=== PATIENT | female | born 1970 | race Two or more races ===

== ENCOUNTER 2020-07-02 11:02 | Emergency (ER) | payer OTHER, SELFPAY ==
[2020-07-02] VITALS (10 sets, daily range): BP systolic 122–160; BP diastolic 65–100; PULSE 67–88; RESP 15–20; TEMP 36.6–36.9; O2SAT 96–98; BMI 36.3
--- NOTE | 2020-07-02 11:35 | ED.EXTPRO ---
HPI - Extremity Problem General Chief complaint: Extremity Problem Stated complaint: UNABLE TO AMBULATE,NO INJURIES Time Seen by Provider: 07/02/20 11:30 Source: patient, EMS and tree feller Mode of arrival: EMS Limitations: no limitations History of Present Illness HPI Narrative: This is a 50-year-old female with history of bilateral femoral/tibial osteotomies, due to congental deformity of lower extermities the orthopedic surgical repair was done at [facility], reportedly by the patient will require another surgery for hip and knee replacement, patient was discharged postoperatively went to a rehab place where reportedly she did well I was able to walk patient was discharged home yesterday today as bur [facility] patient having difficulty to ambulate. Related Data Previous Rx's Medication Instructions Recorded nabumetone 750 mg tablet 750 mg PO BID PRN 90 Days #180 tab 02/06/20 Allergies Allergy/AdvReac Type Severity Reaction Status Date / Time No Known Allergies Allergy Verified 03/11/20 10:09 Review of Systems Review of Systems: All other systems are reviewed and are negative Constitutional: Reports as per HPI and Reports no additional constitutional complaints Eyes: Reports as per HPI and Reports no additional eye complaints Reports system reviewed and no additional complaints, except as documented Cardiovascular: Reports as per HPI and Reports no additional cardiovascular complaints Respiratory: Reports as per HPI and Reports no additional respiratory complaints Gastrointestinal: Reports as per HPI and Reports no additional gastrointestinal complaints Genitourinary: Reports no additional female genitourinary complaints Musculoskeletal: Reports no additional musculoskeletal complaints Skin/Breast: Reports system reviewed and no additional complaints, except as docu Psychiatric: Reports no additional psychiatric complaints Endocrine: Reports no additional endocrine complaints Hematologic/Lymphatic: Reports no additional hematologic/lymphatic complaints Allergic/Immunologic: Reports no additional allergic/immunologic complaints Reports system reviewed and no additional complaints, except as documented and Reports Abnormal speech present [facility] Past Medical History Surgical History History of orthopedic surgery History of tubal ligation Family History Family History Father Medical history unknown Mother CVD (cardiovascular disease) Maternal Aunt CVD (cardiovascular disease) Family/Other FH: mental illness Social History Social History Alcohol intake: never Smoking Status: Never smoker Use of substances other than those prescribed or required for medical reasons: No Advance Directives: No Advance Directives Information Provided: No Physical Exam Vital Signs: Vital Signs: Last Vital Signs Temp 98.5 F 07/02/20 14:08 Pulse 80 07/02/20 14:08 Resp 16 07/02/20 14:08 BP 140/83 H 07/02/20 14:08 Pulse Ox 97 07/02/20 14:08 Body Mass Index 36.3 Vital signs have been reviewed as appeared to be correct. Blood pressure in the high range. Heart rate normal. Respiration rate normal. Temperature normal. Oxygen saturation normal. Appearance: Alert. Oriented X3. No acute distress. Head: Normal external exam. Normocephalic. Atraumatic. No Buitrago signs noted. No raccoon eyes noted Eyes: PERRLA. EOMI. Conjunctiva and sclera normal. Eyelids normal. ENT: TM's Normal. Pharynx normal. Uvula midline. Moist mucous membranes. No trismus noted. No drooling noted. No muffled voice noted. Neck: Normal inspection. Neck supple. FROM. No adenopathy. Thyroid Normal. No meningeal signs. No neck mass noted. CVS: Normal heart rate and rhythm. Heart sound normal. No murmurs noted. Pulses normal throughout. Respiratory: No respiratory distress. Painless inspiration. Breath sounds normal. No wheezes/rales/rhonchi noted. Chest nontender. No accessory muscle usage noted or decreased air movement noted. Abdomen: Soft and nontender. Bowel sounds normal in all 4 quadrants. No distention noted. No organomegaly noted. No visible injury noted. Back: No CVA tenderness. Full range of motion noted. Skin: Skin warm and dry. Normal skin color. Normal skin turgor. No rashes/lesions/lacerations noted. Extremities: No lower extremity edema. Extremities exhibit normal range of motion. Extremities nontender. Surgical incision appear dry and clean and intact. Neuro: Oriented X 3. No motor deficit. No sensory deficit. Reflexes normal. Course Course Course Narrative: Physician observation started at 11 30 . Patient placed in physician observation because the patient needed more time to see PT/case management for evaluation and the need for placement patient's vital sign were stable, patient is alert and oriented , neuro exam unchanged, unremarkable rest of physical exam. MDM - Extremity (Nontraumatic) Lab Data Labs: Lab Results 07/02/20 Range/Units 11:45 COVID-19 (AMINTA) Negative (Negative) COVID-19 Clin Com See Note Discharge Plan Discharge Clinical Impression: Unable to ambulate, Status post osteotomy Prescriptions: No Action nabumetone 750 mg tablet 750 mg PO BID PRN (Reason: pain) 90 Days Qty: 180 RF: 3
[2020-07-02 12:08] LABS: COVID-19 Test Negative (Negative)
--- NOTE | 2020-07-02 14:15 | PC.NURSE ---
pt alert and oriented x3. lung sounds clear bilaterally, respiratory rate is even and effort is unlabored. heart sounds and rate normal. pt eye contact and verbal response appropriate for setting. pt speaks Occitan, able to speak in full sentences. PT at bedside to eval patient mobility. pt recently had corrective operation on both legs to fix deformities. pedal pulses present in feet bilaterally. no edema noted in legs or feet bilaterally. no skin breakdown, no discoloration, no deformities noted on legs or feet bilaterally. pt states she has 8/10 pain starting in both hips that radiates down to her feet. pt aware of plan of care for transfer to acute rehab facility. call garduno in reach
--- NOTE | 2020-07-02 14:17 | MHC.CM.ED ---
Received telephone call from Han[facility] of [facility] prior to patient arriving. Patient was discharged from [facility] on Monday. When [facility] arrived today, she was unable to get out of bed. She is not safe at home at this time. She was sent to the ER. Patient does not want to return to [facility]. Met with patient and principal solutions architect. Patient is requesting referral to [facility]. Referral made via allscripts. They are requesting an occupational therapy eval. OT eval ordered by Dr Jones. List of nursing home facilities contracted patient's insurance provided from [facility] in case [facility] is not able to offer a bed. Continue to monitor for d/c needs.
[2020-07-02] MEDS: oxyCODONE HCl Immed Release 5 MG TABLET PO (14:41)
--- NOTE | 2020-07-02 17:13 | PC.NURSE ---
xlg amount of absolutely liquid diarrhea noted, mlp frantz aware now new orders at this time. pt cleansed hob up.
[2020-07-03] MEDS: oxyCODONE HCl Immed Release 5 MG TABLET PO ×3 (00:10→13:30)
--- NOTE | 2020-07-03 00:36 | PC.NURSE ---
PT MEDICATED W/PRN FOR BILATERAL LEG PAIN. WAS TRANSFERRED TO A HOSPITAL BED FOR COMFORT D/T LACK OF MOBILITY. PLAN OF CARE FOR CM PLACEMENT IN THE MORNING. PT ARRIVED HERE FROM [facility], AND DOES NOT WANT TO R/T TO THAT FACILITY.
[2020-07-03 02:00] VITALS: BP 110/70; PULSE 81; RESP 20; TEMP 37.2; O2SAT 96
--- NOTE | 2020-07-03 07:09 | PC.NURSE ---
report taken from beka rn. pt resting in bed at this time. resp even and unlabored. pt repositioned to back. denied having any pain at this time. aware of plan of care.
--- NOTE | 2020-07-03 08:32 | PC.NURSE ---
doubled sheet removed from bed, pt repositioned. pt eating breakfast at this time.
[2020-07-03 13:33] VITALS: BP 133/78; PULSE 85; RESP 16; TEMP 36.4; O2SAT 95
[2020-07-03 14:32] VITALS: RESP 18
[2020-07-03 16:10] VITALS: BP 134/89; PULSE 90
[2020-07-03] MEDS: Metoprolol Succinate ER 50 MG TAB.ER.24H PO (16:10)
[2020-07-03] MEDS: Cholecalciferol (Vitamin D3) 25 MCG TABLET PO (16:10)
[2020-07-03] MEDS: Gabapentin 300 MG CAPSULE PO ×2 (16:11→21:04)
[2020-07-03] MEDS: Omeprazole 20 MG CAPSULE.DR PO (16:11)
[2020-07-03] MEDS: Rivaroxaban 10 MG TABLET PO (16:38)
--- NOTE | 2020-07-03 18:54 | MHC.CM.ED ---
CM received a call from [facility] at 1710 stating that they have not received authorization yet and were going home for the day. Will reassess in am for auth, Hopeful that pt. will be able go to [facility] tomorrow 07/04. CM to monitor for d/c needs.
--- NOTE | 2020-07-03 18:56 | MHC.CM.ED ---
CM received a call from Cindy at [facility] ([phone]) who tells CM that they have approved pt to go to [facility]. Cindy states she left a message with [employer]. CM reached out to [facility] via [employer] with no reponse at this time ([phone]). Expect pt will remain in the ED tonight and will go to [facility] via BLS tomorrow 07/04. CM to follow for d/c needs.
[2020-07-03] MEDS: Calcium + Vitamin D 250 MG TABLET PO (21:04)
[2020-07-03] MEDS: Sennosides 8.6 MG TABLET 17.2 MG PO (21:04)
[2020-07-03] MEDS: Docusate Sodium 100 MG CAPSULE PO (21:04)
[2020-07-03 22:00] VITALS: RESP 18
[2020-07-04] MEDS: oxyCODONE HCl Immed Release 5 MG TABLET PO (03:38)
[2020-07-04 06:00] VITALS: PULSE 70; RESP 18
[2020-07-04] MEDS: Omeprazole 20 MG CAPSULE.DR PO (06:37)
--- NOTE | 2020-07-04 06:55 | PC.NURSE ---
RECEIVED REPORT FROM ROSAMARIA HARTLEY PT IS CURRENTLY ASLEEP RESPIRATIONS EVEN AND UNLABORED. BREAKFAST JOSE CARLOS AT BEDSIDE
[2020-07-04] MEDS: Calcium + Vitamin D 250 MG TABLET PO (08:21)
[2020-07-04 08:22] VITALS: BP 106/61; PULSE 84
[2020-07-04] MEDS: Escitalopram Oxalate 10 MG TABLET PO (08:22)
[2020-07-04] MEDS: Docusate Sodium 100 MG CAPSULE PO (08:22)
[2020-07-04] MEDS: Cholecalciferol (Vitamin D3) 25 MCG TABLET PO (08:22)
[2020-07-04] MEDS: Sennosides 8.6 MG TABLET 17.2 MG PO (08:22)
[2020-07-04] MEDS: Rivaroxaban 10 MG TABLET PO (08:22)
[2020-07-04] MEDS: Gabapentin 300 MG CAPSULE PO (08:22)
[2020-07-04] MEDS: Metoprolol Succinate ER 50 MG TAB.ER.24H PO (08:22)
[2020-07-04] MEDS: polyethylene glycoL 3350 17 GM POWD.PACK PO (08:23)
[2020-07-04 08:26] VITALS: BP 106/61; PULSE 84; RESP 18; O2SAT 98
--- NOTE | 2020-07-04 08:58 | MHC.CM.ED ---
pt has been accepted at [facility]. she will [facility] at 11 am. . and rn are aware of dc plan. pt was told she would have to bring two of her home meds c her to [facility]: methocarbamol and sumatriptane, an cement side laster was used. cm to cont. to follow.
--- NOTE | 2020-07-04 10:13 | PC.NURSE ---
report given to bernarda silverman at [facility]
== END 2020-07-04 11:40 | disposition skilled nursing facility (03) ==
PROVIDERS: Emergency Provider Emergency Medicine; PCP Internal Medicine
DX: R26.2 Difficulty in walking, not elsewhere classified (principal); Q68.2 Congenital deformity of knee; Z98.890 Other specified postprocedural states; Z20.822 Contact with and (suspected) exposure to COVID-19
CPT/HCPCS: 36415; 87635; 97162; 97166; 99284; 99285

== ENCOUNTER 2022-01-18 12:05 | Outpatient (REF) | payer OTHER, SELFPAY ==
[2022-01-18 12:34] LABS: MANUAL DIFF FLAG NO
[2022-01-18 13:15] LABS: Basophils Percent Auto 0.4 % (0-2); Eosinophils Absolute Auto 0.1 X10*3/uL (0.0-0.4); Eosinophils Percent Auto 2.1 % (0-4); Hematocrit 45.2 % (37.0-47.0); Hemoglobin 14.2 g/dl (12.0-16.0); Imm Gran Abs Auto 0.01 X10*3/uL (0.00-0.03); Imm Gran Pct Auto 0.2 % (0.0-0.4); Lymphocytes Absolute Auto 2.1 X10*3/uL (1.2-4.9); Lymphocytes Percent Auto 44.4 % (20-40); Mean Corpuscular HGB Conc 31.4 g/dl (31.0-35.0); Mean Corpuscular Hemoglobin 26.1 pg (27.0-33.0); Mean Corpuscular Volume 82.9 fL (80.0-98.0); Mean Platelet Volume 11.8 fL (9.4-12.3); Monocytes Absolute Auto 0.3 X10*3/uL (0.1-1.2); Monocytes Percent Auto 6.1 % (2-11); Neutrophils Absolute Auto 2.2 x10*3/uL (2.0-8.3); Neutrophils Percent Auto 46.8 % (45-73); Platelet Count 268 X10*3/uL (160-400); Red Blood Count 5.45 X10*6/uL (4.20-5.50); Red Cell Distribution Width 15.9 % (11.0-16.0); White Blood Count 4.8 X10*3/uL (4.8-10.8)
[2022-01-18 13:53] LABS: Alanine Aminotransferase 21 U/L (0-31); Albumin Level 4.6 g/dL (3.5-5.0); Alkaline Phosphatase 179 U/L (39-117); Anion Gap 20 (12-20); Aspartate Amino Transferase 23 U/L (5-31); Bilirubin Total 0.2 mg/dL (0.0-1.0); Blood Urea Nitrogen 14 mg/dL (9-16); Calcium 9.7 mg/dL (8.4-10.2); Carbon Dioxide 19 mmol/L (22-29); Chloride 103 mmol/L (96-108); Cholesterol 236 mg/dL; Estimated Glomerular Filt Rate > 60; Glucose Fasting 80 mg/dL (60-99); HDL Cholesterol 37 mg/dL; LDL Cholesterol Calculated 154 mg/dl; Potassium 4.9 mmol/L (3.3-5.1); Sodium 137 mmol/L (135-145); Total Protein 8.2 g/dL (6.5-8.0); Triglycerides 225 mg/dL
[2022-01-18 14:09] LABS: Thyroid Stimulating Hormone 0.89 uIU/mL (0.32-4.0); Vitamin D 25-OH Total 39.8 ng/mL (>30)
[2022-01-24 09:34] LABS: Codeine, Ur NEGATIVE; Hydrocodone, Ur NEGATIVE; Hydromorphone, Ur NEGATIVE; Morphine, Ur NEGATIVE; Norhydrocodone, Ur NEGATIVE; Noroxycodone, Ur NEGATIVE; Oxycodone, Ur NEGATIVE; Oxymorphone, Ur NEGATIVE
== END 2022-01-18 12:06 | disposition home or self-care (01) ==
LOC: HO.LAB 12:05
PROVIDERS: PCP Internal Medicine; Visit Provider Internal Medicine
DX: E55.9 Vitamin D deficiency, unspecified (principal); K59.01 Slow transit constipation; M48.061 Spinal stenosis, lumbar region without neurogenic claudication; I10 Essential (primary) hypertension; Z51.81 Encounter for therapeutic drug level monitoring
CPT/HCPCS: 80053; 80061; 80364; 80365; 82306; 84443; 85025

== ENCOUNTER 2022-07-18 14:44 | Outpatient (REF) | payer OTHER, SELFPAY ==
--- NOTE | ~2022-07-18 | MM_ITS ---
EXAMINATION: MM SCREENING DIGITAL BREAST TOMOSYNTHESIS, BILATERAL CLINICAL INFORMATION: Screening. Asymptomatic. The lifetime risk of breast cancer based on the Tyrer-Cuzick Model is 6%. COMPARISON: Mammography: 12/21/2018 (2D), 12/19/2017, 12/02/2016 TECHNIQUE: Digital breast tomosynthesis is performed in both the craniocaudal and mediolateral oblique views along with computer-aided detection (CAD). Synthesized 2D images are generated from the tomosynthesis. The additional bilateral exaggerated CC views are provided. FINDINGS: The breasts are heterogeneously dense, which may obscure small masses (ACR BI-RADS breast composition Category c). Breast tissue composition borders on average fibroglandular. There are scattered punctate round calcifications in both breasts, more numerous on the right, similar to prior exams. No interval abnormal calcifications. The bilateral axilla and skin contours are unremarkable. Right breast has small stable nodule posterior upper breast likely intramammary node. There is no developing density or architectural abnormality. Left breast has bilobed versus 2 adjacent oval nodules central 6:00 position overall size 1 cm in greatest dimension not seen with certainty on prior tomography 2018. There is also an asymmetric density mid medial left breast on CC view 7.5 cm from nipple with incompletely defined margins measuring under 1 cm. No MLO correlate. Patient will be recalled for additional imaging. MM/MM tomosynthesis screening BI IMPRESSION: Left: -Bilobed nodule central 6:00, possibly cyst. -Asymmetric density mid medial breast on CC view with incompletely defined margins. Right: -No significant changes from prior exams. ASSESSMENT: BI-RADS 0: Incomplete - Need Additional Imaging Evaluation RECOMMENDATION: 1. Additional views left breast (spot CC - both areas; LM). 2. Targeted ultrasound left breast. 3. Radiology department staff will contact the patient for additional imaging. This patient's information was entered into a reminder system with a target due date for their next mammogram.
== END 2022-07-18 14:45 | disposition home or self-care (01) ==
LOC: HO.MAMMO 14:44
PROVIDERS: PCP Internal Medicine; Visit Provider Internal Medicine
DX: Z12.31 Encounter for screening mammogram for malignant neoplasm of breast (principal)
CPT/HCPCS: 77063; 77067

== ENCOUNTER 2022-08-10 12:56 | Outpatient (REF) | payer OTHER, SELFPAY ==
--- NOTE | ~2022-08-10 | MM_ITS ---
EXAMINATION: MM DIAGNOSTIC DIGITAL BREAST TOMOSYNTHESIS, LEFT CLINICAL INFORMATION: Recall from screening for question of nodularity central left breast and medial left breast. COMPARISON: Mammography: 07/18/2022, 12/21/2018, 12/19/2017 TECHNIQUE: Digital breast tomosynthesis is performed. 2D images are generated from the tomosynthesis. The following views are obtained: Spot left CC x2, standard left ML FINDINGS: The breasts are heterogeneously dense, which may obscure small masses (ACR BI-RADS breast composition Category c). The additional views show no persistent nodularity in the areas for recall. There is no significant change in the mammographic pattern from prior studies dating back to 2018. Results are discussed with the patient at time of visit, using an vice president of procurement. MM/MM tomosynthesis added views L IMPRESSION: -Additional views show no persistent nodular asymmetry. No significant changes from prior exams. ASSESSMENT: BI-RADS 2: Benign RECOMMENDATION: Routine annual mammography screening. This patient's information was entered into a reminder system with a target due date for their next mammogram.
== END 2022-08-10 12:57 | disposition home or self-care (01) ==
LOC: HO.MAMMO 12:56
PROVIDERS: PCP Internal Medicine; Visit Provider Internal Medicine
DX: N64.89 Other specified disorders of breast (principal)
CPT/HCPCS: 77061; 77065

== ENCOUNTER 2022-09-14 13:25 | Outpatient (REF) | payer OTHER, SELFPAY ==
[2022-09-15 03:30] LABS: CT PCR NOT DETECTED (Not Detect.); NG PCR NOT DETECTED (Not Detect.)
[2022-09-15 13:40] LABS: BV Int Neg Control Negative (Negative); BV Int Pos Control Positive (Positive)
[2022-09-20 09:44] LABS: HPV mRNA E6/E7 rflx Not Detected (Not Detected)
== END 2022-09-14 13:26 | disposition home or self-care (01) ==
LOC: HO.LNP 13:25
PROVIDERS: PCP Internal Medicine; Visit Provider Advanced Practice Midwife
DX: Z01.419 Encounter for gynecological examination (general) (routine) without abnormal findings (principal); Z11.51 Encounter for screening for human papillomavirus (HPV)
CPT/HCPCS: 0353U; 87480; 87510; 87624; 87660; 88142

== ENCOUNTER 2022-10-10 15:01 | Outpatient (REF) | payer OTHER, SELFPAY | END 2022-10-10 15:02 | disposition home or self-care (01) | LOC: HO.US 15:01 | PROVIDERS: PCP Internal Medicine; Visit Provider Advanced Practice Midwife | DX: N85.2 Hypertrophy of uterus (principal); N31.9 Neuromuscular dysfunction of bladder, unspecified; K59.01 Slow transit constipation; Z74.09 Other reduced mobility; Z99.3 Dependence on wheelchair; Z12.4 Encounter for screening for malignant neoplasm of cervix | CPT/HCPCS: 76856 ==

== ENCOUNTER 2022-10-31 10:34 | Outpatient (AMB) | payer OTHER, SELFPAY ==
--- NOTE | 2022-10-31 10:35 | A.OFFVIS_ITS ---
Intake Intake Visit Reasons: TV US follow up/30 min ok per [place] Dough Sheeter Required: Yes Dough Sheeter Language: Citizen [place] Allergies No Known Allergies Allergy (Verified 10/31/22 10:35) Medication List - Last Reconciled 10/31/22 by Zena Rose CNM acetaminophen 1,000 mg (2 x 500 mg) PO Q6H PRN 30 days [adult diapers brief As directed] amlodipine 2.5 mg PO DAILY 90 days bisacodyl (Dulcolax (bisacodyl)) 10 mg (2 x 5 mg) PO ONCE 1 day blood pressure monitor As directed calcium carbonate-vitamin D3 600 mg-5 mcg (200 unit) 1 tab PO BID cholecalciferol (vitamin D3) 25 mcg PO DAILY 90 days citalopram 20 mg PO DAILY 90 days [DME mattress As directed] docusate calcium (Stool Softener (docusate calcium)) 240 mg PO BEDTIME PRN 90 days gabapentin 300 mg PO TID 30 days lisinopril 40 mg PO DAILY 90 days metoprolol succinate ER 50 mg PO DAILY peg 3350-electrolytes [id number] -5.86 gram 240 mL PO Q10M psyllium husk (with sugar) 3.4 gram/12 gram (Metamucil (with sugar)) 1 tbsp PO DAILY tizanidine 4 mg PO Q8H PRN 30 days trazodone 100 mg PO BEDTIME PRN 90 days [wipes As directed] Is last menstrual period known: No Post menopausal: Yes HPI TV US follow up/30 min ok per [place] HPI Details Please see HPI comments for background on this visit and compilation of previous issues. Patient says she is doing a little bit better today she is still struggling with the constipation sometimes not going for 3 or 4 days and it is very difficult the medication I gave her the Metamucil even if she takes it once or twice a day is not helping her very much and also her primary doctor prescribed Dulcolax suppositories which can be helpful but she is hoping for some more relief so she it is not so difficult she says she is voiding more regularly. 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 She also feels like she would benefit from having an electric wheelchair but she has not been able to maneuver the healthcare system to acquire 1 yet. She does have a visiting nurse that come see her and helps with medications. She also has a colonoscopy scheduled for November 17 to see if there is any pathology. Note visit was conducted in [place] via video call. Patient was being visited by her daughter and grandchild of 18 months. Note she appeared much more alert today and we did discuss that she does note the difference of the effects of the medications that she takes sometimes for pain on her alertness. HPI Comments History of Present Illness Details This is a tele visit to follow-up on patient's ultrasound that was done because of the inability to palpate organs well and because her firm abdomen during the exam lead to some questions it was too whether not there was any pathology. Patient had extreme immobility secondary to multiple surgeries and scarring in atrophy and debilitation. In addition she had fairly severe constipation, as well as inability to void on a regular basis. See previous notes. Metamucil or MiraLax was offered at the last visit with me and her primary care provider has also prescribed Dulcolax for her much more recently.. [facility] Medical History Back pain Chronic GERD Constipation by delayed colonic transit Depression with anxiety Essential hypertension Hypovitaminosis D Insomnia Lumbar degenerative disc disease Mild recurrent major depression Surgical History History of back surgery History of orthopedic surgery History of surgery on lower extremity History of tubal ligation Family History Father Medical history unknown Mother CVD (cardiovascular disease) Maternal Aunt CVD (cardiovascular disease) Family/Other FH: mental illness Social History Housing: Apartment Alcohol intake: never Patient Tobacco Use Status: Never used Tobacco e-Cigarette/Vaping Use: Never Used Second Hand Smoke Exposure: No Advance Directives Date on File: 07/02/20 service: No Current occupational status: unemployed Cognitive needs: Yes Hearing needs: No Vision needs: No Results Reviewed Results Reviewed: [address] [address] Ultrasound Report Signed Patient: Jannet [place] MR#: [id number] : 1970 Acct:[id number] Age/Sex: 52 / F ADM Date: 10/10/22 Loc: HO.US Attending Dr: Zena Rose CNM Ordering Physician: Zena Rose CNM Date of Service: 10/10/22 Procedure(s): US pelvic complete Accession Number(s): [id number] cc: Zena Rose CNM~ EXAMINATION:? US PELVIS CLINICAL INFORMATION:? Hypertrophy of the uterus Postmenopausal COMPARISON: CT scan 12/21/2016 TECHNIQUE: Ultrasound of the pelvis is performed using transabdominal imaging. Transvaginal scanning was not performed, the patient was in a wheelchair. FINDINGS: Uterus: The uterus is anteverted and measures 7.4 x 3.2 x 3.9 cm.? The double wall endometrial thickness is 9 mm.? The uterus is smooth in contour and has normal myometrial echogenicity. ? No visible fibroid. Adnexa: Both ovaries are visualized. There is normal color flow to the adnexa. There is no ovarian torsion.? There is no pelvic ascites or fluid collection. Right ovary measures 1.9 x 1.5 x 1.9 cm. 2.9 Left ovary measures 2.4 x 1.4 x 1.6 cm. 2.8 US/US pelvic complete IMPRESSION: Normal pelvic ultrasound. Dictated By: Anne Marie Velez MD Signed By: <Electronically signed by Anne Marie Velez MD in OV> 10/17/22 1355 DD/ 1532 TD/TT:? Open Source Developer: ------ -- ___------- Name:?Jannet [place] Age/Sex: 52/F Attending: Zena Rose CNM : 1970 Submitted by: Zena Rose CNM Copies to: Bambi Langley MD MR #: [id number] ? Status: DEP REF Collected: 09/14/22 Location: [facility] Received: 09/15/22 Interpretation Satisfactory for evaluation. No endocervical cells seen. Negative for intraepithelial lesion or malignancy. HPV mRNA E6/E7:? NOT DETECTED This assay detects E6/E7 viral messenger RNA (mRNA) from 14 high-risk HPV types (16, 18, 31, 33, 35, 39, 45, 51, 52, 56, 58, 59, 66, 68) HPV testing performed by [employer] [facility], [place], [place].? See reference laboratory portion of the EMR for entire report. Clinical Information LMP: Postmenopausal Previous PAP test: 2014, Unknown findings Material Received ThinPrep-Cervical Copies To ?? [facility] ?? [address] ?? [place] [address] ?? [phone] ?? Bambi Langley MD ?? [address] ?? [place] ?? [phone] Electronically Signed By: Ondina Levi ? 09/30/22 1546 The Pap Test is a screening procedure with the inherent possibility of both false negative and false positive results.? Results should be interpreted in the context of historic and current clinical findings.? Reliability of the Pap Test is enhanced by performing the test on a regular repetitive basis. Assessment & Plan Assessment & Plan (1) Neurogenic bladder: Comment: Diagnosis was noted in the [facility] note of August 2022 Code(s): N31.9 - Neuromuscular dysfunction of bladder, unspecified (2) Limited mobility: Code(s): Z74.09 - Other reduced mobility (3) Wheelchair dependent: Code(s): Z99.3 - Dependence on wheelchair (4) Screening for cervical cancer: Comment: 09/14/2022 Pap is negative with negative HPV\. Code(s): Z12.4 - Encounter for screening for malignant neoplasm of cervix Plan I reviewed her very normal ultrasound and her very normal Pap. If it is possible to do a Pap she would be due for the next 1 in 5 years. Given that she has never had an abnormal 1 and if it is extremely challenging and she is completely immobile it may not be possible to repeat but at least she is very happy that this 1 was normal. I wished her well with and I supported her efforts to try and advocate for herself for what ever she may need to help her with her health needs and that if there is a better solution that can be found via the discussion and investigation of gastrointestinal function that would help her not suffer so much that would be beneficial she did assure me that she feels she is voiding regularly at this point she says she manages transferring herself from the chair to the toilet but it is very difficult. I was very glad to hear that she is going to physical therapy and encouraged her to advocate for herself but what she needs and what she thinks would be helpful for her with e very healthcare provider she encounters and hopefully that she will be getting what she needs to meet her healthcare needs. She was very happy to hear that she has a very normal ultrasound and there was absolutely no pathology found whatsoever. We spent a total of 15 minutes on the video visit, with additional time reviewing the chart and previous visits and previous healthcare encounters. Telehealth Telehealth Location of provider rendering services: practice address Location of patient: address on file Patient Identification confirmed using: Name, : Yes Telehealth method: voice only Patient verbally consented to treatment: Yes Patient verbally consented to billing insurance company: Yes Patient informed of any privacy concerns related to visit: Yes Coding Level of Care Code Tele Est Pt Level 3 (10586) Diagnoses Neurogenic bladder N31.9 Limited mobility Z74.09 Wheelchair dependent Z99.3 Screening for cervical cancer Z12.4 Time Spent (min) 30 Comment 6cr/15video visit/9 charting
== END 2022-10-31 12:52 | disposition home or self-care (01) ==
LOC: HO.HWS 10:34
PROVIDERS: PCP Internal Medicine; Visit Provider Advanced Practice Midwife
DX: N31.9 Neuromuscular dysfunction of bladder, unspecified (principal); Z74.09 Other reduced mobility; Z99.3 Dependence on wheelchair
CPT/HCPCS: 99213

== ENCOUNTER → 2022-10-31 10:34 | Outpatient (BNVA) | payer OTHER, SELFPAY | PROVIDERS: PCP Internal Medicine; Visit Provider Advanced Practice Midwife ==

== ENCOUNTER 2022-11-01 15:00 | Outpatient (RCR) | payer OTHER, SELFPAY ==
--- NOTE | 2022-10-12 13:57 | MHC.PT.EP ---
[facility] [place] Office [place] Office [place] Office [address] [phone] F: [phone] F: [phone] F: [phone] F: [phone] Physical Therapy Plan of Care Date of Evaluation: Date of Surgery: 1-3 years Diagnosis: Pain in right leg Pain in left leg Pain in right foot Bilateral leg and foot pain Assessment: Pt is a very pleasant 52yo F who presents to PT with B LE pain. Per chart, pt has history of bilateral femoral/tibial osteotomies ~3 years ago. Pt presents to PT with current impairments in pain, decreased LE ROM, generalized weakness of B LE's, decreased balance, and impaired transfers and gait. She is limited functionally by LE movement, transfers, gait, and mobility. She is a good candidate for skilled PT in order to address current impairments to maximize function and management of symptoms. She is recommended to be seen 2x/week for 4 weeks and will be reassessed at that time. Frequency and Duration: The patient will be seen 2x/week for 4 weeks Short Term Goals: Pt will be I with HEP to promote self management of symptoms Pt will improve B quad strength by 1/2 grade Detention Goals: Pt will demonstrate ability to perform stand pivot transfer with RW with S without knee buckling Pt will improve B quad strength to at least 4-/5 to assist with transfers Pt will ambulate 1x~20' with RW with cl S/S on multidirectional path to assist with household ambulation Treatment Plan: Modalities to reduce pain, spasms and effusion. Manual therapy to restore motion and function. Therapeutic exercise to improve strength and flexibility. Neuromuscular re-education for posture and balance. Therapeutic activities to return to functional activities of daily living. Electronically signed by: Fany Mrieles PT, DPT Please sign and return to therapist. Thank you for your referral.
--- NOTE | 2022-11-25 10:57 | MHC.PT.DC ---
[facility] [place] [facility] [place] [facility] [place] [facility] [address] Gurpreet Govea 140 [facility] [phone] F: [phone] F: [phone] F: [phone] F: [phone] Physical Therapy Discharge Report Diagnosis: Pain in right leg Pain in left leg Pain in right foot Bilateral leg and foot pain Date of Surgery: 1-3 years Date of Evaluation: 10/10/22 Date of Discharge: 11/25/22 Treatments to Date: 4 Cancellations to Date: 1 No Shows to Date: Discharge Status: Patient Elected to Stop Discharge Summary: Pt was seen for PT from 10/10/22-11/01/22. Her last attended appointment was 11/01/22. She called on 11/03/22 requesting to self D/C from skilled PT reporting she feels the same. Pt is being D/C from skilled PT per her request. Pt current level of function unknown at this time. Electronically signed by: Fany Mireles, PT, DPT Please sign and return to therapist. Thank you for your referral.
== END 2022-11-25 10:56 | disposition home or self-care (01) ==
LOC: HO.PT 15:00
PROVIDERS: PCP Internal Medicine; Visit Provider Internal Medicine
DX: M79.604 Pain in right leg (principal); M79.605 Pain in left leg; M79.671 Pain in right foot; M79.672 Pain in left foot
CPT/HCPCS: 97110; 97116; 97163; 97530

== ENCOUNTER 2022-12-07 12:50 | Day surgery (SDC) | payer OTHER, SELFPAY ==
--- NOTE | 2022-12-05 12:36 | P.CONAN_ITS ---
Documented by User: Marcia Faulkner NP 12/05/22 12:36 HPI - Anesthesia Eval Consult details Narrative: 52yo F for Colonoscopy PMFSH Active Problems Active Problems: All Active Problems (Updated 10/31/22 @ 10:52 by Zena Rose CNM) Hypertrophy of uterus (Acute) Neurogenic bladder (Acute) Limited mobility (Acute) Wheelchair dependent (Acute) Bilateral leg and foot pain (Acute) Cyst of left breast (Acute) Mild major depression (Acute) Screening for cervical cancer (Acute) Physical exam (Acute) Lumbar spinal stenosis (Acute) Skeletal dysplasia (Acute) Decrease in appetite (Acute) Dependent on walker for ambulation (Acute) Fixation hardware in leg (Acute) Urge urinary incontinence (Acute) Lumbar degenerative disc disease (Acute) Chronic GERD (Acute) Mild recurrent major depression (Acute) Back pain (Acute) Essential hypertension (Acute) Depression with anxiety (Acute) Constipation by delayed colonic transit (Acute) Hypovitaminosis D (Acute) Insomnia (Acute) Past Medical History Medical History Back pain Chronic GERD Constipation by delayed colonic transit Depression with anxiety Essential hypertension Hypovitaminosis D Insomnia Lumbar degenerative disc disease Mild recurrent major depression Family History Family History Father Medical history unknown Mother CVD (cardiovascular disease) Maternal Aunt CVD (cardiovascular disease) Family/Other FH: mental illness Surgical History Surgical History History of back surgery History of orthopedic surgery History of surgery on lower extremity History of tubal ligation Social History Social History Housing: Apartment Alcohol intake: never Patient Tobacco Use Status: Never used Tobacco e-Cigarette/Vaping Use: Never Used Second Hand Smoke Exposure: No Advance Directives: No Advance Directives Information Provided: Yes Advance Directives Date on File: 07/02/20 service: No Current occupational status: unemployed Cognitive needs: Yes Hearing needs: No Vision needs: No Meds Allergies Allergy/AdvReac Type Severity Reaction Status Date / Time No Known Allergies Allergy Verified 10/31/22 10:35 Exam Exam Date and Time: December 05, 2022 1236 Assessment and Plan Assessment Anesthesia Assessment: Chart Reviewed Documented by User: Cassia Lindsey MD 12/07/22 13:36 [facility] Past Medical History Medical History Back pain Chronic GERD Constipation by delayed colonic transit Depression with anxiety Essential hypertension Hypovitaminosis D Insomnia Lumbar degenerative disc disease Mild recurrent major depression Family History Family History Father Medical history unknown Mother CVD (cardiovascular disease) Maternal Aunt CVD (cardiovascular disease) Family/Other FH: mental illness Family history of problems with anesthesia: No Surgical History Surgical History History of back surgery History of orthopedic surgery History of surgery on lower extremity History of tubal ligation History of Problems with Anesthesia: No Social History Social History Housing: Apartment Alcohol intake: never Patient Tobacco Use Status: Never used Tobacco e-Cigarette/Vaping Use: Never Used Second Hand Smoke Exposure: No Advance Directives: No Advance Directives Information Provided: Yes Advance Directives Date on File: 07/02/20 service: No Current occupational status: unemployed Cognitive needs: Yes Hearing needs: No Vision needs: No Meds Allergies Allergy/AdvReac Type Severity Reaction Status Date / Time No Known Allergies Allergy Verified 10/31/22 10:35 Exam Airway Mallampati Class: II TM Dist: >3cm Neck ROM: Full Partial: Upper Heart: rrr Lungs: cta Assessment and Plan Final Anesthetic Review Family History of Problems with Anesthesia: No History of Problems with Anesthesia: No NPO: Yes ASA Class: III Final Preanesthetic Review: No Changes in Pt Med Stat, Meds/Allgs Chart Reviewed and Consent Obtained/Reviewed Patient Risk: Intermediate Procedure Risk: Intermediate Anesthetic Plan Anesthetic Plan: MAC: Disposition: Standard PACU
[2022-12-07] MEDS: Lactated Ringers 1,000 ML 100 ML IVCONT (13:24)
--- NOTE | 2022-12-07 13:32 | MHC.SHP ---
Pre-Procedural Eval Section A Date of Service: 12/07/22 Section B Chief Complaint: Screening Relevant Family History (Specify if Yes): No Relevant Social History: None Present Medications: see Short Stay Collaborative assessment Medical History: Significant History (Back pain Chronic GERD Constipation by delayed colonic transit Depression with anxiety Essential hypertension Hypovitaminosis D Insomnia Lumbar degenerative disc disease Mild recurrent major depression) History of Previous Operations: Relevant previous surgery/procedure and date(s) (History of back surgery History of orthopedic surgery History of surgery on lower extremity History of tubal ligation) Allergies: Allergies Allergy/AdvReac Type Severity Reaction Status Date / Time No Known Allergies Allergy Verified 10/31/22 10:35 Review of Systems Sugical H&P ROS: Negative: Constitution, Cardiovascular, Respiratory, Neurological, Psychiatric, Hem-Onc, Allergic/Immunologic, Gastrointestinal, Genitourinary, Musculoskeletal, Integumentary, Endocrine and Eyes/Ears/Nose/Throat Exam Surgical H&P Exam: Normal: HEENT, Normal: Heart, Normal: Lungs, Normal: Extremities, Normal: Abdomen and Normal: Skin and Significant Findings: Neurological Plan Diagnosis/Plan: Unchanged I have reviewed the history and physical and performed a pertinent physical examination on my patient. No changes have occurred unless specified. Time Spent With Patient Time: Total time managing care of this patient today ____ minutes.
[2022-12-07 13:49] VITALS: BMI 37.0
[2022-12-07 13:54] VITALS: BP 174/91; PULSE 76; RESP 20; TEMP 37.1; O2SAT 96
[2022-12-07 14:00] VITALS: BMI 37.0
--- NOTE | 2022-12-07 14:31 | P.OP_ITS ---
Operative Note Operative Note Date of Service: 12/07/22 Narrative: Operative Information Procedure Description: Colonoscopy Indication: screening Anesthesia: MAC COLONOSCOPY Instrument: Olympus variable stiffness pediatric scope 190L Colonoscopy Monitoring: Vital signs and clinical assessment, continuous EKG monitoring, Pulse oximetry, Carbon Dioxide monitoring and blood pressure monitoring were done throughout the procedure. Colon withdrawal time was 13 minutes. Procedure: The patient was placed in the left lateral decubitis position and pre-procedure medications were administered. After a digital rectal examination of the ano-rectum, the video colonoscope was inserted into the rectum and advanced through the colon to the cecum/TI. The colonoscope was slowly withdrawn in a retrograde panoramic fashion and the colon mucosa was carefully examined including a retroflexed view of the rectum. Findings and interventions are described below. Procedure Difficulty: moderate, pressure applied Findings: Terminal Ileum-normal Cecum:normal Ascending Colon: normal Transverse Colon -normal Descending Colon:normal Sigmoid Colon: normal Rectum: Retroflexion with medium sized internal hemorrhoids, grade I Anorectum - normal Colon preparation: [place] Bowel Preparation Scale Right colon; 1-2 Transverse colon: 2 Left colon; 1-2 (0 = Unprepared colon segment with mucosa not seen due to solid stool that cannot be cleared. 1 = Portion of mucosa of the colon segment seen, but other areas of the colon segment not well seen due to staining, residual stool and/or opaque liquid. 2 = Minor amount of residual staining, small fragments of stool and/or opaque liquid, but mucosa of colon segment seen well. 3 = Entire mucosa of colon segment seen well with no residual staining, small fragments of stool or opaque liquid) Impression and Post Procedure Diagnosis: fair prep internal hemorrhoids Plan: High fiber diet leaflet Avoid straining at stool, epsom salts and sitz bath, anusol supps or cream Repeat Colonoscopy in 3-4 years due to fair prep or earlier if clinically indicated Above findings were reviewed with the patient and relevant handouts were provided if indicated.
[2022-12-07 14:34] VITALS: BP 134/69; PULSE 89; RESP 18; TEMP 36.4; O2SAT 96
[2022-12-07 14:49] VITALS: BP 139/94; PULSE 82; RESP 18; TEMP 36.6; O2SAT 97
== END 2022-12-07 15:40 | disposition home or self-care (01) ==
PROVIDERS: PCP Internal Medicine; Visit Provider Internal Medicine Gastroenterology
PROC: 0DJD8ZZ Inspection of Lower Intestinal Tract, Via Natural or Artificial Opening Endoscopic (ICD-10-PCS; CPT 45378; principal; 2022-12-07 13:40)
DX: Z12.11 Encounter for screening for malignant neoplasm of colon (principal); K64.0 First degree hemorrhoids; K59.01 Slow transit constipation; K21.9 Gastro-esophageal reflux disease without esophagitis; I10 Essential (primary) hypertension; E55.9 Vitamin D deficiency, unspecified; G47.00 Insomnia, unspecified; M51.36 Other intervertebral disc degeneration, lumbar region; F33.0 Major depressive disorder, recurrent, mild; F41.8 Other specified anxiety disorders; Z98.890 Other specified postprocedural states
CPT/HCPCS: 45378

== ENCOUNTER → 2022-12-07 12:50 | Outpatient (BNV) | payer OTHER, SELFPAY | PROVIDERS: PCP Internal Medicine; Visit Provider Internal Medicine Gastroenterology | DX: Z12.11 Encounter for screening for malignant neoplasm of colon (principal); K64.8 Other hemorrhoids | CPT/HCPCS: 45378 ==

== ENCOUNTER 2022-12-30 09:22 | Outpatient (AMB) | payer OTHER, SELFPAY ==
--- NOTE | 2022-12-30 09:38 | MHC.PC.OV ---
Vital Signs 12/30/22 09:39 Height 4 ft 8 in Weight 167 lb BMI 37.4 BP 124/72 Blood Pressure Location Rt brachial Position Sitting Pulse 85 Pulse Source Pulse Oximeter Pulse Oximetry (%) 98 Oxygen Delivery Method Room Air Intake Visit Reasons: 12/20/22, Fall , [facility] Intake Note: Patient is here for hospital discharge follow up. Patient was discharged from [facility] on 12/20/22. Ticket Chopper Assembler Required: Yes Ticket Chopper Assembler Language: Cable Testers Helper Name: Rimma Suresh Information Interpreted: non-clinical & clinical Environmental Services Manager: Present Accompanied by: pan devulcanizer helper Allergies No Known Allergies Allergy (Verified 12/30/22 10:10) Medication List - Last Reconciled 12/30/22 by THERON Jaramillo acetaminophen 1,000 mg (2 x 500 mg) PO Q6H PRN 30 days [adult diapers brief As directed] amlodipine 2.5 mg PO DAILY 90 days bisacodyl (Dulcolax (bisacodyl)) 10 mg (2 x 5 mg) PO ONCE 1 day blood pressure monitor As directed calcium carbonate-vitamin D3 600 mg-5 mcg (200 unit) 1 tab PO BID cholecalciferol (vitamin D3) 25 mcg PO DAILY 90 days citalopram 20 mg PO DAILY 90 days [DME mattress As directed] docusate calcium (Stool Softener (docusate calcium)) 240 mg PO BEDTIME PRN 90 days gabapentin 300 mg PO TID 30 days lisinopril 40 mg PO DAILY 90 days metoprolol succinate ER 50 mg PO DAILY oxycodone 5 mg PO BID PRN 30 days peg 3350-electrolytes [id number] -5.86 gram 240 mL PO Q10M tizanidine 4 mg PO Q8H PRN 30 days trazodone 100 mg PO BEDTIME PRN 90 days [wipes As directed] Tobacco use date assessed: 12/30/22 Dental Screening Dental Screen Date: 12/30/22 Did you have a dental visit in the last 12 months?: Yes Did you have a dental problem in the last 6 months where you did not have access to dental care?: No Was dental information given to patient?: Patient has dentist HPI HPI Comments History of Present Illness Details This is a 52-year-old female with hypertension, insomnia, skeletal dysplasia, lumbar spine stenosis and cord compression status post T8-T11 decompressive laminectomy and constipation. Patient of Dr. Willis presents today for hospital discharge follow up. Patient was seen at [facility] for [facility], CT negative for acute fracture or subluxation. Patient was treated IV morphine and discharged to [facility] for therapy, Patient states D/c on 12/20/22. Patient presents today with [employer]. Patient states she has [employer] 4 hours daily. Patient requesting to increase her [employer] services she only has them for 4 hours daily thus leaving her alone a lot of the times all her daughter is at work. 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 Patient requesting increase in [employer] services for 8 hours daily to assist her and bathing, dressing, cooking and cleaning. Patient utilizes Rayo lift to get up into her wheelchair, patient requesting a new pad for her machine to get her out of bed, will send prescription for the. Patient reports that she did lose her balance in the shower over the weekend however she did not seek emergency medical attention patient denies any loss of consciousness or head strike states she did have pain in the right leg and in her back but she did take her oxycodone some relief. [facility] Medical History Back pain Chronic GERD Constipation by delayed colonic transit Depression with anxiety Essential hypertension Hypovitaminosis D Insomnia Lumbar degenerative disc disease Mild recurrent major depression Surgical History History of surgery on lower extremity History of back surgery History of orthopedic surgery History of tubal ligation Family History Father Medical history unknown Mother CVD (cardiovascular disease) Maternal Aunt CVD (cardiovascular disease) Family/Other FH: mental illness Social History Housing: Apartment Alcohol intake: never Patient Tobacco Use Status: Never used Tobacco e-Cigarette/Vaping Use: Never Used Second Hand Smoke Exposure: No Advance Directives Date on File: 07/02/20 service: No Current occupational status: unemployed Cognitive needs: Yes (wheelchair) Hearing needs: No Vision needs: No Questionnaire Thrive Questionnaire Date Thrive assessed: 06/01/22 BRIAN-7 AMB Questionnaire BRIAN-7 Date BRIAN - 7 assessed: 06/01/22 Source: Developed by Drs. Pedro Kincaid, Jannie Sterling, Dieudonne Higginbotham and colleagues, with an educational melody from [employer]. Review of Systems Const Denies chills, Denies fatigue, Denies fever(s) and Denies poor appetite Eyes Denies no additional complaints ENT Reports Normal hearing present Card Denies chest pain, Denies syncope, Denies rapid heart rate and Denies dyspnea Resp Denies cough and Denies dyspnea GI Denies change in stool character, Denies constipation, Denies diarrhea, Denies nausea and Denies vomiting Denies urinary frequency, Denies dysuria and Denies urinary urgency Neuro Reports Normal hearing present, Denies confusion and Denies syncope Psych Denies confusion Endo Denies fatigue Physical exam (Primary Care) Vital Signs: Last Vital Signs Pulse 85 12/30/22 09:39 BP 124/72 12/30/22 09:39 Pulse Ox 98 12/30/22 09:39 Oxygen Delivery Method Room Air 12/30/22 09:39 BMI result Body Mass Index 37.4 Tobacco/Smoking Status: Tobacco use Status Tobacco use date assessed 12/30/22 12/30/22 09:53 Patient Tobacco Use Status Never used Tobacco 12/30/22 09:53 Tobacco use type 06/06/22 09:37 e-Cigarette/Vaping Use Never Used 12/30/22 09:53 Thrive Assessment: Date of Thrive Assessment Date Thrive assessed 06/01/22 12/30/22 09:53 Const General: No confusion Orientation/consciousness: No confusion HENMT Head: Yes normocephalic and Yes atraumatic Eyes Conjunctivae: conjunctivae normal Chest Chest palpation & inspection: normal inspection of the chest Resp Effort & Inspection: normal respiratory effort Auscultation: clear to auscultation bilaterally, no crackles, no rhonchi and no wheezes Cardio Rate: regular rate Rhythm: regular rhythm Heart sounds: S1 normal heart sound present and S2 normal heart sound present GI Inspection: Yes normal to inspection Neuro General: No confusion Cranial nerves: Yes Normal hearing present Extrem General: No edema Assessment and Plan Assessment & Plan (1) Constipation: Code(s): K59.00 - Constipation, unspecified Plan: Patient also reports difficulty having regular bowel movements will send MiraLax daily for this. (2) Lumbar degenerative disc disease: Code(s): M51.36 - Other intervertebral disc degeneration, lumbar region Plan: Continue on current pain regimen. (3) Essential hypertension: Code(s): I10 - Essential (primary) hypertension Plan: Continue on amlodipine 2.5 mg daily (4) Hospital discharge follow-up: Code(s): Z09 - Encounter for follow-up examination after completed treatment for conditions other than malignant neoplasm Medications: New miscellaneous medical supply 1 ea miscellaneous ONCE 1 ea 0RF M48.061 - Spinal stenosis, lumbar region without neurogenic claudication, Q78.9 - Osteochondrodysplasia, unspecified polyethylene glycol 3350 (Miralax) 17 grams PO DAILY 119 grams 0RF K59.00 - Constipation, unspecified Refilled [wipes] As directed 200 ea 6RF N39.41 - Urge incontinence [adult diapers brief] As directed 240 ea 6RF N39.41 - Urge incontinence Coding Level of Care Code Est Pt Level 4 (24509) Diagnoses Constipation K59.00 Lumbar degenerative disc disease M51.36 Essential hypertension I10 Hospital discharge follow-up Z09
[2022-12-30 09:39] VITALS: BP 124/72; PULSE 85; O2SAT 98; BMI 37.4
== END 2022-12-30 10:36 | disposition home or self-care (01) ==
PROVIDERS: PCP Internal Medicine; Visit Provider Nurse Practitioner Family
DX: K59.00 Constipation, unspecified (principal); M51.36 Other intervertebral disc degeneration, lumbar region; I10 Essential (primary) hypertension; Z09 Encounter for follow-up examination after completed treatment for conditions other than malignant neoplasm
CPT/HCPCS: 99214

== ENCOUNTER 2023-02-13 13:09 | Outpatient (AMB) | payer OTHER, SELFPAY ==
--- NOTE | 2023-02-13 13:11 | MHC.PC.OV ---
Vital Signs 02/13/23 13:12 Height 4 ft 8 in BMI Reason not done Patient refused/unable BP 132/88 Blood Pressure Location Lt brachial Position Sitting Pulse 80 Pulse Source Pulse Oximeter Pulse Oximetry (%) 99 Oxygen Delivery Method Room Air Intake Visit Reasons: Medication Follow Up Copper Flotation Operator Required: No Accompanied by: SECONDARY SPANISH TEACHER-Jatin Stevens Allergies No Known Allergies Allergy (Verified 02/13/23 13:25) Medication List - Last Reconciled 02/13/23 by Bambi Vizcaino MD acetaminophen 1,000 mg (2 x 500 mg) PO Q6H PRN 30 days [adult diapers brief As directed] amlodipine 2.5 mg PO DAILY 90 days bisacodyl (Dulcolax (bisacodyl)) 10 mg (2 x 5 mg) PO ONCE 1 day blood pressure monitor As directed calcium carbonate-vitamin D3 600 mg-5 mcg (200 unit) 1 tab PO BID cholecalciferol (vitamin D3) 25 mcg PO DAILY 90 days citalopram 20 mg PO DAILY 90 days [DME mattress As directed] docusate calcium (Stool Softener (docusate calcium)) 240 mg PO BEDTIME PRN 90 days [electric rayo lift As directed] gabapentin 300 mg PO TID 30 days [rayo lift As directed] lactulose 10 grams (15 mL) PO DAILY PRN 30 days lisinopril 40 mg PO DAILY 90 days metoprolol succinate ER 50 mg PO DAILY miscellaneous medical supply 1 ea miscellaneous ONCE oxycodone 5 mg PO BID PRN 30 days peg 3350-electrolytes [id number] -5.86 gram 240 mL PO Q10M polyethylene glycol 3350 (Miralax) 17 grams PO DAILY [sliding board As directed] tizanidine 4 mg PO Q8H PRN 30 days trazodone 100 mg PO BEDTIME PRN 90 days [wipes As directed] Tobacco use date assessed: 12/30/22 Dental Screening Dental Screen Date: 02/13/23 Did you have a dental visit in the last 12 months?: No Did you have a dental problem in the last 6 months where you did not have access to dental care?: No Was dental information given to patient?: Yes HPI HPI Comments History of Present Illness Details This is a 52-year-old female with mild major depression, constipation, skeletal dysplasia and hypertension that comes today accompanied by SECONDARY SPANISH TEACHER still complaining of back pain due to lumbar stenosis and lumbar degenerative disease present even with oxycodone. I do not want to increase the oxycodone due to her constipation. Depression has been stable with citalopram. Blood pressure stable with lisinopril and amlodipine. She is wheelchair dependent with limited mobility in her lower limbs after having orthopedic surgery few years ago. Patient has not been able to fully extend or flex her knees. Currently in physical therapy. Has some weakness and numbness. Will benefit from having a scooter as mobility methods. Will also benefit from having an electric Rayo lift. She currently has 29 SECONDARY SPANISH TEACHER hours during the day and 2 SECONDARY SPANISH TEACHER hours during the night. She has neurogenic bladder and requires diapers. Needs multiple change of diapers during the day and 29 SECONDARY SPANISH TEACHER hours is not enough. [facility] Medical History (Updated 02/13/23 @ 13:43 by Bambi Vizcaino MD) Lumbar degenerative disc disease Chronic GERD Mild recurrent major depression Back pain Essential hypertension Depression with anxiety Constipation by delayed colonic transit Hypovitaminosis D Insomnia Surgical History History of surgery on lower extremity History of back surgery History of orthopedic surgery History of tubal ligation Family History Father Medical history unknown Mother CVD (cardiovascular disease) Maternal Aunt CVD (cardiovascular disease) Family/Other FH: mental illness Social History Housing: Apartment Alcohol intake: never Patient Tobacco Use Status: Never used Tobacco e-Cigarette/Vaping Use: Never Used Second Hand Smoke Exposure: No Advance Directives Date on File: 07/02/20 service: No Current occupational status: unemployed Cognitive needs: Yes (wheelchair) Hearing needs: No Vision needs: No Questionnaire Thrive Questionnaire Date Thrive assessed: 06/01/22 BIRAN-7 AMB Questionnaire BRIAN-7 Date BRIAN - 7 assessed: 06/01/22 Source: Developed by Drs. Pedro Kincaid, Jannie Sterling, Dieudonne Higginbotham and colleagues, with an educational melody from [employer]. Review of Systems Const All systems reviewed & are unremarkable except as noted in HPI and below Eyes Reports no additional complaints, Denies change in vision and Denies other visual disturbances Card Denies chest pain at rest, Denies chest pain with activity, Denies edema, Denies irregular heart rhythm, Denies claudication, Denies dyspnea, Denies dyspnea on exertion, Denies orthopnea, Denies paroxysmal nocturnal dyspnea and Denies slow heart rate Resp Denies cough, Denies dyspnea and Denies dyspnea on exertion GI Denies abdominal pain, Denies change in bowel habits, Denies excessive flatus, Denies nausea and Denies vomiting Denies urinary incontinence, Denies urinary hesitancy and Denies urinary urgency Musc Denies abnormal gait, Reports back pain, Denies atrophy, Denies deformity, Reports arthralgias, Denies limited range of motion, Reports numbness and Reports stiffness Skin/Breast Denies bleeding lesions, Denies changing lesions and Denies rash Neuro Denies abnormal gait, Denies lack of coordination and Reports numbness Physical exam (Primary Care) Vital Signs: Last Vital Signs Pulse 80 02/13/23 13:12 BP 132/88 02/13/23 13:12 Pulse Ox 99 02/13/23 13:12 Oxygen Delivery Method Room Air 02/13/23 13:12 Tobacco/Smoking Status: Tobacco use Status Tobacco use date assessed 12/30/22 02/13/23 13:11 Patient Tobacco Use Status Never used Tobacco 02/13/23 13:11 Tobacco use type 06/06/22 09:37 e-Cigarette/Vaping Use Never Used 02/13/23 13:11 Thrive Assessment: Date of Thrive Assessment Date Thrive assessed 06/01/22 02/13/23 13:11 Const Limitations: wheelchair Eyes General: appearance normal, both eyes and all related structures Eyelids: Yes eyelids normal Conjunctivae: conjunctivae normal Neck Neck: Yes normal visual inspection and Yes supple Resp Effort & Inspection: normal respiratory effort Auscultation: clear to auscultation bilaterally Cardio Jugular venous distension: no JVD Rate: regular rate Rhythm: regular rhythm Heart sounds: S1 normal heart sound present and S2 normal heart sound present Extrem Other: not able to fully flex or extend lower limbs Assessment and Plan Assessment & Plan (1) Mild major depression: Code(s): F32.0 - Major depressive disorder, single episode, mild Plan: Continue citalopram. (2) Skeletal dysplasia: Code(s): Q78.9 - Osteochondrodysplasia, unspecified Plan: Continue physical therapy. Referred to pain management. (3) Essential hypertension: Code(s): I10 - Essential (primary) hypertension Plan: Continue lisinopril and amlodipine. Blood pressure goal is equal or less than 130/80. (4) Constipation by delayed colonic transit: Code(s): K59.01 - Slow transit constipation Plan: Continue lactulose as needed. Orders: Referrals Pain Management Referral M48.061 - Spinal stenosis, lumbar region without neurogenic claudication, M79.604 - Pain in right leg, M79.605 - Pain in left leg, M79.671 - Pain in right foot, M79.672 - Pain in left foot, Q78.9 - Osteochondrodysplasia, unspecified Neurology Referral G62.9 - Polyneuropathy, unspecified Medications: New underpads (Bed Underpads) Use 3 to 4 bed underpads daily 100 ea 6RF N39.41 - Urge incontinence latex gloves (Latex Gloves, Large) As directed 48 ea 6RF N31.9 - Neuromuscular dysfunction of bladder, unspecified [scooter] As directed 1 ea 0RF M48.061 - Spinal stenosis, lumbar region without neurogenic claudication, M51.36 - Other intervertebral disc degeneration, lumbar region, Q78.9 - Osteochondrodysplasia, unspecified Refilled oxycodone Partial Fill upon patient request. 5 mg PO BID 30 days PRN 45 tabs 0RF pain metoprolol succinate ER 50 mg PO DAILY 90 tabs 3RF Coding Level of Care Code Est Pt Level 4 (43150) Diagnoses Mild major depression F32.0 Skeletal dysplasia Q78.9 Essential hypertension I10 Constipation by delayed colonic transit K59.01 Time Spent (min) 25
[2023-02-13 13:12] VITALS: BP 132/88; PULSE 80; O2SAT 99
== END 2023-02-13 13:40 | disposition home or self-care (01) ==
PROVIDERS: PCP Internal Medicine; Visit Provider Internal Medicine
DX: F32.0 Major depressive disorder, single episode, mild (principal); Q78.9 Osteochondrodysplasia, unspecified; I10 Essential (primary) hypertension; K59.01 Slow transit constipation
CPT/HCPCS: 99214

== ENCOUNTER 2023-03-06 11:21 | Outpatient (AMB) | payer OTHER, SELFPAY ==
--- NOTE | 2023-03-06 11:22 | MHC.OFFVIS ---
Intake Vital Signs 03/06/23 11:35 Height 4 ft 8 in Weight 167 lb BMI 37.4 BP 187/89 H Blood Pressure Location Lt brachial Position Sitting Pulse 107 H Pulse Source Pulse Oximeter Intake Visit Reasons: Pain in B/L Legs & Feet / M48.061 / Q78.9/lvm Intake Note: Pain today 11/17 Insurance Service Representative Required: Yes Insurance Service Representative Language: Glass Vial Filler Name: Samreen #[id number] Accompanied by: Unknown Allergies No Known Allergies Allergy (Verified 02/13/23 13:25) HPI Pain in B/L Legs & Feet / M48.061 / Q78.9/lvm HPI Details Patient is a pleasant 52 year old Slovenian speaking female with history of lumbar spinal stenosis, skeletal dysplasia, neurogenic bladder, thoracic surgery, lumbar degenerative disc disease, bilateral femoral/tibial osteotomies, due to congental deformity of lower extermities with orthopedic surgical repair was done at [facility], presents today for initial evaluation of low back pain that radiates down to her lateral legs and feet bilaterally. Patient reports she will require another surgery for hip and knee replacement but this has not been scheduled yet. Patient is wheelchair bound with limited mobility in her lower limbs after having orthopedic surgery few years ago. She is not able to fully extend or flex her knees or feet. Reports significant stiffness and spasticity in her lower extremities. Patient is managing her pain with oxycodone and Tylenol prn prescribed by her PCP with continued symptoms. Patient reports she completed course of home PT without no improvement in her functioning or pain reduction. She has good upper body strength and able to adjust her position in wheelchair. Patient reports she spends most of her day sitting in chair, recliner or bed. Pain negatively affects her daily activities, functioning, mood and quality of life. She receives VNA and CONTRACT GRAPHIC DESIGNER services and is requiring increased CONTRACT GRAPHIC DESIGNER hours as she is not able to care for herself or function normally. Location Mid-low back pain, bilateral legs and feet Duration Chronic pain >3 years Characteristics of symptom or complaint Aching, pressure, burning Aggravating or associated factors Prolonged sitting, movements Relieving factors Tylenol, oxycodone, gabapentin Treatment Home PT- no improvement PFSH Medical History Back pain Chronic GERD Constipation by delayed colonic transit Depression with anxiety Essential hypertension Hypovitaminosis D Insomnia Lumbar degenerative disc disease Mild recurrent major depression Surgical History History of surgery on lower extremity History of back surgery History of orthopedic surgery History of tubal ligation Family History Father Medical history unknown Mother CVD (cardiovascular disease) Maternal Aunt CVD (cardiovascular disease) Family/Other FH: mental illness Housing: Apartment Alcohol intake: never Patient Tobacco Use Status: Never used Tobacco e-Cigarette/Vaping Use: Never Used Second Hand Smoke Exposure: No Advance Directives Date on File: 07/02/20 service: No Current occupational status: unemployed Cognitive needs: Yes (wheelchair) Hearing needs: No Vision needs: No Review of Systems Const All systems reviewed & are unremarkable except as noted in HPI and below Physical Exam Vital Signs: Last Vital Signs Pulse 107 H 03/06/23 11:35 BP 187/89 H 03/06/23 11:35 BMI result Body Mass Index 37.4 General: Appears afebrile. Alert and oriented. Mood and affect appropriate. Follows and participates in conversation appropriately. Respiratory effort is unlabored. No cough. Wheelchair bound, able to move upper body and side to sides without assistance. Back/Spine/Pelvis Other: Limited back exam due to pain. Wheelchair bound. Significant spasticity and stiffness in both legs. Localized mild TTP to bilateral GTB, reports groin pain with passive leg movements, right>left. Bilateral lateral hip and thoracic incisions well healed with keloid formation. Bilateral knee incisions well healed, normal scarring. No midline tenderness to palpation in the thoracic or lumbar spine. Mild paraspinal tenderness to palpation in the lumbar spine, worse on the right. Lumbar extension and flexion reproduces moderate pain. Cervical Spine: cervical ROM normal, cervical muscular tenderness and No Cervical spine tenderness Thoracic/Lumbar Spine: thoracic and lumbar spine normal to inspection, Thoracic/lumbar spine scar(s), pain with thoraco-lumbar ROM, paraspinal muscle tenderness, thoraco-lumbar ROM limited, No thoracic spinal tenderness and lumbar spinal tenderness at L4 and at L5 Pelvis: buttock tenderness bilaterally and no sciatic notch tenderness Sacroiliac joints: bilaterally tender to palpation Assessment & Plan Assessment & Plan (1) Muscle spasticity: Code(s): M62.838 - Other muscle spasm (2) Skeletal dysplasia: Code(s): Q78.9 - Osteochondrodysplasia, unspecified (3) Back pain: Code(s): M54.9 - Dorsalgia, unspecified (4) Lumbar spinal stenosis: Code(s): M48.061 - Spinal stenosis, lumbar region without neurogenic claudication (5) Lumbar degenerative disc disease: Code(s): M51.36 - Other intervertebral disc degeneration, lumbar region (6) Chronic pain syndrome: Code(s): G89.4 - Chronic pain syndrome Plan Lumbar with thoracic spine and bilateral hip imaging to assess degree of degenerative changes, any subluxation, listhesis, compression fractures or pars defects. Discussed ITDD vs SCS trial for chronic pain syndrome management. Informational pamphlets were provided in Slovenian to patient. Will obtain thoracic and lumbar spine MRI to assess for neural integrity and compression. May also need to follow up with spine CT scan for spinal canal patency. Start baclofen BID prn. Side effects, administration and precautions were discussed with patient and her CONTRACT GRAPHIC DESIGNER staff. All questions and concerns have been answered and patient agreed with the plan. Follow up for imaging review and sooner if needed. Orders: Orders MR lumbar spine wo con 03/06/23 M48.061 - Spinal stenosis, lumbar region without neurogenic claudication, M51.36 - Other intervertebral disc degeneration, lumbar region, M54.9 - Dorsalgia, unspecified, M62.838 - Other muscle spasm, Q78.9 - Osteochondrodysplasia, unspecified, Z99.3 - Dependence on wheelchair XR hip BI w PEL1V 03/06/23 M16.0 - Bilateral primary osteoarthritis of hip, M25.551 - Pain in right hip, M25.552 - Pain in left hip XR lumbar spine 2-3V 03/06/23 M54.9 - Dorsalgia, unspecified XR thoracic spine 3V 03/06/23 M62.838 - Other muscle spasm, Q78.9 - Osteochondrodysplasia, unspecified MR thoracic spine wo con 03/06/23 M48.061 - Spinal stenosis, lumbar region without neurogenic claudication, M51.36 - Other intervertebral disc degeneration, lumbar region, M54.9 - Dorsalgia, unspecified, M62.838 - Other muscle spasm, Q78.9 - Osteochondrodysplasia, unspecified Medications: New baclofen 10 mg PO BID 30 days 60 tabs 3RF M62.838 - Other muscle spasm, Q78.9 - Osteochondrodysplasia, unspecified Coding Level of Care Code New Pt Level 4 (70489) Diagnoses Muscle spasticity M62.838 Skeletal dysplasia Q78.9 Back pain M54.9 Lumbar spinal stenosis M48.061 Lumbar degenerative disc disease M51.36 Chronic pain syndrome G89.4
[2023-03-06 11:35] VITALS: BP 187/89; PULSE 107; BMI 37.4
== END 2023-03-06 12:01 | disposition home or self-care (01) ==
PROVIDERS: PCP Internal Medicine; Visit Provider Nurse Practitioner Family
DX: G89.4 Chronic pain syndrome (principal); M62.838 Other muscle spasm; Q78.9 Osteochondrodysplasia, unspecified; M48.061 Spinal stenosis, lumbar region without neurogenic claudication; M54.9 Dorsalgia, unspecified; M51.36 Other intervertebral disc degeneration, lumbar region
CPT/HCPCS: 99204

== ENCOUNTER 2023-03-06 11:21 | Outpatient (REF) | payer OTHER, SELFPAY ==
--- NOTE | ~2023-03-06 | XR_ITS ---
EXAMINATION: XR BILATERAL HIPS WITH AP PELVIS CLINICAL INFORMATION: Pain COMPARISON: Right hip from 12/27/2018 and femur from 06/13/2019 TECHNIQUE: AP view of the pelvis and single views of each hip were obtained. FINDINGS: Patient is status post mid femoral osteotomy with placement of hardware in the intramedullary space of right femur. The osteotomy line is still visualized with callus formation. Hardware well positioned in the right femur in partially visualized proximal tibia. There are changes of osteoarthritis in the right knee and mild changes of osteoarthritis in right hip joint. There are findings of a narrowing of the left hip joint also. XR/XR hip BI w PEL1V IMPRESSION: Postsurgical changes with hardware in place and bilateral hips osteoarthritis, right knee osteoarthritis.
--- NOTE | ~2023-03-06 | XR_ITS ---
EXAMINATION: XR LUMBOSACRAL SPINE CLINICAL INFORMATION: Dorsalgia. COMPARISON: 12/31/2013 TECHNIQUE: 2 views of lumbar spine FINDINGS: There are 5 not ribs bearing vertebral bodies and lumbar spine. The changes of degenerative spondylosis with marginal spurring at the level of L2-L3 and L3-L4. Pedicles are preserved. There is no spondylolysis or listhesis. XR/XR lumbar spine 2-3V IMPRESSION: Mild degenerative spondylosis.
--- NOTE | ~2023-03-06 | XR_ITS ---
EXAMINATION: XR THORACIC SPINE CLINICAL INFORMATION: Muscle spasm COMPARISON: None available. TECHNIQUE: 3 views of the thoracic spine were obtained. FINDINGS: There is no evidence of acute fracture or osseous destruction. There are mild changes of degenerative spondylosis and mild wedge-shaped deformity of multiple thoracic spine vertebral bodies as well as osteophytes formation at the level of T8-T9. XR/XR thoracic spine 3V IMPRESSION: Mild degenerative changes in the thoracic spine.
== END 2023-03-06 11:22 | disposition home or self-care (01) ==
LOC: HO.XRAY 11:21
PROVIDERS: PCP Internal Medicine; Visit Provider Nurse Practitioner Family
DX: M16.0 Bilateral primary osteoarthritis of hip (principal); M54.9 Dorsalgia, unspecified; M62.838 Other muscle spasm; Q78.9 Osteochondrodysplasia, unspecified
CPT/HCPCS: 72072; 72100; 73521; 99202

== ENCOUNTER 2023-06-07 13:02 | Outpatient (AMB) | payer OTHER, SELFPAY ==
[2023-06-07 13:05] VITALS: BP 150/110
--- NOTE | 2023-06-07 13:05 | A.OFFPC_ITS ---
Vital Signs 06/07/23 13:05 Height 4 ft 8 in BMI Reason not done Patient refused/unable BP 150/110 H Blood Pressure Location Lt brachial Position Sitting Intake Visit Reasons: PE Intake Note: Patient here for a physical exam Fruit Raiser Required: No Accompanied by: Self / Same As Patient Allergies No Known Allergies Allergy (Verified 06/07/23 13:19) Medication List - Last Reconciled 06/07/23 by Bambi Vizcaino MD acetaminophen 1,000 mg (2 x 500 mg) PO Q6H PRN 30 days [adult diapers brief As directed] amlodipine 2.5 mg PO DAILY 90 days baclofen 10 mg PO BID 30 days bisacodyl (Dulcolax (bisacodyl)) 10 mg (2 x 5 mg) PO ONCE 1 day blood pressure monitor As directed calcium carbonate-vitamin D3 600 mg-5 mcg (200 unit) 1 tab PO BID cholecalciferol (vitamin D3) 25 mcg PO DAILY 90 days citalopram 20 mg PO DAILY 90 days [DME mattress As directed] docusate calcium (Stool Softener (docusate calcium)) 240 mg PO BEDTIME PRN 90 days [electric edelmira lift As directed] gabapentin 300 mg PO TID 30 days hospital bed As directed [edelmira lift As directed] lactulose 10 grams (15 mL) PO DAILY PRN 30 days latex gloves (Latex Gloves, Large) As directed lisinopril 40 mg PO DAILY 90 days metoprolol succinate ER 50 mg PO DAILY miscellaneous medical supply 1 ea miscellaneous ONCE oxycodone 5 mg PO BID PRN 30 days peg 3350-electrolytes [id number] -5.86 gram 240 mL PO Q10M polyethylene glycol 3350 (Miralax) 17 grams PO DAILY [scooter As directed] [sliding board As directed] trazodone 100 mg PO BEDTIME PRN 90 days underpads (Bed Underpads) Use 3 to 4 bed underpads daily [wipes As directed] Tobacco use date assessed: 06/07/23 Dental Screening Dental Screen Date: 06/07/23 Did you have a dental visit in the last 12 months?: No Did you have a dental problem in the last 6 months where you did not have access to dental care?: No Was dental information given to patient?: Patient has dentist HPI HPI Comments History of Present Illness Details This is a 52-year-old female comes for physical exam. 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 Mammogram done August 2022. Pap smear done 2022. Colonoscopy done 2022 and needs to be repeated in 3-4 years. Still has GERD with omeprazole and I changed to pantoprazole. Also has constipation most likely due to opiates. She also has mild major depression on citalopram. 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 Moving with her wheelchair is very difficult and she will benefit from a scooter. Blood pre ssure elevated and will be recheck in 3 weeks by nurse navigator. FORMERLY [facility], [facility]1983 Medical History Back pain Chronic GERD Constipation by delayed colonic transit Depression with anxiety Essential hypertension Hypovitaminosis D Insomnia Lumbar degenerative disc disease Mild recurrent major depression Surgical History History of surgery on lower extremity History of back surgery History of orthopedic surgery History of tubal ligation Family History Father Medical history unknown Mother CVD (cardiovascular disease) Maternal Aunt CVD (cardiovascular disease) Family/Other FH: mental illness Social History Housing: Apartment Alcohol intake: never Comment: sleeping Patient Tobacco Use Status: Never used Tobacco e-Cigarette/Vaping Use: Never Used Second Hand Smoke Exposure: No Advance Directives Date on File: 07/02/20 service: No Current occupational status: unemployed Cognitive needs: Yes (wheelchair) Hearing needs: No Vision needs: No Questionnaire PHQ-9 Over the last 2 weeks, how often have you been bothered by any of the following problems? 1. Little interest or pleasure in doing things: not at all 2. Feeling down, depressed, or hopeless: more than half the days 3. Trouble falling or staying asleep, or sleeping too much: not at all 4. Feeling tired or having little energy: more than half the days 5. Poor appetite or overeating: more than half the days 6. Feeling bad about yourself - or that you are a failure or have let yourself or your family down: several days 7. Trouble concentrating on things, such as reading the newspaper or watching television: not at all 8. Moving or speaking so slowly that other people could have noticed. Or the opposite - being so fidgety or restless that you have been moving around a lot more than usual: not at all 9. Thoughts that you would be better off or of hurting yourself in some way: not at all Total score: 7 Source: Developed by Drs. Pedro Kincaid, Jannie Sterling, Dieudonne Higginbotham and colleagues, with an educational melody from [employer]. Thrive Questionnaire Date Thrive assessed: 06/07/23 I am a: Patient What is your living situation today?: I have a steady place to live Within the past 12 months, did the food you bought not last and you didn't have the money to get more?: Never true Within the past 12 months, did you worry whether your food would run out before you got money to buy more?: Never true Do you have trouble paying for medicines?: No Do you have trouble getting transportation to medical appointments?: No Do you have trouble paying your heating and electricity bill?: No Do you have trouble taking care of your child, family member or friend?: No Do you have trouble with day-to-day activities such as bathing, preparing meals, shopping, managing finances, etc.?: Yes Are you currently unemployed and looking for a job?: No Are you interested in more education?: No Please select the resources that you would like help with: None Currently or been in a relationship where the following occur: no concerns reported THRIVE Score: 0 AUDIT C Alcohol Use Questionnaire (AUDIT-C) 1. How often do you have a drink containing alcohol?: Never Total Score: 0 BRIAN-7 AMB Questionnaire BRIAN-7 Date BRIAN - 7 assessed: 06/07/23 Feeling nervous, anxious, or on edge: 1 = Several days Not being able to stop or control worryin = Not at all Worrying too much about different things: 1 = Several days Trouble relaxin = Not at all Being so restless that it is hard to sit still: 0 = Not at all Becoming easily annoyed or irritable: 1 = Several days Feeling afraid as if something awful might happen: 0 = Not at all Total BRIAN-7 score (0-4 normal; 5-9 mild; 10-14 moderate; 15-21 severe): 3 Source: Developed by Drs. Pedro Kincaid, Jannie Sterling, Dieudonne Higginbotham and colleagues, with an educational melody from [employer]. BRIAN-7 Assessment Billing BRIAN-7 Assessment Tool: BRIAN-7 Assessment 54463 Review of Systems Const All systems reviewed & are unremarkable except as noted in HPI and below Eyes Reports no additional complaints, Denies change in vision and Denies other visual disturbances Card Denies chest pain at rest, Denies chest pain with activity, Denies edema, Denies irregular heart rhythm, Denies claudication, Denies dyspnea, Denies dyspnea on exertion, Denies orthopnea, Denies paroxysmal nocturnal dyspnea and Denies slow heart rate Resp Denies cough, Denies dyspnea and Denies dyspnea on exertion GI Denies abdominal pain, Denies change in bowel habits, Denies excessive flatus, Denies nausea and Denies vomiting Denies urinary incontinence, Denies urinary hesitancy and Denies urinary urgency Musc Reports abnormal gait, Denies atrophy, Denies deformity and Denies limited range of motion Skin/Breast Denies bleeding lesions, Denies changing lesions and Denies rash Neuro Reports abnormal gait and Denies lack of coordination Physical exam (Primary Care) Vital Signs: Last Vital Signs BP 150/110 H 06/07/23 13:05 Tobacco/Smoking Status: Tobacco use Status Tobacco use date assessed 06/07/23 06/07/23 13:12 Patient Tobacco Use Status Never used Tobacco 06/07/23 13:12 Tobacco use type 06/06/22 09:37 e-Cigarette/Vaping Use Never Used 06/07/23 13:12 PHQ-9: PHQ-9 Score PHQ-9: Total score 7 06/07/23 13:12 Thrive Assessment: Date of Thrive Assessment Date Thrive assessed 06/07/23 06/07/23 13:12 Currently or been in a relationship where the following occur: no concerns reported Const Orientation/consciousness: patient oriented x3 Limitations: wheelchair HENMT Head: Yes normal to inspection, Yes normocephalic and Yes atraumatic Ears: external ears normal Eyes General: appearance normal, both eyes and all related structures Eyelids: Yes eyelids normal Conjunctivae: conjunctivae normal Neck Neck: Yes normal visual inspection and Yes supple Resp Effort & Inspection: normal respiratory effort Auscultation: clear to auscultation bilaterally Cardio Jugular venous distension: no JVD Rate: regular rate Rhythm: regular rhythm Heart sounds: S1 normal heart sound present and S2 normal heart sound present Neuro General: patient oriented x3 and no focal motor deficits Extrem Other: Not able to flex knees Assessment and Plan Assessment & Plan (1) Physical exam: Code(s): Z00.00 - Encounter for general adult medical examination without abnormal findings Plan: Repeat in a year. (2) Mild major depression: Code(s): F32.0 - Major depressive disorder, single episode, mild Plan: Continue citalopram. Orders: Orders Vitamin D 25-OH Total Today E55.9 - Vitamin D deficiency, unspecified IRON PROFILE Today D64.9 - Anemia, unspecified Vitamin B12 and Folate Today E53.8 - Deficiency of other specified B group vitamins Lipid Panel Today E78.5 - Hyperlipidemia, unspecified Complete Blood Count Auto Diff Today D64.9 - Anemia, unspecified Comprehensive Sharon. Panel Fast Today K21.9 - Gastro-esophageal reflux disease without esophagitis Referrals Gastroenterology Referral K21.9 - Gastro-esophageal reflux disease without esophagitis Pain Management Referral M16.0 - Bilateral primary osteoarthritis of hip, M62.838 - Other muscle spasm, Q78.9 - Osteochondrodysplasia, unspecified Medications: New pantoprazole 40 mg PO DAILY 90 days 90 tabs 1RF Refilled amlodipine 2.5 mg PO DAILY 90 days 90 tabs 1RF I10 - Essential (primary) hypertension cholecalciferol (vitamin D3) 25 mcg PO DAILY 90 days 90 tabs 1RF lisinopril 40 mg PO DAILY 90 days 90 tabs 1RF I10 - Essential (primary) hypertension [wipes] As directed 200 ea 6RF N39.41 - Urge incontinence lactulose 10 grams (15 mL) PO DAILY 30 days PRN 237 mL 3RF constipation calcium carbonate-vitamin D3 600 mg-5 mcg (200 unit) 1 tab PO BID 90 tabs 0RF citalopram 20 mg PO DAILY 90 days 90 tabs 1RF [adult diapers brief] As directed 240 ea 6RF N39.41 - Urge incontinence underpads (Bed Underpads) Use 3 to 4 bed underpads daily 100 ea 6RF N39.41 - Urge incontinence [scooter] As directed 1 ea 0RF M48.061 - Spinal stenosis, lumbar region without neurogenic claudication, M51.36 - Other intervertebral disc degeneration, lumbar region, Q78.9 - Osteochondrodysplasia, unspecified Discontinued polyethylene glycol 3350 (Miralax) Discontinued Reason: Patient Refused 17 grams PO DAILY 119 grams 0RF K59.00 - Constipation, unspecified Coding Level of Care Code Est Pt Prev Care 40-64y(45778) Diagnoses Physical exam Z00.00 Mild major depression F32.0 Additional Codes BRIAN-7 Assessment Billing - BRIAN-7 Assessment Tool: BRIAN-7 Assessment 64102 ([id number]) Time Spent (min) 35
== END 2023-06-07 13:38 | disposition home or self-care (01) ==
PROVIDERS: Visit Provider Internal Medicine
DX: Z00.00 Encounter for general adult medical examination without abnormal findings (principal); F32.0 Major depressive disorder, single episode, mild; K21.9 Gastro-esophageal reflux disease without esophagitis; I10 Essential (primary) hypertension
CPT/HCPCS: 99396

== ENCOUNTER 2023-06-20 10:04 | Outpatient (AMB) | payer OTHER, SELFPAY ==
--- NOTE | 2023-06-20 10:07 | MHC.OFFVIS ---
Intake Vital Signs 06/20/23 10:16 Height 4 ft 8 in Weight 165 lb BMI 37.0 BP 164/104 H Blood Pressure Location Lt brachial Position Sitting Pulse 83 Pulse Source Pulse Oximeter Pulse Oximetry (%) 99 Oxygen Delivery Method Room Air Intake Visit Reasons: OA Bilateral of Hip/confirmed Intake Note: Pain today 01/17 Metropolitan Editor Required: Yes Metropolitan Editor Language: Mauritanian Accompanied by: Family/Other Allergies No Known Allergies Allergy (Verified 06/07/23 13:19) HPI HPI Comments History of Present Illness Details Patient presents today for follow-up to discuss x-ray results and injection discussion for right hip pain. She was initially seen in our office in February 2023. Patient is wheelchair-bound due to skeletal dysplasia and unable to flex her knees. She is accompanied by her CUSTOMER SUCCESS ASSOCIATE. Patient reports she was seen at [facility] provider who offer her spine surgery. Her most concerning pain is localized to lower back and right hip. She has been taking Tylenol, gabapentin, baclofen and oxycodone with continued symptoms. Denies any recent cough, cold, infection, fever, any significant changes in her medical history, medications or recent hospitalizations. PRIOR: Patient is a pleasant 52 year old Mauritanian speaking female with history of lumbar spinal stenosis, skeletal dysplasia, neurogenic bladder, thoracic surgery, lumbar degenerative disc disease, bilateral femoral/tibial osteotomies, due to congenital deformity of lower extremities with orthopedic surgical repair was done at [facility], presents today for initial evaluation of low back pain that radiates down to her lateral legs and feet bilaterally. Patient reports she will require another surgery for hip and knee replacement but this has not been scheduled yet. Patient is wheelchair bound with limited mobility in her lower limbs after having orthopedic surgery few years ago. She is not able to fully extend or flex her knees or feet. Reports significant stiffness and spasticity in her lower extremities. Patient is managing her pain with oxycodone and Tylenol prn prescribed by her PCP with continued symptoms. Patient reports she completed course of home PT without no improvement in her functioning or pain reduction. She has good upper body strength and able to adjust her position in wheelchair. Patient reports she spends most of her day sitting in chair, recliner or bed. Pain negatively affects her daily activities, functioning, mood and quality of life. She receives VNA and CUSTOMER SUCCESS ASSOCIATE services and is requiring increased CUSTOMER SUCCESS ASSOCIATE hours as she is not able to care for herself or function normally. Location Mid-low back pain, bilateral legs and feet Duration Chronic pain >3 years Characteristics of symptom or complaint Aching, pressure, burning Aggravating or associated factors Prolonged sitting, movements Relieving factors Tylenol, oxycodone, gabapentin Treatment Home PT- no improvement [facility] Medical History (Updated 06/21/23 @ 13:58 by THERON Hensley) Chronic hip pain, bilateral Lumbar degenerative disc disease Chronic GERD Mild recurrent major depression Back pain Essential hypertension Depression with anxiety Constipation by delayed colonic transit Hypovitaminosis D Insomnia Surgical History History of surgery on lower extremity History of back surgery History of orthopedic surgery History of tubal ligation Family History Father Medical history unknown Mother CVD (cardiovascular disease) Maternal Aunt CVD (cardiovascular disease) Family/Other FH: mental illness Social History Housing: Apartment Alcohol intake: never Comment: sleeping Patient Tobacco Use Status: Never used Tobacco e-Cigarette/Vaping Use: Never Used Second Hand Smoke Exposure: No Advance Directives Date on File: 07/02/20 service: No Current occupational status: unemployed Cognitive needs: Yes (wheelchair) Hearing needs: No Vision needs: No Review of Systems Const All systems reviewed & are unremarkable except as noted in HPI and below Physical Exam Vital Signs: Last Vital Signs Pulse 83 06/20/23 10:16 BP 164/104 H 06/20/23 10:16 Pulse Ox 99 06/20/23 10:16 Oxygen Delivery Method Room Air 06/20/23 10:16 BMI result Body Mass Index 37.0 General: Appears afebrile. Alert and oriented. Mood and affect appropriate. Follows and participates in conversation appropriately. Respiratory effort is unlabored. No cough. Wheelchair bound, able to move upper body and side to sides without assistance. Back/Spine/Pelvis Other: Limited back exam due to pain. Wheelchair bound. Significant spasticity and stiffness in both legs, unable to flex knees. Reports moderate groin pain with passive leg movements, right>left. Bilateral lateral hip and thoracic incisions well healed with keloid formation. Bilateral knee incisions well healed, normal scarring. No midline tenderness to palpation in the thoracic or lumbar spine. Mild to moderate paraspinal tenderness to palpation in the lumbar spine, worse on the right. Lumbar extension and flexion reproduces moderate pain. Cervical Spine: cervical muscular tenderness, pain with cervical ROM and No Cervical spine tenderness Thoracic/Lumbar Spine: thoracic and lumbar spine normal to inspection, Thoracic/lumbar spine scar(s), Lasegue's sign negative, pain with thoraco-lumbar ROM, paraspinal muscle tenderness, thoraco-lumbar ROM limited, No thoracic spinal tenderness and lumbar spinal tenderness at L3, at L4 and at L5 Pelvis: buttock tenderness bilaterally and no sciatic notch tenderness Sacroiliac joints: bilaterally tender to palpation Results Reviewed Results Reviewed: XR/XR thoracic spine 3V 03/06/24 IMPRESSION: Mild degenerative changes in the thoracic spine. XR/XR lumbar spine 2-3V 03/06/24 IMPRESSION: Mild degenerative spondylosis. XR BILATERAL HIPS WITH AP PELVIS 03/06/23 CLINICAL INFORMATION: Pain COMPARISON: Right hip from 12/27/2018 and femur from 06/13/2019 FINDINGS: Patient is status post mid femoral osteotomy with placement of hardware in the intramedullary space of right femur. The osteotomy line is still visualized with callus formation. Hardware well positioned in the right femur in partially visualized proximal tibia. There are changes of osteoarthritis in the right knee and mild changes of osteoarthritis in right hip joint. There are findings of a narrowing of the left hip joint also. IMPRESSION: Postsurgical changes with hardware in place and bilateral hips osteoarthritis, right knee osteoarthritis. Assessment & Plan Assessment & Plan (1) Skeletal dysplasia: Code(s): Q78.9 - Osteochondrodysplasia, unspecified (2) Lumbar spinal stenosis: Code(s): M48.061 - Spinal stenosis, lumbar region without neurogenic claudication (3) Lumbar degenerative disc disease: Code(s): M51.36 - Other intervertebral disc degeneration, lumbar region (4) Chronic pain syndrome: Code(s): G89.4 - Chronic pain syndrome (5) Wheelchair dependent: Code(s): Z99.3 - Dependence on wheelchair (6) Chronic hip pain, bilateral: Code(s): M25.551 - Pain in right hip; M25.552 - Pain in left hip; G89.29 - Other chronic pain Plan Lumbar with thoracic spine and bilateral hip imaging results reviewed with patient and her CUSTOMER SUCCESS ASSOCIATE today. Schedule right intra-articular hip steroid injection with light sedation and fluoroscopy. Expectations, risks and benefits were reviewed. Patient is aware she will be contacted to schedule this procedure. Previously discussed ITDD vs SCS trial for chronic pain syndrome management. [place] [facility] [place] and spine surgery consideration report. Patient is currently taking gabapentin and oxycodone prescribed by her PCP. Patient reports inadequate analgesia on her current opioid region. She is interested to discuss opioid titration to [place] film twice daily with her PCP. Her pain is moderate-severe and requires daily, [id number], long-term treatment with an opioid and non-opiod medication regime. I have informed patient that at this time our office does not offer opioid prescribing. All questions and concerns have been answered and patient agreed with the plan. Follow up after injections and sooner if needed. Coding Level of Care Code Est Pt Level 4 (54650) Diagnoses Skeletal dysplasia Q78.9 Lumbar spinal stenosis M48.061 Lumbar degenerative disc disease M51.36 Chronic pain syndrome G89.4 Wheelchair dependent Z99.3 Chronic hip pain, bilateral M25.551; M25.552; G89.29
[2023-06-20 10:16] VITALS: BP 164/104; PULSE 83; O2SAT 99; BMI 37.0
== END 2023-06-20 10:54 | disposition home or self-care (01) ==
PROVIDERS: PCP Internal Medicine; Referring Provider Internal Medicine; Visit Provider Nurse Practitioner Family
DX: Q78.9 Osteochondrodysplasia, unspecified (principal); M48.061 Spinal stenosis, lumbar region without neurogenic claudication; M51.36 Other intervertebral disc degeneration, lumbar region; G89.4 Chronic pain syndrome; Z99.3 Dependence on wheelchair; M25.551 Pain in right hip; M25.552 Pain in left hip; G89.29 Other chronic pain
CPT/HCPCS: 99214

== ENCOUNTER → 2023-06-20 10:04 | Outpatient (BNVA) | payer OTHER, SELFPAY | PROVIDERS: PCP Internal Medicine; Referring Provider Internal Medicine; Visit Provider Nurse Practitioner Family | DX: M16.0 Bilateral primary osteoarthritis of hip (principal); M48.061 Spinal stenosis, lumbar region without neurogenic claudication; Z99.3 Dependence on wheelchair | CPT/HCPCS: 99212 ==

== ENCOUNTER 2023-07-12 10:35 | Outpatient (REF) | payer OTHER, SELFPAY ==
--- NOTE | ~2023-07-12 | MR_ITS ---
MRI OF THE THORACIC SPINE WITHOUT CONTRAST MRI OF THE LUMBAR SPINE WITHOUT CONTRAST CLINICAL INFORMATION: Spinal stenosis, lumbar region without neurogenic claudication. COMPARISON: Thoracic and lumbar spine radiographs 03/06/2023. Lumbar spine MRI 02/10/2015. TECHNIQUE: Multiplanar multisequence MR imaging of the thoracic and lumbar spine obtained without contrast. FINDINGS: THORACIC SPINE MRI: There are 12 rib-bearing thoracic type vertebral bodies. A combination of advanced facet arthropathy, ossification of the ligamentum flavum, and epidural lipomatosis result in severe central canal stenosis and significant compression of the thoracic spinal cord at T2-T3, T3-T4, T5-T6, T6-T7, T7-T8, T9-T10, T10-T11, T11-T12, and on the left side at T12-L1. Intramedullary T2 signal changes at nearly all of these levels compatible the sequela of compressive myelopathy. There are laminectomy changes at the T8-T11 levels however posterior fusion mass and ossification of the ligamentum flavum result in persistent cord compression and severe central canal stenosis at T9-T10, T10-T11, and T11-T12. There is no bone marrow edema. There are no acute fractures. Multilevel endplate osteophytes. Midthoracic kyphosis. No significant extraspinal soft tissue findings. LUMBAR SPINE MRI: There are 5 nonrib-bearing lumbar-type vertebral bodies. Vertebral body heights are maintained. The disc volumes are preserved and the disc remain well-hydrated. There is no bone marrow edema. There are no acute fractures. Conus terminates at the L1 level. No significant extraspinal soft tissue findings. L1-L2: Diffuse annular disc bulge and moderate bilateral facet arthropathy and ligamentum flavum thickening. Mild central canal stenosis and mild bilateral foraminal encroachment. L2-L3: Left lateral disc osteophyte and advanced facet arthropathy result in mild to moderate left foraminal encroachment. Mild central canal stenosis and mild right-sided foraminal encroachment. L3-L4: Diffuse annular disc bulge and severe bilateral facet arthropathy and ligamentum flavum thickening. Mild to moderate bilateral foraminal encroachment. No central canal stenosis. L4-L5: Diffuse annular disc bulge and severe bilateral facet arthropathy and ligamentum flavum thickening. On is in concert result in bilateral subarticular zone stenosis with mass effect on the traversing L5 nerve roots bilaterally as well as mild to moderate left foraminal encroachment. L5-S1: Diffuse disc osteophyte complex and severe bilateral facet arthropathy. Epidural lipomatosis moderately effaces the thecal sac. Disc osteophyte and facet arthropathy result in severe bilateral foraminal stenosis with compression of the exiting L5 nerve roots bilaterally. MR/MR thoracic spine wo con IMPRESSION: - A combination of advanced facet arthropathy, ossification of the ligamentum flavum, and epidural lipomatosis result in severe central canal stenosis and significant compression of the thoracic spinal cord at T2-T3, T3-T4, T5-T6, T6-T7, T7-T8, T9-T10, T10-T11, T11-T12, and on the left side at T12-L1. Intramedullary T2 signal changes at nearly all of these levels compatible the sequela of compressive myelopathy. There are laminectomy changes at the T8-T11 levels however posterior fusion mass and ossification of the ligamentum flavum result in persistent cord compression and severe central canal stenosis at T9-T10, T10-T11, and T11-T12. A thoracic spine CT could be obtained to assess the degree of ligamentum flavum ossification if surgery is being considered. Neurosurgical consultation advised. - At L4-L5, multifactorial degenerative changes result in bilateral subarticular zone stenosis with mass effect on the traversing L5 nerve roots bilaterally as well as mild to moderate left foraminal encroachment. - At L5-S1, epidural lipomatosis moderately effaces the thecal sac and advanced multifactorial degenerative changes result in severe bilateral foraminal stenosis with compression of the exiting L5 nerve roots bilaterally. Findings discussed with at 2:23 PM on 07/12/2023.
== END 2023-07-12 10:36 | disposition home or self-care (01) ==
LOC: HO.MRI 10:35
PROVIDERS: PCP Internal Medicine; Visit Provider Nurse Practitioner Family
DX: M48.061 Spinal stenosis, lumbar region without neurogenic claudication (principal); Q78.9 Osteochondrodysplasia, unspecified; M51.36 Other intervertebral disc degeneration, lumbar region
CPT/HCPCS: 72146; 72148

== ENCOUNTER 2023-07-31 10:58 | Outpatient (REF) | payer OTHER, SELFPAY | END 2023-07-31 10:59 | disposition home or self-care (01) | LOC: HO.MAMMO 10:58 | PROVIDERS: PCP Internal Medicine; Visit Provider Internal Medicine | DX: Z12.31 Encounter for screening mammogram for malignant neoplasm of breast (principal) | CPT/HCPCS: 77063; 77067 ==

== ENCOUNTER → 2023-07-31 11:00 | Outpatient (BNV) | payer OTHER, SELFPAY | PROVIDERS: PCP Internal Medicine; Visit Provider Radiology Diagnostic Radiology | DX: Z12.31 Encounter for screening mammogram for malignant neoplasm of breast (principal) | CPT/HCPCS: 77063; 77067 ==

== ENCOUNTER 2023-09-11 10:15 | Outpatient (AMB) | payer OTHER, SELFPAY ==
--- NOTE | 2023-09-11 10:20 | A.OFFVIS_ITS ---
Vital Signs 09/11/23 10:22 Height 4 ft 8 in BP 154/69 H Blood Pressure Location Lt brachial Position Sitting Pulse 75 Intake Visit Reasons: gerd Intake Note: Patient new consult for GERD. Patient cc: GERD with a lot of flame, abdominal pain/bloating, nauseas, some swallowing problems with acid reflex at night time. 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 [employer] -A 53 y/o W/C- dependent-female referred with gerd- for awhile worse at night- was taking omeprazole- switched to pantoprazole- No vomiting- she gets nausea-phlem She as not made any dietary modifications-she is unaware of anything specific that makes symptoms better or worse--however she does drink a lot of orange juice She is sedentary- admits to weight gain- Chronic constipation- docusate and magnesium-is still constipated at times Denies any respiratory or cardiac issues she sees pcp- regular basis-has appt in November- No vomiting, abdominal pain, h, hematochezia fever or chills PFSH Medical History Chronic hip pain, bilateral Lumbar degenerative disc disease Chronic GERD Mild recurrent major depression Back pain Essential hypertension Depression with anxiety Constipation by delayed colonic transit Hypovitaminosis D Insomnia Surgical History History of surgery on lower extremity History of back surgery History of orthopedic surgery History of tubal ligation Family History Father Medical history unknown Mother CVD (cardiovascular disease) Maternal Aunt CVD (cardiovascular disease) Family/Other FH: mental illness Social History Housing: Apartment Alcohol intake: never Comment: sleeping Patient Tobacco Use Status: Never used Tobacco e-Cigarette/Vaping Use: Never Used Second Hand Smoke Exposure: No Advance Directives Date on File: 07/02/20 service: No Current occupational status: unemployed Cognitive needs: Yes (wheelchair) Hearing needs: No Vision needs: No Review of Systems Const All systems reviewed & are unremarkable except as noted in HPI and below Card Denies chest pain, Denies dyspnea and Denies dyspnea on exertion Resp Denies dyspnea and Denies dyspnea on exertion GI Denies abdominal pain, Reports bloating, Denies hematochezia, Reports constipation, Denies early satiety, Reports heartburn, Denies nausea and Denies vomiting Psych Reports depression, Denies homicidal ideation and Denies suicidal ideation Physical Exam Vital Signs: Last Vital Signs Pulse 75 09/11/23 10:22 BP 154/69 H 09/11/23 10:22 Const General: cooperative and comfortable Orientation/consciousness: patient oriented x3 Limitations: language barrier and wheelchair Eyes Sclerae: sclerae normal Resp Effort & Inspection: normal respiratory effort and able to speak in complete sentences Auscultation: clear to auscultation bilaterally Neuro General: patient oriented x3 Psych Affect: Labile affect present Attitude: cooperative Results Reviewed Results Reviewed: 11/2022- Dr. Fonseca Impression and Post Procedure Diagnosis: fair prep internal hemorrhoids Plan: High fiber diet leaflet Avoid straining at stool, epsom salts and sitz bath, anusol supps or cream Repeat Colonoscopy in 3-4 years due to fair prep or earlier if clinically indicated Assessment & Plan Assessment & Plan (1) GERD (gastroesophageal reflux disease): Comment: many questions--diet/ modifications- reviewed in detail with president [employer] Code(s): K21.9 - Gastro-esophageal reflux disease without esophagitis Category: Medical Plan: food diary UGI avoid culprits (2) Chronic constipation: Comment: Reviewed in detail-consistent bowel, maintaining high-fiber Code(s): K59.09 - Other constipation Category: Medical Plan: consistent bowel regimen HFD Plan Cont ppi reflux precautions avoid culprits hydrate well consistent bowel regimen HFD UGI series pt to call for results- W/C depend- Orders: Orders FL upper GI series Today K21.9 - Gastro-esophageal reflux disease without esophagitis Medications: New simethicone (Gas Relief (simethicone)) 125 mg PO TID-QID PRN 90 tabs 2RF abdominal distention psyllium husk (Metamucil) mix into at least 8 oz of water or juice before administering 1 tbsp PO DAILY 30 days PRN 660 grams 5RF constipation Patient Instructions: Cont ppi reflux precautions avoid culprits hydrate well consistent bowel regimen HFD UGI series pt to call for results- W/C depend- Coding Level of Care Code New Pt Level 3 (14789) Diagnoses GERD (gastroesophageal reflux disease) K21.9 Chronic constipation K59.09 Time Spent (min) 30 Comment aayush Gorman
[2023-09-11 10:22] VITALS: BP 154/69; PULSE 75
== END 2023-09-11 12:36 | disposition home or self-care (01) ==
PROVIDERS: PCP Internal Medicine; Visit Provider Physician Assistant
DX: K21.9 Gastro-esophageal reflux disease without esophagitis (principal); K59.09 Other constipation
CPT/HCPCS: 99203

== ENCOUNTER → 2023-09-11 10:15 | Outpatient (BNVA) | payer OTHER, SELFPAY | PROVIDERS: PCP Internal Medicine; Visit Provider Physician Assistant | DX: K21.9 Gastro-esophageal reflux disease without esophagitis (principal); K59.09 Other constipation | CPT/HCPCS: 99202 ==

== ENCOUNTER 2023-11-09 08:16 | Outpatient (REF) | payer OTHER, SELFPAY ==
--- NOTE | ~2023-11-09 | FL_ITS ---
EXAMINATION: XR FLUOROSCOPY UPPER GI WITH AIR CLINICAL INFORMATION: Reflux COMPARISON: None TECHNIQUE: Fluoroscopic air contrast upper GI examination was performed utilizing standard techniques with thin and thick barium and effervescent granules. Numerous spot images were obtained. FINDINGS: Dual and single contrast images of the esophagus demonstrate normal caliber, contour, and mucosal pattern. There is a possible cervical web present in the upper esophagus above the thoracic. No evidence of stricture, mass, or ulcerations identified. Esophageal peristalsis was normal. A small type 1 hiatal hernia is present. Significant gastroesophageal reflux was observed that results in the patient vomiting. Evaluation of the gastric mucosa is limited due to patient's inability to be adequately positioned as well as the patient vomiting the barium. FLUOROSCOPY TIME: 2 minutes 6 seconds Number of Spot Images: 4 Number of Cine: 6 DOSE AREA PRODUCT: 1389 uGy-m2 (microgray-meter squared) FL/FL upper GI w air IMPRESSION: 1. 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 2. Small type I hiatal hernia 3. Severe gastroesophageal reflux 4. Very limited examination due to patient's immobility a as well as poor tolerance of the barium due to vomiting. This procedure was performed by David Juarez PA-C, and supervised by Dr. Lees
== END 2023-11-09 08:17 | disposition home or self-care (01) ==
LOC: HO.XRAY 08:16
PROVIDERS: Visit Provider Physician Assistant
DX: K21.9 Gastro-esophageal reflux disease without esophagitis (principal)
CPT/HCPCS: 74246

== ENCOUNTER → 2023-11-09 08:17 | Outpatient (BNV) | payer OTHER, SELFPAY | PROVIDERS: Visit Provider Physician Assistant Surgical | DX: K21.9 Gastro-esophageal reflux disease without esophagitis (principal) | CPT/HCPCS: 74246 ==

== ENCOUNTER 2023-12-06 10:30 | Outpatient (AMB) | payer OTHER, SELFPAY ==
--- NOTE | 2023-12-06 10:32 | A.OFFPC_ITS ---
Vital Signs 12/06/23 10:33 12/06/23 15:09 Height 4 ft 8 in BMI Reason not done Patient refused/unable BP 140/92 H 140/90 H Blood Pressure Location Rt brachial Lt brachial Position Sitting Sitting Comment patient on wheelchair Intake Visit Reasons: bp Intake Note: Patient here for a follow up BP Svp Operations Required: No Accompanied by: RN CARDIAC REHAB Allergies No Known Allergies Allergy (Verified 12/06/23 10:57) Medication List - Last Reconciled 12/06/23 by Bambi Vizcaino MD acetaminophen 1,000 mg (2 x 500 mg) PO Q6H PRN 30 days [adult diapers brief As directed] amlodipine 2.5 mg PO DAILY 90 days baclofen 10 mg PO BID 30 days blood pressure monitor As directed calcium carbonate-vitamin D3 600 mg-5 mcg (200 unit) 1 tab PO BID cholecalciferol (vitamin D3) 25 mcg PO DAILY 90 days citalopram 20 mg PO DAILY 90 days [DME mattress As directed] docusate calcium (Stool Softener (docusate calcium)) 240 mg PO BEDTIME PRN 90 days [electric edelmira lift As directed] gabapentin 300 mg PO TID 30 days hospital bed As directed [edelmira lift As directed] lactulose 10 grams (15 mL) PO DAILY PRN 30 days latex gloves (Latex Gloves, Large) As directed latex gloves (Latex Gloves, Large) As directed lisinopril 40 mg PO DAILY 90 days metoprolol succinate ER 50 mg PO DAILY miscellaneous medical supply 1 ea miscellaneous ONCE oxycodone 5 mg PO BID PRN 30 days pantoprazole 40 mg PO DAILY 90 days peg 3350-electrolytes 236-22.74-6.74 -5.86 gram 240 mL PO Q10M psyllium husk (Metamucil) 1 tbsp PO DAILY PRN 30 days [scooter As directed] simethicone (Gas Relief (simethicone)) 125 mg PO TID-QID PRN [sliding board As directed] trazodone 100 mg PO BEDTIME PRN 90 days underpads (Bed Underpads) Use 3 to 4 bed underpads daily [wipes As directed] Tobacco use date assessed: 06/07/23 Dental Screening Dental Screen Date: 06/07/23 HPI HPI Comments History of Present Illness Details This is a 53-year-old female with essential hypertension, GERD, chronic constipation, mild recurrent major depression and lumbar stenosis that comes today accompanied by RN CARDIAC REHAB. She is in a wheelchair for few years after having skeletal dysplasia repair by ortho at [facility] and since then she has not been able to extend or flex her knees bilateral. She had an MRI of lumbar spine recently showing severe lumbar stenosis and had lumbar surgery in the past as per patient at [facility] but the surgeon that was evaluating her has not had a follow-up and she would like a 2nd opinion. I will refer her to neuro spine surgery at [facility]. Blood pressure is elevated today but she has not take her medications yet. Blood pressure will be recheck in 3 weeks by nurse navigator. GERD stable with PPIs. Constipation well controlled with docusate as needed. Depression somewhat still present with citalopram. [facility] Medical History (Updated 12/06/23 @ 11:12 by Bambi Vizcaino MD) Chronic hip pain, bilateral Lumbar degenerative disc disease Chronic GERD Mild recurrent major depression Back pain Essential hypertension Depression with anxiety Constipation by delayed colonic transit Hypovitaminosis D Insomnia Surgical History History of surgery on lower extremity History of back surgery History of orthopedic surgery History of tubal ligation Family History Father Medical history unknown Mother CVD (cardiovascular disease) Maternal Aunt CVD (cardiovascular disease) Family/Other FH: mental illness Social History Housing: Apartment Alcohol intake: never Comment: sleeping Patient Tobacco Use Status: Never used Tobacco e-Cigarette/Vaping Use: Never Used Second Hand Smoke Exposure: No Advance Directives Date on File: 07/02/20 service: No Current occupational status: unemployed Cognitive needs: Yes (wheelchair) Hearing needs: No Vision needs: No Questionnaire Thrive Questionnaire Date Thrive assessed: 06/07/23 BRIAN-7 AMB Questionnaire BRIAN-7 Date BRIAN - 7 assessed: 06/07/23 Source: Developed by Drs. Pedro Kincaid, Jannie Sterling, Dieudonne Higginbotham and colleagues, with an educational melody from [employer]. Review of Systems Const All systems reviewed & are unremarkable except as noted in HPI and below Card Denies chest pain at rest, Denies chest pain with activity, Denies edema, Denies irregular heart rhythm, Denies claudication, Denies dyspnea, Denies dyspnea on exertion, Denies orthopnea, Denies paroxysmal nocturnal dyspnea and Denies slow heart rate Resp Denies cough, Denies dyspnea and Denies dyspnea on exertion GI Denies abdominal pain, Denies change in bowel habits, Denies excessive flatus, Denies nausea and Denies vomiting Denies urinary incontinence, Denies urinary hesitancy and Denies urinary urgency Musc Reports back pain, Denies atrophy, Denies deformity, Reports arthralgias, Reports limited range of motion and Reports stiffness Physical exam (Primary Care) Vital Signs: Last Vital Signs BP 140/92 H 12/06/23 10:33 Tobacco/Smoking Status: Tobacco use Status Tobacco use date assessed 06/07/23 12/06/23 10:39 Patient Tobacco Use Status Never used Tobacco 12/06/23 10:39 Tobacco use type 06/08/23 13:32 e-Cigarette/Vaping Use Never Used 12/06/23 10:39 Thrive Assessment: Date of Thrive Assessment Date Thrive assessed 06/07/23 12/06/23 10:39 Const Limitations: wheelchair Resp Effort & Inspection: normal respiratory effort Auscultation: clear to auscultation bilaterally Cardio Jugular venous distension: no JVD Rate: regular rate Rhythm: regular rhythm Heart sounds: S1 normal heart sound present and S2 normal heart sound present Extrem Other: Not able to flex or extend bilateral knees Right lower extremity: knee Details: abnormal ROM Details: pain with passive ROM during Details: in extension and in flexion and unable to extend lower leg actively Left lower extremity: knee Details: abnormal ROM Details: pain with passive ROM Details: with extension and with flexion and unable to extend lower leg actively Assessment and Plan Assessment & Plan (1) Lumbar stenosis: Code(s): M48.061 - Spinal stenosis, lumbar region without neurogenic claudication Plan: Referred to [facility] neuro spine. (2) Chronic constipation: Comment: Reviewed in detail-consistent bowel, maintaining high-fiber Code(s): K59.09 - Other constipation Plan: Continue docusate as needed. (3) Mild recurrent major depression: Code(s): F33.0 - Major depressive disorder, recurrent, mild Plan: Continue citalopram. (4) Essential hypertension: Code(s): I10 - Essential (primary) hypertension Plan: Continue amlodipine and lisinopril. Take blood pressure pills in the morning. Recheck blood pressure with nurse navigator in 3 weeks. Blood pressure goal is equal or less than 130/80. (5) GERD (gastroesophageal reflux disease): Comment: many questions--diet/ modifications- reviewed in detail with seismic interpreter Code(s): K21.9 - Gastro-esophageal reflux disease without esophagitis Plan: Continue PPIs. Orders: Referrals Neuro Spine Referral M48.061 - Spinal stenosis, lumbar region without neurogenic claudication Medications: New gabapentin 400 mg PO TID 90 caps 1RF 30 days Discontinued trazodone Discontinued Reason: Patient Completed Course 100 mg PO BEDTIME 90 days PRN 90 tabs 0RF sleep gabapentin Discontinued Reason: Patient Completed Course 300 mg PO TID 30 days 90 caps 2RF lactulose Discontinued Reason: Patient Completed Course 10 grams (15 mL) PO DAILY 30 days PRN 237 mL 3RF constipation Coding Level of Care Code Est Pt Level 4 (09134) Complex EM visit Add On G2211 Diagnoses Lumbar stenosis M48.061 Chronic constipation K59.09 Mild recurrent major depression F33.0 Essential hypertension I10 GERD (gastroesophageal reflux disease) K21.9 Time Spent (min) 25
[2023-12-06 10:33] VITALS: BP 140/92
[2023-12-06 15:09] VITALS: BP 140/90
== END 2023-12-06 11:15 | disposition home or self-care (01) ==
PROVIDERS: PCP Internal Medicine; Visit Provider Internal Medicine
DX: M48.061 Spinal stenosis, lumbar region without neurogenic claudication (principal); K59.09 Other constipation; F33.0 Major depressive disorder, recurrent, mild; I10 Essential (primary) hypertension; K21.9 Gastro-esophageal reflux disease without esophagitis
CPT/HCPCS: 99214; G2211

== ENCOUNTER 2024-02-02 08:17 | Day surgery (SDC) | payer OTHER, SELFPAY ==
[2024-01-31 13:39] VITALS: BMI 37.0
--- NOTE | 2024-02-01 09:52 | HO.ANESPROP2 ---
HPI - Anesthesia Eval Consult details Narrative: 53yo F for Right Intra-articular Hip Steroid Injection Wheelchair dependant d/t skeletal dysplasia PMFSH Active Problems Active Problems: All Active Problems Mixed stress and urge urinary incontinence (Acute) Lumbar stenosis (Acute) Chronic constipation (Acute) GERD (gastroesophageal reflux disease) (Acute) Chronic pain syndrome (Acute) Osteoarthritis, hip, bilateral (Acute) Bilateral hip pain (Acute) Muscle spasticity (Acute) Requires scooter for mobility (Acute) Neuropathy (Acute) Constipation (Acute) Hypertrophy of uterus (Acute) Neurogenic bladder (Acute) Limited mobility (Acute) Wheelchair dependent (Acute) Bilateral leg and foot pain (Acute) Cyst of left breast (Acute) Mild major depression (Acute) Screening for cervical cancer (Acute) Physical exam (Acute) Lumbar spinal stenosis (Acute) Skeletal dysplasia (Acute) Decrease in appetite (Acute) Dependent on walker for ambulation (Acute) Fixation hardware in leg (Acute) Urge urinary incontinence (Acute) Chronic hip pain, bilateral (Acute) Lumbar degenerative disc disease (Acute) Chronic GERD (Acute) Mild recurrent major depression (Acute) Back pain (Acute) Essential hypertension (Acute) Depression with anxiety (Acute) Constipation by delayed colonic transit (Acute) Hypovitaminosis D (Acute) Insomnia (Acute) Past Medical History Medical History Skeletal dysplasia Neuropathy Osteoarthritis Wheelchair dependent Neurogenic bladder Chronic hip pain, bilateral Lumbar degenerative disc disease Chronic GERD Mild recurrent major depression Back pain Essential hypertension Depression with anxiety Constipation by delayed colonic transit Hypovitaminosis D Insomnia Family History Family History Father Medical history unknown Mother CVD (cardiovascular disease) Maternal Aunt CVD (cardiovascular disease) Family/Other FH: mental illness Family history of problems with anesthesia: No Surgical History Surgical History H/O colonoscopy History of surgery on lower extremity History of back surgery History of orthopedic surgery History of tubal ligation History of Problems with Anesthesia: No Social History Social History Housing: Apartment Alcohol intake: never Comment: sleeping Patient Tobacco Use Status: Never used Tobacco e-Cigarette/Vaping Use: Never Used Second Hand Smoke Exposure: No Advance Directives Date on File: 07/02/20 service: No Current occupational status: unemployed Cognitive needs: Yes (wheelchair) Hearing needs: No Vision needs: No Meds Allergies Allergy/AdvReac Type Severity Reaction Status Date / Time No Known Allergies Allergy Verified 12/06/23 10:57 Home Medications ?Medication ?Instructions ?Recorded ?Confirmed ?Last Taken ?Type trazodone 100 mg tablet 100 mg PO BEDTIME PRN insomnia 01/31/24 02/02/24 Unknown History Exam Height,Weight and Vital Signs: Height 4 ft 8 in Weight 74.843 kg Assessment and Plan Assessment Anesthesia Assessment: Chart Reviewed Final Anesthetic Review Family History of Problems with Anesthesia: No History of Problems with Anesthesia: No
--- NOTE | 2024-02-02 08:18 | P.CONAN_ITS ---
[facility] Active Problems Active Problems: All Active Problems Mixed stress and urge urinary incontinence (Acute) Lumbar stenosis (Acute) Chronic constipation (Acute) GERD (gastroesophageal reflux disease) (Acute) Chronic pain syndrome (Acute) Osteoarthritis, hip, bilateral (Acute) Bilateral hip pain (Acute) Muscle spasticity (Acute) Requires scooter for mobility (Acute) Neuropathy (Acute) Constipation (Acute) Hypertrophy of uterus (Acute) Neurogenic bladder (Acute) Limited mobility (Acute) Wheelchair dependent (Acute) Bilateral leg and foot pain (Acute) Cyst of left breast (Acute) Mild major depression (Acute) Screening for cervical cancer (Acute) Physical exam (Acute) Lumbar spinal stenosis (Acute) Skeletal dysplasia (Acute) Decrease in appetite (Acute) Dependent on walker for ambulation (Acute) Fixation hardware in leg (Acute) Urge urinary incontinence (Acute) Chronic hip pain, bilateral (Acute) Lumbar degenerative disc disease (Acute) Chronic GERD (Acute) Mild recurrent major depression (Acute) Back pain (Acute) Essential hypertension (Acute) Depression with anxiety (Acute) Constipation by delayed colonic transit (Acute) Hypovitaminosis D (Acute) Insomnia (Acute) Past Medical History Medical History Skeletal dysplasia Neuropathy Osteoarthritis Wheelchair dependent Neurogenic bladder Chronic hip pain, bilateral Lumbar degenerative disc disease Chronic GERD Mild recurrent major depression Back pain Essential hypertension Depression with anxiety Constipation by delayed colonic transit Hypovitaminosis D Insomnia Functional capacity: uses cane/walker Patient : No Family History Family History Father Medical history unknown Mother CVD (cardiovascular disease) Maternal Aunt CVD (cardiovascular disease) Family/Other FH: mental illness Family history of problems with anesthesia: No Surgical History Surgical History H/O colonoscopy History of surgery on lower extremity History of back surgery History of orthopedic surgery History of tubal ligation History of Problems with Anesthesia: No Social History Social History Housing: Apartment Alcohol intake: never Comment: sleeping Patient Tobacco Use Status: Never used Tobacco e-Cigarette/Vaping Use: Never Used Second Hand Smoke Exposure: No Advance Directives: No Advance Directives Information Provided: Yes Advance Directives Date on File: 07/02/20 service: No Current occupational status: unemployed Cognitive needs: Yes (wheelchair) Hearing needs: No Vision needs: No Meds Allergies Allergy/AdvReac Type Severity Reaction Status Date / Time No Known Allergies Allergy Verified 12/06/23 10:57 Home Medications ?Medication ?Instructions ?Recorded ?Confirmed ?Last Taken ?Type trazodone 100 mg tablet 100 mg PO BEDTIME PRN insomnia 01/31/24 01/31/24 Unknown History Exam Height,Weight and Vital Signs: Height 4 ft 8 in Weight 74.843 kg Assessment and Plan Final Anesthetic Review Family History of Problems with Anesthesia: No History of Problems with Anesthesia: No
--- NOTE | 2024-02-02 08:53 | MHC.SHP ---
Pre-Procedural Eval Section A - 24 Hr Update-Section A only Date of Service: 02/02/24 The patient is an INPATIENT: No Changes since office visit: Yes Patient answered all questions The patient has been examined within 24 hours of the surgical procedure. The History & Physical has been completed within 30 days and I have reviewed it.: No Section B - Complete if H&P > 30 days Chief Complaint: right and left hip pain,chronic pain Details of Present Illness: as above Relevant Family History (Specify if Yes): No Relevant Social History: None Present Medications: see Short Stay Collaborative assessment Medical History: Significant History History of Previous Operations: No relevant previous surgery Allergies: Allergies Allergy/AdvReac Type Severity Reaction Status Date / Time No Known Allergies Allergy Verified 12/06/23 10:57 Review of Systems Sugical H&P ROS: Negative: Cardiovascular, Respiratory, Neurological, Psychiatric, Hem-Onc, Allergic/Immunologic, Gastrointestinal, Genitourinary, Integumentary, Endocrine and Eyes/Ears/Nose/Throat and Yes, Specify: Constitution (morbid obesity) and Musculoskeletal (skeletal dysplasia, spinal stenosis, osteoarthritis) Exam Surgical H&P Exam: Normal: HEENT, Normal: Heart, Normal: Lungs, Normal: Extremities, Normal: Abdomen, Normal: Skin and Normal: Neurological Plan Diagnosis/Plan: Unchanged I have reviewed the history and physical and performed a pertinent physical examination on my patient. No changes have occurred unless specified. Time Spent With Patient Time: Total time managing care of this patient today __10__ minutes.
[2024-02-02 09:01] VITALS: BP 170/93; PULSE 73; RESP 18; TEMP 36.8; O2SAT 98
--- NOTE | 2024-02-02 09:10 | HO.ANESPROP2 ---
[facility] Active Problems Active Problems: All Active Problems Mixed stress and urge urinary incontinence (Acute) Lumbar stenosis (Acute) Chronic constipation (Acute) GERD (gastroesophageal reflux disease) (Acute) Chronic pain syndrome (Acute) Osteoarthritis, hip, bilateral (Acute) Bilateral hip pain (Acute) Muscle spasticity (Acute) Requires scooter for mobility (Acute) Neuropathy (Acute) Constipation (Acute) Hypertrophy of uterus (Acute) Neurogenic bladder (Acute) Limited mobility (Acute) Wheelchair dependent (Acute) Bilateral leg and foot pain (Acute) Cyst of left breast (Acute) Mild major depression (Acute) Screening for cervical cancer (Acute) Physical exam (Acute) Lumbar spinal stenosis (Acute) Skeletal dysplasia (Acute) Decrease in appetite (Acute) Dependent on walker for ambulation (Acute) Fixation hardware in leg (Acute) Urge urinary incontinence (Acute) Chronic hip pain, bilateral (Acute) Lumbar degenerative disc disease (Acute) Chronic GERD (Acute) Mild recurrent major depression (Acute) Back pain (Acute) Essential hypertension (Acute) Depression with anxiety (Acute) Constipation by delayed colonic transit (Acute) Hypovitaminosis D (Acute) Insomnia (Acute) Past Medical History Medical History Skeletal dysplasia Neuropathy Osteoarthritis Wheelchair dependent Neurogenic bladder Chronic hip pain, bilateral Lumbar degenerative disc disease Chronic GERD Mild recurrent major depression Back pain Essential hypertension Depression with anxiety Constipation by delayed colonic transit Hypovitaminosis D Insomnia Functional capacity: wheelchair bound Patient : No Family History Family History Father Medical history unknown Mother CVD (cardiovascular disease) Maternal Aunt CVD (cardiovascular disease) Family/Other FH: mental illness Family history of problems with anesthesia: No Surgical History Surgical History H/O colonoscopy History of surgery on lower extremity History of back surgery History of orthopedic surgery History of tubal ligation History of Problems with Anesthesia: No Social History Social History Housing: Apartment Alcohol intake: never Comment: sleeping Patient Tobacco Use Status: Never used Tobacco e-Cigarette/Vaping Use: Never Used Second Hand Smoke Exposure: No Use of substances other than those prescribed or required for medical reasons: No Are you DNR?: No Advance Directives: No Advance Directives Information Provided: Yes Advance Directives Date on File: 07/02/20 Patient : No service: No Current occupational status: unemployed Cognitive needs: Yes (wheelchair) Hearing needs: No Vision needs: No Meds Allergies Allergy/AdvReac Type Severity Reaction Status Date / Time No Known Allergies Allergy Verified 12/06/23 10:57 Active Medications: Current Medications Lactated Ringer's (Lr) 1,000 mls @ 100 mls/hr IVCONT .Q10H KRISTA Home Medications ?Medication ?Instructions ?Recorded ?Confirmed ?Last Taken ?Type trazodone 100 mg tablet 100 mg PO BEDTIME PRN insomnia 01/31/24 01/31/24 Unknown History Exam Height,Weight and Vital Signs: Height 4 ft 8 in Weight 74.843 kg Last Vital Signs Temp 98.3 F 02/02/24 09:01 Pulse 73 02/02/24 09:01 Resp 18 02/02/24 09:01 BP 170/93 H 02/02/24 09:01 Pulse Ox 98 02/02/24 09:01 O2 Del Method Room Air 02/02/24 09:01 Airway Mallampati Class: IV TM Dist: >3cm Neck ROM: Full Heart: RRR Lungs: CTA Assessment and Plan Assessment Anesthesia Assessment: Anesthesia Plan Discussed and Chart Reviewed Final Anesthetic Review Family History of Problems with Anesthesia: No History of Problems with Anesthesia: No NPO: Yes ASA Class: III Final Preanesthetic Review: Meds/Allgs Chart Reviewed, Consent Obtained/Reviewed and Anes Risks/Benef Reviewed Patient Risk: Intermediate Procedure Risk: Low Anesthetic Plan Anesthetic Plan: MAC: Disposition: Standard PACU
[2024-02-02] MEDS: Lactated Ringers 1,000 ML 100 ML IVCONT (09:14)
--- NOTE | 2024-02-02 09:16 | PM.OP ---
Brief Operative Note Date of Service: 02/02/24 Pre-op diagnosis: right hip osteoarthritis Post-op diagnosis: same Procedure: right hip joint steroid injection Surgeon: Porfirio Abbasi MD Anesthesia: MAC Was an Fiberglass Bonding Machine Tender used for this Procedure?: No Estimated blood loss (mL): 0 Condition: stable Disposition: PACU
--- NOTE | 2024-02-02 09:16 | W.PM.OPN ---
Operative Note Operative Note Date of Service: 02/02/24 Narrative: Rig hip steroid injection. Informed consent was explained to the patient. All questions were explained and answered. The patient was taken inside of the operating room where she was positioned left lateral decubitus on operating table. ASA monitors were applied and patient was minimally sedated.. Time-out was performed delineating patient's name and date of , correct site, side, the nature of the procedure, patient's allergy, preoperative antibiotic if needed, need for VT prophylaxis.. All operating room staff was participating in OR time-out procedure. Right hip area of the patient was prepped with ChloraPrep and draped with sterile towels. C-arm was brought over the operating field and picture of left and right lateral views of the bilateral hip joints were delineated on the screen. Intramedullary jada in the right femur was located on the screen. However the right joint appeared to be nikolai intact and not bearing any hardware. Projection of the right trochanter to the skin was chosen as the initial needle insertion point. After that the skin and subcutaneous tissues was anesthetized with 2% lidocaine 2.5 mL. 22 gauge 5 in long needle was inserted through the skin and started to advance to the joint space under intermittent lateral and anterior posterior views. When needle entered the capsule of the joint small amount of the contrast was injected delineating intra-articular space. After that treatment solution containing 5 mlx of ropivacaine 0.5% and 40 mg of Kenalog was injected into the joint. After that the needle was withdrawn sterile dressing was applied.The patient tolerated procedure well. She was awakened transferred to the bed and delivered to PACU for recovery.
[2024-02-02 09:51] VITALS: BP 147/90; PULSE 79; RESP 16; TEMP 36.1; O2SAT 99
--- NOTE | 2024-02-02 10:02 | HO.POSTANES ---
Post Anesthesia Evaluation Post Anesthesia Evaluation Date of Service: 02/02/24 Vital Signs: Vital Signs Temp Pulse Resp BP Pulse Ox O2 Del Method 02/02/24 09:51 97 F 79 16 147/90 H 99 Room Air 02/02/24 09:01 98.3 F 73 18 170/93 H 98 Room Air Anesthesia: Monitored Mental Status: Awake Pain Control: Satisfactory Nausea/Vomiting: None Hydration: Adequate Anesthesia-Related Issues: No Anes. Related Issues
[2024-02-02 10:05] VITALS: BP 178/65; PULSE 72; RESP 16; TEMP 36.7; O2SAT 98
--- NOTE | 2024-02-02 14:21 | HO.POSTANES ---
Post Anesthesia Evaluation Post Anesthesia Evaluation Date of Service: 02/02/24 Vital Signs: Vital Signs Temp Pulse Resp BP Pulse Ox O2 Del Method 02/02/24 10:05 98.1 F 72 16 178/65 H 98 Room Air 02/02/24 09:51 97 F 79 16 147/90 H 99 Room Air 02/02/24 09:01 98.3 F 73 18 170/93 H 98 Room Air Anesthesia: Monitored Mental Status: Awake Pain Control: Satisfactory Nausea/Vomiting: None Hydration: Adequate Anesthesia-Related Issues: No Anes. Related Issues
== END 2024-02-02 10:36 | disposition home or self-care (01) ==
PROVIDERS: PCP Internal Medicine; Visit Provider Anesthesiology
PROC: (CPT 20610; principal; 2024-02-02 09:50)
DX: M25.551 Pain in right hip (principal); M16.11 Unilateral primary osteoarthritis, right hip; G89.4 Chronic pain syndrome; Q78.9 Osteochondrodysplasia, unspecified; Z99.3 Dependence on wheelchair; M51.369 Other intervertebral disc degeneration, lumbar region without mention of lumbar back pain or lower extremity pain; I10 Essential (primary) hypertension; F41.9 Anxiety disorder, unspecified; E55.9 Vitamin D deficiency, unspecified; G47.00 Insomnia, unspecified; Z79.899 Other long term (current) drug therapy; Z98.890 Other specified postprocedural states; Z56.0 Unemployment, unspecified
CPT/HCPCS: 20610; J2003; J2250; J2704; J2795; J3301; Q9967

== ENCOUNTER → 2024-02-02 08:17 | Outpatient (BNV) | payer OTHER, SELFPAY | PROVIDERS: PCP Internal Medicine; Visit Provider Anesthesiology | DX: M25.551 Pain in right hip (principal) | CPT/HCPCS: 20610; 77002 ==

== ENCOUNTER 2024-02-27 09:39 | Outpatient (AMB) | payer OTHER, SELFPAY ==
[2024-02-27 09:41] VITALS: BP 160/102; PULSE 82; O2SAT 97
--- NOTE | 2024-02-27 09:41 | A.OFFPC_ITS ---
Vital Signs 02/27/24 09:41 Height 4 ft 8 in BP 160/102 H Blood Pressure Location Lt brachial Position Sitting Pulse 82 Pulse Source Pulse Oximeter Pulse Oximetry (%) 97 Oxygen Delivery Method Room Air Intake Visit Reasons: [facility] 02/14 Belly Inflamation Fisher Troll Line Required: No Accompanied by: Friend Allergies No Known Allergies Allergy (Verified 02/27/24 09:53) Tobacco use date assessed: 06/07/23 Dental Screening Dental Screen Date: 06/07/23 HPI HPI Comments History of Present Illness Details 53 y/o female patient who presents to e clinic today for HDF. She was admitted at [facility] on 02/14/24 - 02/15/24 due to Cystitis. She was treated with IV Abx. Today Pt reports abdominal pain associated with constipation. She usually takes medications for this but ran out of refills. Pt also c/o Uterine bleeding. She has gone 12 months without getting periods and now started bleeding. Pt has not seen a Director Of Corporate Sales for years. [facility] Medical History Skeletal dysplasia Neuropathy Osteoarthritis Wheelchair dependent Neurogenic bladder Chronic hip pain, bilateral Lumbar degenerative disc disease Chronic GERD Mild recurrent major depression Back pain Essential hypertension Depression with anxiety Constipation by delayed colonic transit Hypovitaminosis D Insomnia Surgical History H/O colonoscopy History of surgery on lower extremity History of back surgery History of orthopedic surgery History of tubal ligation Family History Father Medical history unknown Mother CVD (cardiovascular disease) Maternal Aunt CVD (cardiovascular disease) Family/Other FH: mental illness Social History Housing: Apartment Alcohol intake: never Comment: sleeping Patient Tobacco Use Status: Never used Tobacco Tobacco use type: Cigarette e-Cigarette/Vaping Use: Never Used Second Hand Smoke Exposure: No Advance Directives Date on File: 07/02/20 service: No Current occupational status: unemployed Cognitive needs: Yes (wheelchair) Hearing needs: No Vision needs: No Questionnaire PHQ-9 Over the last 2 weeks, how often have you been bothered by any of the following problems? 1. Little interest or pleasure in doing things: not at all 2. Feeling down, depressed, or hopeless: more than half the days 3. Trouble falling or staying asleep, or sleeping too much: not at all 4. Feeling tired or having little energy: more than half the days 5. Poor appetite or overeating: more than half the days 6. Feeling bad about yourself - or that you are a failure or have let yourself or your family down: several days 7. Trouble concentrating on things, such as reading the newspaper or watching television: not at all 8. Moving or speaking so slowly that other people could have noticed. Or the opposite - being so fidgety or restless that you have been moving around a lot more than usual: not at all 9. Thoughts that you would be better off or of hurting yourself in some way: not at all Total score: 7 Depression Screening Interpretation: Positive Depression Screening Done: Yes 40366 - PHQ-9 Billing: Yes Source: Developed by Drs. Pedro Kincaid, Jannie Sterling, Dieudonne Higginbotham and colleagues, with an educational melody from [employer]. Thrive Questionnaire Date Thrive assessed: 06/07/23 AUDIT C Alcohol Use Questionnaire (AUDIT-C) 1. How often do you have a drink containing alcohol?: Never Total Score: 0 BRIAN-7 AMB Questionnaire BRIAN-7 Date BRIAN - 7 assessed: 06/07/23 Source: Developed by Drs. Pedro Kincaid, Dieudonne Concepcion and colleagues, with an educational melody from [employer]. Review of Systems Const All systems reviewed & are unremarkable except as noted in HPI and below Physical exam (Primary Care) Vital Signs: Last Vital Signs Pulse 82 02/27/24 09:41 BP 160/102 H 02/27/24 09:41 Pulse Ox 97 02/27/24 09:41 Oxygen Delivery Method Room Air 02/27/24 09:41 Tobacco/Smoking Status: Tobacco use Status Tobacco use date assessed 06/07/23 02/27/24 09:46 Patient Tobacco Use Status Never used Tobacco 02/27/24 09:46 Tobacco use type Cigarette 02/27/24 09:46 e-Cigarette/Vaping Use Never Used 02/27/24 09:46 PHQ-9: PHQ-9 Score PHQ-9: Total score 7 02/27/24 10:18 Depression Screening Interpretation: Positive Thrive Assessment: Date of Thrive Assessment Date Thrive assessed 06/07/23 02/27/24 09:46 Const General: no acute distress Nutritional Appearance: obese Orientation/consciousness: patient oriented x3 Limitations: wheelchair Resp Effort & Inspection: normal respiratory effort Auscultation: clear to auscultation bilaterally Cardio Heart sounds: S1 normal heart sound present and S2 normal heart sound present GI Inspection: Yes Abdominal panniculus present and Yes obesity Palpation (GI): Soft to palpation, not firm, Tenderness to palpation present (GI), no guarding and not rigid Auscultation: normal bowel sounds Neuro General: patient oriented x3 Psych Speech and movement: Normal speech and movement present Coding Level of Care Code Est Pt Level 4 (87969) Diagnoses Hospital discharge follow-up Z09 Cystitis N30.90 Chronic constipation K59.09 Uterine bleeding N93.9 Additional Codes PHQ-9 - 07649 - PHQ-9 Billing: Yes ([id number]) Time Spent (min) 20 Assessment & Plan Assessment & Plan (1) Hospital discharge follow-up: Code(s): Z09 - Encounter for follow-up examination after completed treatment for conditions other than malignant neoplasm Plan: Stable. (2) Cystitis: Code(s): N30.90 - Cystitis, unspecified without hematuria Plan: Completed Abx (3) Chronic constipation: Comment: Reviewed in detail-consistent bowel, maintaining high-fiber Code(s): K59.09 - Other constipation Category: Medical Plan: Refilled Metamucil and Colace. (4) Uterine bleeding: Code(s): N93.9 - Abnormal uterine and vaginal bleeding, unspecified Plan: Advised to f/u with Director Of Corporate Sales. Medications: Refilled psyllium husk (Metamucil) mix into at least 8 oz of water or juice before administering 1 tbsp PO DAILY PRN 660 grams 0RF constipation 30 days K59.09 - Other constipation docusate calcium (Stool Softener (docusate calcium)) 240 mg PO BEDTIME PRN 90 caps 0RF constipation 90 days K59.09 - Other constipation
== END 2024-02-27 10:12 | disposition home or self-care (01) ==
PROVIDERS: PCP Internal Medicine; Visit Provider Nurse Practitioner Family
DX: Z09 Encounter for follow-up examination after completed treatment for conditions other than malignant neoplasm (principal); N30.90 Cystitis, unspecified without hematuria; K59.09 Other constipation; N93.9 Abnormal uterine and vaginal bleeding, unspecified

== ENCOUNTER → 2024-02-27 09:39 | Outpatient (BNVA) | payer OTHER, SELFPAY | PROVIDERS: PCP Internal Medicine; Visit Provider Nurse Practitioner Family | DX: Z09 Encounter for follow-up examination after completed treatment for conditions other than malignant neoplasm (principal); N30.90 Cystitis, unspecified without hematuria; N93.9 Abnormal uterine and vaginal bleeding, unspecified; K59.09 Other constipation | CPT/HCPCS: 96127; 99212 ==

== ENCOUNTER 2024-03-15 09:49 | Outpatient (AMB) | payer OTHER, SELFPAY ==
--- NOTE | 2024-03-15 09:51 | MHC.OFFVIS ---
Vital Signs 03/15/24 09:56 Height 4 ft 8 in BMI Reason not done Patient refused/unable BP 184/96 H Blood Pressure Location Lt brachial Position Sitting Pulse 94 Pulse Source Pulse Oximeter Pulse Oximetry (%) 97 Oxygen Delivery Method Room Air Intake Visit Reasons: S/p (R) Intraarticular Hip Injection 02/02/24 Intake Note: Pain today 10/17 Chlorine Operator Required: Yes Chlorine Operator Language: Telugu Accompanied by: Self / Same As Patient Allergies No Known Allergies Allergy (Verified 03/15/24 09:57) HPI Comments Details: Patient presents today to assess response to Right hip intra-articular steroid injection on 02/02/[address] Abbasi. Patient reports ongoing 80% pain relief since procedure with partial improvement in her daily activities, functioning and sleep. She continues to report bilateral extremity pain due to restless leg syndrome symptoms and neuropathy. Patient has been referred to Neurology year ago but reports no one has contacted we will yet. She also reports significant axial low back pain and is interested in lumbar RFA. We will proceed with diagnostic lumbar medial branch blocks as next steps. Patient continues to follow at [facility] for potential spine surgery. She is wheelchair-bound due to skeletal dysplasia and unable to flex her knees. She receives NUCLEAR WASTE MANAGEMENT ENGINEER and VNA services. She continues to take Tylenol, gabapentin, baclofen and oxycodone with partial benefit Denies any recent cough, cold, infection, fever, any significant changes in her medical history, medications or recent hospitalizations. Past Procedures: 02/02/24: Right hip intra-articular steroid injection-80% ongoing pain relief PRIOR: Patient is a pleasant 52 year old Telugu speaking female with history of lumbar spinal stenosis, skeletal dysplasia, neurogenic bladder, thoracic surgery, lumbar degenerative disc disease, bilateral femoral/tibial osteotomies, due to congenital deformity of lower extremities with orthopedic surgical repair was done at [facility], presents today for initial evaluation of low back pain that radiates down to her lateral legs and feet bilaterally. Patient reports she will require another surgery for hip and knee replacement but this has not been scheduled yet. Patient is wheelchair bound with limited mobility in her lower limbs after having orthopedic surgery few years ago. She is not able to fully extend or flex her knees or feet. Reports significant stiffness and spasticity in her lower extremities. Patient is managing her pain with oxycodone and Tylenol prn prescribed by her PCP with continued symptoms. Patient reports she completed course of home PT without no improvement in her functioning or pain reduction. She has good upper body strength and able to adjust her position in wheelchair. Patient reports she spends most of her day sitting in chair, recliner or bed. Pain negatively affects her daily activities, functioning, mood and quality of life. She receives VNA and NUCLEAR WASTE MANAGEMENT ENGINEER services and is requiring increased NUCLEAR WASTE MANAGEMENT ENGINEER hours as she is not able to care for herself or function normally. Location Mid-low back pain, bilateral legs and feet Duration Chronic pain >3 years Characteristics of symptom or complaint Aching, pressure, burning Aggravating or associated factors Prolonged sitting, movements Relieving factors Tylenol, oxycodone, gabapentin Treatment Home PT- no improvement PFSH Medical History Skeletal dysplasia Neuropathy Osteoarthritis Wheelchair dependent Neurogenic bladder Chronic hip pain, bilateral Lumbar degenerative disc disease Chronic GERD Mild recurrent major depression Back pain Essential hypertension Depression with anxiety Constipation by delayed colonic transit Hypovitaminosis D Insomnia Surgical History H/O colonoscopy History of surgery on lower extremity History of back surgery History of orthopedic surgery History of tubal ligation Family History Father Medical history unknown Mother CVD (cardiovascular disease) Maternal Aunt CVD (cardiovascular disease) Family/Other FH: mental illness Social History Housing: Apartment Alcohol intake: never Comment: sleeping Patient Tobacco Use Status: Never used Tobacco Tobacco use type: Cigarette e-Cigarette/Vaping Use: Never Used Second Hand Smoke Exposure: No Advance Directives Date on File: 07/02/20 service: No Current occupational status: unemployed Cognitive needs: Yes (wheelchair) Hearing needs: No Vision needs: No Review of Systems Const All systems reviewed & are unremarkable except as noted in HPI and below Physical Exam Vital Signs: Last Vital Signs Pulse 94 03/15/24 09:56 BP 184/96 H 03/15/24 09:56 Pulse Ox 97 03/15/24 09:56 Oxygen Delivery Method Room Air 03/15/24 09:56 General: Appears afebrile. No acute distress. Alert and oriented. Mood and affect appropriate. Pleasant. Follows and participates in conversation appropriately. Respiratory effort is unlabored. No cough. Wheelchair bound, able to move upper body and side to sides without assistance. General: Yes no CVA tenderness Back/Spine/Pelvis Other: Limited back exam due to pain. Wheelchair bound. Significant spasticity and stiffness in both legs, unable to flex knees. Reports mild groin pain with passive leg movements, right>left. Bilateral lateral hip and thoracic incisions well healed with keloid formation. Bilateral knee incisions well healed, normal scarring. No midline tenderness to palpation in the thoracic or lumbar spine. Mild to moderate paraspinal tenderness to palpation in the lumbar spine, worse on the right. Lumbar extension and flexion reproduces moderate pain. Back: no CVA tenderness Cervical Spine: cervical muscular tenderness, pain with cervical ROM and No Cervical spine tenderness Thoracic/Lumbar Spine: thoracic and lumbar spine normal to inspection, Thoracic/lumbar spine scar(s), Lasegue's sign negative, pain with thoraco-lumbar ROM, paraspinal muscle tenderness, thoraco-lumbar ROM limited, No thoracic spinal tenderness and lumbar spinal tenderness at L3, at L4 and at L5 Pelvis: buttock tenderness bilaterally Sacroiliac joints: bilaterally tender to palpation Extrem General: Yes capillary refill normal, Yes no clubbing, cyanosis or edema and Yes no calf tenderness Results Reviewed Results Reviewed: XR/XR thoracic spine 3V 03/06/24 IMPRESSION: Mild degenerative changes in the thoracic spine. XR/XR lumbar spine 2-3V 03/06/24 IMPRESSION: Mild degenerative spondylosis. XR BILATERAL HIPS WITH AP PELVIS 03/06/23 CLINICAL INFORMATION: Pain COMPARISON: Right hip from 12/27/2018 and femur from 06/13/2019 FINDINGS: Patient is status post mid femoral osteotomy with placement of hardware in the intramedullary space of right femur. The osteotomy line is still visualized with callus formation. Hardware well positioned in the right femur in partially visualized proximal tibia. There are changes of osteoarthritis in the right knee and mild changes of osteoarthritis in right hip joint. There are findings of a narrowing of the left hip joint also. IMPRESSION: Postsurgical changes with hardware in place and bilateral hips osteoarthritis, right knee osteoarthritis. Assessment & Plan Assessment & Plan (1) Skeletal dysplasia: Code(s): Q78.9 - Osteochondrodysplasia, unspecified Category: Medical (2) Neuropathy: Code(s): G62.9 - Polyneuropathy, unspecified Category: Medical (3) Muscle spasticity: Code(s): M62.838 - Other muscle spasm Category: Medical (4) Restless leg syndrome: Code(s): G25.81 - Restless legs syndrome Category: Medical (5) Lumbar spinal stenosis: Code(s): M48.061 - Spinal stenosis, lumbar region without neurogenic claudication Category: Medical (6) Lumbar degenerative disc disease: Code(s): M51.36 - Other intervertebral disc degeneration, lumbar region Category: Medical (7) Chronic pain syndrome: Code(s): G89.4 - Chronic pain syndrome Category: Medical (8) Chronic hip pain, bilateral: Code(s): M25.551 - Pain in right hip; M25.552 - Pain in left hip; G89.29 - Other chronic pain Category: Medical (9) Lumbosacral spondylosis: Code(s): M47.817 - Spondylosis without myelopathy or radiculopathy, lumbosacral region Category: Medical Plan Patient is one month status post right hip steroid injection, fluoroscopy guided with good results and partial improvement in her ADLs, functioning and sleep. Patient will continue to monitor her pain symptoms and notify our office when her right hip pain returns to baseline. Patient is aware that she can not receive another injection in this area for another two months. Patient is aware to monitor for side effects. Schedule Bilateral Diagnostic L3-L4-DR L5 MBB with local and fluoroscopy. Expectations, risks and benefits were reviewed. Patient is aware she will be contacted to schedule this procedure. Previously discussed ITDD vs SCS trial for chronic pain syndrome management. Patient reports [facility] is considering spine surgery for skeletal dysplasia. She is currently taking gabapentin and oxycodone prescribed by her PCP with partial pain relief. All questions and concerns have been answered and patient agreed with the plan. Follow up after injections and sooner if needed. Orders: Referrals Neurology Referral G25.81 - Restless legs syndrome, G62.9 - Polyneuropathy, unspecified, M62.838 - Other muscle spasm, Q78.9 - Osteochondrodysplasia, unspecified Coding Level of Care Code Est Pt Level 4 (92948) Complex EM visit Add On G2211 Diagnoses Skeletal dysplasia Q78.9 Neuropathy G62.9 Muscle spasticity M62.838 Restless leg syndrome G25.81 Lumbar spinal stenosis M48.061 Lumbar degenerative disc disease M51.36 Chronic pain syndrome G89.4 Chronic hip pain, bilateral M25.551; M25.552; G89.29 Lumbosacral spondylosis M47.817
[2024-03-15 09:56] VITALS: BP 184/96; PULSE 94; O2SAT 97
== END 2024-03-15 10:09 | disposition home or self-care (01) ==
PROVIDERS: PCP Internal Medicine; Visit Provider Nurse Practitioner Family
DX: Q78.9 Osteochondrodysplasia, unspecified (principal); G62.9 Polyneuropathy, unspecified; M62.838 Other muscle spasm; G25.81 Restless legs syndrome; M48.061 Spinal stenosis, lumbar region without neurogenic claudication; M51.369 Other intervertebral disc degeneration, lumbar region without mention of lumbar back pain or lower extremity pain; G89.4 Chronic pain syndrome; M25.551 Pain in right hip; M25.552 Pain in left hip; G89.29 Other chronic pain; M47.817 Spondylosis without myelopathy or radiculopathy, lumbosacral region
CPT/HCPCS: 99214; G2211

== ENCOUNTER → 2024-03-15 09:49 | Outpatient (BNVA) | payer OTHER, SELFPAY | PROVIDERS: PCP Internal Medicine; Visit Provider Nurse Practitioner Family | DX: Q78.9 Osteochondrodysplasia, unspecified (principal); G62.9 Polyneuropathy, unspecified; M62.838 Other muscle spasm; M48.061 Spinal stenosis, lumbar region without neurogenic claudication; M51.360 Other intervertebral disc degeneration, lumbar region with discogenic back pain only; M25.551 Pain in right hip; M25.552 Pain in left hip; M47.817 Spondylosis without myelopathy or radiculopathy, lumbosacral region; G25.81 Restless legs syndrome; G89.29 Other chronic pain | CPT/HCPCS: 99212 ==

== ENCOUNTER 2024-06-04 06:28 | Outpatient (REF) | payer OTHER, SELFPAY ==
--- NOTE | ~2024-06-04 | FL_ITS ---
EXAMINATION: FL GUIDANCE ONLY HISTORY: M47.817 - Spondylosis without myelopathy or radiculopathy, lumbosacral r... COMPARISON: None available. TECHNIQUE: Fluoroscopy time: 0.6 minutes. Cumulative Dose: 9.92 mGy. DAP: 0.172 mGym2 Images: 12. FINDINGS: Images demonstrate needles and contrast material in the regions of the bilateral L3-4, L4-5, and L5-S1 facet joints. FL/FL guidance in treatment room IMPRESSION: Fluoroscopy during procedure. Please see procedure report for additional information. Electronically signed by: Pedro Rutledge MD 06/04/2024 02:42 PM [facility] [place]
--- OUTSIDE RECORDS SUMMARY | 2024-06-04 06:30 | XMS_ITS | Clinical Summary ---
Author Organization [facility] Address [address] [place] [address] Care Team Providers Care Tableman Name Role Phone Bambi Langley Primary Care Provider [phone] Allergies No known active allergies Medications metoprolol succinate XL (TOPROL XL) 50 mg tablet Take 50 mg by mouth once a day. Active omeprazole (PriLOSEC) 20 mg capsule Take 20 mg by mouth daily. Active SUMAtriptan (IMITREX) 50 mg tablet Take 50 mg by mouth once as needed for migraine. May repeat dose once in 2 hours if no relief. Do not exceed 2 doses in 24 hours. Active vitamin D3 25 mcg (1,000 unit) capsule Take 1,000 Units by mouth daily. Active methocarbamol (ROBAXIN) 750 mg tablet Take 750 mg by mouth every 8 hours. Active nabumetone (RELAFEN) 750 mg tablet Take 750 mg by mouth 2 times a day. Active traZODone (DESYREL) 50 mg tablet Take 50 mg by mouth nightly as needed for sleep. Active senna (SENOKOT) 8.6 mg tablet Take 2 tablets (17.2 mg total) by mouth nightly. 9 Active Additional Information Patient not taking.Reported on 03/17/2022 melatonin 3 mg tablet Take 3 mg by mouth nightly as needed for sleep. Active acetaminophen (TYLENOL) 325 mg tablet Take 650 mg by mouth every 6 hours as needed for pain. Active calcium carbonate-vitami n D3 500 mg-200 units tablet Take 1 tablet by mouth 2 times a day. 1 Active docusate sodium (COLACE) 100 mg capsule Take 1 capsule (100 mg total) by mouth 2 times a day. 1 Active Additional Information Patient not taking.Reported on 01/28/2022 enoxaparin (LOVENOX) 40 mg/0.4 mL subcutaneous injection Inject 0.4 mL (40 mg total) under the skin daily. 1 Active Additional Information Patient not taking.Reported on 03/17/2022 oxyCODONE IR (ROXICODONE) 5 mg tablet 5-10mg PO every 4-6 hours as needed for moderate to severe pain 30 tablet 1 Active polyethylene glycol 3350 (MIRALAX) 17 gram packet Take 1 packet (17 g total) by mouth daily as needed (constipation). Mix powder in 4 to 8 oz of water, juice, coffee, or tea. 1 Active Additional Information Patient not taking.Reported on 03/17/2022 lisinopriL (PRINIVIL,ZESTRI L) 30 mg tablet Take 1 tablet (30 mg total) by mouth daily. HOLD FOR NOW. Resume once SBP>150 consistently. Can start with lower dose and titrate up as necessary. 1 Active citalopram (CeleXA) 20 mg tablet Take 1 tablet (20 mg total) by mouth daily. 1 Active Additional Information Patient taking differently:20 mg oral Daily,Takes 30 mg daily, Reported on 07/23/2021 gabapentin (NEURONTIN) 300 mg capsule Take 1 capsule (300 mg total) by mouth every 8 hours. 1 Active amLODIPine (NORVASC) 2.5 mg tablet Take 2.5 mg by mouth once a day. 2 Active docusate calcium (SURFAK) 240 mg capsule Take 240 mg by mouth nightly as needed. 2 Active tiZANidine (ZANAFLEX) 4 mg tablet Take 4 mg by mouth every 8 hours as needed. 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 05/19/2020 Fracture of right femur with nonunion 09/10/2019 Bowing, femur, congenital 02/21/2019 HTN (hypertension) 02/21/2019 Migraine 02/21/2019 Depression 02/21/2019 Abnormality of gait 11/27/2017 Bowing tibia 11/23/2017 Requires assistance with activities of daily hyun ing (ADL) Mobility impaired Resolved Problems Problem Noted Date Diagnosed Date Resolved Date Retained orthopedic hardware 06/24/2019 06/26/2019 Immunizations Immunization Administration Dates Next Due Influenza, Injectable, Quadr ivalent, Preservative Free 02/21/2019(Deferred: Patient Refused - pt refused using brand recorder) Family History Medical History Relation Name Comments Arthritis Father Diabetes Mother Hypertension Mother Stroke Mother Thrombosis Mother Relation Name Status Comments Daughter bow legged Father Mother (Age 82) Social History Tobacco Use Types Packs/Day Years Used Date Smoking Tobacco: Never Smokeless Tobacco: Never Alcohol Use Standard Drinks/Week Comments Never 0 (1 standard drink = 0.6 oz pur e alcohol) Comments No Sex and Gender Information Value Date Recorded Sex Assigned at Not on file Legal Sex Female 3:33 PM EDT Gender Identity Not on file Sexual Orientation Not on file Last Filed Vital Signs Vital Sign Reading Time Taken Comments Blood Pressure 161/104 12/16/2020 10:40 AM EDT Pulse 93 12/16/2020 10:40 AM EDT Temperature 36.7 ??C (98.1 ??F) 05/27/2020 9:30 AM ES T Respiratory Rate 18 05/27/2020 9:30 AM EST Oxygen Saturation 99% 05/27/2020 9:30 AM EST Inhaled Oxygen Concentration - - Weight 79.3 kg (174 lb 13.2 oz) 05/26/2020 4:02 AM EST Height 142.2 cm (4' 7.98 ) 09/10/2019 1 0:06 AM EDT Body Mass Index 39.22 09/10/2019 10:06 AM EDT Plan of Treatment Health Maintenance Due Date Last Done Comments Cervical Cancer Screening 1971 Cologuard 1971 Colon Cancer Screening 1971 Colonoscopy 1971 FOBT / Fit Test 1971 HIV Screening 1971 HPV and Pap Smear 1971 Hepatitis C Screening 1971 Pap Smear 1971 Sigmoidoscopy 1971 Hepatitis B Vaccines (1 of 3 - 19+ 3-dose series) 07/02/1990 Mammogram 2011 Basic Metabolic Panel 05/20/2021 05/20/2020 , 05/20/2020, 05/19/2020, Additional history exists Pneumococcal Vaccine: 50+ Ye ars (1 of 1 - PCV) 07/02/2021 Zoster Vaccines (1 of 2) 07/02/2021 DTaP,Tdap,and Td Vaccines (2 - Td or Tdap) 02/19/2022 02/20/2012 COVID-19 Vaccine (2 - 2023-2 5 season) 2023 10/07/2021 Influenza Vaccine (#1) 2023 , 01/04/2018, 01/14/2015, Additional history exists Alcohol/Substance Use Screening 04/10/2024 Depression Evaluation 04/10/2024 Social Drivers of Health Angelita ual Screening 04/10/2024 RSV Vaccine (60+ years old a nd patients) (1 - 1-dose 75+ series) 07/02/2046 Medical Devices Implanted Type Area Gold Nib Grinder Device Identifier Shelf Expiration Date Model / Serial / Lot Rail Deformity Fixator Titanium Adult 350mm - [id number] Implanted:Qty: 2 on 02/19/2019 by Kemal Quiroga MD at [facility] Implant Femur Roxanne [id number] / / Post Outrigger 30 Degree 11mm - [id number] Implanted:Qty: 2 on 06/29/2019 by Kemal Quiroga MD at [facility] Implant Right: Femur M-Factor 390.013 / / Bone Cement R 1x40 Refobacin - [id number] Implanted:Qty: 1 on 09/10/2019 by Kemal Quiroga MD at [facility] Implant Right: Femur Roxanne 10/08/2019 [id number] / / [id number] Description:Mixed with tobra mycin 2.4 grams,2 grams vancomycin,240 mg gentamycin Nail Tibial T2 Standard 8mm X 270mm - [id number] Implanted:Qty: 1 on 09/10/2019 by Kemal Quiroga MD at [facility] Nail Right: Femur APARNA 11/08/2019 1822-0827S / / [id number] Screw Cortical Tapered Hydroxyapatite 6mm Shank 40mm Thread 6mm/6vep612ty - [id number] Implanted:Qty: 1 on 02/19/2019 by Kemal Quiroga MD at [facility] Screw Right: Femur Roxanne 05/26/2028 [id number] / / [id number] Screw Cortical Tapered Hydroxyapatite 6mm Shank 40mm Thread 6mm/1wgc238hl - [id number] Implanted:Qty: 1 on 02/19/2019 by Kemal Quiroga MD at [facility] Screw Femur Roxanne 04/25/2028 [id number] / / [id number] Screw Cortical Tapered Hydroxyapatite 6mm Shank 60mm Thread 6mm/9enu455dn - [id number] Implanted:Qty: 1 on 02/19/2019 by Kemal Quiroga MD at [facility] Screw Right: Femur Roxanne 06/04/2028 [id number] / / [id number] Screw Cortical Tapered Hydroxyapatite 6mm Shank 40mm Thread 6mm/3cko126it - [id number] Implanted:Qty: 1 on 02/19/2019 by Kemal Quiroga MD at [facility] Screw Right: Femur Roxanne 04/25/2028 [id number] / / [id number] Screw Cortical Tapered Hydroxyapatite 6mm Shank 40mm Thread 6mm/4pdx026rj - [id number] Implanted:Qty: 1 on 02/19/2019 by Kemal Quiroga MD at [facility] Screw Right: Femur Roxanne 07/16/2028 [id number] / / [id number] Screw Cortical Tapered Hydroxyapatite 6mm Shank 40mm Thread 6mm/0tms877ts - [id number] Implanted:Qty: 1 on 02/19/2019 by Kemal Quiroga MD at [facility] Screw Right: Femur Roxanne 05/03/2028 [id number] / / [id number] Screw Cortical Tapered Hydroxyapatite 6mm Shank 40mm Thread 6mm/3xpd304fi - [id number] Implanted:Qty: 1 on 02/19/2019 by Kemal Quiroga MD at [facility] Screw Left: Femur Roxanne 07/16/2028 [id number] / / [id number] Screw Cortical Tapered Hydroxyapatite 6mm Shank 50mm Thread 6mm/5pol516qc - [id number] Implanted:Qty: 1 on 02/19/2019 by Kemal Quiroga MD at [facility] Screw Left: Femur Roxanne 06/29/2028 [id number] / / [id number] Screw Cortical Tapered Hydroxyapatite 6mm Shank 40mm Thread 6mm/5mfe255ad - [id number] Implanted:Qty: 1 on 02/19/2019 by Kemal Quiroga MD at [facility] Screw Left: Femur Roxanne 05/26/2028 [id number] / / [id number] Screw Cortical Tapered Hydroxyapatite 6mm Shank 40mm Thread 6mm/6qyb964ut - [id number] Implanted:Qty: 1 on 02/19/2019 by Kemal Quiroga MD at [facility] Screw Left: Femur Roxanne 05/03/2028 [id number] / / [id number] Screw Schanz Self-Drilling 60mm Thread Stainless Steel 5.1yod071mf - [id number] Implanted:Qty: 4 on 06/29/2019 by Kemal Quiroga MD at [facility] Screw Right: Femur [employer] 294.785 / / Screw Humeral Locking Fully Threaded Sterile 0iwf39na T2 - [id number] Implanted:Qty: 1 on 09/10/2019 by Kemal Quiroga MD at [facility] Screw Right: Femur APARNA 1896-4060S / / Screw Humeral Locking Fully Threaded Sterile 1psc34sr T2 - [id number] Implanted:Qty: 1 on 05/19/2020 by Kemal Quiroga MD at [facility] Screw Left: Tibia APARNA 1896-4035S / / Screw Humeral Locking Fully Threaded Sterile 4rlj54fp T2 - [id number] Implanted:Qty: 1 on 05/19/2020 by Kemal Quiroga MD at [facility] Screw Left: Tibia APARNA 1896-4034S / / Screw Humeral Locking Fully Threaded Sterile 0kay42bv T2 - [id number] Implanted:Qty: 1 on 05/19/2020 by Kemal Quiroga MD at [facility] Screw Left: Tibia APARNA 1896-4050S / / Screw Humeral Locking Fully Threaded Sterile 2mbc46vu T2 - [id number] Implanted:Qty: 1 on 05/19/2020 by Kemal Quiroga MD at [facility] Screw Left: Tibia APARNA 1896-4040S / / Screw Humeral Locking Fully Threaded Sterile 6sjn52ge T2 - [id number] Implanted:Qty: 1 on 05/19/2020 by Kemal Quiroga MD at [facility] Screw Right: Tibia APARNA 1896-4050S / / Screw Humeral Locking Fully Threaded Sterile 8lxp13wy T2 - [id number] Implanted:Qty: 1 on 05/19/2020 by Kemal Quiroga MD at [facility] Screw Right: Tibia APARNA 1896-4034S / / Screw Humeral Locking Fully Threaded Sterile 7yjq46nz T2 - [id number] Implanted:Qty: 1 on 05/19/2020 by Kemal Quiroga MD at [facility] Screw Right: Tibia APARNA 1896-4032S / / Screw Humeral Locking Fully Threaded Sterile 4rqt90mh T2 - [id number] Implanted:Qty: 1 on 05/19/2020 by Kemal Quiroga MD at [facility] Screw Right: Tibia APARNA 1896-4055S / / Chip Crushed Bone Cancellous 15cc Freezed Dried 1mm To 8mm - [id number] Implanted:Qty: 1 on 06/29/2019 by Kemal Quiroga MD at [facility] Tissue Right: Femur LIFENET 01/09/2024 [id number] / / [id number] Putty Demineralized Bone Matrix 5cc Dbx - [id number] Implanted:Qty: 1 on 06/29/2019 by Kemal Quiroga MD at [facility] Tissue Right: Femur MUSCULOSKELETAL TRANSPLANT FND 03/27/2021 [id number] / / [id number] Description:DBX PUTTY, 5 CC PRODUCT CODE [id number] T2 Humeral Nail 7 X 250mm Implanted:Qty: 1 on 05/19/2020 by Kemal Quiroga MD at [facility] Left: Tibia APARNA 01/08/2024 1830-0725S / / [id number] T2 Humeral Nail 7 X 250mm Implanted:Qty: 1 on 05/19/2020 by Kemal Quiroga MD at [facility] Right: Tibia APARNA 12/08/2022 1830-0725S / / [id number] Procedures * Due to [place] [employer] law, this organization might not be sharing negative HIV tests. Procedure Name Priority Date/Time Associated Diagnosis Comments BASIC METABOLIC PANEL STAT 05/20/2020 9:37 PM EST from Last 3 Months or Most Recently Relevant to Health Maintenance Results * Due to [place] [employer] law, this organization might not be sharing negative HIV tests. * (ABNORMAL) Basic Metabolic Panel (05/20/2020 9:37 PM EST) NA 138 135 - 145 mmol/L 05/20/2020 10:09 PM EST [facility] K 4.2 3.5 - 5.3 mmol/L 05/20/2020 10:09 PM EST [facility] Cl 106 97 - 110 mmol/L 05/20/2020 10:09 PM EST [facility] CO2 25 24 - 32 mmol/L 05/20/2020 10:09 PM EST [facility] BUN 11 7 - 23 mg/dL 05/20/2020 10:09 PM EST [facility] Creatinine 0.72 0.50 - 1.20 mg/dL 05/20/2020 10:09 PM EST [facility] Glucose 94 70 - 99 mg/dL 05/20/2020 10:09 PM EST [facility] Calcium 8.4(L) 8.7 - 10.7 mg/dL 05/20/2020 10:09 PM EST [facility] Anion Gap 7 5 - 15 05/20/2020 10:09 PM EST [facility] eGFR Non- >90 >=90 mL/min/BS A 05/20/2020 10:09 PM EST [facility] eGFR >90 >=90 mL/min/BS A 05/20/2020 10:09 PM EST [facility] Comment: Units = mL/min/1.73 m2 Glomerular Filtration Rate (GFR) is estimated based on the CKD-EPI Creatinine Equation (2009). Stage ?Description ? GFR 1 ? Normal ? >=90 mL/min/BSA 2 ? Mildly decreased GFR ? 60-89 mL/min/BSA 3 ? Moderately decreased GFR ? 30-59 mL/min/BSA 4 ? Severely decreased GFR ? 15-29 mL/min/BSA 5 ? Kidney Failure ? <15 mL/min/BSA Blood Structure of peripheral vein / Unknown Venipuncture / Unknown 05/20/2020 9:37 PM EST 05/20/2020 9:43 PM EST us Kemal Elvin Quiroga MD LAB BLOOD ORDERABLES Fi nal Result Performing Organization Address [facility]/State/[facility] Co de Phone Number 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 Expl anation Health Care Proxy 02/20/2019 3:46 PM Sonia Kim 1 04/22/2018 * Full Code (Latest Code Status on File) Date Activated Date Inactivated Comments 05/19/2020 6:44 PM 05/27/2020 2:56 PM * Full Code Date Activated Date Inactivated Comments 05/19/2020 11:33 AM 05/19/2020 6:43 PM * Full Code Date Activated Date Inactivated Comments 09/10/2019 2:15 PM 09/11/2019 4:36 PM * Full Code Date Activated Date Inactivated Comments 06/29/2019 11:54 AM 07/02/2019 8:25 PM * Full Code Date Activated Date Inactivated Comments 06/24/2019 6:53 PM 06/29/2019 11:54 AM Healthcare Agents on File Name Relationship Healthcare Agent Relationshi p Communication Rory Harrison Daughter Health Care Agent Care Teams Tableman Relationship Specialty Start Date End Date Bambi Langley [address] [place] [address] PCP - General Internal Medicine 10/31/17
== END 2024-06-04 06:29 | disposition home or self-care (01) ==
LOC: CF 06:28
PROVIDERS: Visit Provider Anesthesiology
DX: M47.817 Spondylosis without myelopathy or radiculopathy, lumbosacral region (principal); M25.551 Pain in right hip; M25.552 Pain in left hip; G89.29 Other chronic pain
CPT/HCPCS: 64493; 64494; J2003; J2795; Q9967

== ENCOUNTER 2024-06-04 09:33 | Outpatient (AMB) | payer OTHER, SELFPAY ==
[2024-06-04 09:48] VITALS: BP 152/80; PULSE 79; O2SAT 97
--- NOTE | 2024-06-04 09:48 | A.OFFVIS_ITS ---
Vital Signs 06/04/24 09:48 06/04/24 11:40 BP 152/80 H 197/86 H Blood Pressure Location Lt brachial Rt brachial Position Sitting Sitting Pulse 79 79 Pulse Source Pulse Oximeter Pulse Oximeter Pulse Oximetry (%) 97 97 Oxygen Delivery Method Room Air Room Air Comment Pre-Op Post-Op Intake Visit Reasons: BILATERAL DIAGNOSTIC L3, L4, DRL5 MBB Allergies No Known Allergies Allergy (Verified 03/15/24 09:57) PFSH Medical History Skeletal dysplasia Neuropathy Osteoarthritis Wheelchair dependent Neurogenic bladder Chronic hip pain, bilateral Lumbar degenerative disc disease Chronic GERD Mild recurrent major depression Back pain Essential hypertension Depression with anxiety Constipation by delayed colonic transit Hypovitaminosis D Insomnia Surgical History H/O colonoscopy History of surgery on lower extremity History of back surgery History of orthopedic surgery History of tubal ligation Family History Father Medical history unknown Mother CVD (cardiovascular disease) Maternal Aunt CVD (cardiovascular disease) Family/Other FH: mental illness Social History Housing: Apartment Alcohol intake: never Comment: sleeping Patient Tobacco Use Status: Never used Tobacco Tobacco use type: Cigarette e-Cigarette/Vaping Use: Never Used Second Hand Smoke Exposure: No Advance Directives Date on File: 07/02/20 service: No Current occupational status: unemployed Cognitive needs: Yes (wheelchair) Hearing needs: No Vision needs: No Physical Exam Vital Signs: Last Vital Signs Pulse 79 06/04/24 11:40 BP 197/86 H 06/04/24 11:40 Pulse Ox 97 06/04/24 11:40 Oxygen Delivery Method Room Air 06/04/24 11:40 Assessment & Plan Assessment & Plan (1) Skeletal dysplasia: Code(s): Q78.9 - Osteochondrodysplasia, unspecified Category: Medical (2) Neuropathy: Code(s): G62.9 - Polyneuropathy, unspecified Category: Medical (3) Muscle spasticity: Code(s): M62.838 - Other muscle spasm Category: Medical (4) Restless leg syndrome: Code(s): G25.81 - Restless legs syndrome Category: Medical (5) Lumbar spinal stenosis: Code(s): M48.061 - Spinal stenosis, lumbar region without neurogenic claudication Category: Medical (6) Lumbar degenerative disc disease: Code(s): M51.36 - Other intervertebral disc degeneration, lumbar region Category: Medical (7) Chronic pain syndrome: Code(s): G89.4 - Chronic pain syndrome Category: Medical (8) Chronic hip pain, bilateral: Code(s): M25.551 - Pain in right hip; M25.552 - Pain in left hip; G89.29 - Other chronic pain Category: Medical (9) Lumbosacral spondylosis: Code(s): M47.817 - Spondylosis without myelopathy or radiculopathy, lumbosacral region Category: Medical Plan Diagnostic bilateral medial branch block L3, L4, dorsal ramus L5. Informed consent was thoroughly explained to the patient before the procedure.? The patient came to the operating room.? He was positioned prone on operating table with a pillow under her abdomen.? Time-out was performed delineating correct site and side of the procedure, nature of the injection, name and date of of the patient. The lower back and upper buttocks of the patient was prepped with ChloraPrep and draped with sterile utility towels.? C-arm was brought over the operating field and the point of interest were delineated as confluence of the superior articular process of L3, L4 vertebra and L5 vertebra bilaterally with correspo nding transverse process bilateral, as well as confluence of the superior articular process of S1 on the bilaterally with sacral ala on the bilateral. The point of interest projection to the skin was injected with small amount of mixture of lidocaine 2% and ropivacaine 0.5%. After that 22 gauge 3-1/2 inch needle was driven to point of interest in tunnel vision fashion. When needle gently contacted the bone injection of the contrast was performed delineating no intravascular and no intrathecal spread of the contrast. After that injection of the small amount of ropivacaine 0.5% less than 1 cc into each target site was performed. Upon completion of the injections the needle was removed sterile Band-Aids were applied. The patient tolerated procedure well. He was given a pain diary to complete after the procedure. Orders: Orders FL guidance in treatment room Today M47.817 - Spondylosis without myelopathy or radiculopathy, lumbosacral region Coding Level of Care Code Procedure Only Diagnoses Skeletal dysplasia Q78.9 Neuropathy G62.9 Muscle spasticity M62.838 Restless leg syndrome G25.81 Lumbar spinal stenosis M48.061 Lumbar degenerative disc disease M51.36 Chronic pain syndrome G89.4 Chronic hip pain, bilateral M25.551; M25.552; G89.29 Lumbosacral spondylosis M47.817
--- OUTSIDE RECORDS SUMMARY | 2024-06-04 10:40 | XMS_ITS | Referral Summary ---
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) Social History Tobacco Use Types Packs/Day Years [...] 09/10/2019 10:06 AM EDT Plan of Treatment Not on file Medical Devices Implanted Type Area Vehicle Mechanic Device Identifier Shelf Expiration Date Model / Serial / Lot Rail Deformity Fixator Titanium Adult 350mm - [id number] Implanted:Qty: 2 on 02/19/2019 by Kemal Quiroga MD at [facility] Implant Femur Roxanne [id number] / / Post Outrigger 30 Degree 11mm - [id number] Implanted:Qty: 2 on 06/29/2019 by Kemal Quiroga MD at [facility] Implant Right: Femur Tribogenics 390.013 / / Bone Cement R 1x40 Refobacin - [id number] Implanted:Qty: 1 on 09/10/2019 by Kemal Quiroga MD at [facility] Implant Right: Femur Roxanne 10/08/2019 [id number] / / [id number] Description:Mixed with tobra mycin 2.4 grams,2 grams vancomycin,240 mg gentamycin Nail Tibial T2 Standard 8mm X 270mm - [id number] Implanted:Qty: 1 on 09/10/2019 by Kemal Quiroga MD at [facility] Nail Right: Femur APARNA 11/08/2019 1822-0827S / / [id number] Screw Cortical Tapered Hydroxyapatite 6mm Shank 40mm Thread 6mm/8wai284pp - [id number] Implanted:Qty: 1 on 02/19/2019 by Kemal Quiroga MD at [facility] Screw Right: Femur Roxanne 05/26/2028 [id number] / / [id number] Screw Cortical Tapered Hydroxyapatite 6mm Shank 40mm Thread 6mm/8vkg110pu - [id number] Implanted:Qty: 1 on 02/19/2019 by Kemal Quiroga MD at [facility] Screw Femur Roxanne 04/25/2028 HAA60-1 8040 / / [id number] Screw Cortical Tapered Hydroxyapatite 6mm Shank 60mm Thread 6mm/5ehz448zc - [id number] Implanted:Qty: 1 on 02/19/2019 by Kemal Quiroga MD at [facility] Screw Right: Femur Roxanne 06/04/2028 [id number] / / [id number] Screw Cortical Tapered Hydroxyapatite 6mm Shank 40mm Thread 6mm/0aqb626mq - [id number] Implanted:Qty: 1 on 02/19/2019 by Kemal Quiroga MD at [facility] Screw Right: Femur Roxanne 04/25/2028 [id number] / / [id number] Screw Cortical Tapered Hydroxyapatite 6mm Shank 40mm Thread 6mm/3cck273nh - [id number] Implanted:Qty: 1 on 02/19/2019 by Kemal Quiroga MD at [facility] Screw Right: Femur Roxanne 07/16/2028 [id number] / / [id number] Screw Cortical Tapered Hydroxyapatite 6mm Shank 40mm Thread 6mm/4oas674yn - [id number] Implanted:Qty: 1 on 02/19/2019 by Kemal Quiroga MD at [facility] Screw Right: Femur Roxanne 05/03/2028 [id number] / / [id number] Screw Cortical Tapered Hydroxyapatite 6mm Shank 40mm Thread 6mm/4pql550bh - [id number] Implanted:Qty: 1 on 02/19/2019 by Kemal Quiroga MD at [facility] Screw Left: Femur Roxanne 07/16/2028 [id number] / / [id number] Screw Cortical Tapered Hydroxyapatite 6mm Shank 50mm Thread 6mm/7etx090zq - [id number] Implanted:Qty: 1 on 02/19/2019 by Kemal Quiroga MD at [facility] Screw Left: Femur Roxanne 06/29/2028 [id number] / / [id number] Screw Cortical Tapered Hydroxyapatite 6mm Shank 40mm Thread 6mm/2ase940ef - [id number] Implanted:Qty: 1 on 02/19/2019 by Kemal Quiroga MD at [facility] Screw Left: Femur Roxanne 05/26/2028 [id number] / / [id number] Screw Cortical Tapered Hydroxyapatite 6mm Shank 40mm Thread 6mm/8dov038bd - [id number] Implanted:Qty: 1 on 02/19/2019 by Kemal Quiroga MD at [facility] Screw Left: Femur Roxanne 05/03/2028 [id number] / / [id number] Screw Schanz Self-Drilling 60mm Thread Stainless Steel 5.5mgg004qe - [id number] Implanted:Qty: 4 on 06/29/2019 by Kemal Quiroga MD at [facility] Screw Right: Femur DEPUY [employer] 294.785 / / Screw Humeral Locking Fully Threaded Sterile 8rss36xe T2 - [id number] Implanted:Qty: 1 on 09/10/2019 by Kemal Quiroga MD at [facility] Screw Right: Femur APARNA 1896-4060S / / Screw Humeral Locking Fully Threaded Sterile 1vhf27jy T2 - [id number] Implanted:Qty: 1 on 05/19/2020 by Kemal Quiroga MD at [facility] Screw Left: Tibia APARNA 1896-4035S / / Screw Humeral Locking Fully Threaded Sterile 2gat70ur T2 - [id number] Implanted:Qty: 1 on 05/19/2020 by Kemal Quiroga MD at [facility] Screw Left: Tibia APARNA 1896-4034S / / Screw Humeral Locking Fully Threaded Sterile 1sgy90sq T2 - [id number] Implanted:Qty: 1 on 05/19/2020 by Kemal Quiroga MD at [facility] Screw Left: Tibia APARNA 1896-4050S / / Screw Humeral Locking Fully Threaded Sterile 0lnd22zd T2 - [id number] Implanted:Qty: 1 on 05/19/2020 by Kemal Quiroga MD at [facility] Screw Left: Tibia APARNA 1896-4040S / / Screw Humeral Locking Fully Threaded Sterile 4faa52nc T2 - [id number] Implanted:Qty: 1 on 05/19/2020 by Kemal Quiroga MD at [facility] Screw Right: Tibia APARNA 1896-4050S / / Screw Humeral Locking Fully Threaded Sterile 7mut82uu T2 - [id number] Implanted:Qty: 1 on 05/19/2020 by Kemal Quiroga MD at [facility] Screw Right: Tibia APARNA 1896-4034S / / Screw Humeral Locking Fully Threaded Sterile 3urd31me T2 - [id number] Implanted:Qty: 1 on 05/19/2020 by Kemal Quiroga MD at [facility] Screw Right: Tibia APARNA 1896-4032S / / Screw Humeral Locking Fully Threaded Sterile 7yty98qm T2 - [id number] Implanted:Qty: 1 on 05/19/2020 by Kemal Quiroga MD at [facility] Screw Right: Tibia APARNA 1896-4055S / / Chip Crushed Bone Cancellous 15cc Freezed Dried 1mm To 8mm - [id number] Implanted:Qty: 1 on 06/29/2019 by Kemal Quiroga MD at [facility] Tissue Right: Femur LIFENET 01/09/2024 CAN15 / / [id number] Putty Demineralized Bone Matrix 5cc Dbx - [id number] Implanted:Qty: 1 on 06/29/2019 by Kemal Quiroga MD at [facility] Tissue Right: Femur MUSCULOSKELETAL TRANSPLANT FND 03/27/2021 [id number] / / [id number] Description:ZEE PRICE, [employer] PRODUCT CODE [id number] T2 Humeral Nail 7 X 250mm Implanted:Qty: 1 on 05/19/2020 by Kemal Quiroga MD at [facility] Left: Tibia APARNA 01/08/2024 1830-0725S / / [id number] Humeral Nail 7 X 250mm Implanted:Qty: 1 on 05/19/2020 by Kemal Quiroga MD at [facility] Right: Tibia APARNA 12/08/2022 1830-0725S / / [id number] Procedures * Due to [place] [employer] law, this organization might not be sharing negative HIV tests. Procedure Name Priority Date/Time Associated Diagnosis Comments BASIC METABOLIC PANEL STAT 05/20/2020 9:37 PM EST from Last 3 Months or Most Recently Relevant to Health Maintenance Results * Due to [place] [employer] law, this organization might not be sharing [...] - 10.7 mg/dL 05/20/2020 10:09 PM EST [facility] Anion Gap 7 5 - 15 05/20/2020 10:09 PM EST [facility] eGFR Non- >90 >=90 mL/min/BS A 05/20/2020 10:09 PM EST [facility] eGFR >90 >=90 mL/min/BS A 05/20/2020 10:09 PM EST [facility] Comment: Units = mL/min/1.73 [...] MD LAB BLOOD ORDERABLES Fi nal Result [facility] [address] [place] [address], from Last 3 Months or Most Recently Relevant to Health Maintenance Additional Health Concerns Infection Onset Date Last Indicated Multidrug resistant organisms MRSA 06/24/2019 06/24/2019 Insurance [facility] MEDICAID Advance Directives Documents on File Type Date Recorded Patient Consumer Loan Manager Expl anation Health Care Proxy 02/20/2019 3:46 [...] Harrison Daughter Health Care Agent Care Teams Senior Operations Manager Relationship Specialty Start Date End Date Bambi Langley [address] [place] [address] dr Aislinn Tao, [place] [address] PCP - General Internal Medicine 10/31/17
--- OUTSIDE RECORDS SUMMARY | 2024-06-04 10:40 | XMS_ITS | Clinical Summary ---
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) Family History Medical History Relation Name Comments [...] series) 07/02/2046 Medical Devices Implanted Type Area Iron Launder Operator Device Identifier Shelf Expiration Date Model / Serial / Lot Rail Deformity Fixator Titanium Adult 350mm - [id number] Implanted:Qty: 2 on 02/19/2019 by Kemal Quiroga MD at [facility] Implant Femur Roxanne [id number] / / Post Outrigger 30 Degree 11mm - [id number] Implanted:Qty: 2 on 06/29/2019 by Kemal Quiroga MD at [facility] Implant Right: Femur Mayomi 390.013 / / Bone Cement R 1x40 Refobacin - [id number] Implanted:Qty: 1 on 09/10/2019 by Kemal Quiroga MD at [facility] Implant Right: Femur Roxanne 10/08/2019 [id number] / / [id number] Description:Mixed with tobra mycin 2.4 grams,2 grams vancomycin,240 mg gentamycin Nail Tibial T2 Standard 8mm X 270mm - [id number] Implanted:Qty: 1 on 09/10/2019 by Kemal Quiroga MD at [facility] Nail Right: Femur APARNA 11/08/2019 1822-0827S / / [id number] Screw Cortical Tapered Hydroxyapatite 6mm Shank 40mm Thread 6mm/3kds978vl - [id number] Implanted:Qty: 1 on 02/19/2019 by Kemal Quiroga MD at [facility] Screw Right: Femur Roxanne 05/26/2028 [id number] / / [id number] Screw Cortical Tapered Hydroxyapatite 6mm Shank 40mm Thread 6mm/4ojl240tr - [id number] Implanted:Qty: 1 on 02/19/2019 by Kemal Quiroga MD at [facility] Screw Femur Roxanne 04/25/2028 HAA60-1 8040 / / [id number] Screw Cortical Tapered Hydroxyapatite 6mm Shank 60mm Thread 6mm/5bjk153fr - [id number] Implanted:Qty: 1 on 02/19/2019 by Kemal Quiroga MD at [facility] Screw Right: Femur Roxanne 06/04/2028 JSU30-89603 / / [id number] Screw Cortical Tapered Hydroxyapatite 6mm Shank 40mm Thread 6mm/0ktm880zb - [id number] Implanted:Qty: 1 on 02/19/2019 by Kemal Quiroga MD at [facility] Screw Right: Femur Roxanne 04/25/2028 [id number] / / [id number] Screw Cortical Tapered Hydroxyapatite 6mm Shank 40mm Thread 6mm/8fws365gj - [id number] Implanted:Qty: 1 on 02/19/2019 by Kemal Quiroga MD at [facility] Screw Right: Femur Roxanne 07/16/2028 [id number] / / [id number] Screw Cortical Tapered Hydroxyapatite 6mm Shank 40mm Thread 6mm/2ony255yy - [id number] Implanted:Qty: 1 on 02/19/2019 by Kemal Quiroga MD at [facility] Screw Right: Femur Roxanne 05/03/2028 CES52-21661 / / [id number] Screw Cortical Tapered Hydroxyapatite 6mm Shank 40mm Thread 6mm/5hot171sp - [id number] Implanted:Qty: 1 on 02/19/2019 by Kemal Quiroga MD at [facility] Screw Left: Femur Roxanne 07/16/2028 [id number] / / [id number] Screw Cortical Tapered Hydroxyapatite 6mm Shank 50mm Thread 6mm/1jgx183ps - [id number] Implanted:Qty: 1 on 02/19/2019 by Kemal Quiroga MD at [facility] Screw Left: Femur Roxanne 06/29/2028 [id number] / / [id number] Screw Cortical Tapered Hydroxyapatite 6mm Shank 40mm Thread 6mm/5bso173dp - [id number] Implanted:Qty: 1 on 02/19/2019 by Kemal Quiroga MD at [facility] Screw Left: Femur Roxanne 05/26/2028 UWF91-23230 / / [id number] Screw Cortical Tapered Hydroxyapatite 6mm Shank 40mm Thread 6mm/6mpq275bj - [id number] Implanted:Qty: 1 on 02/19/2019 by Kemal Quiroga MD at [facility] Screw Left: Femur Roxanne 05/03/2028 [id number] / / [id number] Screw Schanz Self-Drilling 60mm Thread Stainless Steel 5.1vup389ub - [id number] Implanted:Qty: 4 on 06/29/2019 by Kemal Quiroga MD at [facility] Screw Right: Femur [employer] 294.785 / / Screw Humeral Locking Fully Threaded Sterile 1uem40hu T2 - [id number] Implanted:Qty: 1 on 09/10/2019 by Kemal Quiroga MD at [facility] Screw Right: Femur APRANA 1896-4060S / / Screw Humeral Locking Fully Threaded Sterile 6sbq29tz T2 - [id number] Implanted:Qty: 1 on 05/19/2020 by Kemal Quiroga MD at [facility] Screw Left: Tibia APARNA 1896-4035S / / Screw Humeral Locking Fully Threaded Sterile 6ydc52ff T2 - [id number] Implanted:Qty: 1 on 05/19/2020 by Kemal Quiroga MD at [facility] Screw Left: Tibia APARNA 1896-4034S / / Screw Humeral Locking Fully Threaded Sterile 1lcc05tx T2 - [id number] Implanted:Qty: 1 on 05/19/2020 by Kemal Quiroga MD at [facility] Screw Left: Tibia APARNA 1896-4050S / / Screw Humeral Locking Fully Threaded Sterile 1rii62df T2 - [id number] Implanted:Qty: 1 on 05/19/2020 by Kemal Quiroga MD at [facility] Screw Left: Tibia APARNA 1896-4040S / / Screw Humeral Locking Fully Threaded Sterile 4qok18fz T2 - [id number] Implanted:Qty: 1 on 05/19/2020 by Kemal Quiroga MD at [facility] Screw Right: Tibia PAARNA 1896-4050S / / Screw Humeral Locking Fully Threaded Sterile 4kak12bk T2 - [id number] Implanted:Qty: 1 on 05/19/2020 by Kemal Quiroga MD at [facility] Screw Right: Tibia APARNA 1896-4034S / / Screw Humeral Locking Fully Threaded Sterile 3dqf53zp T2 - [id number] Implanted:Qty: 1 on 05/19/2020 by Kemal Quiroga MD at [facility] Screw Right: Tibia APARNA 1896-4032S / / Screw Humeral Locking Fully Threaded Sterile 1enm23ht T2 - [id number] Implanted:Qty: 1 on 05/19/2020 by Kemal Quiroga MD at [facility] Screw Right: Tibia APARNA 1896-4055S / / Chip Crushed Bone Cancellous 15cc Freezed Dried 1mm To 8mm - [id number] Implanted:Qty: 1 on 06/29/2019 by Kemal Quiroga MD at [facility] Tissue Right: Femur LIFENET 01/09/2024 CAN15 / / [id number] Putty Demineralized Bone Matrix 5cc Dbx - [id number] Implanted:Qty: 1 on 06/29/2019 by Kemal Quiroga MD at [facility] Tissue Right: Femur MUSCULOSKELETAL TRANSPLANT FND 03/27/2021 [id number] / / [id number] Description:DBX PUTTY, 5 CC PRODUCT CODE [id number] T2 Humeral Nail 7 X 250mm Implanted:Qty: 1 on 05/19/2020 by Kemal Quiroga MD at [facility] Left: Tibia APARNA 01/08/2024 1830-0725S / / [id number] T2 Humeral Nail 7 X 250mm Implanted:Qty: 1 on 05/19/2020 by Kemal Quiroga MD at [facility] Right: Tibia APARNA 12/08/2022 1830-0725S / / [id number] Procedures * Due to [place] [employer] law, this organization might not be sharing negative HIV tests. Procedure Name Priority Date/Time Associated Diagnosis Comments BASIC METABOLIC PANEL STAT 05/20/2020 9:37 PM EST from Last 3 Months or Most Recently Relevant to Health Maintenance Results * Due to [place] [employer] law, this organization might not be sharing [...] ORDERABLES Fi nal Result Performing Organization Address [facility]/State/[facility] Co de Phone Number [facility] [address] [place] [address], from Last 3 Months or Most Recently Relevant to Health Maintenance Additional Health Concerns Infection Onset Date Last Indicated Multidrug resistant organisms MRSA 06/24/2019 06/24/2019 Insurance [facility] [address] MEDICAID Advance Directives Documents on File Type Date Recorded Patient Train Controller Expl anation Health Care Proxy 02/20/2019 3:46 [...] Harrison Daughter Health Care Agent Care Teams Management Technician Relationship Specialty Start Date End Date Bambi Langley [address] [facility] [place] [address] PCP - General Internal Medicine 10/31/17
[2024-06-04 11:40] VITALS: BP 197/86; PULSE 79; O2SAT 97
== END 2024-06-04 11:44 | disposition home or self-care (01) ==
LOC: HO.PMCPRC 09:33
PROVIDERS: PCP Internal Medicine; Visit Provider Anesthesiology
DX: M47.817 Spondylosis without myelopathy or radiculopathy, lumbosacral region (principal)
CPT/HCPCS: 64493; 64494

== ENCOUNTER 2024-06-13 09:19 | Outpatient (AMB) | payer OTHER, SELFPAY ==
--- NOTE | 2024-06-13 09:20 | A.OFFVIS_ITS ---
Vital Signs 06/13/24 09:25 Height 4 ft 8 in BMI Reason not done Patient refused/unable BP 172/99 H Blood Pressure Location Rt brachial Position Sitting Pulse 83 Pulse Source Pulse Oximeter Pulse Oximetry (%) 98 Oxygen Delivery Method Room Air Intake Visit Reasons: BILATERAL DIAGNOSTIC L3, L4, DRL5 MBB Intake Note: Pain today 10/17 Roller Coaster Engineer Required: Yes Roller Coaster Engineer Language: Pipeline Construction Inspector Services: Roller Coaster Engineer Present Roller Coaster Engineer Name: Sandra Accompanied by: Self / Same As Patient Allergies No Known Allergies Allergy (Verified 06/13/24 09:26) HPI Comments Details: Patient presents today to assess response to Bilateral Diagnostic L3-L4 DR L5 MBB on 06/04/[address] Abbasi. Patient reports 75% pain relief for 16 hours with partial improvement in her daily activities, functioning and sleep. Patient reports she slept very good on the day of injections. She continues to report bilateral extremity pain due to restless leg syndrome symptoms, neuropathy and spinal stenosis. Patient is interested in lumbar RFA for a longer term pain relief for axial low back pain. Patient continues to follow at [facility] for potential spine surgery and is awaiting for appointment. Patient is wheelchair-bound due to skeletal dysplasia and unable to flex her knees. She receives INJURY PREVENTION COORDINATOR services [phone] and [phone] per patient which she reports are not enough. She is often is incontinent between INJURY PREVENTION COORDINATOR visits and has to hold BMs until INJURY PREVENTION COORDINATOR arrives which causes her significant abdominal discomfort and increased low back pain. Patient reports she has reached out to PCP and is awaiting to hear back on INJURY PREVENTION COORDINATOR hour increase status. She continues to take Tylenol, gabapentin, baclofen and oxycodone with partial benefit. Denies any recent cough, cold, infection, fever, or any other significant changes in her medical history, medications or recent hospitalizations. Past Procedures: 06/04/24: Bilateral Diagnostic L3-L4 DR L5 MBB-75% pain relief for 16 hours 02/02/24: Right hip intra-articular steroid injection-80% ongoing pain relief PRIOR: Patient is a pleasant 52 year old Emirati speaking female with history of lumbar spinal stenosis, skeletal dysplasia, neurogenic bladder, thoracic surgery, lumbar degenerative disc disease, bilateral femoral/tibial osteotomies, due to congenital deformity of lower extremities with orthopedic surgical repair was done at [facility], presents today for initial evaluation of low back pain that radiates down to her lateral legs and feet bilaterally. Patient reports she will require another surgery for hip and knee replacement but this has not been scheduled yet. Patient is wheelchair bound with limited mobility in her lower limbs after having orthopedic surgery few years ago. She is not able to fully extend or flex her knees or feet. Reports significant stiffness and spasticity in her lower extremities. Patient is managing her pain with oxycodone and Tylenol prn prescribed by her PCP with continued symptoms. Patient reports she completed course of home PT without no improvement in her functioning or pain reduction. She has good upper body strength and able to adjust her position in wheelchair. Patient reports she spends most of her day sitting in chair, recliner or bed. Pain negatively affects her daily activities, functioning, mood and quality of life. She receives VNA and INJURY PREVENTION COORDINATOR services and is requiring inc reased INJURY PREVENTION COORDINATOR hours as she is not able to care for herself or function normally. Location Mid-low back pain, bilateral legs and feet Duration Chronic pain >3 years Characteristics of symptom or complaint Aching, pressure, burning Aggravating or associated factors Prolonged sitting, movements Relieving factors Tylenol, oxycodone, gabapentin Treatment Home PT- no improvement PFSH Medical History Skeletal dysplasia Neuropathy Osteoarthritis Wheelchair dependent Neurogenic bladder Chronic hip pain, bilateral Lumbar degenerative disc disease Chronic GERD Mild recurrent major depression Back pain Essential hypertension Depression with anxiety Constipation by delayed colonic transit Hypovitaminosis D Insomnia Surgical History H/O colonoscopy History of surgery on lower extremity History of back surgery History of orthopedic surgery History of tubal ligation Family History Father Medical history unknown Mother CVD (cardiovascular disease) Maternal Aunt CVD (cardiovascular disease) Family/Other FH: mental illness Social History Housing: Apartment Alcohol intake: never Comment: sleeping Patient Tobacco Use Status: Never used Tobacco Tobacco use type: Cigarette e-Cigarette/Vaping Use: Never Used Second Hand Smoke Exposure: No Advance Directives Date on File: 07/02/20 service: No Current occupational status: unemployed Cognitive needs: Yes (wheelchair) Hearing needs: No Vision needs: No Review of Systems Const All systems reviewed & are unremarkable except as noted in HPI and below Physical Exam Vital Signs: Last Vital Signs Pulse 83 06/13/24 09:25 BP 172/99 H 06/13/24 09:25 Pulse Ox 98 06/13/24 09:25 Oxygen Delivery Method Room Air 06/13/24 09:25 General: Appears afebrile. Alert and oriented. Mood and affect appropriate. Pleasant. Follows and participates in conversation appropriately. Respiratory effort is unlabored. No cough. Wheelchair bound, able to move upper body and side to sides without assistance. General: Yes no CVA tenderness Back/Spine/Pelvis Other: Limited back exam due to pain. Wheelchair bound. Significant spasticity and stiffness in both legs, unable to flex knees. Reports mild groin pain with passive leg movements. No midline tenderness to palpation in the thoracic or lumbar spine. Lumbar extension and flexion reproduces moderate pain. Back: no CVA tenderness Cervical Spine: cervical muscular tenderness, pain with cervical ROM and No Cervical spine tenderness Thoracic/Lumbar Spine: thoracic and lumbar spine normal to inspection, Thoracic/lumbar spine scar(s), pain with thoraco-lumbar ROM, paraspinal muscle tenderness, thoraco-lumbar ROM limited, No thoracic spinal tenderness and lumbar spinal tenderness at L3, at L4 and at L5 Pelvis: buttock tenderness bilaterally Sacroiliac joints: bilaterally tender to palpation Extrem General: Yes capillary refill normal, Yes no clubbing, cyanosis or edema and Yes no calf tenderness Results Reviewed Results Reviewed: XR/XR thoracic spine 3V 03/06/24 IMPRESSION: Mild degenerative changes in the thoracic spine. XR/XR lumbar spine 2-3V 03/06/24 IMPRESSION: Mild degenerative spondylosis. XR BILATERAL HIPS WITH AP PELVIS 03/06/23 CLINICAL INFORMATION: Pain COMPARISON: Right hip from 12/27/2018 and femur from 06/13/2019 FINDINGS: Patient is status post mid femoral osteotomy with placement of hardware in the intramedullary space of right femur. The osteotomy line is still visualized with callus formation. Hardware well positioned in the right femur in partially visualized proximal tibia. There are changes of osteoarthritis in the right knee and mild changes of osteoarthritis in right hip joint. There are findings of a narrowing of the left hip joint also. IMPRESSION: Postsurgical changes with hardware in place and bilateral hips osteoarthritis, right knee osteoarthritis. MRI OF THE THORACIC SPINE WITHOUT CONTRAST MRI OF THE LUMBAR SPINE WITHOUT CONTRAST 07/12/23 CLINICAL INFORMATION: Spinal stenosis, lumbar region without neurogenic claudication. COMPARISON: Thoracic and lumbar spine radiographs 03/06/2023. Lumbar spine MRI 02/10/2015. TECHNIQUE: Multiplanar multisequence MR imaging of the thoracic and lumbar spine obtained without contrast. FINDINGS: THORACIC SPINE MRI: There are 12 rib-bearing thoracic type vertebral bodies. A combination of advanced facet arthropathy, ossification of the ligamentum flavum, and epidural lipomatosis result in severe central canal stenosis and significant compression of the thoracic spinal cord at T2-T3, T3-T4, T5-T6, T6-T7, T7-T8, T9-T10, T10-T11, T11-T12, and on the left side at T12-L1. Intramedullary T2 signal changes at nearly all of these levels compatible the sequela of compressive myelopathy. There are laminectomy changes at the T8-T11 levels however posterior fusion mass and ossification of the ligamentum flavum result in persistent cord compression and severe central canal stenosis at T9-T10, T10-T11, and T11-T12. There is no bone marrow edema. There are no acute fractures. Multilevel endplate osteophytes. Midthoracic kyphosis. No significant extraspinal soft tissue findings. LUMBAR SPINE MRI: There are 5 nonrib-bearing lumbar-type vertebral bodies. Vertebral body heights are maintained. The disc volumes are preserved and the disc remain well-hydrated. There is no bone marrow edema. There are no acute fractures. Conus terminates at the L1 level. No significant extraspinal soft tissue findings. L1-L2: Diffuse annular disc bulge and moderate bilateral facet arthropathy and ligamentum flavum thickening. Mild central canal stenosis and mild bilateral foraminal encroachment. L2-L3: Left lateral disc osteophyte and advanced facet arthropathy result in mild to moderate left foraminal encroachment. Mild central canal stenosis and mild right-sided foraminal encroachment. L3-L4: Diffuse annular disc bulge and severe bilateral facet arthropathy and ligamentum flavum thickening. Mild to moderate bilateral foraminal encroachment. No central canal stenosis. L4-L5: Diffuse annular disc bulge and severe bilateral facet arthropathy and ligamentum flavum thickening. On is in concert result in bilateral subarticular zone stenosis with mass effect on the traversing L5 nerve roots bilaterally as well as mild to moderate left foraminal encroachment. L5-S1: Diffuse disc osteophyte complex and severe bilateral facet arthropathy. Epidural lipomatosis moderately effaces the thecal sac. Disc osteophyte and facet arthropathy result in severe bilateral foraminal stenosis with compression of the exiting L5 nerve roots bilaterally. IMPRESSION: - A combination of advanced facet arthropathy, ossification of the ligamentum flavum, and epidural lipomatosis result in severe central canal stenosis and significant compression of the thoracic spinal cord at T2-T3, T3-T4, T5-T6, T6-T7, T7-T8, T9-T10, T10-T11, T11-T12, and on the left side at T12-L1. Intramedullary T2 signal changes at nearly all of these levels compatible the sequela of compressive myelopathy. There are laminectomy changes at the T8-T11 levels however posterior fusion mass and ossification of the ligamentum flavum result in persistent cord compression and severe central canal stenosis at T9-T10, T10-T11, and T11-T12. A thoracic spine CT could be obtained to assess the degree of ligamentum flavum ossification if surgery is being considered. Neurosurgical consultation advised. - At L4-L5, multifactorial degenerative changes result in bilateral subarticular zone stenosis with mass effect on the traversing L5 nerve roots bilaterally as well as mild to moderate left foraminal encroachment. - At L5-S1, epidural lipomatosis moderately effaces the thecal sac and advanced multifactorial degenerative changes result in severe bilateral foraminal stenosis with compression of the exiting L5 nerve roots bilaterally. Assessment & Plan Assessment & Plan (1) Skeletal dysplasia: Code(s): Q78.9 - Osteochondrodysplasia, unspecified Category: Medical (2) Neuropathy: Code(s): G62.9 - Polyneuropathy, unspecified Category: Medical (3) Muscle spasticity: Code(s): M62.838 - Other muscle spasm Category: Medical (4) Lumbar spinal stenosis: Code(s): M48.061 - Spinal stenosis, lumbar region without neurogenic claudication Category: Medical (5) Lumbar degenerative disc disease: Code(s): M51.36 - Other intervertebral disc degeneration, lumbar region Category: Medical (6) Chronic pain syndrome: Code(s): G89.4 - Chronic pain syndrome Category: Medical (7) Chronic hip pain, bilateral: Code(s): M25.551 - Pain in right hip; M25.552 - Pain in left hip; G89.29 - Other chronic pain Category: Medical (8) Lumbosacral spondylosis: Code(s): M47.817 - Spondylosis without myelopathy or radiculopathy, lumbosacral region Category: Medical Plan Schedule Bilateral L3-L4-L5 Medial Branch RFA with sedation and fluoroscopy given good results with diagnostic injections. Expectations, risks and benefits were reviewed. Patient is aware she will be contacted to schedule this procedure. Previously discussed ITDD vs SCS trial for chronic pain syndrome management. Patient reports [facility] is considering spine surgery for skeletal dysplasia and spinal stenosis. She is currently taking gabapentin and oxycodone prescribed by her PCP with partial pain relief. Patient is encourated to reach out to PCP office re: INJURY PREVENTION COORDINATOR hours increase. Will place [facility] referral to look into it as well. All questions and concerns have been answered and patient agreed with the plan. Follow up after injections and sooner if needed. Orders: Referrals [facility] Referral G89.29 - Other chronic pain, M25.551 - Pain in right hip, M25.552 - Pain in left hip, M48.061 - Spinal stenosis, lumbar region without neurogenic claudication, M51.36 - Other intervertebral disc degeneration, lumbar region, N31.9 - Neuromuscular dysfunction of bladder, unspecified, Q78.9 - Osteochondrodysplasia, unspecified, Z74.09 - Other reduced mobility Coding Level of Care Code Est Pt Level 4 (96499) Complex EM visit Add On G2211 Diagnoses Skeletal dysplasia Q78.9 Neuropathy G62.9 Muscle spasticity M62.838 Lumbar spinal stenosis M48.061 Lumbar degenerative disc disease M51.36 Chronic pain syndrome G89.4 Chronic hip pain, bilateral M25.551; M25.552; G89.29 Lumbosacral spondylosis M47.817
[2024-06-13 09:25] VITALS: BP 172/99; PULSE 83; O2SAT 98
--- OUTSIDE RECORDS SUMMARY | 2024-06-13 10:23 | XMS_ITS | Referral Summary ---
Author Organization [facility] Address [address] [place] [address] Care Team Providers Care Cardiovascular Lab Director Name Role Phone Bambi Langley Primary Care Provider [phone] Allergies No known active allergies Medications metoprolol [...] 02/21/2019(Deferred: Patient Refused - pt refused using senior architect) Social History Tobacco Use Types Packs/Day Years [...] on file Medical Devices Implanted Type Area Software Support Engineer Device Identifier Shelf Expiration Date Model / Serial / Lot Rail Deformity Fixator Titanium Adult 350mm - [id number] Implanted:Qty: 2 on 02/19/2019 by Kemal uQiroga MD at [facility] Implant Femur Roxanne [id number] / / Post Outrigger 30 Degree 11mm - [id number] Implanted:Qty: 2 on 06/29/2019 by Kemal Quiroga MD at [facility] Implant Right: Femur [employer] 390.013 / / Bone Cement R 1x40 Refobacin - [id number] Implanted:Qty: 1 on 09/10/2019 by Kemal Quiroga MD at [facility] Implant Right: Femur Roxanne 10/08/2019 [id number] / / [id number] Description:Mixed with tobra mycin 2.4 grams,2 grams vancomycin,240 mg gentamycin Nail Tibial T2 Standard 8mm X 270mm - [id number] Implanted:Qty: 1 on 09/10/2019 by Kemal Quiroga MD at [facility] Nail Right: Femur APARNA 11/08/2019 1822-0827S / / [id number] Screw Cortical Tapered Hydroxyapatite 6mm Shank 40mm Thread 6mm/0utu430rl - [id number] Implanted:Qty: 1 on 02/19/2019 by Kemal Quiroga MD at [facility] Screw Right: Femur Roxanne 05/26/2028 [id number] / / [id number] Screw Cortical Tapered Hydroxyapatite 6mm Shank 40mm Thread 6mm/3ovd291lx - [id number] Implanted:Qty: 1 on 02/19/2019 by Kemal Quiroga MD at [facility] Screw Femur Roxanne 04/25/2028 [id number] / / [id number] Screw Cortical Tapered Hydroxyapatite 6mm Shank 60mm Thread 6mm/7evt863av - [id number] Implanted:Qty: 1 on 02/19/2019 by Kemal Quiroga MD at [facility] Screw Right: Femur Roxanne 06/04/2028 [id number] / / [id number] Screw Cortical Tapered Hydroxyapatite 6mm Shank 40mm Thread 6mm/5ley469om - [id number] Implanted:Qty: 1 on 02/19/2019 by Kemal Quiroga MD at [facility] Screw Right: Femur Roxanne 04/25/2028 [id number] / / [id number] Screw Cortical Tapered Hydroxyapatite 6mm Shank 40mm Thread 6mm/8fgz197rk - [id number] Implanted:Qty: 1 on 02/19/2019 by Kemal Quiroga MD at [facility] Screw Right: Femur Roxanne 07/16/2028 [id number] / / [id number] Screw Cortical Tapered Hydroxyapatite 6mm Shank 40mm Thread 6mm/4hfp631ct - [id number] Implanted:Qty: 1 on 02/19/2019 by Kemal Quiroga MD at [facility] Screw Right: Femur Roxanne 05/03/2028 [id number] / / [id number] Screw Cortical Tapered Hydroxyapatite 6mm Shank 40mm Thread 6mm/0ibk538ph - [id number] Implanted:Qty: 1 on 02/19/2019 by Kemal Quiroga MD at [facility] Screw Left: Femur Roxanne 07/16/2028 [id number] / / [id number] Screw Cortical Tapered Hydroxyapatite 6mm Shank 50mm Thread 6mm/7nee734za - [id number] Implanted:Qty: 1 on 02/19/2019 by Kemal Quiroga MD at [facility] Screw Left: Femur Roxanne 06/29/2028 [id number] / / [id number] Screw Cortical Tapered Hydroxyapatite 6mm Shank 40mm Thread 6mm/2ahw328cw - [id number] Implanted:Qty: 1 on 02/19/2019 by Kemal Quiroga MD at [facility] Screw Left: Femur Roxanne 05/26/2028 [id number] / / [id number] Screw Cortical Tapered Hydroxyapatite 6mm Shank 40mm Thread 6mm/2csq956wl - [id number] Implanted:Qty: 1 on 02/19/2019 by Kemal Quiroga MD at [facility] Screw Left: Femur Roxanne 05/03/2028 [id number] / / [id number] Screw Schanz Self-Drilling 60mm Thread Stainless Steel 5.3lib568ve - [id number] Implanted:Qty: 4 on 06/29/2019 by Kemal Quiroga MD at [facility] Screw Right: Femur [employer] 294.785 / / Screw Humeral Locking Fully Threaded Sterile 7cvs58gp T2 - [id number] Implanted:Qty: 1 on 09/10/2019 by Kemal Quiroga MD at [facility] Screw Right: Femur APARNA 1896-4060S / / Screw Humeral Locking Fully Threaded Sterile 1ovn14bq T2 - [id number] Implanted:Qty: 1 on 05/19/2020 by Kemal Quiroga MD at [facility] Screw Left: Tibia APARNA 1896-4035S / / Screw Humeral Locking Fully Threaded Sterile 9jzt33jw T2 - [id number] Implanted:Qty: 1 on 05/19/2020 by Kemal Quiroga MD at [facility] Screw Left: Tibia APARNA 1896-4034S / / Screw Humeral Locking Fully Threaded Sterile 7msy24rp T2 - [id number] Implanted:Qty: 1 on 05/19/2020 by Kemal Quiroga MD at [facility] Screw Left: Tibia APARNA 1896-4050S / / Screw Humeral Locking Fully Threaded Sterile 3ffa80sv T2 - [id number] Implanted:Qty: 1 on 05/19/2020 by Kemal Quiroga MD at [facility] Screw Left: Tibia APARNA 1896-4040S / / Screw Humeral Locking Fully Threaded Sterile 0qte88ae T2 - [id number] Implanted:Qty: 1 on 05/19/2020 by Kemal Quiroga MD at [facility] Screw Right: Tibia APARNA 1896-4050S / / Screw Humeral Locking Fully Threaded Sterile 6lvc25tn T2 - [id number] Implanted:Qty: 1 on 05/19/2020 by Kemal Quiroga MD at [facility] Screw Right: Tibia APARNA 1896-4034S / / Screw Humeral Locking Fully Threaded Sterile 8mjh27we T2 - [id number] Implanted:Qty: 1 on 05/19/2020 by Kemal Quiroga MD at [facility] Screw Right: Tibia APARNA 1896-4032S / / Screw Humeral Locking Fully Threaded Sterile 7ebx22ji T2 - [id number] Implanted:Qty: 1 on 05/19/2020 by Kemal Quiroga MD at [facility] Screw Right: Tibia APARNA 1896-4055S / / Chip Crushed Bone Cancellous 15cc Freezed Dried 1mm To 8mm - [id number] Implanted:Qty: 1 on 06/29/2019 by Kemal Quiroga MD at [facility] Tissue Right: Femur LIF[employer]ET 01/09/2024 [id number] / / [id number] Putty Demineralized Bone Matrix 5cc Dbx - [id number] Implanted:Qty: 1 on 06/29/2019 by Kemal Quiroga MD at [facility] Tissue Right: Femur MUSCULOSKELETAL TRANSPLANT FND 03/27/2021 [id number] / / [id number] Description:ZEE PRICE, Lindsey [employer] PRODUCT CODE [id number] T2 Humeral Nail 7 X 250mm Implanted:Qty: 1 on 05/19/2020 by Kemal Quiroga MD at [facility] Left: Tibia APARNA 01/08/2024 1830-0725S / / [id number] Humeral Nail 7 X 250mm Implanted:Qty: 1 on 05/19/2020 by Kemal Quiroga MD at [facility] Right: Tibia APARNA 12/08/2022 1830-0725S / / [id number] Procedures * Due to [place] law, this organization might not be sharing negative HIV tests. Procedure Name Priority Date/Time Associated Diagnosis Comments BASIC METABOLIC PANEL STAT 05/20/2020 9:37 PM EST from Last 3 Months or Most Recently Relevant to Health Maintenance Results * Due to [place] law, this organization might not be sharing [...] - 10.7 mg/dL 05/20/2020 10:09 PM EST [facility] Anion Gap 7 5 - 15 05/20/2020 10:09 PM EST [facility] eGFR Non- >90 >=90 mL/min/BS A 05/20/2020 10:09 PM EST [facility] eGFR >90 >=90 mL/min/BS A 05/20/2020 10:09 PM EST [facility] Comment: Units = mL/min/1.73 [...] MD LAB BLOOD ORDERABLES Fi nal Result [facility] [address] [place] [address], from Last 3 Months or Most Recently Relevant to Health Maintenance Additional Health Concerns Infection Onset Date Last Indicated Multidrug resistant organisms MRSA 06/24/2019 06/24/2019 Insurance [facility] [place] [address] Advance Directives Documents on File Type Date Recorded Patient Civil Engineering Project Manager Expl anation Health Care Proxy 02/20/2019 [...] Harrison Daughter Health Care Agent Care Teams Cardiovascular Lab Director Relationship Specialty Start Date End Date Bambi Langley [address] [place] [address] dr Aislinn Tao, [place] [address] PCP - General Internal Medicine 10/31/17
--- OUTSIDE RECORDS SUMMARY | 2024-06-13 10:23 | XMS_ITS | Clinical Summary ---
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) Family History Medical History Relation Name Comments [...] series) 07/02/2046 Medical Devices Implanted Type Area Rn Home Care Device Identifier Shelf Expiration Date Model / Serial / Lot Rail Deformity Fixator Titanium Adult 350mm - [id number] Implanted:Qty: 2 on 02/19/2019 by Kemal Quiroga MD at [facility] Implant Femur Roxanne [id number] / / Post Outrigger 30 Degree 11mm - [id number] Implanted:Qty: 2 on 06/29/2019 by Kemal Quiroga MD at [facility] Implant Right: Femur [employer] 390.013 / / Bone Cement R 1x40 Refobacin - [id number] Implanted:Qty: 1 on 09/10/2019 by Kemal Quiroga MD at [facility] Implant Right: Femur Roxanne 10/08/2019 [id number] / / [id number] Description:Mixed with tobra mycin 2.4 grams,2 grams vancomycin,240 mg gentamycin Nail Tibial T2 Standard 8mm X 270mm - [id number] Implanted:Qty: 1 on 09/10/2019 by Kemal Quiroga MD at [facility] Nail Right: Femur APARNA 11/08/2019 1822-0827S / / [id number] Screw Cortical Tapered Hydroxyapatite 6mm Shank 40mm Thread 6mm/7lgp582lq - [id number] Implanted:Qty: 1 on 02/19/2019 by Kemal Quiroga MD at [facility] Screw Right: Femur Roxanne 05/26/2028 [id number] / / [id number] Screw Cortical Tapered Hydroxyapatite 6mm Shank 40mm Thread 6mm/2xke872xq - [id number] Implanted:Qty: 1 on 02/19/2019 by Kemal Quiroga MD at [facility] Screw Femur Roxanne 04/25/2028 [id number] / / [id number] Screw Cortical Tapered Hydroxyapatite 6mm Shank 60mm Thread 6mm/3ojg807sg - [id number] Implanted:Qty: 1 on 02/19/2019 by Kemal Quiroga MD at [facility] Screw Right: Femur Roxanne 06/04/2028 [id number] / / [id number] Screw Cortical Tapered Hydroxyapatite 6mm Shank 40mm Thread 6mm/4xlc289ae - [id number] Implanted:Qty: 1 on 02/19/2019 by Kemal Quiroga MD at [facility] Screw Right: Femur Roxanne 04/25/2028 [id number] / / [id number] Screw Cortical Tapered Hydroxyapatite 6mm Shank 40mm Thread 6mm/2ige954db - [id number] Implanted:Qty: 1 on 02/19/2019 by Kemal Quiroga MD at [facility] Screw Right: Femur Roxanne 07/16/2028 [id number] / / [id number] Screw Cortical Tapered Hydroxyapatite 6mm Shank 40mm Thread 6mm/6gsc524mg - [id number] Implanted:Qty: 1 on 02/19/2019 by Kemal Quiroga MD at [facility] Screw Right: Femur Roxanne 05/03/2028 [id number] / / [id number] Screw Cortical Tapered Hydroxyapatite 6mm Shank 40mm Thread 6mm/5cwy563vs - [id number] Implanted:Qty: 1 on 02/19/2019 by Kemal Quiroga MD at [facility] Screw Left: Femur Roxanne 07/16/2028 [id number] / / [id number] Screw Cortical Tapered Hydroxyapatite 6mm Shank 50mm Thread 6mm/8twg751ku - [id number] Implanted:Qty: 1 on 02/19/2019 by Kemal Quiroga MD at [facility] Screw Left: Femur Roxanne 06/29/2028 [id number] / / [id number] Screw Cortical Tapered Hydroxyapatite 6mm Shank 40mm Thread 6mm/4mzm976uh - [id number] Implanted:Qty: 1 on 02/19/2019 by Kemal Quiroga MD at [facility] Screw Left: Femur Roxanne 05/26/2028 [id number] / / [id number] Screw Cortical Tapered Hydroxyapatite 6mm Shank 40mm Thread 6mm/5kic917qf - [id number] Implanted:Qty: 1 on 02/19/2019 by Kemal Quiroga MD at [facility] Screw Left: Femur Roxanne 05/03/2028 [id number] / / [id number] Screw S[employer] 60mm Thread Stainless Steel 5.0rdd065kf - [id number] Implanted:Qty: 4 on 06/29/2019 by Kemal Quiroga MD at [facility] Screw Right: Femur [employer] 294.785 / / Screw Humeral Locking Fully Threaded Sterile 5yfy84to T2 - [id number] Implanted:Qty: 1 on 09/10/2019 by Kemal Quiroga MD at [facility] Screw Right: Femur APARNA 1896-4060S / / Screw Humeral Locking Fully Threaded Sterile 2lva06cn T2 - [id number] Implanted:Qty: 1 on 05/19/2020 by Kemal Quiroga MD at [facility] Screw Left: Tibia APARNA 1896-4035S / / Screw Humeral Locking Fully Threaded Sterile 6ptj70pn T2 - [id number] Implanted:Qty: 1 on 05/19/2020 by Kemal Quiroga MD at [facility] Screw Left: Tibia APARNA 1896-4034S / / Screw Humeral Locking Fully Threaded Sterile 4pbc75mi T2 - [id number] Implanted:Qty: 1 on 05/19/2020 by Kemal Quiroga MD at [facility] Screw Left: Tibia APARNA 1896-4050S / / Screw Humeral Locking Fully Threaded Sterile 3jqc16jf T2 - [id number] Implanted:Qty: 1 on 05/19/2020 by Kemal Quiroga MD at [facility] Screw Left: Tibia APARNA 1896-4040S / / Screw Humeral Locking Fully Threaded Sterile 2asq15ia T2 - [id number] Implanted:Qty: 1 on 05/19/2020 by Kemal Quiroga MD at [facility] Screw Right: Tibia APARNA 1896-4050S / / Screw Humeral Locking Fully Threaded Sterile 8xcb10ck T2 - [id number] Implanted:Qty: 1 on 05/19/2020 by Kemal Quiroga MD at [facility] Screw Right: Tibia APARNA 1896-4034S / / Screw Humeral Locking Fully Threaded Sterile 7ngd17qb T2 - [id number] Implanted:Qty: 1 on 05/19/2020 by Kemal Quiroga MD at [facility] Screw Right: Tibia APARNA 1896-4032S / / Screw Humeral Locking Fully Threaded Sterile 8vux80ur T2 - [id number] Implanted:Qty: 1 on 05/19/2020 by Kemal Quiroga MD at [facility] Screw Right: Tibia APARNA 1896-4055S / / Chip Crushed Bone Cancellous 15cc Freezed Dried 1mm To 8mm - [id number] Implanted:Qty: 1 on 06/29/2019 by Kemal Quiroga MD at [facility] Tissue Right: Femur LIF[employer]ET 01/09/2024 CAN15 / / [id number] Putty Demineralized Bone Matrix 5cc Dbx - [id number] Implanted:Qty: 1 on 06/29/2019 by Kemal Quiroga MD at [facility] Tissue Right: Femur [employer]OSKELETAL TRANSPLANT FND 03/27/2021 [id number] / / [id number] Description:DBX PUTTY, 5 CC PRODUCT CODE [id number] T2 Humeral Nail 7 X 250mm Implanted:Qty: 1 on 05/19/2020 by Kemal Quiroga MD at [facility] Left: Tibia APARNA 01/08/2024 1830-0725S / / [id number] T2 Humeral Nail 7 X 250mm Implanted:Qty: 1 on 05/19/2020 by Kemal Quiroga MD at [facility] Right: Tibia APARNA 12/08/2022 1830-0725S / / [id number] Procedures * Due to [place] [employer] law, this organization might not be sharing negative HIV tests. Procedure Name Priority Date/Time Associated Diagnosis Comments BASIC METABOLIC PANEL STAT 05/20/2020 9:37 PM EST from Last 3 Months or Most Recently Relevant to Health Maintenance Results * Due to [place] [employer] law, this organization might not be sharing [...] nal Result Performing Organization Address [facility]/State/[facility] Co de Phone Number [email or web address] [address] [place] [address], from Last 3 Months or Most Recently Relevant to Health Maintenance Additional Health Concerns Infection Onset Date Last Indicated Multidrug resistant organisms MRSA 06/24/2019 06/24/2019 Insurance [facility] MEDICAID Advance Directives Documents on File Type Date Recorded Patient Coding Quality Analyst Expl anation Health Care Proxy 02/20/2019 3:46 [...] Harrison Daughter Health Care Agent Care Teams Nurse Examiner Relationship Specialty Start Date End Date Bambi Langley [address] [facility] [place] [address] PCP - General Internal Medicine 10/31/17
== END 2024-06-13 09:54 | disposition home or self-care (01) ==
PROVIDERS: PCP Internal Medicine; Visit Provider Nurse Practitioner Family
DX: G62.9 Polyneuropathy, unspecified (principal); M62.838 Other muscle spasm; M48.061 Spinal stenosis, lumbar region without neurogenic claudication; Q78.9 Osteochondrodysplasia, unspecified; M51.369 Other intervertebral disc degeneration, lumbar region without mention of lumbar back pain or lower extremity pain; G89.4 Chronic pain syndrome; M25.551 Pain in right hip; M25.552 Pain in left hip; G89.29 Other chronic pain; M47.817 Spondylosis without myelopathy or radiculopathy, lumbosacral region
CPT/HCPCS: 99214; G2211

== ENCOUNTER → 2024-06-13 09:19 | Outpatient (BNVA) | payer OTHER, SELFPAY | PROVIDERS: PCP Internal Medicine; Visit Provider Nurse Practitioner Family | DX: Q78.9 Osteochondrodysplasia, unspecified (principal); G62.9 Polyneuropathy, unspecified; M48.061 Spinal stenosis, lumbar region without neurogenic claudication; G89.4 Chronic pain syndrome; M62.838 Other muscle spasm; M51.369 Other intervertebral disc degeneration, lumbar region without mention of lumbar back pain or lower extremity pain; M25.551 Pain in right hip; M25.552 Pain in left hip; M47.817 Spondylosis without myelopathy or radiculopathy, lumbosacral region | CPT/HCPCS: 99212 ==

== ENCOUNTER 2024-09-04 08:57 | Outpatient (AMB) | payer OTHER, SELFPAY ==
--- NOTE | 2024-09-04 09:04 | A.OFFPC_ITS ---
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 Required: No Accompanied by: Self / Same As Patient Allergies No Known Allergies Allergy (Verified 09/04/24 09:18) Medication List - Last Reconciled 09/04/24 by Bambi Vizcaino MD acetaminophen 1,000 mg (2 x 500 mg) PO Q6H PRN 30 days [adult diapers brief As directed] amlodipine 2.5 mg PO DAILY 90 days baclofen 10 mg PO BID 30 days blood pressure monitor As directed calcium carbonate-vitamin D3 600 mg-5 mcg (200 unit) 1 tab PO BID cholecalciferol (vitamin D3) 25 mcg PO DAILY 90 days citalopram 20 mg PO DAILY 90 days commode (bedside commode) As directed-extra wide [DME mattress As directed] docusate calcium (Stool Softener (docusate calcium)) 240 mg PO BEDTIME PRN 90 days [electric edelmira lift As directed] gabapentin 400 mg PO TID 30 days hospital bed As directed [edelmira lift As directed] latex gloves (Latex Gloves, Large) As directed latex gloves (Latex Gloves, Large) As directed lisinopril 40 mg PO DAILY 90 days melatonin 6 mg (2 x 3 mg) PO DAILY 10 days metoprolol succinate ER 50 mg PO DAILY mirtazapine 15 mg PO BEDTIME 90 days oxycodone 5 mg PO BID PRN 30 days pantoprazole 40 mg PO DAILY 90 days psyllium husk (Metamucil) 1 tbsp PO DAILY PRN 30 days [scooter As directed] simethicone 125 mg PO TID-QID PRN [sliding board As directed] trazodone 100 mg PO BEDTIME PRN underpads (Bed Underpads) Use 3 to 4 bed underpads daily [wipes As directed] Tobacco use date assessed: 09/04/24 Dental Screening Dental Screen Date: 09/04/24 Did you have a dental visit in the last 12 months?: No Did you have a dental problem in the last 6 months where you did not have access to dental care?: No Was dental information given to patient?: Patient has dentist HPI HPI Comments History of Present Illness Details The patient is a 54-year-old female presenting for an annual physical examination and vaccination update. She has a documented history of essential hypertension, which has shown some improvement but remains slightly elevated compared to previous visits. During the last colonoscopy in 2022, it was advised to repeat the procedure in 3-4 years, indicating no immediate need for intervention. She denies any medication allergies. Her gastroesophageal reflux disease has been problematic, with increased acidity and bloating, and she has not been receiving consistent medication management. Although pantoprazole was previously prescribed, there is a lapse in her current regimen. Additionally, she has a history of depression and prior use of citalopram, which is not part of her current medication list. The patient experiences insomnia, with gabapentin intended to assist with sleep but reportedly ineffective. Her medical background includes skeletal dysplasia and lumbar spinal stenosis, with significant thoracic spinal cord compression affecting her mobility, necessitating the use of a scooter. Surgical interventions have addressed orthopedic issues in her legs and back, along with a tubal ligation for family planning. Her family history includes cardiac conditions, with both parents , her father at 62 and her mother with a heart condition. - Tetanus vaccination due and offered du ring this visit. - Colonoscopy conducted in 2022 with a r ecommendation for follow-up in 3-4 years. [facility] Medical History (Updated 09/04/24 @ 10:23 by Bambi Vizcaino MD) Skeletal dysplasia Neuropathy Osteoarthritis Wheelchair dependent Neurogenic bladder Chronic hip pain, bilateral Lumbar degenerative disc disease Chronic GERD Mild recurrent major depression Back pain Essential hypertension Depression with anxiety Constipation by delayed colonic transit Hypovitaminosis D Insomnia Surgical History H/O colonoscopy History of surgery on lower extremity History of back surgery History of orthopedic surgery History of tubal ligation Family History (Updated 09/04/24 @ 09:27 by Bambi Vizcaino MD) Father Medical history unknown Mother CVD (cardiovascular disease) Maternal Aunt CVD (cardiovascular disease) Family/Other FH: mental illness Social History Housing: Apartment Alcohol intake: never Comment: sleeping Patient Tobacco Use Status: Never used Tobacco Tobacco use type: Cigarette e-Cigarette/Vaping Use: Never Used Second Hand Smoke Exposure: No Advance Directives Date on File: 07/02/20 service: No Current occupational status: unemployed Cognitive needs: Yes (wheelchair) Hearing needs: No Vision needs: No Questionnaire PHQ-9 Over the last 2 weeks, how often have you been bothered by any of the following problems? 1. Little interest or pleasure in doing things: more than half the days 2. Feeling down, depressed, or hopeless: more than half the days 3. Trouble falling or staying asleep, or sleeping too much: more than half the days 4. Feeling tired or having little energy: more than half the days 5. Poor appetite or overeating: more than half the days 6. Feeling bad about yourself - or that you are a failure or have let yourself or your family down: more than half the days 7. Trouble concentrating on things, such as reading the newspaper or watching television: more than half the days 8. Moving or speaking so slowly that other people could have noticed. Or the opposite - being so fidgety or restless that you have been moving around a lot more than usual: more than half the days 9. Thoughts that you would be better off or of hurting yourself in some way: not at all Total score: 16 Depression Screening Interpretation: Positive (no suicidal thoughts) Depression Screening Follow-up: Existing condition, In treatment and Follow-up Visit Re quested Depression Screening Done: Yes 28451 - PHQ-9 Billing: Yes Source: Developed by Drs. Pedro Kincaid, Jannie Sterling, Dieudonne Higginbotham and colleagues, with an educational melody from [employer]. Thrive Questionnaire Date Thrive assessed: 09/04/24 I am a: Patient What is your living situation today?: I have a steady place to live Within the past 12 months, did the food you bought not last and you didn't have the money to get more?: Never true Within the past 12 months, did you worry whether your food would run out before you got money to buy more?: Never true Do you have trouble paying for medicines?: No Do you have trouble getting transportation to medical appointments?: No Do you have trouble paying your heating and electricity bill?: Yes Do you have trouble taking care of your child, family member or friend?: Yes Do you have trouble with day-to-day activities such as bathing, preparing meals, shopping, managing finances, etc.?: Yes Are you currently unemployed and looking for a job?: Yes Are you interested in more education?: Yes Please select the resources that you would like help with: None Currently or been in a relationship where the following occur: No concerns reported THRIVE Score: 1 AUDIT C Alcohol Use Questionnaire (AUDIT-C) 1. How often do you have a drink containing alcohol?: Never Total Score: 0 Score Reviewed/Action Taken: No BRIAN-7 AMB Questionnaire BRIAN-7 Date BRIAN - 7 assessed: 09/04/24 Feeling nervous, anxious, or on edge: 2 = More than half the days Not being able to stop or control worryin = More than half the days Worrying too much about different things: 2 = More than half the days Trouble relaxin = More than half the days Being so restless that it is hard to sit still: 2 = More than half the days Becoming easily annoyed or irritable: 2 = More than half the days Feeling afraid as if something awful might happen: 2 = More than half the days Total BRIAN-7 score (0-4 normal; 5-9 mild; 10-14 moderate; 15-21 severe): 14 Source: Developed by Drs. Pedro Kincaid, Jannie Sterling, Dieudonne Higginbotham and colleagues, with an educational melody from [employer]. BRIAN-7 Assessment Billing BRIAN-7 Assessment Tool: BRIAN-7 Assessment 59867 Review of Systems Const All systems reviewed & are unremarkable except as noted in HPI and below Card Denies chest pain at rest, Denies chest pain with activity, Denies edema, Denies irregular heart rhythm, Denies claudication, Denies dyspnea, Denies dyspnea on exertion, Denies orthopnea, Denies paroxysmal nocturnal dyspnea and Denies slow heart rate Resp Denies cough, Denies dyspnea and Denies dyspnea on exertion GI Reports abdominal pain, Reports bloating and Reports constipation Denies urinary incontinence, Denies urinary hesitancy and Denies urinary urgency Musc Reports abnormal gait, Reports back pain, Denies atrophy, Denies deformity, Reports arthralgias, Reports limited range of motion and Reports stiffness Skin/Breast Denies bleeding lesions, Denies changing lesions and Denies rash Neuro Reports abnormal gait, Denies behavioral changes and Denies lack of coordination Psych Denies behavioral changes Physical exam (Primary Care) Vital Signs: Last Vital Signs Pulse 81 09/04/24 09:05 BP 140/98 H 09/04/24 09:05 Pulse Ox 97 09/04/24 09:05 Oxygen Delivery Method Room Air 09/04/24 09:05 Tobacco/Smoking Status: Tobacco use Status Tobacco use date assessed 09/04/24 09/04/24 09:13 Patient Tobacco Use Status Never used Tobacco 09/04/24 09:07 Tobacco use type Cigarette 09/04/24 09:07 e-Cigarette/Vaping Use Never Used 09/04/24 09:07 PHQ-9: PHQ-9 Score PHQ-9: Total score 16 09/04/24 10:23 Depression Screening Interpretation: Positive (no suicidal thoughts) Depression Screening Follow-up: Existing condition, In treatment and Follow-up Visit R equested Thrive Assessment: Date of Thrive Assessment Date Thrive assessed 09/04/24 09/04/24 09:07 Currently or been in a relationship where the following occur: No concerns reported Const Limitations: wheelchair (scooter) Eyes General: appearance normal, both eyes and all related structures Eyelids: Yes eyelids normal Conjunctivae: conjunctivae normal Neck Neck: Yes normal visual inspection and Yes supple Resp Effort & Inspection: normal respiratory effort Auscultation: clear to auscultation bilaterally Cardio Jugular venous distension: no JVD Rate: regular rate Rhythm: regular rhythm Heart sounds: S1 normal heart sound present and S2 normal heart sound present GI Inspection: Yes normal to inspection Palpation (GI): Soft to palpation and nontender Auscultation: normal bowel sounds Neuro General: no focal motor deficits Extrem Right lower extremity: hip/thigh Details: abnormal ROM and knee Details: abnormal ROM Left lower extremity: hip/thigh Details: abnormal ROM and knee Details: abnormal ROM Psych Appearance: grossly normal Immunizations Boostrix Tdap 2.5 Lf unit-8 mcg-5 Lf/0.5 mL intramuscular syringe Performing Provider: Bambi Vizcaino MD Performing Location: [facility] [place] [facility] Administered by: CONCHIS Merida on 09/04/24 09:43 Dose Route Admin Location Dispensed Lot Number Expiration Date NDC Integration Specialist 0.5 mL IM Left Deltoid 0.5 mL [id number] 12/04/26 [id number] [employer] VIS Given Date VIS Provided VIS Publication Date 09/04/24 Single Vaccine 24 Eligibility Eligibility Date Funding Source Not VF Eligible 09/04/24 Private Coding Level of Care Code Est Pt Level 4 (35910) Est Pt Prev Care 40-64y(94746) Diagnoses Physical exam Z00.00 Insomnia G47.00 Lumbar stenosis M48.061 Vaginal lesion N89.8 Chronic constipation K59.09 GERD (gastroesophageal reflux disease) K21.9 Mild major depression F32.0 Skeletal dysplasia Q78.9 Mild recurrent major depression F33.0 Additional Codes BRIAN-7 Assessment Billing - BRIAN-7 Assessment Tool: BRIAN-7 Assessment 58200 ([id number]) PHQ-9 - 71928 - PHQ-9 Billing: Yes ([id number]) Time Spent (min) 40 Assessment & Plan Assessment & Plan (1) Physical exam: Code(s): Z00.00 - Encounter for general adult medical examination without abnormal findings Category: Medical (2) Insomnia: Code(s): G47.00 - Insomnia, unspecified Category: Medical (3) Lumbar stenosis: Code(s): M48.061 - Spinal stenosis, lumbar region without neurogenic claudication Category: Medical (4) Vaginal lesion: Code(s): N89.8 - Other specified noninflammatory disorders of vagina Category: Medical (5) Chronic constipation: Comment: Reviewed in detail-consistent bowel, maintaining high-fiber Code(s): K59.09 - Other constipation Category: Medical (6) GERD (gastroesophageal reflux disease): Comment: many questions--diet/ modifications- reviewed in detail with banking services clerk Code(s): K21.9 - Gastro-esophageal reflux disease without esophagitis Category: Medical (7) Mild major depression: Code(s): F32.0 - Major depressive disorder, single episode, mild Category: Medical (8) Skeletal dysplasia: Code(s): Q78.9 - Osteochondrodysplasia, unspecified Category: Medical (9) Mild recurrent major depression: Code(s): F33.0 - Major depressive disorder, recurrent, mild Category: Medical Plan During this visit, the focus was on addressing the patient's essential hypertension, which has shown some improvement, though it remains slightly elevated. Management of gastroesophageal reflux disease needs attention, as the patient is not receiving consistent treatment. Insomnia remains an issue, with gabapentin ineffective, and alternatives such as Ambien were discussed. The patient's depression is not actively managed as citalopram is not currently used. Ongoing orthopedic management for skeletal dysplasia and lumbar spinal stenosis is necessary, with recommendations for gastroenterology and neurosurgery referrals. The tetanus vaccination was due, and administration was offered. Patient was informed and verbally consented to the use of an ambient scribe for clinic note documentation during this visit. During the visit, I discussed the patient's essential hypertension, noting some improvement, and emphasized the importance of continued monitoring. For gastroesophageal reflux disease, a referral to gastroenterology was recommended due to inadequate current management. Insomnia management was addressed, with Ambien offered as an alternative to gabapentin. The patient's depression was acknowledged, and the possibility of reintroducing citalopram was considered. Given the patient's skeletal dysplasia and lumbar spinal stenosis, a referral to neurosurgery was advised. Tetanus vaccination was discussed and offered during this visit. The importance of follow-up for her orthopedic and gastrointestinal conditions was emphasized. Orders: Orders IRON PROFILE Today D64.9 - Anemia, unspecified Vitamin B12 and Folate Today E53.8 - Deficiency of other specified B group vitamins Lipid Panel Today E78.5 - Hyperlipidemia, unspecified TDaP Immunization Today Z23 - Encounter for immunization MR lumbar spine wo con Today M48.061 - Spinal stenosis, lumbar region without neurogenic claudication Complete Blood Count Auto Diff Today D64.9 - Anemia, unspecified Vitamin D 25-OH Total Today E55.9 - Vitamin D deficiency, unspecified Comprehensive [place]ell. Panel Fast Today M48.061 - Spinal stenosis, lumbar region without neurogenic claudication Referrals Gastroenterology Referral K21.9 - Gastro-esophageal reflux disease without esophagitis, K59.09 - Other constipation Neurosurgery Referral M48.061 - Spinal stenosis, lumbar region without neurogenic claudication RETREADER Referral N89.8 - Other specified noninflammatory disorders of vagina Medications: New zolpidem 5 mg PO BEDTIME PRN 30 tabs 0RF insomnia 30 days G47.00 - Insomnia, unspecified zinc oxide 40% (Aquaphor Baby Diaper Rash) 1 appl topical BID-QID PRN 56 grams 0RF skin irritation 30 days Shower Chair As directed 1 ea 0RF M16.0 - Bilateral primary osteoarthritis of hip, M47.817 - Spondylosis without myelopathy or radiculopathy, lumbosacral region, M48.061 - Spinal stenosis, lumbar region without neurogenic claudication, Q78.9 - Osteochondrodysplasia, unspecified, Z74.09 - Other reduced mobility Changed From calcium carbonate-vitamin D3 600 mg-5 mcg (200 unit) 1 tab PO BID 180 tabs 0RF To calcium carbonate-vitamin D3 600 mg-5 mcg (200 unit) 1 tab PO BID 180 tabs 3RF 90 days Refilled amlodipine 2.5 mg PO DAILY 90 tabs 1RF 90 days I10 - Essential (primary) hypertension cholecalciferol (vitamin D3) 25 mcg PO DAILY 90 tabs 1RF 90 days gabapentin 400 mg PO TID 90 caps 1RF 30 days lisinopril 40 mg PO DAILY 90 tabs 1RF 90 days I10 - Essential (primary) hypertension pantoprazole 40 mg PO DAILY 90 tabs 1RF 90 days metoprolol succinate ER 50 mg PO DAILY 90 tabs 3RF citalopram 20 mg PO DAILY 90 tabs 1RF 90 days docusate calcium (Stool Softener (docusate calcium)) 240 mg PO BEDTIME PRN 90 caps 0RF constipation 90 days K59.09 - Other constipation [DME mattress] As directed 1 ea 0RF M16.0 - Bilateral primary osteoarthritis of hip, M51.36 - Other intervertebral disc degeneration, lumbar region, M62.838 - Other muscle spasm, Q78.9 - Osteochondrodysplasia, unspecified, Z74.09 - Other reduced mobility Discontinued mirtazapine Discontinued Reason: Patient Completed Course 15 mg PO BEDTIME 90 days 90 tabs 0RF Patient Instructions: - Take prescribed medications as directed. - Follow up with gastroenterology for GERD management. - Discuss insomnia with your primary care provider. - Consider reintroducing citalopram for depression management. - Get the tetanus vaccine as discussed. - Follow up with neurosurgery for spinal condition evaluation.
[2024-09-04 09:05] VITALS: BP 140/98; PULSE 81; O2SAT 97
--- OUTSIDE RECORDS SUMMARY | 2024-09-04 09:21 | XMS_ITS | Referral Summary ---
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 weapons officer) Social History Tobacco Use Types Packs/Day Years Used Date Smoking Tobacco: Never Smokeless Tobacco: Never Alcohol Use Standard Drinks/Week Comments Never 0 (1 standard drink = 0.6 oz pur e alcohol) Comments No Sex and Gender Information Value Date Recorded Sex Assigned at Female 06/19/2024 3:19 PM EDT Legal Sex Female 3:33 PM EDT Gender [...] on file Medical Devices Implanted Type Area Java Web User Interface Developer Device Identifier Shelf Expiration Date Model / Serial / Lot Rail Deformity Fixator Titanium Adult 350mm - [id number] Implanted:Qty: 2 on 02/19/2019 by Kemal Quiroga MD at [facility] Implant Femur Roxanne [id number] / / Post Outrigger 30 Degree 11mm - [id number] Implanted:Qty: 2 on 06/29/2019 by Kemal Quiroga MD at [facility] Implant Right: Femur Victrix 390.013 / / Bone Cement R 1x40 Refobacin - [id number] Implanted:Qty: 1 on 09/10/2019 by Kemal Quiroga MD at [facility] Implant Right: Femur Roxanne 10/08/2019 [id number] / / [id number] Description:Mixed with tobra mycin 2.4 grams,2 grams vancomycin,240 mg gentamycin Nail Tibial T2 Standard 8mm X 270mm - [id number] Implanted:Qty: 1 on 09/10/[address] by Kemal Quiroga MD at [facility] Nail Right: Femur APARNA 11/08/2019 1822-0827S / / [id number] Screw Cortical Tapered Hydroxyapatite 6mm Shank 40mm Thread 6mm/9eek554bf - [id number] Implanted:Qty: 1 on 02/19/[address] by Kemal Quiroga MD at [facility] Screw Right: Femur Roxanne 05/26/2028 [id number] / / [id number] Screw Cortical Tapered Hydroxyapatite 6mm Shank 40mm Thread 6mm/1zbj459an - [id number] Implanted:Qty: 1 on 02/19/[address] by Kemal Quiroga MD at [facility] Screw Femur Roxanne 04/25/2028 HAA60-1 8040 / / [id number] Screw Cortical Tapered Hydroxyapatite 6mm Shank 60mm Thread 6mm/6yek219na - [id number] Implanted:Qty: 1 on 02/19/[address] by Kemal Quiroga MD at [facility] Screw Right: Femur Roxanne 06/04/2028 [id number] / / [id number] Screw Cortical Tapered Hydroxyapatite 6mm Shank 40mm Thread 6mm/5bjd594vp - [id number] Implanted:Qty: 1 on 02/19/[address] by Kemal Quiroga MD at [facility] Screw Right: Femur Roxanne 04/25/2028 [id number] / / [id number] Screw Cortical Tapered Hydroxyapatite 6mm Shank 40mm Thread 6mm/9ccb028cw - [id number] Implanted:Qty: 1 on 02/19/2019 by Kemal Quiroga MD at [facility] Screw Right: Femur Roxanne 07/16/2028 [id number] / / [id number] Screw Cortical Tapered Hydroxyapatite 6mm Shank 40mm Thread 6mm/8oue853of - [id number] Implanted:Qty: 1 on 02/19/2019 by Kemal Quiroga MD at [facility] Screw Right: Femur Roxanne 05/03/2028 [id number] / / [id number] Screw Cortical Tapered Hydroxyapatite 6mm Shank 40mm Thread 6mm/0wgd408or - [id number] Implanted:Qty: 1 on 02/19/2019 by Kemal Quiroga MD at [facility] Screw Left: Femur Roxanne 07/16/2028 [id number] / / [id number] Screw Cortical Tapered Hydroxyapatite 6mm Shank 50mm Thread 6mm/4dmq117wp - [id number] Implanted:Qty: 1 on 02/19/2019 by Kemal Quiroga MD at [facility] Screw Left: Femur Roxanne 06/29/2028 [id number] / / [id number] Screw Cortical Tapered Hydroxyapatite 6mm Shank 40mm Thread 6mm/9gxh336sd - [id number] Implanted:Qty: 1 on 02/19/2019 by Kemal Quiroga MD at [facility] Screw Left: Femur Roxanne 05/26/2028 [id number] / / [id number] Screw Cortical Tapered Hydroxyapatite 6mm Shank 40mm Thread 6mm/5iay737xi - [id number] Implanted:Qty: 1 on 02/19/2019 by Kemal Quiroga MD at [facility] Screw Left: Femur Roxanne 05/03/2028 [id number] / / [id number] Screw Schanz Self-Drilling 60mm Thread Stainless Steel 5.5fug713dd - [id number] Implanted:Qty: 4 on 06/29/[address] by Kemal Quiroga MD at [facility] Screw Right: Femur Explorys SALES 294.785 / / Screw Humeral Locking Fully Threaded Sterile 7aem68sf T2 - [id number] Implanted:Qty: 1 on 09/10/2019 by Kemal Quiroga MD at [facility] Screw Right: Femur APARNA 1896-4060S / / Screw Humeral Locking Fully Threaded Sterile 6lki14kg T2 - [id number] Implanted:Qty: 1 on 05/19/2020 by Kemal Quiroga MD at [facility] Screw Left: Tibia APARNA 1896-4035S / / Screw Humeral Locking Fully Threaded Sterile 1hit59di T2 - [id number] Implanted:Qty: 1 on 05/19/[address] by Kemal Quiroga MD at [facility] Screw Left: Tibia APARNA 1896-4034S / / Screw Humeral Locking Fully Threaded Sterile 7oql01tt T2 - [id number] Implanted:Qty: 1 on 05/19/2020 by Kemal Quiroga MD at [facility] Screw Left: Tibia APARNA 1896-4050S / / Screw Humeral Locking Fully Threaded Sterile 3pvi52jt T2 - [id number] Implanted:Qty: 1 on 05/19/2020 by Kemal Quiroga MD at [facility] Screw Left: Tibia APARNA 1896-4040S / / Screw Humeral Locking Fully Threaded Sterile 0uwp39pn T2 - [id number] Implanted:Qty: 1 on 05/19/2020 by Kemal Quiroga MD at [facility] Screw Right: Tibia APARNA 1896-4050S / / Screw Humeral Locking Fully Threaded Sterile 5aya03en T2 - [id number] Implanted:Qty: 1 on 05/19/2020 by Kemal Quiroga MD at [facility] Screw Right: Tibia APARNA 1896-4034S / / Screw Humeral Locking Fully Threaded Sterile 6dcc03kg T2 - [id number] Implanted:Qty: 1 on 05/19/2020 by Kemal Quiroga MD at [facility] Screw Right: Tibia APARNA 1896-4032S / / Screw Humeral Locking Fully Threaded Sterile 4dhj01sp T2 - [id number] Implanted:Qty: 1 on 05/19/2020 by Kemal Quiroga MD at [facility] Screw Right: Tibia APARNA 1896-4055S / / Chip Crushed Bone Cancellous 15cc Freezed Dried 1mm To 8mm - [id number] Implanted:Qty: 1 on 06/29/2019 by Kemal Quiroga MD at [facility] Tissue Right: Femur LIFENET 01/09/2024 CAN15 / / [id number] Putty Demineralized Bone Matrix 5cc Dbx - [id number] Implanted:Qty: 1 on 06/29/2019 by Kemal Quiroga MD at [facility] Tissue Right: Femur MUSCULOSKELETAL TRANSPLANT FND 03/27/2021 [id number] / / [id number] Description:ZEE PRICE, 5 CC PRODUCT CODE [id number] T2 Humeral Nail 7 X 250mm Implanted:Qty: 1 on 05/19/2020 by Kemal Quiroga MD at [facility] Left: Tibia APARNA 01/08/2024 1830-0725S / / [id number] T2 Humeral Nail 7 X 250mm Implanted:Qty: 1 on 05/19/2020 by Kemal Quiroga MD at [facility] Right: Tibia APARNA 12/08/2022 1830-0725S / / [id number] Procedures * Due to [place] [employer] law, this organization might not be sharing negative HIV tests. Procedure Name Priority Date/Time Associated Diagnosis Comments BASIC METABOLIC PANEL STAT 05/20/2020 9:37 PM EST from Last 3 Months or Most Recently Relevant to Health Maintenance Results * Due to [place] law, this organization might not be sharing [...] - 99 mg/dL 05/20/2020 10:09 PM EST [facility] Calcium 8.4(L) 8.7 - 10.7 mg/dL 05/20/2020 10:09 PM EST [facility] Anion Gap 7 5 - 15 05/20/2020 10:09 PM EST [facility] eGFR Non- >90 >=90 mL/min/BS A 05/20/2020 10:09 PM EST [facility] eGFR >90 >=90 mL/min/BS A 05/20/2020 10:09 PM EST [facility] Comment: Units [...] MD LAB BLOOD ORDERABLES Fi nal Result [facility] [address] [place] [address], from Last 3 Months or Most Recently Relevant to Health Maintenance Additional Health Concerns Infection Onset Date Last Indicated Multidrug resistant organisms MRSA 06/24/2019 06/24/2019 Insurance [facility] MEDICAID Advance Directives Documents on File Type Date Recorded Patient Mental Tester Expl anation Health Care Proxy 02/20/2019 3:46 [...] Harrison Daughter Health Care Agent Care Teams Software Licensing Specialist Relationship Specialty Start Date End Date Bambi Langley [address] [place] [address] [place] [address] PCP - General Internal Medicine 10/31/17
== END 2024-09-04 09:46 | disposition home or self-care (01) ==
LOC: HO.HMCH 08:57
PROVIDERS: PCP Internal Medicine; Visit Provider Internal Medicine
DX: Z00.00 Encounter for general adult medical examination without abnormal findings (principal); G47.00 Insomnia, unspecified; M48.061 Spinal stenosis, lumbar region without neurogenic claudication; N89.8 Other specified noninflammatory disorders of vagina; K59.09 Other constipation; K21.9 Gastro-esophageal reflux disease without esophagitis; F32.0 Major depressive disorder, single episode, mild; Q78.9 Osteochondrodysplasia, unspecified; F33.0 Major depressive disorder, recurrent, mild; Z23 Encounter for immunization

== ENCOUNTER → 2024-09-04 08:57 | Outpatient (BNVA) | payer OTHER, SELFPAY | PROVIDERS: PCP Internal Medicine; Visit Provider Internal Medicine | DX: Z00.00 Encounter for general adult medical examination without abnormal findings (principal); Z23 Encounter for immunization; G47.00 Insomnia, unspecified; M48.061 Spinal stenosis, lumbar region without neurogenic claudication; N89.8 Other specified noninflammatory disorders of vagina; K59.09 Other constipation; K21.9 Gastro-esophageal reflux disease without esophagitis; F33.0 Major depressive disorder, recurrent, mild; Q78.9 Osteochondrodysplasia, unspecified | CPT/HCPCS: 90471; 90715; 96127; 99212; 99396 ==

== ENCOUNTER 2024-09-12 10:27 | Outpatient (REF) | payer OTHER, SELFPAY ==
--- NOTE | ~2024-09-12 | MM_ITS ---
EXAMINATION: MM SCREENING DIGITAL BREAST TOMOSYNTHESIS, BILATERAL CLINICAL INFORMATION: Screening. Asymptomatic. COMPARISON: Mammography: Comparison is made with available priors TECHNIQUE: Digital breast mammography with tomosynthesis is performed in both the craniocaudal and mediolateral oblique views along with computer-aided detection (CAD). FINDINGS: The breasts are heterogeneously dense, which may obscure small masses (ACR BI-RADS breast composition Category c). Right: There are no significant masses, abnormal calcifications, or other abnormalities. Left: Focal asymmetry lower inner breast middle depth. No suspicious calcifications or other abnormal findings. MM/MM tomosynthesis screening BI IMPRESSION: Additional imaging is recommended ASSESSMENT: BI-RADS BI-RADS 0 - Incomplete: Needs additional Imaging. RECOMMENDATION: 1. Additional views of the left breast. 2. Targeted ultrasound if warranted after review of the additional views. 3. Radiology department staff will contact the patient for additional imaging. Additional Imaging required This examination should not preclude the clinical evaluation of a suspicious palpable abnormality. This patient's information was entered into a reminder system with a target due date for their next mammogram. Electronically signed by: Rachael Eldridge DO 09/16/2024 05:23 PM EDT
--- OUTSIDE RECORDS SUMMARY | 2024-09-12 12:20 | XMS_ITS | Referral Summary ---
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 using information technology technician) Social History Tobacco Use Types Packs/Day Years [...] on file Medical Devices Implanted Type Area Reimbursement Specialist Device Identifier Shelf Expiration Date Model / Serial / Lot Rail Deformity Fixator Titanium Adult 350mm - [id number] Implanted:Qty: 2 on 02/19/2019 by Kemal Quiroga MD at [facility] Implant Femur Roxanne [id number] / / Post Outrigger 30 Degree 11mm - [id number] Implanted:Qty: 2 on 06/29/2019 by Kemal Quiroga MD at [facility] Implant Right: Femur IntraStage 390.013 / / Bone Cement R 1x40 Refobacin - [id number] Implanted:Qty: 1 on 09/10/2019 by Kemal Quiroga MD at [facility] Implant Right: Femur Roxanne 10/08/2019 [id number] / / [id number] Description:Mixed with tobra mycin 2.4 grams,2 grams vancomycin,240 mg gentamycin Nail Tibial T2 Standard 8mm X 270mm - [id number] Implanted:Qty: 1 on 09/10/2019 by Kemal Quiroga MD at [facility] Nail Right: Femur APARNA 11/08/2019 1822-0827S / / [id number] Screw Cortical Tapered Hydroxyapatite 6mm Shank 40mm Thread 6mm/9auv148kw - [id number] Implanted:Qty: 1 on 02/19/2019 by Kemal Quiroga MD at [facility] Screw Right: Femur Roxanne 05/26/2028 DWH45-62505 / / [id number] Screw Cortical Tapered Hydroxyapatite 6mm Shank 40mm Thread 6mm/5eme423uu - [id number] Implanted:Qty: 1 on 02/19/2019 by Kemal Quiroga MD at [facility] Screw Femur Roxanne 04/25/2028 HAA60-1 8040 / / [id number] Screw Cortical Tapered Hydroxyapatite 6mm Shank 60mm Thread 6mm/2eqw494fu - [id number] Implanted:Qty: 1 on 02/19/2019 by Kemal Quiroga MD at [facility] Screw Right: Femur Roxanne 06/04/2028 ZSK73-45233 / / [id number] Screw Cortical Tapered Hydroxyapatite 6mm Shank 40mm Thread 6mm/5hjv008ys - [id number] Implanted:Qty: 1 on 02/19/2019 by Kemal Quiroga MD at [facility] Screw Right: Femur Roxanne 04/25/2028 VJQ03-26410 / / [id number] Screw Cortical Tapered Hydroxyapatite 6mm Shank 40mm Thread 6mm/3dbv151mb - [id number] Implanted:Qty: 1 on 02/19/2019 by Keaml Quiroga MD at [facility] Screw Right: Femur Roxanne 07/16/2028 OVB77-30638 / / [id number] Screw Cortical Tapered Hydroxyapatite 6mm Shank 40mm Thread 6mm/4nxe704rw - [id number] Implanted:Qty: 1 on 02/19/2019 by Kemal Quiroga MD at [facility] Screw Right: Femur Roxanne 05/03/2028 LVM65-94810 / / [id number] Screw Cortical Tapered Hydroxyapatite 6mm Shank 40mm Thread 6mm/1cvm338lx - [id number] Implanted:Qty: 1 on 02/19/2019 by Kemal Quiroga MD at [facility] Screw Left: Femur Roxanne 07/16/2028 KAR93-72257 / / [id number] Screw Cortical Tapered Hydroxyapatite 6mm Shank 50mm Thread 6mm/5lgq228au - [id number] Implanted:Qty: 1 on 02/19/2019 by Kemal Quiroga MD at [facility] Screw Left: Femur Roxanne 06/29/2028 AXK11-25830 / / [id number] Screw Cortical Tapered Hydroxyapatite 6mm Shank 40mm Thread 6mm/9gqx711ar - [id number] Implanted:Qty: 1 on 02/19/2019 by Kemal Quiroga MD at [facility] Screw Left: Femur Roxanne 05/26/2028 [id number] / / [id number] Screw Cortical Tapered Hydroxyapatite 6mm Shank 40mm Thread 6mm/6rgb610tl - [id number] Implanted:Qty: 1 on 02/19/2019 by Kemal Quiroga MD at [facility] Screw Left: Femur Roxanne 05/03/2028 ADI84-94849 / / [id number] Screw Schanz Self-Drilling 60mm Thread Stainless Steel 5.5amb525jn - [id number] Implanted:Qty: 4 on 06/29/2019 by Kemal Quiroga MD at [facility] Screw Right: Femur [employer]Bill SALES 294.785 / / Screw Humeral Locking Fully Threaded Sterile 1aga75wa T2 - [id number] Implanted:Qty: 1 on 09/10/2019 by Kemal Quiroga MD at [facility] Screw Right: Femur APARNA 1896-4060S / / Screw Humeral Locking Fully Threaded Sterile 1ljo67tc T2 - [id number] Implanted:Qty: 1 on 05/19/2020 by Kemal Quiroga MD at [facility] Screw Left: Tibia APARNA 1896-4035S / / Screw Humeral Locking Fully Threaded Sterile 1lub67ki T2 - [id number] Implanted:Qty: 1 on 05/19/2020 by Kemal Quiroga MD at [facility] Screw Left: Tibia APARNA 1896-4034S / / Screw Humeral Locking Fully Threaded Sterile 0lez60mt T2 - [id number] Implanted:Qty: 1 on 05/19/2020 by Kemal Quiroga MD at [facility] Screw Left: Tibia APARNA 1896-4050S / / Screw Humeral Locking Fully Threaded Sterile 0qqs77ax T2 - [id number] Implanted:Qty: 1 on 05/19/2020 by Kemal Quiroga MD at [facility] Screw Left: Tibia APARNA 1896-4040S / / Screw Humeral Locking Fully Threaded Sterile 0szj97ny T2 - [id number] Implanted:Qty: 1 on 05/19/2020 by Kemal Quiroga MD at [facility] Screw Right: Tibia APARNA 1896-4050S / / Screw Humeral Locking Fully Threaded Sterile 0gey20nu T2 - [id number] Implanted:Qty: 1 on 05/19/2020 by Kemal Quiroga MD at [facility] Screw Right: Tibia APARNA 1896-4034S / / Screw Humeral Locking Fully Threaded Sterile 0tds75bx T2 - [id number] Implanted:Qty: 1 on 05/19/2020 by Kemal Quiroga MD at [facility] Screw Right: Tibia APARNA 1896-4032S / / Screw Humeral Locking Fully Threaded Sterile 0yhz77yq T2 - [id number] Implanted:Qty: 1 on 05/19/2020 by Kemal Quiroga MD at [facility] Screw Right: Tibia APARNA 1896-4055S / / Chip Crushed Bone Cancellous 15cc Freezed Dried 1mm To 8mm - [id number] Implanted:Qty: 1 on 06/29/2019 by Kemal Quiroga MD at [facility] Tissue Right: Femur LIFENET 01/09/2024 CAN15 / / [id number] Putty Demineralized Bone Matrix 5cc Dbx - [id number] Implanted:Qty: 1 on 06/29/2019 by Kemal Quiroga MD at [facility] Tissue Right: Femur MUSCULOSKELETAL TRANSPLANT FND 03/27/2021 [id number] / / [id number] Description:ZEE PRICE, 5 CC PRODUCT CODE [id number] T2 Humeral Nail 7 X 250mm Implanted:Qty: 1 on 05/19/2020 by Kemal Quiroga MD at [facility] Left: Tibia APARNA 01/08/2024 1830-0725S / / [id number] T2 Humeral Nail 7 X 250mm Implanted:Qty: 1 on 05/19/2020 by Kemal Quiroga MD at [facility] Right: Tibia APARNA 12/08/2022 1830-0725S / / [id number] Procedures * Due to [place] law, this organization might not be sharing negative HIV tests. Procedure Name Priority Date/Time Associated Diagnosis Comments BASIC METABOLIC PANEL STAT 05/20/2020 9:37 PM EST from Last 3 Months or Most Recently Relevant to Health Maintenance Results * Due to [place] [employer] law, this organization might not be sharing [...] - 99 mg/dL 05/20/2020 10:09 PM EST [facility] Calcium 8.4(L) 8.7 - 10.7 mg/dL 05/20/2020 10:09 PM EST [facility] Anion Gap 7 5 - 15 05/20/2020 10:09 PM EST [facility] eGFR Non- >90 >=90 mL/min/BS A 05/20/2020 10:09 PM EST [facility] eGFR >90 >=90 mL/min/BS A 05/20/2020 10:09 PM EST [facility] Comment: Units [...] MD LAB BLOOD ORDERABLES Fi nal Result [facility] [address] [place] [address], from Last 3 Months or Most Recently Relevant to Health Maintenance Additional Health Concerns Infection Onset Date Last Indicated Multidrug resistant organisms MRSA 06/24/2019 06/24/2019 Insurance [facility] MEDICAID Advance Directives Documents on File Type Date Recorded Patient Plant And Equipment Worker Expl anation Health Care Proxy 02/20/2019 3:46 [...] Harrison Daughter Health Care Agent Care Teams Forepart Laster Relationship Specialty Start Date End Date Bambi Langley [address] [place] [address] [place] [address] PCP - General Internal Medicine 10/31/17
== END 2024-09-12 10:28 | disposition home or self-care (01) ==
LOC: HO.MAMMO 10:27
PROVIDERS: PCP Internal Medicine; Visit Provider Internal Medicine
DX: Z12.31 Encounter for screening mammogram for malignant neoplasm of breast (principal)
CPT/HCPCS: 77063; 77067

== ENCOUNTER → 2024-09-12 10:45 | Outpatient (BNV) | payer OTHER, SELFPAY | PROVIDERS: PCP Internal Medicine; Visit Provider Internal Medicine | DX: Z12.31 Encounter for screening mammogram for malignant neoplasm of breast (principal) | CPT/HCPCS: 77063; 77067 ==

== ENCOUNTER 2024-10-09 09:26 | Outpatient (REF) | payer OTHER, SELFPAY ==
[2024-10-09 11:13] LABS: MANUAL DIFF FLAG NO
[2024-10-09 12:14] LABS: Hematocrit 46.6 % (37.0-47.0); Hemoglobin 14.8 g/dl (12.0-16.0); Imm Gran Abs Auto 0.01 X10*3/uL (0.00-0.03); Imm Gran Pct Auto 0.2 % (0.0-0.4); Lymphocytes Absolute Auto 2.5 X10*3/uL (1.2-4.9); Mean Corpuscular HGB Conc 31.8 g/dl (31.0-35.0); Mean Corpuscular Hemoglobin 27.4 pg (27.0-33.0); Mean Corpuscular Volume 86.3 fL (80.0-98.0); NRBC Abs Auto 0.000 X10*3/uL (0.0-0.012); NRBC Pct Auto 0.0 /100WBC (0.0-0.2); Platelet Count 233 X10*3/uL (160-400); Red Blood Count 5.40 X10*6/uL (4.20-5.50); White Blood Count 5.7 X10*3/uL (4.8-10.8)
[2024-10-09 13:00] LABS: Alanine Aminotransferase 81 U/L (0-31); Albumin Level 4.6 g/dL (3.5-5.0); Alkaline Phosphatase 181 U/L (39-117); Anion Gap 12 (12-20); Aspartate Amino Transferase 76 U/L (5-31); Blood Urea Nitrogen 9 mg/dL (9-16); Calcium 9.6 mg/dL (8.4-10.2); Carbon Dioxide 25 mmol/L (22-29); Chloride 108 mmol/L (96-108); Cholesterol 185 mg/dL (<200); Estimated Glomerular Filt Rate > 60; HDL Cholesterol 30 mg/dL (>40); Iron 37 mcg/dL (30-160); Percent Iron Saturation 11 % (15-50); Potassium 4.4 mmol/L (3.3-5.1); Sodium 141 mmol/L (135-145); Total Iron Binding Capacity 333 mcg/dL (228-428); Total Protein 8.1 g/dL (6.5-8.0); Triglycerides 196 mg/dL (<150); Unsaturated Iron Binding 296 ug/dL
[2024-10-09 13:26] LABS: Folate 12.1 ng/mL (> or = 4.0); Vitamin B12 739 pg/mL (200-900)
== END 2024-10-09 09:27 | disposition home or self-care (01) ==
LOC: HO.LAB 09:26
PROVIDERS: Absent Provider Internal Medicine; PCP Internal Medicine; Visit Provider Nurse Practitioner Family
DX: K44.9 Diaphragmatic hernia without obstruction or gangrene (principal); K59.09 Other constipation; K21.9 Gastro-esophageal reflux disease without esophagitis; R10.84 Generalized abdominal pain; D64.9 Anemia, unspecified; G89.4 Chronic pain syndrome
CPT/HCPCS: 36415; 80053; 80061; 82306; 82607; 82746; 83540; 85025; 99212

== ENCOUNTER 2024-10-09 09:26 | Outpatient (AMB) | payer OTHER, SELFPAY ==
[2024-10-09 09:32] VITALS: BP 144/80; PULSE 88
--- NOTE | 2024-10-09 09:32 | A.OFFVIS_ITS ---
Vital Signs 10/09/24 09:32 Height 4 ft 8 in BMI Reason not done Patient refused/unable BP 144/80 H Blood Pressure Location Lt brachial Position Sitting Pulse 88 Intake Visit Reasons: constipation and GERD/Sharon pt Intake Note: Jannet presents in the office as a follow up Sharon patient. CC: She states that she is having issues with her acid and constipation. Potato Spotter Required: Yes Allergies No Known Allergies Allergy (Verified 10/09/24 09:34) Medication List - Last Reconciled 10/09/24 by Mally Schultz CNP acetaminophen 1,000 mg (2 x 500 mg) PO Q6H PRN 30 days [adult diapers brief As directed] amlodipine 2.5 mg PO DAILY 90 days baclofen 10 mg PO BID 30 days blood pressure monitor As directed calcium carbonate-vitamin D3 600 mg-5 mcg (200 unit) 1 tab PO BID 90 days cholecalciferol (vitamin D3) 25 mcg PO DAILY 90 days citalopram 20 mg PO DAILY 90 days commode (bedside commode) As directed-extra wide [DME mattress As directed] docusate calcium (Stool Softener (docusate calcium)) 240 mg PO BEDTIME PRN 90 days [electric edelmira lift As directed] gabapentin 400 mg PO TID 30 days hospital bed As directed [edelmira lift As directed] latex gloves (Latex Gloves, Large) As directed latex gloves (Latex Gloves, Large) As directed lisinopril 40 mg PO DAILY 90 days melatonin 6 mg (2 x 3 mg) PO DAILY 10 days metoprolol succinate ER 50 mg PO DAILY oxycodone 5 mg PO BID PRN 30 days pantoprazole 40 mg PO DAILY 90 days psyllium husk (Metamucil) 1 tbsp PO DAILY PRN 30 days [scooter As directed] Shower Chair As directed simethicone 125 mg PO TID-QID PRN [sliding board As directed] underpads (Bed Underpads) Use 3 to 4 bed underpads daily [wipes As directed] zinc oxide 40% (Aquaphor Baby Diaper Rash) 1 appl topical BID-QID PRN 30 days zolpidem 5 mg PO BEDTIME PRN 30 days HPI HPI constipation and GERD/Sharon pt: Details: Patient is a 54-year-old female with PMH of depression with anxiety, insomnia,OA, hypertension and chronic GERD. Last visit with KEO Anders 09/11/2023 for establish care for GERD. Nellie presents with ongoing gastrointestinal symptoms and constipation. Patient is accompanied by her GLUE SPREADER. She underwent Upper GI Series (11/2023) which confirmed acid reflux and small hiatal hernia. She reports daily spinning sensations with bitter phlegm and feeling as though food gets stuck in the mouth of the stomach. These symptoms persist despite taking pantoprazole. She describes a sensation of food not passing through, causing nausea and a knot in her stomach. The patient has been experiencing constipation with no bowel movements for the past 5 days. She uses magnesium, unable to recall type, as needed. She mentions intermittent constipation and sometimes withholds oxycodone use for weeks to facilitate bowel movements, despite resulting pain. She reports poor appetite lately due to nausea. Her typical diet includes plantains and boiled yam for breakfast, with limited food intake later in the day, sometimes only consuming tea or soup in the evening. She also mentions recent appearance of spots on her belly that she hadn't noticed before. She denies blood in stools or personal history of cancer. Patient denies: fever/chills, vomiting, appetite changes, regurgitation,dysphasia, unintentional wt loss or melena/hematochezia. Social hx: -denies ETOH use -denies recreational drug use -non-smoker - family hx as below -denies personal hx of CA -denies significant cardiopulmonary history -tolerated anesthesia in the past without difficulty. [facility] Medical History (Updated 10/09/24 @ 10:25 by Mally Schultz CNP) Abdominal pain Hiatal hernia with GERD Skeletal dysplasia Neuropathy Osteoarthritis Wheelchair dependent Neurogenic bladder Chronic hip pain, bilateral Lumbar degenerative disc disease Chronic GERD Mild recurrent major depression Back pain Essential hypertension Depression with anxiety Constipation by delayed colonic transit Hypovitaminosis D Insomnia Surgical History H/O colonoscopy History of surgery on lower extremity History of back surgery History of orthopedic surgery History of tubal ligation Family History (Updated 09/04/24 @ 09:27 by Bambi Vizcaino MD) Father Medical history unknown Mother CVD (cardiovascular disease) Maternal Aunt CVD (cardiovascular disease) Family/Other FH: mental illness Social History Housing: Apartment Alcohol intake: never Comment: sleeping Patient Tobacco Use Status: Never used Tobacco Tobacco use type: Cigarette e-Cigarette/Vaping Use: Never Used Second Hand Smoke Exposure: No Advance Directives Date on File: 07/02/20 service: No Current occupational status: unemployed Cognitive needs: Yes (wheelchair) Hearing needs: No Vision needs: No Review of Systems Const Reports as per HPI ENT Reports as per HPI Card Reports as per HPI Resp Reports as per HPI GI Reports as per HPI Reports as per HPI Physical Exam Vital Signs: Last Vital Signs Pulse 88 10/09/24 09:32 BP 144/80 H 10/09/24 09:32 Const General: healthy appearing, no acute distress and well developed Nutritional Appearance: well nourished Orientation/consciousness: patient oriented x3 HEENT Head: Yes normal to inspection, Yes normocephalic and Yes atraumatic Face and sinus: Yes normal facial exam Eyes General: appearance normal, both eyes and all related structures Neck Neck: Yes normal visual inspection Resp Effort & Inspection: normal respiratory effort, able to speak in complete sentences, no tracheal deviation and symmetric chest movement Auscultation: clear to auscultation bilaterally Cardio Jugular venous distension: no JVD Rate: regular rate Rhythm: regular rhythm Heart sounds: S1 normal heart sound present, S2 normal heart sound present, no gallops and no murmurs GI Inspection: Yes normal to inspection, Yes distended, Yes obesity and Yes striae Palpation (GI): Soft to palpation, not firm, nontender and No hepatosplenomegaly present Auscultation: Hyperactive bowel sounds present Skin Other: mx small red papules with 1-2 small pustules noted mid chest and abdomen. Neuro General: patient oriented x3 Gait exam (Neuro): Normal gait present Psych Appearance: grossly normal Mental Status: mental status grossly normal Speech and movement: Normal speech and movement present Affect: normal affect Attitude: cooperative Thought process: Normal thought process present Thought content: Normal thought content present Insight: Good insight present (Psych) Judgement: Good judgement present (Psych) Results Reviewed Results Reviewed: Date of Service: 11/09/23 Procedure(s): FL upper GI w air Accession Number(s): [id number] cc: Sharon Cisse PA-C~ EXAMINATION: XR FLUOROSCOPY UPPER GI WITH AIR CLINICAL INFORMATION: Reflux COMPARISON: None TECHNIQUE: Fluoroscopic air contrast upper GI examination was performed utilizing standard techniques with thin and thick barium and effervescent granules. Numerous spot images were obtained. FINDINGS: Dual and single contrast images of the esophagus demonstrate normal caliber, contour, and mucosal pattern. There is a possible cervical web present in the upper esophagus above the thoracic. No evidence of stricture, mass, or ulcerations identified. Esophageal peristalsis was normal. A small type 1 hiatal hernia is present. Significant gastroesophageal reflux was observed that results in the patient vomiting. Evaluation of the gastric mucosa is limited due to patient's inability to be adequately positioned as well as the patient vomiting the barium. FLUOROSCOPY TIME: 2 minutes 6 seconds Number of Spot Images: 4 Number of Cine: 6 DOSE AREA PRODUCT: 1389 uGy-m2 (microgray-meter squared) FL/FL upper GI w air IMPRESSION: 1. 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 2. Small type I hiatal hernia 3. Severe gastroesophageal reflux 4. Very limited examination due to patient's immobility a as well as poor tolerance of the barium due to vomiting. -------- 12/07/22 Colonoscopy complete with fair prep-internal hemorrhoids. Recommendation to repeat in 3-4 years given outcome of prep. Operative Note Date of Service: 12/07/22 Narrative: Operative Information Procedure Description: Colonoscopy Indication: screening Anesthesia: MAC COLONOSCOPY Instrument: Olympus variable stiffness pediatric scope 190L Colonoscopy Monitoring: Vital signs and clinical assessment, continuous EKG monitoring, Pulse oximetry, Carbon Dioxide monitoring and blood pressure monitoring were done throughout the procedure. Colon withdrawal time was 13 minutes. Procedure: The patient was placed in the left lateral decubitis position and pre-procedure medications were administered. After a digital rectal examination of the ano-rectum, the video colonoscope was inserted into the rectum and advanced through the colon to the cecum/TI. The colonoscope was slowly withdrawn in a retrograde panoramic fashion and the colon mucosa was carefully examined including a retroflexed view of the rectum. Findings and interventions are described below. Procedure Difficulty: moderate, pressure applied Findings: Terminal Ileum-normal Cecum:normal Ascending Colon: normal Transverse Colon -normal Descending Colon:normal Sigmoid Colon: normal Rectum: Retroflexion with medium sized internal hemorrhoids, grade I Anorectum - normal Colon preparation: Harcourt Bowel Preparation Scale Right colon; 1-2 Transverse colon: 2 Left colon; 1-2 Impression and Post Procedure Diagnosis: fair prep internal hemorrhoids Plan: High fiber diet leaflet Avoid straining at stool, epsom salts and sitz bath, anusol supps or cream Repeat Colonoscopy in 3-4 years due to fair prep or earlier if clinically indicat Assessment & Plan Assessment & Plan (1) Hiatal hernia with GERD: Code(s): K44.9 - Diaphragmatic hernia without obstruction or gangrene; K21.9 - Gastro- esophageal reflux disease without esophagitis Category: Medical Plan: Ongoing symptoms despite pantoprazole including sensation of food being stuck, nausea, and bitter phlegm taste. - Discontinue pantoprazole. - Start esomeprazole 20 mg daily for 2 weeks, increase to twice daily if symptoms persist after 2 weeks. - Schedule upper endoscopy to evaluate esophageal and gastric tissues and reassess hiatal hernia size. - Encouraged to take esomeprazole as prescribed, taken at least 30-60 minutes before a meal. Education on GERD prevention : -Advised against heavy meals; encouraged small, frequent meals instead of large ones. - Instructed to remain upright for 2?3 hours after eating. - Advised to avoid late-night meals, spicy foods, caffeine, alcohol, known dietary triggers, and tight-fitting clothing. - Emphasis placed on gradual implementation of lifestyle changes to improve adherence and symptom control. (2) Abdominal pain: Code(s): R10.9 - Unspecified abdominal pain Category: Medical Qualifiers: Abdominal location: generalized Qualified Code(s): R10.84 - Generalized abdominal pain Plan: Concern for possible obstruction VS inflammatory process given combination of constipation, nausea, and distention. - Order CT scan of abdomen and pelvis with oral and IV contrast. - Complete fasting labs ordered by PCP -CMP and CBC to assess for anemia, evaluate kidney and liver function. (3) Chronic pain syndrome: Code(s): G89.4 - Chronic pain syndrome Category: Medical Plan: Related to previous spinal and knee surgeries, managed with oxycodone. - Continue oxycodone as prescribed. - Educate on proper use and potential risks of opioid medication, including constipation. - Consider pain management referral if not already involved in care, defer to PCP/prescriber Plan Dry skin patches noted on abdomen. - Recommend daily moisturizing with unscented lotion after showering. Follow-up in 8 weeks or sooner as needed. Time: I spent a total of 50 minutes on the date of encounter which includes: Preparing to see the patient (reviewed previous documentation, test results and medical history) Performing a medically appropriate exam and/or evaluation Ordering medications, tests, and procedures Documenting clinical information in the health record Orders: Orders CT abdomen pelvis w IV con Today R10.9 - Unspecified abdominal pain Medications: New polyethylene glycol 3350 (Miralax) Take 17G (one cap full) daily with 8oz of water 17 grams PO DAILY 510 grams 2RF constipation 30 days docusate sodium Take one tablet at bedtime. 100 mg PO BEDTIME 90 caps 1RF constipation esomeprazole magnesium Take one tablet daily, can increased to two tablets after two weeks if no response 20 mg PO DAILY 90 caps 0RF Changed From psyllium husk (Metamucil) mix into at least 8 oz of water or juice before administering 1 tbsp PO DAILY 30 days PRN 660 grams 0RF constipation K59.09 - Other constipation To psyllium husk mix 1 tablespoon ( 6G) into at least 8 oz of water or juice before administering 6 grams PO DAILY PRN 480 grams 2RF constipation 30 days K59.09 - Other constipation Discontinued pantoprazole Discontinued Reason: Doctor's Order 40 mg PO DAILY 90 days 90 tabs 1RF docusate calcium (Stool Softener (docusate calcium)) Discontinued Reason: Doctor's Order 240 mg PO BEDTIME 90 days PRN 90 caps 0RF constipation K59.09 - Other constipation Coding Level of Care Code Established Pt Est Pt Level 5 (69215) Patient Type Established Diagnoses Hiatal hernia with GERD K44.9; K21.9 Generalized abdominal pain R10.84 Abdominal location: generalized Chronic pain syndrome G89.4
--- OUTSIDE RECORDS SUMMARY | 2024-10-09 09:42 | XMS_ITS | Referral Summary ---
Author Organization [facility] Address [address] [place] [address] Care Team Providers Care Cotton Header Name Role Phone Bambi Langley Primary Care Provider [phone] Allergies No known active allergies Medications metoprolol [...] 02/21/2019(Deferred: Patient Refused - pt refused using hospitality services manager) Social History Tobacco Use Types Packs/Day Years [...] 93 12/16/2020 10:40 AM EDT Temperature 36.7 C (98.1 F) 05/27/2020 9:30 AM EST Respiratory Rate 18 05/27/2020 9:30 AM EST Oxygen Saturation 99% 05/27/2020 9:30 AM EST Inhaled Oxygen Concentration - - Weight 79.3 kg (174 lb 13.2 oz) 05/26/2020 4:02 AM EST Height 142.2 cm (4' 7.98 ) 09/10/2019 1 0:06 AM EDT Body Mass Index 39.22 09/10/2019 10:06 AM EDT Plan of Treatment Not on file Medical Devices Implanted Type Area Multi Punch Operator Device Identifier Shelf Expiration Date Model / Serial / Lot Rail Deformity Fixator Titanium Adult 350mm - [id number] Implanted:Qty: 2 on 02/19/2019 by Kemal Quiroga MD at [facility] Implant Femur Roxanne [id number] / / Post Outrigger 30 Degree 11mm - [id number] Implanted:Qty: 2 on 06/29/2019 by Kemal Quiroga MD at [facility] Implant Right: Femur VidBid 390.013 / / Bone Cement R 1x40 Refobacin - [id number] Implanted:Qty: 1 on 09/10/2019 by Kemal Quiroga MD at [facility] Implant Right: Femur Roxanne 10/08/2019 [id number] / / [id number] Description:Mixed with tobra mycin 2.4 grams,2 grams vancomycin,240 mg gentamycin Nail Tibial T2 Standard 8mm X 270mm - [id number] Implanted:Qty: 1 on 09/10/2019 by Kemal Quiroga MD at [facility] Nail Right: Femur APARNA 11/08/2019 1822-0827S / / [id number] Screw Cortical Tapered Hydroxyapatite 6mm Shank 40mm Thread 6mm/8itb038pp - [id number] Implanted:Qty: 1 on 02/19/2019 by Kemal Quiroga MD at [facility] Screw Right: Femur Roxanne 05/26/2028 [id number] / / [id number] Screw Cortical Tapered Hydroxyapatite 6mm Shank 40mm Thread 6mm/9isi326vi - [id number] Implanted:Qty: 1 on 02/19/2019 by Kemal Quiroga MD at [facility] Screw Femur Roxanne 04/25/2028 [id number] / / [id number] Screw Cortical Tapered Hydroxyapatite 6mm Shank 60mm Thread 6mm/2auu120go - [id number] Implanted:Qty: 1 on 02/19/2019 by Kemal Quiroga MD at [facility] Screw Right: Femur Roxanne 06/04/2028 [id number] / / [id number] Screw Cortical Tapered Hydroxyapatite 6mm Shank 40mm Thread 6mm/5qyp483nr - [id number] Implanted:Qty: 1 on 02/19/2019 by Kemal Quiroga MD at [facility] Screw Right: Femur Roxanne 04/25/2028 [id number] / / [id number] Screw Cortical Tapered Hydroxyapatite 6mm Shank 40mm Thread 6mm/7xso285hc - [id number] Implanted:Qty: 1 on 02/19/2019 by Kemal Quiroga MD at [facility] Screw Right: Femur Roxanne 07/16/2028 [id number] / / [id number] Screw Cortical Tapered Hydroxyapatite 6mm Shank 40mm Thread 6mm/3tys660gm - [id number] Implanted:Qty: 1 on 02/19/2019 by Kemal Quiroga MD at [facility] Screw Right: Femur Roxanne 05/03/2028 [id number] / / [id number] Screw Cortical Tapered Hydroxyapatite 6mm Shank 40mm Thread 6mm/4zou218lb - [id number] Implanted:Qty: 1 on 02/19/2019 by Kemal Quiroga MD at [facility] Screw Left: Femur Roxanne 07/16/2028 [id number] / / [id number] Screw Cortical Tapered Hydroxyapatite 6mm Shank 50mm Thread 6mm/8gmg845mi - [id number] Implanted:Qty: 1 on 02/19/2019 by Kemal Quiroga MD at [facility] Screw Left: Femur Roxanne 06/29/2028 [id number] / / [id number] Screw Cortical Tapered Hydroxyapatite 6mm Shank 40mm Thread 6mm/4gmo101cp - [id number] Implanted:Qty: 1 on 02/19/2019 by Kemal Quiroga MD at [facility] Screw Left: Femur Roxanne 05/26/2028 [id number] / / [id number] Screw Cortical Tapered Hydroxyapatite 6mm Shank 40mm Thread 6mm/1exw235xu - [id number] Implanted:Qty: 1 on 02/19/2019 by Kemal Quiroga MD at [facility] Screw Left: Femur Roxanne 05/03/2028 [id number] / / [id number] Screw Schanz Self-Drilling 60mm Thread Stainless Steel 5.4lly233bq - [id number] Implanted:Qty: 4 on 06/29/2019 by Kemal Quiroga MD at [facility] Screw Right: Femur 6APT SALES 294.785 / / Screw Humeral Locking Fully Threaded Sterile 7hdi94gu T2 - [id number] Implanted:Qty: 1 on 09/10/2019 by Kemal Quiroga MD at [facility] Screw Right: Femur APARNA 1896-4060S / / Screw Humeral Locking Fully Threaded Sterile 9bmr71oh T2 - [id number] Implanted:Qty: 1 on 05/19/2020 by Kemal Quiroga MD at [facility] Screw Left: Tibia APARNA 1896-4035S / / Screw Humeral Locking Fully Threaded Sterile 1foj04hu T2 - [id number] Implanted:Qty: 1 on 05/19/2020 by Kemal Quiroga MD at [facility] Screw Left: Tibia APARNA 1896-4034S / / Screw Humeral Locking Fully Threaded Sterile 6qaq23ic T2 - [id number] Implanted:Qty: 1 on 05/19/2020 by Kemal Quiroga MD at [facility] Screw Left: Tibia APARNA 1896-4050S / / Screw Humeral Locking Fully Threaded Sterile 6tas71cq T2 - [id number] Implanted:Qty: 1 on 05/19/2020 by Kemal Quiroga MD at [facility] Screw Left: Tibia APARNA 1896-4040S / / Screw Humeral Locking Fully Threaded Sterile 8zwh14mw T2 - [id number] Implanted:Qty: 1 on 05/19/2020 by Kemal Quiroga MD at [facility] Screw Right: Tibia APARNA 1896-4050S / / Screw Humeral Locking Fully Threaded Sterile 5cbf88zp T2 - [id number] Implanted:Qty: 1 on 05/19/2020 by Kemal Quiroga MD at [facility] Screw Right: Tibia APARNA 1896-4034S / / Screw Humeral Locking Fully Threaded Sterile 1jkc46ou T2 - [id number] Implanted:Qty: 1 on 05/19/2020 by Kemal Quiroga MD at [facility] Screw Right: Tibia APARNA 1896-4032S / / Screw Humeral Locking Fully Threaded Sterile 9mvc05mw T2 - [id number] Implanted:Qty: 1 on 05/19/2020 by Kemal Quiroga MD at [facility] Screw Right: Tibia APARNA 1896-4055S / / Chip Crushed Bone Cancellous 15cc Freezed Dried 1mm To 8mm - [id number] Implanted:Qty: 1 on 06/29/2019 by Kemal Quiroga MD at [facility] Tissue Right: Femur LIFENET 01/09/2024 CAN15 / / [id number] Putty Demineralized Bone Matrix 5cc Dbx - [id number] Implanted:Qty: 1 on 06/29/2019 by Kemal Quiroga MD at [facility] Tissue Right: Femur MUSCULOSKELETAL TRANSPLANT FND 03/27/2021 [id number] / / [id number] Description:ZEE PRICE, 5 CC PRODUCT CODE [id number] T2 Humeral Nail 7 X 250mm Implanted:Qty: 1 on 05/19/2020 by Kemal Quiroga MD at [facility] Left: Tibia APARNA 01/08/2024 1830-0725S / / [id number] T2 Humeral Nail 7 X 250mm Implanted:Qty: 1 on 05/19/2020 by Kemal Quiroga MD at [facility] Right: Tibia APARNA 12/08/2022 1830-0725S / / [id number] Procedures * Due to [place] law, this organization might not be sharing negative HIV tests. Procedure Name Priority Date/Time Associated Diagnosis Comments BASIC METABOLIC PANEL STAT 05/20/2020 9:37 PM EST from Last 3 Months or Most Recently Relevant to Health Maintenance Results * Due to [place] law, this organization might not be sharing [...] - 99 mg/dL 05/20/2020 10:09 PM EST [facility] Calcium 8.4(L) [...] on the CKD-EPI Creatinine Equation (2009). Stage Description GFR 1 Normal >=90 mL/min/BSA 2 Mildly decreased GFR 60-89 mL/min/BSA 3 Moderately decreased GFR 30-59 mL/min/BSA 4 Severely decreased GFR 15-29 mL/min/BSA 5 Kidney Failure <15 mL/min/BSA Blood Structure of peripheral vein / Unknown Venipuncture / Unknown 05/20/2020 9:37 PM EST 05/20/2020 9:43 PM EST us Kemal Quiroga MD LAB BLOOD ORDERABLES Fi nal Result [facility] [address] from Last 3 Months or Most Recently Relevant to Health Maintenance Additional Health Concerns Infection Onset Date Last Indicated Multidrug resistant organisms MRSA 06/24/2019 06/24/2019 Insurance [employer] Advance Directives Documents on File Type Date Recorded Patient Insurance Sales Executive Expl anation Health Care Proxy 02/20/2019 3:46 [...] Agents on File Name Relationship Healthcare Agent [facility] p Communication Rory Harrison Daughter Health Care Agent Care Teams Cotton Header Relationship Specialty Start Date End Date Bambi Langley [address] [place] [address] dr Aislinn Tao, [place] [address] PCP - General Internal Medicine 10/31/17
== END 2024-10-09 10:23 | disposition home or self-care (01) ==
LOC: HO.HGI 09:27
PROVIDERS: PCP Internal Medicine; Visit Provider Nurse Practitioner Family
DX: K44.9 Diaphragmatic hernia without obstruction or gangrene (principal); R10.84 Generalized abdominal pain; G89.4 Chronic pain syndrome
CPT/HCPCS: 99215

== ENCOUNTER 2024-10-21 09:13 | Outpatient (REF) | payer OTHER, SELFPAY ==
--- NOTE | ~2024-10-21 | MM_ITS ---
EXAMINATION: MM DIAGNOSTIC DIGITAL BREAST TOMOSYNTHESIS, LEFT CLINICAL INFORMATION: Call back from screening for developing focal asymmetry in the lower inner left breast. Patient has left breast pain. COMPARISON: Mammography: Priors on PACS. TECHNIQUE: Digital breast tomosynthesis is performed in both the craniocaudal and mediolateral oblique views along with computer-aided detection (CAD). Synthesized 2D images are generated from the tomosynthesis. FINDINGS: There are scattered areas of fibroglandular density (ACR BI-RADS breast composition Category b). Focal asymmetry in the lower inner left breast persists is a circumscribed oval mass. No suspicious other abnormal findings. Targeted color Doppler ultrasound 11:00 10 cm from nipple demonstrates a hypoechoic oval circumscribed solid mass versus complicated cysts measuring 10 x 3 x 8 mm. There is an adjacent hypoechoic oval circumscribed solid mass versus complicated cyst at 11:00 10 cm from the nipple measuring 10 x 3 x 6 mm. Targeted color Doppler ultrasound scanning in the area of the patient's pain in the left central breast demonstrates normal fibronodular breast tissue. MM/MM tomosynthesis added views L IMPRESSION: 1. No mammographic or sonographic abnormal findings to account for the patient's left breast pain. Recommend clinical evaluation and follow-up. 2. Solid mass versus complicated cyst at 11:00 10 cm from the nipple. Recommend ultrasound-guided core needle biopsy at this time for confirmation. 3. Adjacent simple cysts with intervening thin avascular breast tissue at 10:00 7 cm from nipple. Probably benign. Management will be pending biopsy of the above mass to include six-month follow-up. ASSESSMENT: BI-RADS BI-RADS 4 - Suspicious finding RECOMMENDATION: Biopsy recommended Results were provided to the patient at time of visit by the technologist. This patient's information was entered into a reminder system with a target due date for their next mammogram. Electronically signed by: Rachael Eldridge DO 10/21/2024 11:00 AM EDT
--- OUTSIDE RECORDS SUMMARY | 2024-10-21 09:32 | XMS_ITS | Referral Summary ---
Author Organization [facility] Address [address] [place] [address] Care Team Providers Care 911 Dispatcher Name Role Phone Bambi Langley Primary Care Provider [phone] Allergies No known active allergies Medications metoprolol [...] 02/21/2019(Deferred: Patient Refused - pt refused using workday financials consultant) Social History Tobacco Use Types Packs/Day Years [...] on file Medical Devices Implanted Type Area Paper Handler Device Identifier Shelf Expiration Date Model / Serial / Lot Rail Deformity Fixator Titanium Adult 350mm - [id number] Implanted:Qty: 2 on 02/19/2019 by Kemal Quiroga MD at [facility] Implant Femur Roxanne [id number] / / Post Outrigger 30 Degree 11mm - [id number] Implanted:Qty: 2 on 06/29/2019 by Kemal Quiroga MD at [facility] Implant Right: Femur AdaptiveMobile 390.013 / / Bone Cement R 1x40 Refobacin - [id number] Implanted:Qty: 1 on 09/10/2019 by Kemal Quiroga MD at [facility] Implant Right: Femur Roxanne 10/08/2019 [id number] / / [id number] Description:Mixed with tobra mycin 2.4 grams,2 grams vancomycin,240 mg gentamycin Nail Tibial T2 Standard 8mm X 270mm - [id number] Implanted:Qty: 1 on 09/10/2019 by Kemal Quiroga MD at [facility] Nail Right: Femur APARNA 11/08/2019 1822-0827S / / [id number] Screw Cortical Tapered Hydroxyapatite 6mm Shank 40mm Thread 6mm/9szi257hc - [id number] Implanted:Qty: 1 on 02/19/2019 by Kemal Quiroga MD at [facility] Screw Right: Femur Roxanne 05/26/2028 [id number] / / [id number] Screw Cortical Tapered Hydroxyapatite 6mm Shank 40mm Thread 6mm/0sdg614iv - [id number] Implanted:Qty: 1 on 02/19/2019 by Kemal Quiroga MD at [facility] Screw Femur Roxanne 04/25/2028 HAA60-1 8040 / / [id number] Screw Cortical Tapered Hydroxyapatite 6mm Shank 60mm Thread 6mm/7iyn311lr - [id number] Implanted:Qty: 1 on 02/19/2019 by Kemal Quiroga MD at [facility] Screw Right: Femur Roxanne 06/04/2028 [id number] / / [id number] Screw Cortical Tapered Hydroxyapatite 6mm Shank 40mm Thread 6mm/1yhq157ho - [id number] Implanted:Qty: 1 on 02/19/2019 by Kemal Quiroga MD at [facility] Screw Right: Femur Roxanne 04/25/2028 [id number] / / [id number] Screw Cortical Tapered Hydroxyapatite 6mm Shank 40mm Thread 6mm/6omh593fb - [id number] Implanted:Qty: 1 on 02/19/2019 by Kemal Quiroga MD at [facility] Screw Right: Femur Roxanne 07/16/2028 [id number] / / [id number] Screw Cortical Tapered Hydroxyapatite 6mm Shank 40mm Thread 6mm/6rse074zr - [id number] Implanted:Qty: 1 on 02/19/2019 by Kemal Quiroga MD at [facility] Screw Right: Femur Roxanne 05/03/2028 [id number] / / [id number] Screw Cortical Tapered Hydroxyapatite 6mm Shank 40mm Thread 6mm/2mfb712no - [id number] Implanted:Qty: 1 on 02/19/2019 by Kemal Quiroga MD at [facility] Screw Left: Femur Roxanne 07/16/2028 [id number] / / [id number] Screw Cortical Tapered Hydroxyapatite 6mm Shank 50mm Thread 6mm/0nvr337wd - [id number] Implanted:Qty: 1 on 02/19/2019 by Kemal Quiroga MD at [facility] Screw Left: Femur Roxanne 06/29/2028 [id number] / / [id number] Screw Cortical Tapered Hydroxyapatite 6mm Shank 40mm Thread 6mm/9jii510fg - [id number] Implanted:Qty: 1 on 02/19/2019 by Kemal Quiroga MD at [facility] Screw Left: Femur Roxanne 05/26/2028 [id number] / / [id number] Screw Cortical Tapered Hydroxyapatite 6mm Shank 40mm Thread 6mm/7jee794ka - [id number] Implanted:Qty: 1 on 02/19/2019 by Kemal Quiroga MD at [facility] Screw Left: Femur Rxoanne 05/03/2028 [id number] / / [id number] Screw Schanz Self-Drilling 60mm Thread Stainless Steel 5.8gyu118zw - [id number] Implanted:Qty: 4 on 06/29/2019 by Kemal Quiroga MD at [facility] Screw Right: Femur WeDeliver SALES 294.785 / / Screw Humeral Locking Fully Threaded Sterile 9pfz98ma T2 - [id number] Implanted:Qty: 1 on 09/10/2019 by Kemal Quiroga MD at [facility] Screw Right: Femur APARNA 1896-4060S / / Screw Humeral Locking Fully Threaded Sterile 0jzz13bf T2 - [id number] Implanted:Qty: 1 on 05/19/2020 by Kemal Quiroga MD at [facility] Screw Left: Tibia APARNA 1896-4035S / / Screw Humeral Locking Fully Threaded Sterile 0jsn73fd T2 - [id number] Implanted:Qty: 1 on 05/19/2020 by Kemal Quiroga MD at [facility] Screw Left: Tibia APARNA 1896-4034S / / Screw Humeral Locking Fully Threaded Sterile 0eqa79oi T2 - [id number] Implanted:Qty: 1 on 05/19/2020 by Kemal Quiroga MD at [facility] Screw Left: Tibia APARNA 1896-4050S / / Screw Humeral Locking Fully Threaded Sterile 0kmk64gn T2 - [id number] Implanted:Qty: 1 on 05/19/2020 by Kemal Quiroga MD at [facility] Screw Left: Tibia APARNA 1896-4040S / / Screw Humeral Locking Fully Threaded Sterile 8uhr98yf T2 - [id number] Implanted:Qty: 1 on 05/19/2020 by Kemal Quiroga MD at [facility] Screw Right: Tibia APARNA 1896-4050S / / Screw Humeral Locking Fully Threaded Sterile 7tlq06kj T2 - [id number] Implanted:Qty: 1 on 05/19/2020 by Kemal Quiroga MD at [facility] Screw Right: Tibia APARNA 1896-4034S / / Screw Humeral Locking Fully Threaded Sterile 0spq83kv T2 - [id number] Implanted:Qty: 1 on 05/19/2020 by Kemal Quiroga MD at [facility] Screw Right: Tibia APARNA 1896-4032S / / Screw Humeral Locking Fully Threaded Sterile 8dad20ng T2 - [id number] Implanted:Qty: 1 on 05/19/2020 by Kemal Quiroga MD at [facility] Screw Right: Tibia APARNA 1896-4055S / / Chip Crushed Bone Cancellous 15cc Freezed Dried 1mm To 8mm - [id number] Implanted:Qty: 1 on 06/29/2019 by Kemal Quiroga MD at [facility] Tissue Right: Femur LIFENET 01/09/2024 CAN15 / / [id number] Putty Demineralized Bone Matrix 5cc Dbx - [id number] Implanted:Qty: 1 on 06/29/2019 by Kemal Quiroga MD at [facility] Tissue Right: Femur MUSCULOSKELETAL TRANSPLANT FND 03/27/2021 [id number] / / [id number] Description:ZEE PRICE, 5 CC PRODUCT CODE [id number] T2 Humeral Nail 7 X 250mm Implanted:Qty: 1 on 05/19/2020 by Kemal Quiroga MD at [facility] Left: Tibia APARNA 01/08/2024 1830-0725S / / [id number] T2 Humeral Nail 7 X 250mm Implanted:Qty: 1 on 05/19/2020 by Kemal Quiroga MD at [facility] Right: Tibia APARNA 12/08/2022 1830-0725S / / [id number] Procedures * Due to [place] XL Video law, this organization might not be sharing negative HIV tests. Procedure Name Priority Date/Time Associated Diagnosis Comments BASIC METABOLIC PANEL STAT 05/20/2020 9:37 PM EST from Last 3 Months or Most Recently Relevant to Health Maintenance Results * Due to [place] XL Video law, this organization might not be sharing [...] - 99 mg/dL 05/20/2020 10:09 PM EST [facility] Calcium 8.4(L) [...] MD LAB BLOOD ORDERABLES Fi nal Result [facility] [address] from Last 3 Months or Most Recently Relevant to Health Maintenance Additional Health Concerns Infection Onset Date Last Indicated Multidrug resistant organisms MRSA 06/24/2019 06/24/2019 Insurance [employer] MEDICA[employer] Advance Directives Documents on File Type Date Recorded Patient Road Roller Operator Expl anation Health Care Proxy 02/20/2019 3:46 [...] Agents on File Name Relationship Healthcare Agent [facility] p Communication Rory Harrison Daughter Health Care Agent Care Teams 911 Dispatcher Relationship Specialty Start Date End Date Bambi Langley [address] [place] [address] dr Aislinn Tao, [place] [address] PCP - General Internal Medicine 10/31/17
== END 2024-10-21 09:14 | disposition home or self-care (01) ==
LOC: HO.MAMMO 09:13
PROVIDERS: PCP Internal Medicine; Visit Provider Internal Medicine
DX: N64.89 Other specified disorders of breast (principal)
CPT/HCPCS: 76642; 77061; 77065

== ENCOUNTER → 2024-10-21 09:30 | Outpatient (BNV) | payer OTHER, SELFPAY | PROVIDERS: PCP Internal Medicine; Visit Provider Internal Medicine | DX: N60.02 Solitary cyst of left breast (principal) | CPT/HCPCS: 76642; 77061; 77065 ==

== ENCOUNTER 2024-11-29 09:18 | Outpatient (REF) | payer OTHER, SELFPAY ==
[2024-11-29 11:46] LABS: Alanine Aminotransferase 95 U/L (0-31); Albumin Level 4.5 g/dL (3.5-5.0); Alkaline Phosphatase 184 U/L (39-117); Aspartate Amino Transferase 94 U/L (5-31); Total Protein 8.0 g/dL (6.5-8.0)
== END 2024-11-29 09:19 | disposition home or self-care (01) ==
LOC: HO.LAB 09:18
PROVIDERS: Absent Provider Internal Medicine; PCP Internal Medicine; Visit Provider Surgery
DX: R92.8 Other abnormal and inconclusive findings on diagnostic imaging of breast (principal); N64.9 Disorder of breast, unspecified; R74.01 Elevation of levels of liver transaminase levels
CPT/HCPCS: 36415; 80076; 99202

== ENCOUNTER 2024-11-29 09:18 | Outpatient (AMB) | payer OTHER, SELFPAY ==
--- OUTSIDE RECORDS SUMMARY | 2024-11-29 09:23 | XMS_ITS | Clinical Summary ---
Author Organization [facility] Address [address] [place] [address] Care Team Providers Care Clam Sorter Name Role Phone Bambi Langley Primary Care Provider [phone] Allergies No known active allergies Medications metoprolol [...] 02/21/2019(Deferred: Patient Refused - pt refused using motor vehicle parts interpreter) Family History Medical History Relation Name Comments [...] (2 - 2023-2 5 season) 2023 10/07/2021 Alcohol/Substance Use Screening 04/10/2024 Depression Screening and Follow-Up 04/10/2024 Social Drivers of Health Angelita ual Screening 04/10/2024 Influenza Vaccine (#1) 2024 , 01/04/2018, 01/14/2015, Additional history exists RSV Vaccine (60+ years old a nd patients) (1 - 1-dose 75+ series) 07/02/2046 Medical Devices Implanted Type Area Tug Master Device Identifier Shelf Expiration Date Model / Serial / Lot Rail Deformity Fixator Titanium Adult 350mm - [id number] Implanted:Qty: 2 on 02/19/2019 by Kemal Quiroga MD at [facility] Implant Femur Roxanne [id number] / / Post Outrigger 30 Degree 11mm - [id number] Implanted:Qty: 2 on 06/29/2019 by Kemal Quiroga MD at [facility] Implant Right: Femur Swipe.to 390.013 / / Bone Cement R 1x40 Refobacin - [id number] Implanted:Qty: 1 on 09/10/2019 by Kemal Quiroga MD at [facility] Implant Right: Femur Roxanne 10/08/2019 [id number] / / [id number] Description:Mixed with tobra mycin 2.4 grams,2 grams vancomycin,240 mg gentamycin Nail Tibial T2 Standard 8mm X 270mm - [id number] Implanted:Qty: 1 on 09/10/2019 by Kemal Quiroga MD at [facility] Nail Right: Femur APARNA 11/08/2019 1822-0827S / / [id number] Screw Cortical Tapered Hydroxyapatite 6mm Shank 40mm Thread 6mm/6mjk905ly - [id number] Implanted:Qty: 1 on 02/19/2019 by Kemal Quiroga MD at [facility] Screw Right: Femur Roxanne 05/26/2028 [id number] / / [id number] Screw Cortical Tapered Hydroxyapatite 6mm Shank 40mm Thread 6mm/8cns605ou - [id number] Implanted:Qty: 1 on 02/19/2019 by Kemal Quiroga MD at [facility] Screw Femur Roxanne 04/25/2028 HAA60-1 8040 / / [id number] Screw Cortical Tapered Hydroxyapatite 6mm Shank 60mm Thread 6mm/0pff527dj - [id number] Implanted:Qty: 1 on 02/19/2019 by Kemal Quiroga MD at [facility] Screw Right: Femur Roxanne 06/04/2028 [id number] / / [id number] Screw Cortical Tapered Hydroxyapatite 6mm Shank 40mm Thread 6mm/2wzh041ll - [id number] Implanted:Qty: 1 on 02/19/2019 by Kemal Quiroga MD at [facility] Screw Right: Femur Roxanne 04/25/2028 [id number] / / [id number] Screw Cortical Tapered Hydroxyapatite 6mm Shank 40mm Thread 6mm/6ugv887oo - [id number] Implanted:Qty: 1 on 02/19/2019 by Kemal Quiroga MD at [facility] Screw Right: Femur Roxanne 07/16/2028 [id number] / / [id number] Screw Cortical Tapered Hydroxyapatite 6mm Shank 40mm Thread 6mm/0pfx356im - [id number] Implanted:Qty: 1 on 02/19/2019 by Kemal Quiroga MD at [facility] Screw Right: Femur Roxanne 05/03/2028 [id number] / / [id number] Screw Cortical Tapered Hydroxyapatite 6mm Shank 40mm Thread 6mm/5sfl196kb - [id number] Implanted:Qty: 1 on 02/19/2019 by Kemal Quiroga MD at [facility] Screw Left: Femur Roxanne 07/16/2028 [id number] / / [id number] Screw Cortical Tapered Hydroxyapatite 6mm Shank 50mm Thread 6mm/9rtc596tq - [id number] Implanted:Qty: 1 on 02/19/2019 by Kemal Quiroga MD at [facility] Screw Left: Femur Roxanne 06/29/2028 [id number] / / [id number] Screw Cortical Tapered Hydroxyapatite 6mm Shank 40mm Thread 6mm/3trd817jn - [id number] Implanted:Qty: 1 on 02/19/2019 by Kemal Quiroga MD at [facility] Screw Left: Femur Roxanne 05/26/2028 [id number] / / [id number] Screw Cortical Tapered Hydroxyapatite 6mm Shank 40mm Thread 6mm/4wow070gw - [id number] Implanted:Qty: 1 on 02/19/2019 by Kemal Quiroga MD at [facility] Screw Left: Femur Roxanne 05/03/2028 [id number] / / [id number] Screw Schanz Self-Drilling 60mm Thread Stainless Steel 5.3fwr354yx - [id number] Implanted:Qty: 4 on 06/29/2019 by Kemal Quiroga MD at [facility] Screw Right: Femur DEPUY SYNTHES SALES 294.785 / / Screw Humeral Locking Fully Threaded Sterile 8gjh95ns T2 - [id number] Implanted:Qty: 1 on 09/10/2019 by Kemal Quiroga MD at [facility] Screw Right: Femur APARNA 1896-4060S / / Screw Humeral Locking Fully Threaded Sterile 5qri17nk T2 - [id number] Implanted:Qty: 1 on 05/19/2020 by Kemal Quiroga MD at [facility] Screw Left: Tibia APARNA 1896-4035S / / Screw Humeral Locking Fully Threaded Sterile 2xux79yi T2 - [id number] Implanted:Qty: 1 on 05/19/2020 by Kemal Quiroga MD at [facility] Screw Left: Tibia APARNA 1896-4034S / / Screw Humeral Locking Fully Threaded Sterile 9ils19du T2 - [id number] Implanted:Qty: 1 on 05/19/2020 by Kemal Quiroga MD at [facility] Screw Left: Tibia APARNA 1896-4050S / / Screw Humeral Locking Fully Threaded Sterile 7sls80mu T2 - [id number] Implanted:Qty: 1 on 05/19/2020 by Kemal Quiroga MD at [facility] Screw Left: Tibia APARNA 1896-4040S / / Screw Humeral Locking Fully Threaded Sterile 9xhr51ls T2 - [id number] Implanted:Qty: 1 on 05/19/2020 by Kemal Quiroga MD at [facility] Screw Right: Tibia APARNA 1896-4050S / / Screw Humeral Locking Fully Threaded Sterile 2agx08zz T2 - [id number] Implanted:Qty: 1 on 05/19/2020 by Kemal Quiroga MD at [facility] Screw Right: Tibia APARNA 1896-4034S / / Screw Humeral Locking Fully Threaded Sterile 0nde85ux T2 - [id number] Implanted:Qty: 1 on 05/19/2020 by Kemal Quiroga MD at [facility] Screw Right: Tibia APARNA 1896-4032S / / Screw Humeral Locking Fully Threaded Sterile 5wep16id T2 - [id number] Implanted:Qty: 1 on 05/19/2020 by Kemal Quiroga MD at [facility] Screw Right: Tibia APARNA 1896-4055S / / Chip Crushed Bone Cancellous 15cc Freezed Dried 1mm To 8mm - [id number] Implanted:Qty: 1 on 06/29/2019 by Kemal Quiroga MD at [facility] Tissue Right: Femur LIFENET 01/09/2024 CAN15 / / [id number] Putty Demineralized Bone Matrix 5cc Dbx - [id number] Implanted:Qty: 1 on 06/29/2019 by Kemal Quiroga MD at [facility] Tissue Right: Femur MUSCULOSKELETAL TRANSPLANT FND 03/27/2021 [id number] / / [id number] Description:DBX PUTTY, 5 CC PRODUCT CODE [id number] T2 Humeral Nail 7 X 250mm Implanted:Qty: 1 on 05/19/2020 by Kemal Quiroga MD at [facility] Left: Tibia APARNA 01/08/2024 1830-0725S / / [id number] Humeral Nail 7 X 250mm Implanted:Qty: 1 on 05/19/2020 by Kemal Quiroga MD at [facility] Right: Ayaan TURNERYKER 12/08/2022 1830-9725S / / [id number] Procedures * Due to [place] Bashar[place] law, this organization might not be sharing negative HIV tests. Procedure Name Priority Date/Time Associated Diagnosis Comments BASIC METABOLIC PANEL STAT 05/20/2020 9:37 PM EST from Last 3 Months or Most Recently Relevant to Health Maintenance Results * Due to [place] Bashar[place] law, this organization might not be sharing [...] >=90 mL/min/BS A 05/20/2020 10:09 PM EST [facility] Comment: Units = mL/min/1.73 [...] PM EST 05/20/2020 9:43 PM EST us Kemalvarghese Quiroga MD LAB BLOOD ORDERABLES Fi nal Result [facility] [address] [place] [address], from Last 3 Months or Most Recently Relevant to Health Maintenance Additional Health Concerns Infection Onset Date Last Indicated Multidrug resistant organisms MRSA 06/24/2019 06/24/2019 Insurance [employer] MEDICAID Advance Directives Documents on File Type Date Recorded Patient [place] Specialty Expl anation Health Care Proxy 02/20/2019 3:46 [...] Agents on File Name Relationship Healthcare Agent [facility] p Communication Rory Harrison Daughter Health Care Agent Care Teams Clam Sorter Relationship Specialty Start Date End Date Bambi Langley [address] Aislinn Tao, [place] [address] PCP - General Internal Medicine 10/31/17
--- NOTE | 2024-11-29 09:33 | A.OFFVIS_ITS ---
Vital Signs 11/29/24 09:42 Height 4 ft 8 in BMI Reason not done Patient refused/unable BP not taken reason Medical Reason Intake Visit Reasons: (L) brst US bx 11 O'Clock Mass Intake Note: Patient is seen in office for US guided bx, Lt breast mass. Patient c/o: denies lump, discharge, redness, or any prior complications or surgeries, no fm hx of breast cancer, yes to breast feeding with no complications, first child age of 22 Bx xhed: 12/04/25 @ 10am LT br& MM: 10-21-2024 Teradata Developer Required: Yes Teradata Developer Language: Fitter/Welder Services: Teradata Developer Present Teradata Developer Name: Veena # [id number] Information Interpreted: non-clinical & clinical [employer] Hand Finisher: [employer] Hand Finisher Present Accompanied by: Other Relationship Allergies No Known Allergies Allergy (Verified 11/29/24 09:40) HPI Comments Details: 54-year-old wheelchair-bound female presenting with a recent screening mammogram obtained on 09/12/2024 with follow-up mammogram and ultrasound images on 10/21/2024 which revealed a mass verses a complicated cyst in the left breast at the 11 o'clock position approximately 10 cm from the nipple. An ultrasound-guided core biopsy was recommended. She denies a previous history of breast problems or breast surgery. Her family history is negative for breast or ovarian cancers. Her menarche was at 15. She is in her 1st child was born when she was 22. One of her children is . Her last menstrual period was was she was 51 years old. She denied use of hormone replacement therapy. She was scheduled fo r an ultrasound-guided core biopsy at the [facility] on 12/04/2024. [facility] Medical History Abdominal pain Hiatal hernia with GERD Skeletal dysplasia Neuropathy Osteoarthritis Wheelchair dependent Neurogenic bladder Chronic hip pain, bilateral Lumbar degenerative disc disease Chronic GERD Mild recurrent major depression Back pain Essential hypertension Depression with anxiety Constipation by delayed colonic transit Hypovitaminosis D Insomnia Surgical History H/O colonoscopy History of surgery on lower extremity History of back surgery History of orthopedic surgery History of tubal ligation Family History Father Medical history unknown Mother CVD (cardiovascular disease) Maternal Aunt CVD (cardiovascular disease) Family/Other FH: mental illness Social History Housing: Apartment Alcohol intake: never Comment: sleeping Patient Tobacco Use Status: Never used Tobacco Tobacco use type: Cigarette e-Cigarette/Vaping Use: Never Used Second Hand Smoke Exposure: No Advance Directives Date on File: 07/02/20 service: No Current occupational status: unemployed Cognitive needs: Yes (wheelchair) Hearing needs: No Vision needs: No Review of Systems Const All systems reviewed & are unremarkable except as noted in HPI and below Denies nipple discharge Musc Details: Nonambulatory Skin/Breast Denies breast swelling, Denies breast skin changes, Denies breast pain, Denies breast mass, Denies nipple discharge and Denies erythema Physical Exam Const General: cooperative and no acute distress Nutritional Appearance: well nourished Orientation/consciousness: patient oriented x3 Limitations: wheelchair HEENT Head: Yes normocephalic and Yes atraumatic Ears: hearing grossly normal bilaterally Chest Other: Left breast: No skin change, no nipple retraction, no nipple discharge, no palpable mass, no enlarged lymph nodes. Right breast: No skin change, no nipple retraction, no nipple discharge, no palpable mass, no enlarged lymph nodes Resp Effort & Inspection: normal respiratory effort, no audible wheezes, no cough and no respiratory distress Cardio Jugular venous distension: no JVD GI Inspection: Yes normal to inspection Skin Other: Warm, dry, no rash Neuro Other: Mobility Assessment: 1. 3 meter assessment time (seconds): Nonambulatory 2. Gait observations: Wheelchair-bound General: patient oriented x3 Extrem General: Yes no clubbing, cyanosis or edema Assessment & Plan Assessment & Plan (1) Abnormal ultrasound of breast: Code(s): R92.8 - Other abnormal and inconclusive findings on diagnostic imaging of breast Category: Medical (2) Abnormal mammogram of left breast: Code(s): R92.8 - Other abnormal and inconclusive findings on diagnostic imaging of breast Category: Medical Plan 54-year-old female patient presenting with a recent mammogram and ultrasound which confirmed a lesion in the left breast at the 11:00 location approximately 10 cm from the nipple felt to be either a complex cyst or mass and ultrasound- guided core biopsy was recommended (BI-RADS 4). She was scheduled for this biopsy at [facility] on 12/04[facility]2024. She will return approximately 1 week following the biopsy to review the pathology results and discuss treatment options. She is welcome to call sooner for any concerns or questions. Coding Level of Care Code New Pt Level 4 (08009) Diagnoses Abnormal ultrasound of breast R92.8 Abnormal mammogram of left breast R92.8
== END 2024-11-29 09:56 | disposition home or self-care (01) ==
LOC: HO.HGS 09:18
PROVIDERS: PCP Internal Medicine; Visit Provider Surgery
DX: R92.8 Other abnormal and inconclusive findings on diagnostic imaging of breast (principal)
CPT/HCPCS: 99204

== ENCOUNTER 2024-12-04 09:48 | Outpatient (REF) | payer OTHER, SELFPAY ==
--- NOTE | ~2024-12-04 | US_ITS ---
PROCEDURE: ULTRASOUND-GUIDED LEFT BREAST BIOPSY CLINICAL INFORMATION: Left breast mass at 11:00 here for ultrasound-guided core needle biopsy. COMPARISON: Priors on PACS. TECHNIQUE: The details of the procedure, as well as the risks, benefits, and alternatives to the procedure were explained to the patient in detail and all of her questions were answered, after which, written informed consent was obtained. PROCEDURE: Prior to the procedure, sonography revealed solid mass 11:00. A time-out was performed, the lesion intended for biopsy was targeted and the skin of the left breast was then prepped and draped in the usual sterile fashion. Using sonographic guidance, sterile technique, and 1% lidocaine without epinephrine for local anesthesia, a total of 5 cores were obtained through the targeted area with a 14-gauge biopsy device. At the completion of tissue sampling, a single butterfly metallic clip was deposited at the biopsy site. An appropriate sample was obtained. No postprocedure mammogram was performed the patient had recent bilateral femur surgery and unable to take obtain a post mammogram at this time. The patient tolerated the procedure well and, after assuring adequate hemostasis, was discharged in good condition after reviewing postbiopsy breast care instructions. Final pathology results are pending. US/US breast ndl core biopsy LT IMPRESSION: 1. Uncomplicated sonographically-guided core biopsy of the left breast. No postprocedure mammogram performed. When the patient is able to sit or stand a mammogram can be performed to assess clip. 2. Final pathology results are pending. A separate report with final recommendations will be issued once these results are made available. 3. 6 month follow-up ultrasound is recommended at this time for complicated cysts versus solid masses at 11:00 and 7:00. When the patient is able to have a mammogram performed clinical correlation can be made. Electronically signed by: Rachael Eldridge DO 12/04/2024 11:00 AM EDT
--- OUTSIDE RECORDS SUMMARY | 2024-12-04 10:28 | XMS_ITS | Clinical Summary ---
Author Organization [facility] Address [address] [place] [address] Care Team Providers Care Rough Rounder Machine Name Role Phone Bambi Langley Primary Care Provider [phone] Allergies No known active allergies Medications metoprolol [...] 02/21/2019(Deferred: Patient Refused - pt refused using electrical technology instructor) Family History Medical History Relation Name Comments [...] series) 07/02/2046 Medical Devices Implanted Type Area Compatibility Test Engineer Device Identifier Shelf Expiration Date Model / Serial / Lot Rail Deformity Fixator Titanium Adult 350mm - [id number] Implanted:Qty: 2 on 02/19/2019 by Kemal Quiroga MD at [facility] Implant Femur Roxanne [id number] / / Post Outrigger 30 Degree 11mm - [id number] Implanted:Qty: 2 on 06/29/2019 by Kemal Quiroga MD at [facility] Implant Right: Femur [employer] 390.013 / / Bone Cement R 1x40 Refobacin - [id number] Implanted:Qty: 1 on 09/10/2019 by Kemal Quiroga MD at [facility] Implant Right: Femur Roxanne 10/08/2019 [id number] / / [id number] Description:Mixed with tobra mycin 2.4 grams,2 grams vancomycin,240 mg gentamycin Nail Tibial T2 Standard 8mm X 270mm - [id number] Implanted:Qty: 1 on 09/10/2019 by Kemal Quiroga MD at [facility] Nail Right: Femur APARNA 11/08/2019 1822-0827S / / [id number] Screw Cortical Tapered Hydroxyapatite 6mm Shank 40mm Thread 6mm/5tso012ve - [id number] Implanted:Qty: 1 on 02/19/2019 by Kemal Quiroga MD at [facility] Screw Right: Femur Roxanne 05/26/2028 [id number] / / [id number] Screw Cortical Tapered Hydroxyapatite 6mm Shank 40mm Thread 6mm/4pgi539jc - [id number] Implanted:Qty: 1 on 02/19/2019 by Kemal Quiroga MD at [facility] Screw Femur Roxanne 04/25/2028 HAA60-1 8040 / / [id number] Screw Cortical Tapered Hydroxyapatite 6mm Shank 60mm Thread 6mm/6kre781vv - [id number] Implanted:Qty: 1 on 02/19/2019 by Kemal Quiroga MD at [facility] Screw Right: Femur Roxanne 06/04/2028 [id number] / / [id number] Screw Cortical Tapered Hydroxyapatite 6mm Shank 40mm Thread 6mm/8jbe751pd - [id number] Implanted:Qty: 1 on 02/19/2019 by Kemal Quiroga MD at [facility] Screw Right: Femur Roxanne 04/25/2028 [id number] / / [id number] Screw Cortical Tapered Hydroxyapatite 6mm Shank 40mm Thread 6mm/0ose912of - [id number] Implanted:Qty: 1 on 02/19/2019 by Kemal Quiroga MD at [facility] Screw Right: Femur Roxanne 07/16/2028 [id number] / / [id number] Screw Cortical Tapered Hydroxyapatite 6mm Shank 40mm Thread 6mm/8jhd688eu - [id number] Implanted:Qty: 1 on 02/19/2019 by Kemal Quiroga MD at [facility] Screw Right: Femur Roxanne 05/03/2028 [id number] / / [id number] Screw Cortical Tapered Hydroxyapatite 6mm Shank 40mm Thread 6mm/7kvi365dl - [id number] Implanted:Qty: 1 on 02/19/2019 by Kemal Quiroga MD at [facility] Screw Left: Femur Roxanne 07/16/2028 [id number] / / [id number] Screw Cortical Tapered Hydroxyapatite 6mm Shank 50mm Thread 6mm/9dqy380rb - [id number] Implanted:Qty: 1 on 02/19/2019 by Kemal Quiroga MD at [facility] Screw Left: Femur Roxanne 06/29/2028 [id number] / / [id number] Screw Cortical Tapered Hydroxyapatite 6mm Shank 40mm Thread 6mm/2caf397yw - [id number] Implanted:Qty: 1 on 02/19/2019 by Kemal Quiroga MD at [facility] Screw Left: Femur Roxanne 05/26/2028 [id number] / / [id number] Screw Cortical Tapered Hydroxyapatite 6mm Shank 40mm Thread 6mm/1url029kv - [id number] Implanted:Qty: 1 on 02/19/2019 by Kemal Quiroga MD at [facility] Screw Left: Femur Roxanne 05/03/2028 [id number] / / [id number] Screw Schanz Self-Drilling 60mm Thread Stainless Steel 5.9apm049sr - [id number] Implanted:Qty: 4 on 06/29/2019 by Kemal Quiroga MD at [facility] Screw Right: Femur DEPUY SY[employer] 294.785 / / Screw Humeral Locking Fully Threaded Sterile 0kue88sp T2 - [id number] Implanted:Qty: 1 on 09/10/2019 by Kemal Quiroga MD at [facility] Screw Right: Femur APARNA 1896-4060S / / Screw Humeral Locking Fully Threaded Sterile 2ixz98tc T2 - [id number] Implanted:Qty: 1 on 05/19/2020 by Kemal Quiroga MD at [facility] Screw Left: Tibia APARNA 1896-4035S / / Screw Humeral Locking Fully Threaded Sterile 5rsd82ks T2 - [id number] Implanted:Qty: 1 on 05/19/2020 by Kemal Quiroga MD at [facility] Screw Left: Tibia APARNA 1896-4034S / / Screw Humeral Locking Fully Threaded Sterile 9qvc66zx T2 - [id number] Implanted:Qty: 1 on 05/19/2020 by Kemal Quiroga MD at [facility] Screw Left: Tibia APARNA 1896-4050S / / Screw Humeral Locking Fully Threaded Sterile 1qpb83lp T2 - [id number] Implanted:Qty: 1 on 05/19/2020 by Kemal Quiroga MD at [facility] Screw Left: Tibia APARNA 1896-4040S / / Screw Humeral Locking Fully Threaded Sterile 2fbf71xf T2 - [id number] Implanted:Qty: 1 on 05/19/2020 by Kemal Quiroga MD at [facility] Screw Right: Tibia APARNA 1896-4050S / / Screw Humeral Locking Fully Threaded Sterile 5cda48bd T2 - [id number] Implanted:Qty: 1 on 05/19/2020 by Kemal Quiroga MD at [facility] Screw Right: Tibia APARNA 1896-4034S / / Screw Humeral Locking Fully Threaded Sterile 4jtm77mh T2 - [id number] Implanted:Qty: 1 on 05/19/2020 by Kemal Quiroga MD at [facility] Screw Right: Tibia APARNA 1896-4032S / / Screw Humeral Locking Fully Threaded Sterile 1srk87se T2 - [id number] Implanted:Qty: 1 on 05/19/2020 by Kemal Quiroga MD at [facility] Screw Right: Tibia APARNA 1896-4055S / / Chip Crushed Bone Cancellous 15cc Freezed Dried 1mm To 8mm - [id number] Implanted:Qty: 1 on 06/29/2019 by Kemal Quiroga MD at [facility] Tissue Right: Femur LIFENET 01/09/2024 CAN15 / / [id number] Putty Demineralized Bone Matrix 5cc Dbx - [id number] Implanted:Qty: 1 on 06/29/2019 by Kemal Quiroga MD at [facility] Tissue Right: Femur MUSCULOSKELETAL TRANSPLANT FND 03/27/2021 [id number] / / [id number] Description:DBX PUTTY, 5 CC PRODUCT CODE [id number] T2 Humeral Nail 7 X 250mm Implanted:Qty: 1 on 05/19/2020 by Kemal Quiroga MD at [facility] Left: Tibia APARNA 01/08/2024 1830-0725S / / [id number] [id number] Humeral Nail 7 X 250mm Implanted:Qty: 1 on 05/19/2020 by Kemal Quiroga MD at [facility] Right: Ayaan TURNERYKER 12/08/2022 1830-0025S / / [id number] Procedures * Due to [place] [employer] law, this organization might not be sharing negative HIV tests. Procedure Name Priority Date/Time Associated Diagnosis Comments BASIC METABOLIC PANEL STAT 05/20/2020 9:37 PM EST from Last 3 Months or Most Recently Relevant to Health Maintenance Results * Due to [place] [employer] law, this organization might not be sharing [...] >=90 mL/min/BS A 05/20/2020 10:09 PM EST [facility] Comment: Units = mL/min/1.73 [...] MD LAB BLOOD ORDERABLES Fi nal Result [facility] [address] [place] [address], from Last 3 Months or Most Recently Relevant to Health Maintenance Additional Health Concerns Infection Onset Date Last Indicated Multidrug resistant organisms MRSA 06/24/2019 06/24/2019 Insurance [employer] MEDICA[employer] Advance Directives Documents on File Type Date Recorded Patient Job Coach Expl anation Health Care Proxy 02/20/2019 3:46 [...] Agents on File Name Relationship Healthcare Agent [facility] p Communication Rory Harrison Daughter Health Care Agent Care Teams Rough Rounder Machine Relationship Specialty Start Date End Date Bambi Langley [address] Aislinn Tao, [place] [address] PCP - General Internal Medicine 10/31/17
[2024-12-04] MEDS: Lidocaine HCl 1 % 20 ML VIAL 9 ML SUBCUT (10:41)
== END 2024-12-04 09:49 | disposition home or self-care (01) ==
LOC: HO.MAMMO 09:48
PROVIDERS: PCP Internal Medicine; Visit Provider Surgery
DX: R92.8 Other abnormal and inconclusive findings on diagnostic imaging of breast (principal)
CPT/HCPCS: 19083; 88305; A4648; J2003

== ENCOUNTER → 2024-12-04 10:00 | Outpatient (BNV) | payer OTHER, SELFPAY | PROVIDERS: PCP Internal Medicine; Visit Provider Internal Medicine | DX: N63.21 Unspecified lump in the left breast, upper outer quadrant (principal) | CPT/HCPCS: 19083 ==

== ENCOUNTER 2024-12-13 09:10 | Outpatient (REF) | payer OTHER, SELFPAY ==
[2024-12-13 10:58] LABS: Alanine Aminotransferase 91 U/L (0-31); Albumin Level 4.3 g/dL (3.5-5.0); Alkaline Phosphatase 183 U/L (39-117); Aspartate Amino Transferase 98 U/L (5-31); Total Protein 7.7 g/dL (6.5-8.0)
== END 2024-12-13 09:11 | disposition home or self-care (01) ==
LOC: HO.LAB 09:10
PROVIDERS: Absent Provider Internal Medicine; PCP Internal Medicine; Visit Provider Surgery
DX: R92.8 Other abnormal and inconclusive findings on diagnostic imaging of breast (principal); R74.01 Elevation of levels of liver transaminase levels
CPT/HCPCS: 36415; 80076; 99212

== ENCOUNTER 2024-12-13 09:10 | Outpatient (AMB) | payer OTHER, SELFPAY ==
--- NOTE | 2024-12-13 09:24 | A.OFFVIS_ITS ---
Vital Signs 12/13/24 09:29 Height 4 ft 8 in BMI Reason not done Palliative Care Patient BP 129/69 Blood Pressure Location Lt brachial Position Sitting Pulse 71 Intake Visit Reasons: s/p (L) brst US bx Intake Note: Patient is seen in office for biopsy RESULTS, following for left breast mass. Patient c/o: denies any concerns, here for results Mechanical Design Drafter Required: Yes Mechanical Design Drafter Language: Desktop Operator Services: Mechanical Design Drafter Present Mechanical Design Drafter Name: Joanna BALDERRAMA Information Interpreted: non-clinical & clinical Plate Maker: Plate Maker Present Accompanied by: Self / Same As Patient Allergies No Known Allergies Allergy (Verified 12/13/24 09:25) HPI Comments Details: 54-year-old female patient, wheelchair-bound presenting with a recent left breast abnormal mammogram and ultrasound status post ultrasound-guided core biopsy approximately 1 week ago. Pathology revealed benign breast tissue with stromal fibrosis and no evidence of atypia or malignancy. She tolerated the procedure well and denies any ongoing breast symptoms. A six-month follow-up ultrasound and mammogram was recommended. [facility] Medical History Abdominal pain Hiatal hernia with GERD Skeletal dysplasia Neuropathy Osteoarthritis Wheelchair dependent Neurogenic bladder Chronic hip pain, bilateral Lumbar degenerative disc disease Chronic GERD Mild recurrent major depression Back pain Essential hypertension Depression with anxiety Constipation by delayed colonic transit Hypovitaminosis D Insomnia Surgical History H/O colonoscopy History of surgery on lower extremity History of back surgery History of orthopedic surgery History of tubal ligation Family History Father Medical history unknown Mother CVD (cardiovascular disease) Maternal Aunt CVD (cardiovascular disease) Family/Other FH: mental illness Social History Housing: Apartment Alcohol intake: never Comment: sleeping Patient Tobacco Use Status: Never used Tobacco Tobacco use type: Cigarette e-Cigarette/Vaping Use: Never Used Second Hand Smoke Exposure: No Advance Directives Date on File: 07/02/20 service: No Current occupational status: unemployed Cognitive needs: Yes (wheelchair) Hearing needs: No Vision needs: No Review of Systems Const All systems reviewed & are unremarkable except as noted in HPI and below Physical Exam Vital Signs: Last Vital Signs Pulse 71 12/13/24 09:29 BP 129/69 12/13/24 09:29 Const General: cooperative and no acute distress Nutritional Appearance: well nourished Orientation/consciousness: patient oriented x3 Limitations: wheelchair HEENT Head: Yes normocephalic and Yes atraumatic Ears: hearing grossly normal bilaterally Chest Other: Exam deferred Resp Effort & Inspection: normal respiratory effort, no audible wheezes, no cough and no respiratory distress Cardio Jugular venous distension: no JVD GI Inspection: Yes normal to inspection Skin Other: Warm, dry, no rash Neuro Other: Mobility Assessment: 1. 3 meter assessment time (seconds): Nonambulatory 2. Gait observations: Wheelchair-bound General: patient oriented x3 Extrem General: Yes no clubbing, cyanosis or edema Assessment & Plan Assessment & Plan (1) Abnormal ultrasound of breast: Code(s): R92.8 - Other abnormal and inconclusive findings on diagnostic imaging of breast Category: Medical (2) Abnormal mammogram of left breast: Code(s): R92.8 - Other abnormal and inconclusive findings on diagnostic imaging of breast Category: Medical Plan 54-year-old female patient status post ultrasound-guided core biopsy left breast with benign findings. Pathology results were provided to the patient. I recommended follow-up ultrasound and mammogram to the left breast in 6 months. She should follow up as needed. Orders: Orders US breast LT limited 6 Months R92.8 - Other abnormal and inconclusive findings on diagnostic imaging of breast MM diagnostic mammo unilat LT 6 Months R92.8 - Other abnormal and inconclusive findings on diagnostic imaging of breast Coding Level of Care Code Est Pt Level 3 (55535) Diagnoses Abnormal ultrasound of breast R92.8 Abnormal mammogram of left breast R92.8
[2024-12-13 09:29] VITALS: BP 129/69; PULSE 71
--- OUTSIDE RECORDS SUMMARY | 2024-12-13 09:57 | XMS_ITS | Clinical Summary ---
Author Organization [facility] Address [address] [place] [address] Care Team Providers Care Pharmacy Tech Name Role Phone Bambi Langley Primary Care Provider [phone] Allergies No known active allergies Medications metoprolol [...] 02/21/2019(Deferred: Patient Refused - pt refused using bilingual interpreter) Family History Medical History Relation Name [...] (2 - Td or Tdap) 02/19/2022 02/20/2012 Alcohol/Substance Use Screening 04/10/2024 Depression Screening and Follow-Up 04/10/2024 Social Drivers of Health Angelita ual Screening 04/10/2024 COVID-19 Vaccine (2 - 2024-2 6 season) 2024 10/07/2021 Influenza Vaccine (#1) 2024 2, 01/04/2018, 01/14/2015, Additional history exists RSV Vaccine (60+ years old a nd patients) (1 - 1-dose 75+ series) 07/02/2046 Medical Devices Implanted Type Area It Portfolio Manager Device Identifier Shelf Expiration Date Model / Serial / Lot Rail Deformity Fixator Titanium Adult 350mm - [id number] Implanted:Qty: 2 on 02/19/2019 by Kemal Quiroga MD at [facility] Implant Femur Roxanne [id number] / / Post Outrigger 30 Degree 11mm - [id number] Implanted:Qty: 2 on 06/29/2019 by Kemal Quiroga MD at [facility] Implant Right: Femur Link Trigger 390.013 / / Bone Cement R 1x40 Refobacin - [id number] Implanted:Qty: 1 on 09/10/2019 by Kemal Quiroga MD at [facility] Implant Right: Femur Roxanne 10/08/2019 [id number] / / [id number] Description:Mixed with tobra mycin 2.4 grams,2 grams vancomycin,240 mg gentamycin Nail Tibial T2 Standard 8mm X 270mm - [id number] Implanted:Qty: 1 on 09/10/2019 by Kemal Quiroga MD at [facility] Nail Right: Femur APARNA 11/08/2019 1822-0827S / / [id number] Screw Cortical Tapered Hydroxyapatite 6mm Shank 40mm Thread 6mm/9sxt471fa - [id number] Implanted:Qty: 1 on 02/19/2019 by Kemal Quiroga MD at [facility] Screw Right: Femur Roxanne 05/26/2028 HBO00-89732 / / [id number] Screw Cortical Tapered Hydroxyapatite 6mm Shank 40mm Thread 6mm/8zeg713ff - [id number] Implanted:Qty: 1 on 02/19/2019 by Kemal Quiroga MD at [facility] Screw Femur Roxanne 04/25/2028 HAA60-1 8040 / / [id number] Screw Cortical Tapered Hydroxyapatite 6mm Shank 60mm Thread 6mm/9rym569yd - [id number] Implanted:Qty: 1 on 02/19/2019 by Kemal Quiroga MD at [facility] Screw Right: Femur Roxanen 06/04/2028 [id number] / / [id number] Screw Cortical Tapered Hydroxyapatite 6mm Shank 40mm Thread 6mm/2cgw208zg - [id number] Implanted:Qty: 1 on 02/19/2019 by Kemal Quiroga MD at [facility] Screw Right: Femur Roxanne 04/25/2028 [id number] / / [id number] Screw Cortical Tapered Hydroxyapatite 6mm Shank 40mm Thread 6mm/6qrg599ri - [id number] Implanted:Qty: 1 on 02/19/2019 by Kemal Quiroga MD at [facility] Screw Right: Femur Roxanne 07/16/2028 QJM56-92410 / / [id number] Screw Cortical Tapered Hydroxyapatite 6mm Shank 40mm Thread 6mm/0vmu776su - [id number] Implanted:Qty: 1 on 02/19/2019 by Kemal Quiroga MD at [facility] Screw Right: Femur Roxanne 05/03/2028 KFR48-00649 / / [id number] Screw Cortical Tapered Hydroxyapatite 6mm Shank 40mm Thread 6mm/3iup701as - [id number] Implanted:Qty: 1 on 02/19/2019 by Kemal Quiroga MD at [facility] Screw Left: Femur Roxanne 07/16/2028 [id number] / / [id number] Screw Cortical Tapered Hydroxyapatite 6mm Shank 50mm Thread 6mm/1zam766tn - [id number] Implanted:Qty: 1 on 02/19/2019 by Kemal Quiroga MD at [facility] Screw Left: Femur Roxanne 06/29/2028 [id number] / / [id number] Screw Cortical Tapered Hydroxyapatite 6mm Shank 40mm Thread 6mm/3dkg020jf - [id number] Implanted:Qty: 1 on 02/19/2019 by Kemal Quiroga MD at [facility] Screw Left: Femur Roxanne 05/26/2028 [id number] / / [id number] Screw Cortical Tapered Hydroxyapatite 6mm Shank 40mm Thread 6mm/5fbq121wl - [id number] Implanted:Qty: 1 on 02/19/2019 by Kemal Quiroga MD at [facility] Screw Left: Femur Roxanne 05/03/2028 [id number] / / [id number] Screw Schanz Self-Drilling 60mm Thread Stainless Steel 5.6gkg066ji - [id number] Implanted:Qty: 4 on 06/29/2019 by Kemal Quiroga MD at [facility] Screw Right: Femur DEPUY SYN[employer] SAL[employer] 294.785 / / Screw Humeral Locking Fully Threaded Sterile 7gum38sk T2 - [id number] Implanted:Qty: 1 on 09/10/2019 by Kemal Quiroga MD at [facility] Screw Right: Femur APARNA 1896-4060S / / Screw Humeral Locking Fully Threaded Sterile 7bep42el T2 - [id number] Implanted:Qty: 1 on 05/19/2020 by Kemal Quiroga MD at [facility] Screw Left: Tibia APARNA 1896-4035S / / Screw Humeral Locking Fully Threaded Sterile 5eey59qn T2 - [id number] Implanted:Qty: 1 on 05/19/2020 by Kemal Quiroga MD at [facility] Screw Left: Tibia APARNA 1896-4034S / / Screw Humeral Locking Fully Threaded Sterile 9cke31qs T2 - [id number] Implanted:Qty: 1 on 05/19/2020 by Kemal Quiroga MD at [facility] Screw Left: Tibia APARNA 1896-4050S / / Screw Humeral Locking Fully Threaded Sterile 2smn58gw T2 - [id number] Implanted:Qty: 1 on 05/19/2020 by Kemal Quiroga MD at [facility] Screw Left: Tibia APARNA 1896-4040S / / Screw Humeral Locking Fully Threaded Sterile 2uso73cp T2 - [id number] Implanted:Qty: 1 on 05/19/2020 by Kemal Quiroga MD at [facility] Screw Right: Tibia APARNA 1896-4050S / / Screw Humeral Locking Fully Threaded Sterile 2eae36hs T2 - [id number] Implanted:Qty: 1 on 05/19/2020 by Kemal Quiroga MD at [facility] Screw Right: Tibia APARNA 1896-4034S / / Screw Humeral Locking Fully Threaded Sterile 9mkg05ig T2 - [id number] Implanted:Qty: 1 on 05/19/2020 by Kemal Quiroga MD at [facility] Screw Right: Tibia APARNA 1896-4032S / / Screw Humeral Locking Fully Threaded Sterile 7gnj84wh T2 - [id number] Implanted:Qty: 1 on 05/19/2020 by Kemal Quiroga MD at [facility] Screw Right: Tibia APARNA 1896-4055S / / Chip Crushed Bone Cancellous 15cc Freezed Dried 1mm To 8mm - [id number] Implanted:Qty: 1 on 06/29/2019 by Kemal Quiroga MD at [facility] Tissue Right: Femur LIFENET 01/09/2024 CAN15 / / [id number] Putty Demineralized Bone Matrix 5cc Dbx - [id number] Implanted:Qty: 1 on 06/29/2019 by Kemal Quiroga MD at [facility] Tissue Right: Femur MUSCULOSKELETAL TRANSPLANT FND 03/27/2021 [id number] / / [id number] Description:DBX PUTTY, 5 CC PRODUCT CODE [id number] T2 Humeral Nail 7 X 250mm Implanted:Qty: 1 on 05/19/2020 by Kemal Quiroga MD at [facility] Left: Tibia APARNA 01/08/2024 1830-0725S / / [id number] T2 Humeral Nail 7 X 250mm Implanted:Qty: 1 on 05/19/2020 by Kemal Quiroga MD at [facility] Right: Ayaan TURNERYKER 12/08/2022 1830-1125S / / [id number] Procedures * Due to [place] [employer] law, this organization might not be sharing negative HIV tests. Procedure Name Priority Date/Time Associated Diagnosis Comments BASIC METABOLIC PANEL STAT 05/20/2020 9:37 PM EST from Last 3 Months or Most Recently Relevant to Health Maintenance Results * Due to [place] [employer] law, this organization might not be sharing [...] >=90 mL/min/BS A 05/20/2020 10:09 PM EST [facility] Comment: Units = mL/min/1.73 [...] MD LAB BLOOD ORDERABLES Fi nal Result [email or web address] [address] [place] [address], from Last 3 Months or Most Recently Relevant to Health Maintenance Additional Health Concerns Infection Onset Date Last Indicated Multidrug resistant organisms MRSA 06/24/2019 06/24/2019 Insurance [employer]ICA[employer] Advance Directives Documents on File Type Date Recorded Patient Transport Tank Technician Expl anation Health Care Proxy 02/20/2019 3:46 [...] Agents on File Name Relationship Healthcare Agent [facility] p Communication Rory Harrison Daughter Health Care Agent Care Teams Pharmacy Tech Relationship Specialty Start Date End Date Bambi Langley [address] [facility] [address] [place]inn [place], [place] [address] PCP - General Internal Medicine 10/31/17
== END 2024-12-13 09:35 | disposition home or self-care (01) ==
LOC: HO.HGS 09:11
PROVIDERS: PCP Internal Medicine; Visit Provider Surgery
DX: R92.8 Other abnormal and inconclusive findings on diagnostic imaging of breast (principal)
CPT/HCPCS: 99213

== ENCOUNTER 2024-12-23 09:40 | Outpatient (AMB) | payer OTHER, SELFPAY ==
--- NOTE | 2024-12-23 09:49 | MHC.OFFVIS ---
Vital Signs 12/23/24 09:50 12/23/24 09:50 Height 4 ft 8 in BP 98/68 Intake Visit Reasons: New patient Vaginal Disorder/Internal ref Gas Truck Driver Required: Yes Gas Truck Driver Services: Gas Truck Driver Present (in person) Gas Truck Driver Name: Lavonne BALDERRAMA Information Interpreted: non-clinical & clinical Corporate Administrative Assistant: Corporate Administrative Assistant Present (Lavonne BALDERRAMA) Accompanied by: Employee Allergies No Known Allergies Allergy (Verified 12/23/24 09:51) HPI Comments Details: Presenting complaining of vulvovaginal itching/burning associated with discharge no foul odor PFSH Medical History Abdominal pain Hiatal hernia with GERD Skeletal dysplasia Neuropathy Osteoarthritis Wheelchair dependent Neurogenic bladder Chronic hip pain, bilateral Lumbar degenerative disc disease Chronic GERD Mild recurrent major depression Back pain Essential hypertension Depression with anxiety Constipation by delayed colonic transit Hypovitaminosis D Insomnia Surgical History H/O colonoscopy History of surgery on lower extremity History of back surgery History of orthopedic surgery History of tubal ligation Family History Father Medical history unknown Mother CVD (cardiovascular disease) Maternal Aunt CVD (cardiovascular disease) Family/Other FH: mental illness Social History Housing: Apartment Alcohol intake: never Comment: sleeping Patient Tobacco Use Status: Never used Tobacco Tobacco use type: Cigarette e-Cigarette/Vaping Use: Never Used Second Hand Smoke Exposure: No Advance Directives Date on File: 07/02/20 service: No Current occupational status: unemployed Gender identity: Female Cognitive needs: Yes (wheelchair) Hearing needs: No Vision needs: No Female Reproductive History Menstrual Age of Menarche: 15 Duration of menses: 6-7 days control method: none Total pregnancies: 3 Full term: 3 History of abnormal pap smear: Yes History of abnormal mammogram: Yes Review of Systems Const All systems reviewed & are unremarkable except as noted in HPI and below Physical Exam Vital Signs: Last Vital Signs BP 98/68 12/23/24 09:50 General: Yes no CVA tenderness External Female Exam: normal external appearance and normal appearance of the urethra Speculum Exam - Vagina: normal appearance of the vagina, normal palpation, no lesions and no masses Speculum Exam - Cervix: normal appearance of the cervix, normal palpation, no lesions, no masses and nontender Bimanual exam- vagina & uterus: normal bimanual exam, normal palpation, uterine size normal, normal palpation, uterine shape normal, No Cervical tenderness present and non-tender Bimanual Exam- Adnexa, other: normal adnexae Back/Spine/Pelvis Back: no CVA tenderness Assessment & Plan Assessment & Plan (1) Vulvovaginitis: Code(s): N76.0 - Acute vaginitis Category: Medical Plan: Bacterial Vaginosis panel taken, terconazole 0.8% q.h.s. for 3 9, Lotrisone cream b.i.d. for 5 days to be apply externally to the affected area was sent to the patient's pharmacy. The patient was instructed to call if symptoms don't improve in 48 hours. Medications: New terconazole 0.8% 1 appful vaginal BEDTIME 20 grams 0RF 3 days clotrimazole-betamethasone 1-0.05 % 1 appl topical BID 45 grams 0RF 5 days Coding Level of Care Code New Pt Level 3 (51757) Diagnoses Vulvovaginitis N76.0
[2024-12-23 09:50] VITALS: BP 98/68
--- OUTSIDE RECORDS SUMMARY | 2024-12-23 11:44 | XMS_ITS | Clinical Summary ---
Author Organization [facility] Address [address] [place] [address] Care Team Providers Care Bridge Rigger Name Role Phone Bambi Langley Primary Care Provider [phone] Allergies No known active allergies Medications metoprolol [...] 02/21/2019(Deferred: Patient Refused - pt refused using residence life director) Family History Medical History Relation Name Comments [...] series) 07/02/2046 Medical Devices Implanted Type Area School Supervisor Device Identifier Shelf Expiration Date Model / Serial / Lot Rail Deformity Fixator Titanium Adult 350mm - [id number] Implanted:Qty: 2 on 02/19/2019 by Kemal Quiroga MD at [facility] Implant Femur Roxanne [id number] / / Post Outrigger 30 Degree 11mm - [id number] Implanted:Qty: 2 on 06/29/2019 by Kemal Quiroga MD at [facility] Implant Right: Femur [place] 390.013 / / Bone Cement R 1x40 Refobacin - [id number] Implanted:Qty: 1 on 09/10/2019 by Kemal Quiroga MD at [facility] Implant Right: Femur Roxanne 10/08/2019 [id number] / / [id number] Description:Mixed with tobra mycin 2.4 grams,2 grams vancomycin,240 mg gentamycin Nail Tibial T2 Standard 8mm X 270mm - [id number] Implanted:Qty: 1 on 09/10/2019 by Kemal Quiroga MD at [facility] Nail Right: Femur APARNA 11/08/2019 1822-0827S / / [id number] Screw Cortical Tapered Hydroxyapatite 6mm Shank 40mm Thread 6mm/8bbt017nc - [id number] Implanted:Qty: 1 on 02/19/2019 by Kemal Quiroga MD at [facility] Screw Right: Femur Roxanne 05/26/2028 [id number] / / [id number] Screw Cortical Tapered Hydroxyapatite 6mm Shank 40mm Thread 6mm/1zsg079ui - [id number] Implanted:Qty: 1 on 02/19/2019 by Kemal Quiroga MD at [facility] Screw Femur Roxanne 04/25/2028 HAA60-1 8040 / / [id number] Screw Cortical Tapered Hydroxyapatite 6mm Shank 60mm Thread 6mm/7cks648hf - [id number] Implanted:Qty: 1 on 02/19/2019 by Kemal Quiroga MD at [facility] Screw Right: Femur Roxanne 06/04/2028 [id number] / / [id number] Screw Cortical Tapered Hydroxyapatite 6mm Shank 40mm Thread 6mm/2usk590ay - [id number] Implanted:Qty: 1 on 02/19/2019 by Kemal Quiroga MD at [facility] Screw Right: Femur Roxanne 04/25/2028 [id number] / / [id number] Screw Cortical Tapered Hydroxyapatite 6mm Shank 40mm Thread 6mm/1glj753uk - [id number] Implanted:Qty: 1 on 02/19/2019 by Kemal Quiroga MD at [facility] Screw Right: Femur Roxanne 07/16/2028 [id number] / / [id number] Screw Cortical Tapered Hydroxyapatite 6mm Shank 40mm Thread 6mm/7aok562xj - [id number] Implanted:Qty: 1 on 02/19/2019 by Kemal Quiroga MD at [facility] Screw Right: Femur Roxanne 05/03/2028 [id number] / / [id number] Screw Cortical Tapered Hydroxyapatite 6mm Shank 40mm Thread 6mm/5zkd647mz - [id number] Implanted:Qty: 1 on 02/19/2019 by Kemal Quiroga MD at [facility] Screw Left: Femur Roxanne 07/16/2028 [id number] / / [id number] Screw Cortical Tapered Hydroxyapatite 6mm Shank 50mm Thread 6mm/1aez501ec - [id number] Implanted:Qty: 1 on 02/19/2019 by Kemal Quiroga MD at [facility] Screw Left: Femur Roxanne 06/29/2028 [id number] / / [id number] Screw Cortical Tapered Hydroxyapatite 6mm Shank 40mm Thread 6mm/2fdh622cw - [id number] Implanted:Qty: 1 on 02/19/2019 by Kemal Quiroga MD at [facility] Screw Left: Femur Roxanne 05/26/2028 [id number] / / [id number] Screw Cortical Tapered Hydroxyapatite 6mm Shank 40mm Thread 6mm/9rlp281le - [id number] Implanted:Qty: 1 on 02/19/2019 by Kemal Quiroga MD at [facility] Screw Left: Femur Roxanne 05/03/2028 [id number] / / [id number] Screw Schanz Self-Drilling 60mm Thread Stainless Steel 5.4jni175rt - [id number] Implanted:Qty: 4 on 06/29/2019 by Kemal Quiroga MD at [facility] Screw Right: Femur DEPUY [employer] 294.785 / / Screw Humeral Locking Fully Threaded Sterile 1ucd57nq T2 - [id number] Implanted:Qty: 1 on 09/10/2019 by Kemal Quiroga MD at [facility] Screw Right: Femur APARNA 1896-4060S / / Screw Humeral Locking Fully Threaded Sterile 0dzp31vu T2 - [id number] Implanted:Qty: 1 on 05/19/2020 by Kemal Quiroga MD at [facility] Screw Left: Tibia APARNA 1896-4035S / / Screw Humeral Locking Fully Threaded Sterile 2ozd72aj T2 - [id number] Implanted:Qty: 1 on 05/19/2020 by Kemal Quiroga MD at [facility] Screw Left: Tibia APARNA 1896-4034S / / Screw Humeral Locking Fully Threaded Sterile 2hti28vd T2 - [id number] Implanted:Qty: 1 on 05/19/2020 by Kemal Quiroga MD at [facility] Screw Left: Tibia APARNA 1896-4050S / / Screw Humeral Locking Fully Threaded Sterile 9vhy58zi T2 - [id number] Implanted:Qty: 1 on 05/19/2020 by Kemal Quiroga MD at [facility] Screw Left: Tibia APARNA 1896-4040S / / Screw Humeral Locking Fully Threaded Sterile 7hix10tb T2 - [id number] Implanted:Qty: 1 on 05/19/2020 by Kemal Quiroga MD at [facility] Screw Right: Tibia APARNA 1896-4050S / / Screw Humeral Locking Fully Threaded Sterile 0oqk11mf T2 - [id number] Implanted:Qty: 1 on 05/19/2020 by Kemal Quiroga MD at [facility] Screw Right: Tibia APARNA 1896-4034S / / Screw Humeral Locking Fully Threaded Sterile 1yyb39jm T2 - [id number] Implanted:Qty: 1 on 05/19/2020 by Kemal Quiroga MD at [facility] Screw Right: Tibia APARNA 1896-4032S / / Screw Humeral Locking Fully Threaded Sterile 6sjx01qd T2 - [id number] Implanted:Qty: 1 on 05/19/2020 by Kemal Quiroga MD at [facility] Screw Right: Tibia APARNA 1896-4055S / / Chip Crushed Bone Cancellous 15cc Freezed Dried 1mm To 8mm - [id number] Implanted:Qty: 1 on 06/29/2019 by Kemal Quiroga MD at [facility] Tissue Right: Femur LIFENET 01/09/2024 CAN15 / / [id number] Putty Demineralized Bone Matrix 5cc Dbx - [id number] Implanted:Qty: 1 on 06/29/2019 by Kemal Quiroga MD at [facility] Tissue Right: Femur MUSCULOSKELETAL TRANSPLANT FND 03/27/2021 156376 / / [id number] Description:DBX PUTTY, 5 CC PRODUCT CODE [id number] T2 Humeral Nail 7 X 250mm Implanted:Qty: 1 on 05/19/2020 by Kemal Quiroga MD at [facility] Left: Tibia APARNA 01/08/2024 1830-0725S / / [id number] Humeral Nail 7 X 250mm Implanted:Qty: 1 on 05/19/2020 by Kemal Quiroga MD at [facility] Right: Ayaan TURNERYKER 12/08/2022 1830-6225S / / [id number] Procedures * Due to [place] [employer] law, this organization might not be sharing negative HIV tests. Procedure Name Priority Date/Time Associated Diagnosis Comments BASIC METABOLIC PANEL STAT 05/20/2020 9:37 PM EST from Last 3 Months or Most Recently Relevant to Health Maintenance Results * Due to [place] [employer] law, this organization might not be sharing [...] >=90 mL/min/BS A 05/20/2020 10:09 PM EST [facility] Comment: Units = mL/min/1.73 [...] MD LAB BLOOD ORDERABLES Fi nal Result [facility] [address] [place] [address], from Last 3 Months or Most Recently Relevant to Health Maintenance Additional Health Concerns Infection Onset Date Last Indicated Multidrug resistant organisms MRSA 06/24/2019 06/24/2019 Insurance [employer] Advance Directives Documents on File Type Date Recorded Patient Polymer Chemist Expl anation Health Care Proxy 02/20/2019 3:46 [...] Agents on File Name Relationship Healthcare Agent [facility] p Communication Rory Harrison Daughter Health Care Agent Care Teams Bridge Rigger Relationship Specialty Start Date End Date Bambi Langley [address] [facility] [address] Aislinn Tao, [place] [address] PCP - General Internal Medicine 10/31/17
== END 2024-12-23 10:38 | disposition home or self-care (01) ==
LOC: HO.HWS 09:40
PROVIDERS: PCP Internal Medicine; Visit Provider Obstetrics & Gynecology
DX: N76.0 Acute vaginitis (principal)
CPT/HCPCS: 99203

== ENCOUNTER 2024-12-23 09:40 | Outpatient (REF) | payer OTHER, SELFPAY ==
[2024-12-23 23:17] LABS: Bacterial Vaginosis PCR POSITIVE (Negative); Candida Group PCR NOT DETECTED (Not Detect); Candida glab krusei PCR NOT DETECTED (Not Detect); Trichomonas vaginalis PCR NOT DETECTED (Not Detect)
== END 2024-12-23 09:41 | disposition home or self-care (01) ==
LOC: HO.LNP 09:40
PROVIDERS: PCP Internal Medicine; Visit Provider Obstetrics & Gynecology
DX: N76.0 Acute vaginitis (principal); Z98.51 Tubal ligation status
CPT/HCPCS: 81515; 99202

== ENCOUNTER 2025-01-09 11:07 | Outpatient (REF) | payer OTHER, SELFPAY ==
--- NOTE | ~2025-01-09 | CT_ITS ---
EXAMINATION: CT ABDOMEN AND PELVIS WITH CONTRAST CLINICAL INFORMATION: Abdominal pain, left lower quadrant, distention, hypoactive bowel sounds COMPARISON: None available. TECHNIQUE: Multidetector volumetric images were obtained from the superior aspect of the liver through the pubic symphysis following administration 85 mL of Omnipaque 350 intravenous contrast. Sagittal and coronal reformatted images were obtained on the technologist's workstation. Oral contrast: Present This CT examination was performed using dose optimization techniques as appropriate, variously including the following: *Automated exposure control *Adjustment of mA and/or kV according to patient size (this includes techniques or standardized protocols for targeted exams where dose is matched to indication/reason for exam; i.e. extremities or head) *Use of iterative reconstruction technique FINDINGS: LUNG BASES: Small focal opacity is present in the medial right lower lung base. LIVER, GALLBLADDER, AND BILIARY TREE: The liver is diffusely low attenuating slightly sparing the left hepatic lobe. The gallbladder is unremarkable. PANCREAS: Unremarkable. SPLEEN: Unremarkable. ADRENAL GLANDS: Unremarkable. KIDNEYS AND URETERS: The kidneys are normal in size, shape, and attenuation. No hydronephrosis, hydroureter, or calculi seen. No perinephric stranding. BLADDER: Unremarkable. GASTROINTESTINAL TRACT: The small and large bowel are unremarkable. The appendix is unremarkable. ABDOMINAL WALL: There is laxity of linea alba the periumbilical region likely with a small umbilical hernia.. LYMPH NODES: Normal. VASCULAR: Unremarkable. PELVIC VISCERA: Uterus and ovaries are unremarkable. OSSEOUS STRUCTURES: Severe degenerative changes are present in the hip joints. There are large marginal osteophytes and moderate joint space narrowing The proximal end of an intramedullary air is seen in the right femur. There is mild convex right curvature of the lumbar spine. There is facet arthropathy with sclerosis and osteophytes most advanced in the mid to lower thoracic spine. CT/CT abdomen pelvis w IV con IMPRESSION: No abnormalities that explain the patient's left lower quadrant pain and distention. Small focal opacity in the medial right lower lung could represent atelectasis or pneumonia. Hepatic steatosis. Severe degenerative changes involving bilateral hip joints. Fleischner guidelines were followed. Electronically signed by: Behzad Lee MD 01/09/2025 02:10 PM EDT
--- OUTSIDE RECORDS SUMMARY | 2025-01-09 13:02 | XMS_ITS | Clinical Summary ---
Author Organization [facility] Address [address] [place] [address] Care Team Providers Care Director Of Food And Beverage Services Name Role Phone Bambi Langley Primary Care Provider [phone] Allergies No known active allergies Medications metoprolol [...] 02/21/2019(Deferred: Patient Refused - pt refused using barn manager) Family History Medical History Relation Name Comments [...] 09/10/2019 10:06 AM EDT Plan of Treatment Upcoming Encounters Date Type Department Care Team (Late st Contact Info) Description 05/08/2025 11:45 AM EST Follow-Up [facility] [address] [place] [address] Kemal Quiroga MD [address] [place] [address] Health Maintenance Due Date Last Done Comments [...] 07/02/2021 Zoster Vaccines (1 of 2) 07/02/2021 Alcohol/Substance Use Screening 04/10/2024 Depression Screening and Follow-Up 04/10/2024 Social Drivers of Health Angelita ual Screening 04/10/2024 COVID-19 Vaccine (2 - 2024-2 6 season) 2024 10/07/2021 Influenza Vaccine (#1) 2024 2, 01/04/2018, 01/14/2015, Additional history exists DTaP,Tdap,and Td Vaccines (3 - Td or Tdap) 09/04/2034 09/04/2024, 02/20/2012 RSV Vaccine (60+ years old a nd patients) (1 - 1-dose 75+ series) 07/02/2046 Medical Devices Implanted Type Area Grounds Caretaker Device Identifier Shelf Expiration Date Model / Serial / Lot Rail Deformity Fixator Titanium Adult 350mm - [id number] Implanted:Qty: 2 on 02/19/2019 by Kemal Quiroga MD at [facility] Implant Femur Roxanne [id number] / / Post Outrigger 30 Degree 11mm - [id number] Implanted:Qty: 2 on 06/29/2019 by Kemal Quiroga MD at [facility] Implant Right: Femur Thinknum 390.013 / / Bone Cement R 1x40 Refobacin - [id number] Implanted:Qty: 1 on 09/10/2019 by Kemal Quiroga MD at [facility] Implant Right: Femur Roxanne 10/08/2019 [id number] / / [id number] Description:Mixed with tobra mycin 2.4 grams,2 grams vancomycin,240 mg gentamycin Nail Tibial T2 Standard 8mm X 270mm - [id number] Implanted:Qty: 1 on 09/10/2019 by Kemal Quiroga MD at [facility] Nail Right: Femur APARNA 11/08/2019 1822-0827S / / [id number] Screw Cortical Tapered Hydroxyapatite 6mm Shank 40mm Thread 6mm/6chp208qb - [id number] Implanted:Qty: 1 on 02/19/2019 by Kemal Quiroga MD at [facility] Screw Right: Femur Roxanne 05/26/2028 KRC02-03019 / / [id number] Screw Cortical Tapered Hydroxyapatite 6mm Shank 40mm Thread 6mm/1vuw367rv - [id number] Implanted:Qty: 1 on 02/19/2019 by Kemal Quiroga MD at [facility] Screw Femur Roxanne 04/25/2028 HAA60-1 8040 / / [id number] Screw Cortical Tapered Hydroxyapatite 6mm Shank 60mm Thread 6mm/7yqr711nb - [id number] Implanted:Qty: 1 on 02/19/2019 by Kemal Quiroga MD at [facility] Screw Right: Femur Roxanne 06/04/2028 [id number] / / [id number] Screw Cortical Tapered Hydroxyapatite 6mm Shank 40mm Thread 6mm/3dgh929qh - [id number] Implanted:Qty: 1 on 02/19/2019 by Kemal Quiroga MD at [facility] Screw Right: Femur Roxanne 04/25/2028 UGS60-68511 / / [id number] Screw Cortical Tapered Hydroxyapatite 6mm Shank 40mm Thread 6mm/7avt656by - [id number] Implanted:Qty: 1 on 02/19/2019 by Kemal Quiroga MD at [facility] Screw Right: Femur Roxanne 07/16/2028 ZOK89-00683 / / [id number] Screw Cortical Tapered Hydroxyapatite 6mm Shank 40mm Thread 6mm/0zez053fb - [id number] Implanted:Qty: 1 on 02/19/2019 by Kemal Quiroga MD at [facility] Screw Right: Femur Roxanne 05/03/2028 UET02-11934 / / [id number] Screw Cortical Tapered Hydroxyapatite 6mm Shank 40mm Thread 6mm/8blu558go - [id number] Implanted:Qty: 1 on 02/19/2019 by Kemal Quiroga MD at [facility] Screw Left: Femur Roxanne 07/16/2028 ZWW53-42239 / / [id number] Screw Cortical Tapered Hydroxyapatite 6mm Shank 50mm Thread 6mm/2dxc221re - [id number] Implanted:Qty: 1 on 02/19/2019 by Kemal Quiroga MD at [facility] Screw Left: Femur Roxanne 06/29/2028 [id number] / / [id number] Screw Cortical Tapered Hydroxyapatite 6mm Shank 40mm Thread 6mm/7bjl674fy - [id number] Implanted:Qty: 1 on 02/19/2019 by Kemal Quiroga MD at [facility] Screw Left: Femur Roxanne 05/26/2028 IGW69-82208 / / [id number] Screw Cortical Tapered Hydroxyapatite 6mm Shank 40mm Thread 6mm/3hpq283qy - [id number] Implanted:Qty: 1 on 02/19/2019 by Kemal Quiroga MD at [facility] Screw Left: Femur Roxanne 05/03/2028 VKZ95-27247 / / [id number] Screw Schanz Self-Drilling 60mm Thread Stainless Steel 5.5tat898bw - [id number] Implanted:Qty: 4 on 06/29/2019 by Kemal Quiroga MD at [facility] Screw Right: Femur DEPUY [employer]ES SAL[employer] 294.785 / / Screw Humeral Locking Fully Threaded Sterile 9usp05iu T2 - [id number] Implanted:Qty: 1 on 09/10/2019 by Kemal Quiroga MD at [facility] Screw Right: Femur APARNA 1896-4060S / / Screw Humeral Locking Fully Threaded Sterile 6nxg26ze T2 - [id number] Implanted:Qty: 1 on 05/19/2020 by Kemal Quiroga MD at [facility] Screw Left: Tibia APARNA 1896-4035S / / Screw Humeral Locking Fully Threaded Sterile 8fcv22yh T2 - [id number] Implanted:Qty: 1 on 05/19/2020 by Kemal Quiroga MD at [facility] Screw Left: Tibia APARNA 1896-4034S / / Screw Humeral Locking Fully Threaded Sterile 6dxu81as T2 - [id number] Implanted:Qty: 1 on 05/19/2020 by Kemal Quiroga MD at [facility] Screw Left: Tibia APARNA 1896-4050S / / Screw Humeral Locking Fully Threaded Sterile 9zwk94jh T2 - [id number] Implanted:Qty: 1 on 05/19/2020 by Kemal Quiroga MD at [facility] Screw Left: Tibia APARNA 1896-4040S / / Screw Humeral Locking Fully Threaded Sterile 0jdu30zj T2 - [id number] Implanted:Qty: 1 on 05/19/2020 by Kemal Quiroga MD at [facility] Screw Right: Tibia APARNA 1896-4050S / / Screw Humeral Locking Fully Threaded Sterile 0hed21pu T2 - [id number] Implanted:Qty: 1 on 05/19/2020 by Kemal Quiroga MD at [facility] Screw Right: Tibia APARNA 1896-4034S / / Screw Humeral Locking Fully Threaded Sterile 9ojt95iu T2 - [id number] Implanted:Qty: 1 on 05/19/2020 by Kemal Quiroga MD at [facility] Screw Right: Tibia APARNA 1896-4032S / / Screw Humeral Locking Fully Threaded Sterile 0izz56lh T2 - [id number] Implanted:Qty: 1 on 05/19/2020 by Kemal Quiroga MD at [facility] Screw Right: Tibia APARNA 1896-4055S / / Chip Crushed Bone Cancellous 15cc Freezed Dried 1mm To 8mm - [id number] Implanted:Qty: 1 on 06/29/2019 by Kemal Quiroga MD at [facility] Tissue Right: Femur LIFENET 01/09/2024 CAN15 / / [id number] Putty Demineralized Bone Matrix 5cc Dbx - [id number] Implanted:Qty: 1 on 06/29/2019 by Kemal Quiroga MD at [facility] Tissue Right: Femur MUSCULOSKELETAL TRANSPLANT FND 03/27/2021 093933 / / [id number] Description:DBX ALBERT, 5 CC PRODUCT CODE [id number] T2 Humeral Nail 7 X 250mm Implanted:Qty: 1 on 05/19/2020 by Kemal Quiroga MD at [facility] Left: Tibia APARNA 01/08/2024 1830-0725S / / [id number] Humeral Nail 7 X 250mm Implanted:Qty: 1 on 05/19/2020 by Kemal Quiroga MD at [facility] Right: Tibia APARNA 12/08/2022 1830-0725S / / [id number] Procedures * Due to [place] [employer] law, this organization might not be sharing negative HIV tests. Procedure Name Priority Date/Time Associated Diagnosis Comments BASIC METABOLIC PANEL STAT 05/20/2020 9:37 PM EST from Last 3 Months or Most Recently Relevant to Health Maintenance Results * Due to [place] [employer] law, this organization might not be sharing [...] - 10.7 mg/dL 05/20/2020 10:09 PM EST [facility] Anion Gap 7 5 - 15 05/20/2020 10:09 PM EST [email or web address] eGFR Non- >90 >=90 mL/min/BS A 05/20/2020 10:09 PM EST [email or web address] eGFR >90 >=90 mL/min/BS A 05/20/2020 10:09 PM EST [facility] Comment: Units = mL/min/1.73 [...] MD LAB BLOOD ORDERABLES Fi nal Result [email or web address] [address] [place] [address], from Last 3 Months or Most Recently Relevant to Health Maintenance Additional Health Concerns Infection Onset Date Last Indicated Multidrug resistant organisms MRSA 06/24/2019 06/24/2019 Insurance [employer] Advance Directives Documents on File Type Date Recorded Patient Analog Ic Design Architect Nita stark Health Care Proxy 02/20/2019 3:46 PM Sonia [...] Agents on File Name Relationship Healthcare Agent [facility] p Communication Rory Harrison Daughter Health Care Agent Care Teams Director Of Food And Beverage Services Relationship Specialty Start Date End Date Bambi Langley [address] [place] [address] dr Aislinn Tao, [place] [address] PCP - General Internal Medicine 10/31/17
--- OUTSIDE RECORDS SUMMARY | 2025-01-09 13:02 | XMS_ITS | Data Portability ---
Author Organization [facility] [employer] [facility], Main Office Address [address] [facility], [address] [place] [address] Care Team Providers Care Trackless Trolley Driver Name Role Phone HELENA TAO - 2ND FLOOR OTHER Assessment Encounter Date Assessment Date Assessment LastModified by Organization Details LastModified Time 03/20/2019 03/20/2019 03/15/19 WBC 7.3, Hgb 12.7, Hct 38.7, Plt 370, Na 133, K 4.4, BUN 21, Cleaning Crew Member 1.05 [email or web address] Not available 03/20/2019 18:56:14 04/22/2019 04/22/2019 03/15/19 WBC 7.3, Hgb 12.7, Hct 38.7, Plt 370, Na 133, K 4.4, BUN 21, Cleaning Crew Member 1.05 [email or web address] Not available 04/22/2019 09:22:09 Plan of Treatment Reminders Order Date Submit Date Provider Last Modified By Organization Details Last Modified Time Details Appointments None record ed. Lab None record ed. Referral None record ed. Procedures None record ed. Surgeries None record ed. Imaging None record ed. Medication Orders None record ed. Patient TargetsNo targets recorded. Patient InstructionsNo instructions recorded. Reason for Referral None Reported. Problems Name Problem SNOMED Code Status Onset Date Resolution Date Notes Provider Name and Address Organization Details Recorded Time Recurrent falls 699112403 Active 2017 THERON Wayne [address] [facility], [address], [place], [address], [facility] [employer] 8 14:39:29 Congenital genu varum 27846425 Active 2017 THERON Wayne [address] [facility], [address], [place], [address], [facility] [employer] 8 14:39:39 Hypertensive disorder 71345098 Active 2017 THERON Wayne [address], [address], [place], [address], [place] [employer] 8 14:39:46 Chronic pain 50922433 Active 2017 THERON Wayne [address], [address], [place], [address], [place] [employer] 8 14:52:27 Depressive disorder 68738508 Active 2018 THERON GARCIAS [address], [address], [place], [address], [place] [employer] 9 11:30:52 Migraine 43185840 Active 2018 THERON GARCIAS [address], [address], [place], [address], [employer] 9 12:16:20 Gastroesophage al reflux disease without esophagitis 812040440 Active 2018 THERON GARCIAS [address], [address], [place], [address], [place] [employer] [facility] 9 12:17:43 History of osteotomy 962865831 Active 2018 THERON GARCIAS [address], [address], [place], [address], [employer] 9 18:20:10 Insomnia 761678218 Active 2018 THERON GARCIAS [address], [address], [place], [address], [place] [employer] [facility] 9 12:17:48 Problem Notes None recorded. Medical Equipment None Reported. Allergies No known drug allergies Medications Not known to be on any medication Vitals Date Recorded Body height Systolic And Diastolic Provider Name and Address Organization Details Last Updated DateTime 04/13/2019 142.24 cm 94/63 mm[Hg] Sahara Zamudio MD [address], [address], [place], [address], [employer] 04/13/2019 13:23:57 Date Recorded Body height Heart rate Respiratory rate Body temperature Oxygen saturation Oxygen saturation in Arterial blood by Pulse oximetry Systolic And Diastolic Provider Name and Address Organization Details Last Updated DateTime 0 142.24 cm 86 /min 18 /min 97.6 [degF] 98 % 98 % 106/67 mm[Hg] THERON GARCIAS [address] , [address], [place], [address], [employer] 0 09:19:44 Date Recorded Body height Body mass index (BMI) Body weight Heart rate Respiratory rate Body temperature Oxygen saturation Oxygen saturation in Arterial blood by Pulse oximetry Systolic And Diastolic Provider Name and Address Organization Details Last Updated DateTime 9 142.24 cm 33.2 kg/m2 29887.7 5 g 92 /min 18 /min 97.7 [degF] 98 % 98 % 84/57 mm[Hg] THERON GARCIAS [address] , [address], [place], [address], [employer] [facility] 9 12:09:17 Date Recorded Body height Body mass index (BMI) Body weight Heart rate Respiratory rate Body temperature Systolic And Diastolic Provider Name and Address Organization Details Last Updated DateTime 9 142.24 cm 35.3 kg/m2 45134.4 4 g 113 /min 18 /min 98.1 [degF] 102/66 mm[Hg] THERON GARCIAS [address] , [address], [place], [address], [employer] [facility] 9 19:03:58 Date Recorded Body height Body temperature Heart rate Respiratory rate Oxygen saturation Oxygen saturation in Arterial blood by Pulse oximetry Systolic And Diastolic Provider Name and Address Organization Details Last Updated DateTime 9 142.24 cm 98 [degF] 97 /min 18 /min 97 % 97 % 88/58 mm[Hg] THERON GARCIAS [address] , [address], [place], [address], [employer] [facility] 9 19:05:46 Social History Question Answer Notes LastModified by Organizat ion Details LastModified Time Tobacco Smoking Status Never Smoker THERON GARCIAS [address] [facility], [address], [place], [address], [facility] 02/22/2019 11:22:57 Do You Have An Advance Directive? Yes FULL CODE nely Information not available 09/01/2017 How Much Tobacco Do You Chew? None Information not available 02/22/2019 How Many Days In The Past Year Have You Had A Heavy Drinking Consumption (4+ Female, 5+ Male)? 0 [email or web address] Information not available 08/29/2017 Do You Have A Medical Power Of Crm Dynamics Developer? Yes Hcp On File Information not available 02/22/2019 What Was The Date Of Your Most Recent Tobacco Screening? 02/22/2019 Information not available 02/22/2019 How Much Tobacco Do You Smoke? No Information not available 02/22/2019 On What Date Was Tobacco Cessation Counseling Provided? 02/22/2019 NA Information not available 02/22/2019 Sex: Unknown Functional Status Question Answer Note LastModified by Organizat ion Details LastModified Time What is your level of alcohol consumption? None [email or web address] Information not available 08/29/2017 Do you or have you ever used smokeless tobacco? Never used smokeless tobacco Information not available 02/22/2019 Do you or have you ever used e-cigarettes or vape? Never used electronic cigarettes Information not available 02/22/2019 Mental Status None recorded. Family History Nothing Reported. Medical History Condition Response Hypertension Y Gynecological HistoryNo gynecological history recorded. Obstetrics History GPAL:G 0 P 0 0 0 0 Past Encounters Encounter ID Performer Location Encounter Start Date Encounter Closed Date Diagnosis/Indication Diagnosis SNOMED-CT Code Diagnosis ICD10 Code Diagnosis IMO Codes Diagnosis Note [id number] THERON Wayne AT [address] [place] [address] 08/29/2017 14:33:05 09/11/2017 20:48:12 Recurrent falls 397975899 R29.6 see hpipt needs referral to ortho so that she can seek treatment for congenital genu varum. falls are getting more frequent and she may need surgery to correct this.start PT OT for conditioni ng and mobility Hypertensive disorder 38 457241 I10 pt is only on hctz 25 mg qd and norvasc 10 mg qdshe has not taken metoprolol for HTN.her most recent dr visit report only shows these meds and nsaid and vit d.monitor labs and bp Chronic pain 13106632 G8 9.29 continue ibuprofen 800 mg tid with meals Congenital genu varum 79 945727 Q74.1 as above [id number] MD EMEKA Torres AT [address] [address] 09/01/2017 11:32:51 09/11/2017 20:49:09 Congenital genu varum 28549946 Q74.1 Female with congenital genu varum, now in for short-term PT/OT evaluation and management . She lives in a home that requires one flight of stairs to negotiate. Hypertensive disorder 38 363298 I10 Hypertensi on is well controlled on current regimen. We will continue to monitor. Chronic pain 62401582 G8 9.29 Pain is controlled with Tylenol and NSAIDs. Continue to monitor. [id number] THERON GARCIAS AT [address] [address] 09/07/2017 08:13:28 09/12/2017 16:14:43 Chronic pain 04872977 G89.29 tylenol 925 mg qidibuprof en 800 mg tiddenies pain at this timeagrees to wean off of scheduled doses of ibuprofen and tylenol and to try neurontinc ontinue with therapy Hypertensive disorder 38 915524 I10 norvasc 10 mg qdHCTZ 25 mg qdblood pressure well controlled Recurrent falls 64855836 2 R29.6 continues with therapymon itor progress [id number] MD EMEKA Hein AT [address] [address] 09/12/2017 13:51:47 09/18/2017 20:49:00 Hypertensive disorder 86710767 I10 norvasc 10 mg qdHCTZ 25 mg qdrecheck at f/u Chronic pain 78745166 G8 9.29 significan t improvemen t now on gabapentin 100 mg tidf/u with pcptitrate dose for effect [id number] [facility] [address] 02/22/2019 11:00:11 02/27/2019 08:24:39 History of osteotomy 020320177 Q89.7 weight bearing limited to only transfers all other mobility is restricted to wheel chair tylenol 650 mg q 6 hrs scheduled follow up on 03/06/19 with surgeon in [place] keflex 500 mg tid if needed for pin site infection only after calling surgeon lovenox 40 mg qd oxycodone 5 mg q 4 hrs mod pain and 10 mg q 4 hrs severe pain monitor pin sites monitor bowels Congenital genu varum 79 810909 Q74.1 calcium carbonate 500 mg bid vitamin D 1000 units qd monitor Hypertensive disorder 38 849799 I10 norvasc 10 mg qd metoprolol succinate xl 50 mg qd HCTZ 25 mg qd, lasix 20 mg qd and lisinopril 30 mg qd-on hold until SBP over 150 will re-eval b/ps in one week monitor b/ps and labs Recurrent falls 77145206 2 R29.6 continues with therapymon itor progress Chronic pain 08934756 G8 9.29 neurontin 300 mg q 8 hrs discussed risk vs benefit of neurontin with pt nabumetone 750 mg bid methocarba mol 750 mg q 8 hrs Depressive disorder 3548 9007 F32.89 citalopram 10 mg qd trazodone 50 mg q hs discussed risk vs benefit of citalopram and trazodone with pt monitor mood Migraine 61656304 G43.80 9 sumatripta n 50 mg once and may repeat once in 2 hrs-not to exceed 2 doses in 24 hrs monitor for migraines Gastroesop hageal reflux disease without esophagitis 232685813 K21.9 omeprazole 20 mg qd monitor for symptoms [id number] Rex Duenas MD [address] [address] 02/27/2019 11:48:35 03/01/2019 10:30:05 Congenital genu varum 76332259 Q74.1 congenital bilateral varus malformati onnow s/p surgical correction with fixators in placeupdat e surgery with bleedingmo nitor sitesfollo w ortho recstherap y to evalloveno x for DVT prophylaxi s Hypertensive disorder 38 581156 I10 norvasc 10 mg qdHCTZ 25 mg qdlasix 20 mg bidmetopro lol 25 mg qdmonitor bp and renal functionad just prn Gastroesop hageal reflux disease without esophagitis 903328306 K21.9 omeprazole 20 mg qdmonitor for sx control [id number] THERON GARCIAS [facility] [address] [address] 03/08/2019 11:18:02 03/13/2019 14:00:56 Chronic pain 58283162 G89.29 neurontin 300 mg q 8 hrs nabumetone 750 mg bid methocarba mol 750 mg q 8 hrs History of osteotomy 429 321565 Q89.7 weight bearing limited to only transfers all other mobility is restricted to wheel chair tylenol 650 mg q 4 hrs prn follow up on 03/20/19 with surgeon in [place] keflex 500 mg tid if needed for pin site infection only after calling surgeon lovenox 40 mg qd oxycodone 5 mg q 4 hrs mod pain and 10 mg q 4 hrs severe pain monitor pin sites-site s with large amount of serous drainage-n o s/s of infection monitor bowels Depressive disorder 3548 9007 F32.89 citalopram 10 mg qd monitor mood [id number] THERON GARCIAS [facility] [address] [address] 03/12/2019 11:42:13 03/19/2019 10:40:55 Cellulitis 893365827 L03.818 pin site infection surgeon aware and was sent pictures he ordered cipro 500 mg bid til 03/20/19 sites had large amount of pus looking drainage with small amount of redness at periphery will continue to monitor site and update surgeon as needed [id number] THERON GARCIAS [facility] [address] [address] 03/18/2019 10:52:11 03/22/2019 15:43:11 History of osteotomy 690332328 Q89.7 weight bearing limited to only transfers all other mobility is restricted to wheel chair tylenol 650 mg q 4 hrs prn follow up on 03/20/19 with surgeon in [place] keflex 500 mg tid if needed for pin site infection only after calling surgeon lovenox 40 mg qd oxycodone 5 mg q 4 hrs mod pain and 10 mg q 4 hrs severe pain monitor pin sites-no s/s of infection monitor bowels she has a appt with surgeon on monday the th pin site infection last week and continues on cipro 500 mg bid til 03/20/19-a reas are clear no and no s/s of infection Depressive disorder 3548 9007 F32.89 citalopram 10 mg qd monitor mood Insomnia 160500785 G47.0 9 trazodone 50 mg q hs-had initially but nathaniel castanon (may have been prn and dropped off) discussed risk vs benefit of trazodone with pt monitor sleep [id number] THERON GARCIAS [address] [address] 03/20/2019 09:05:03 03/22/2019 16:05:38 History of osteotomy 868207811 Q89.7 weight bearing as tolerated and with walker-new today tylenol 650 mg q 4 hrs prn had follow up today with surgeon in [place] keflex 500 mg tid if needed for pin site infection only after calling surgeon lovenox 40 mg qd oxycodone 5 mg q 4 hrs mod pain and 10 mg q 4 hrs severe pain monitor pin sites-no s/s of infection monitor bowels Hypertensive disorder 38 807856 I10 norvasc 10 mg qd metoprolol succinate xl 50 mg qd HCTZ 25 mg qd lasix 20 mg bid lisinopril 30 mg qd monitor b/ps and labs Migraine 13593518 G43.80 9 sumatripta n 50 mg once and may repeat once in 2 hrs-not to exceed 2 doses in 24 hrs monitor for migraines Depressive disorder 3548 9007 F32.89 citalopram 10 mg qd monitor mood Chronic pain 92168061 G8 9.29 neurontin 300 mg q 8 hrs nabumetone 750 mg bid methocarba mol 750 mg q 8 hrs monitor pain Insomnia 745505952 G47.0 9 trazodone 50 mg q hs monitor sleep Gastroesop hageal reflux disease without esophagitis 145491347 K21.9 omeprazole 20 mg qd monitor for symptoms [id number] THERON GARCIAS [facility] [address] [address] 03/27/2019 11:04:38 04/05/2019 16:31:11 History of osteotomy 738531466 Q89.7 weight bearing as tolerated and with walker tylenol 650 mg q 4 hrs prn keflex 500 mg tid if needed for pin site infection only after calling surgeon lovenox 40 mg qd oxycodone 5 mg q 4 hrs mod pain and 10 mg q 4 hrs severe pain monitor pin sites with small amount of drainage and crusty areas will have nurse send pictures to surgeon and await call she is c/o pain on top of right fixator as it rubs on the bed/chair will have therapy evaluate this monitor bowels [id number] Sahara Zamudio MD [facility] [address] [address] 04/13/2019 13:23:23 04/17/2019 14:44:17 Hypertensive disorder 81341810 I10 amlodipine 10 mg dailyHCTZ 25 mg dailyfuros emide 20 mg bidmetopro lol ER 25 mg dailynabum etone 750 mg bidwill monitor Depressive disorder 3548 9007 F43.23 citalopram 10 mg dailytrazo done 50 mg at hswill monitor History of osteotomy 429 858580 Z90.89 enoxaparin 40 mg dailyoxyco done 5-10 mg q4h prn per orthoPT/OT Chronic pain 77909582 G8 9.29 gabapentin 300 mg tidmethoca rbamol 750 mg tidwill monitor Gastroesop hageal reflux disease without esophagitis 491438612 K21.9 omeprazole 20 mg dailywill monitor [id number] THERON GARCIAS [facility] [address] [address] 04/22/2019 09:09:45 04/29/2019 14:44:39 History of osteotomy 558838724 Q89.7 weight bearing with transfers and short distances with walker tylenol 650 mg q 4 hrs prn keflex 500 mg tid if needed for pin site infection only after calling surgeon lovenox 40 mg qd oxycodone 5 mg q 4 hrs mod pain and 10 mg q 4 hrs severe pain follow with surgeon in [place] Congenital genu varum 79 181541 Q74.1 calcium carbonate 500 mg bid vitamin D 1000 units qd follow up with PCP Hypertensive disorder 38 598014 I10 norvasc 10 mg qd metoprolol succinate xl 25 mg qd lisinopril 30 mg qdHCTZ 25 mg qd lasix 20 mg bid follow up with PCP Recurrent falls 47813497 2 R29.6 utilize walker follow up with PCP Chronic pain 48605334 G8 9.29 neurontin 300 mg tid nabumetone 750 mg bid methocarba mol 750 mg q 8 hrs follow up with PCP Depressive disorder 3548 9007 F32.89 citalopram 10 mg qd trazodone 50 mg q hs follow up with PCP Migraine 11468512 G43.80 9 sumatripta n 50 mg once and may repeat once in 2 hrs-not to exceed 2 doses in 24 hrs follow up with PCP Gastroesop hageal reflux disease without esophagitis 108120041 K21.9 omeprazole 20 mg qd follow up with PCP Insomnia 402251935 G47.0 9 trazodone 50 mg q hs follow up with PCP Health Concerns Section Related Observation LastModified by Organization Detai ls LastModified Time None Recorded Concern Status LastModified by Organization Details LastModified Time None Recorded Advance Directives Directive Y: FULL CODE Payers Insurance Date Sequence Insurance Name Policy Number Policy Ozuna Covered Member ID Ozuna Member ID Guarantor Name 09/12/2017 1 [place]ARE [place]: [employer] Jannet Harrison [id number] Jannet Montanez 04/29/2019 1 [facility] ([facility] DONELL Harrison [id number] Jannet Montanez Notes Date Note Type Note Provider Name and Address Organization Details Recorded Time 03/18/2019 text/html A 48 year old female being seen for a acute rounding visit. Patient has been doing well. She has been transferring well. She is completing her cipro for pin site infection which is clear looking at this time. She has her usual pain but is not unbearable. She takes the oxycodone when needed. She is returning to the surgeon this monday. THERON GARCIAS [address] [facility], [address], [place], [address], [facility] 03/18/2019 12:30:13 03/20/2019 text/html A 48 year old female being seen for a routine rounding visit (30 day). Today she went to a follow up appt with her surgeon who has made her weight bearing with a walker. She has been doing well. The pin site infection has cleared. She has been in good spirits. She has had less pain. She is very motivated to heal. She eats and drinks well. Weight has been stable. Blood pressure medications are all back in place. Staff notes no concerns at this time. THERON GARCIAS [address] [facility], [address], [place], [address], [employer] 03/20/2019 19:04:33 03/27/2019 text/html A 48 year old female being seen for a acute rounding visit. Seeing patient for c/o increased drainage at pin sites. Patient thinks she has a pin site infection. Will have nurse send pictures to surgeon and see if he wants to start another antibiotic. She c/o pain on the fixator on the right at the top where it hits the bed causing pressure. Will have therapy look at positioning for her. THERON GRACIAS [address] [facility], [address], [place], [address], [employer] 03/27/2019 19:10:36 04/13/2019 text/html ROS as noted in the HPI This 48 year old female rehab resident is seen today for routine rounding visit. She was admitted to [facility] for continued care and rehab about 6 weeks ago after surgical correction of congenital bilateral bowleg deformities at [facility]. She had bilateral femoral osteotomies and placement of external fixators on 02/19/19. This surgery was in preparation for further surgery planned in the future to replace both knees in the future. Patient was seen in follow up by ortho on 03/20/19 and Xrays showed early healing of osteotomies. Weight bearing and walking with walker was recommended as well as passive ROM of both knees and hips. Today patient complains of continued pain especially her right leg. Medical history is remarkable for congenital genu varum, chronic pain, hypertension, GERD, depression. MOLST: full code Sahara Zamudio MD [address] [facility], [address], [place], [address], [employer] 04/13/2019 13:43:51 04/22/2019 text/html A 48 year old female being seen for a discharge summary. Patient was admitted from [facility] following a bilateral femur osteotomy with external fixation. She had this planned in order to have knee replacement. She will require lower leg osteotomies also before knee can be done. Dr Quiroga brought her to the OR on 02/19/19. She had a unremarkable post op. She was started on lovenox for DVT prophy. She was sent with a script for abt if needed for pin site infection. We are not to start it without calling the surgeons office. She has come here for continued care. She has done well here. She has been treated a couple of times for pin site infection per her surgeons approval. She is able to bear weight and she will be discharging home with services. She will need to follow with surgeon to continue pain control continued weight bearing status. Medical history of HTN, migraine, falls, depression, chronic pain, GERD and congenital genu varum. THERON GARCIAS [address] [facility], [address], [place], [address], [facility] [employer] 04/22/2019 11:16:58 OBGyn Episode No OBEpisode recorded.
[2025-01-09] MEDS: Barium Sulfate Oral (Vanilla) 450 ML ORAL.SUSP 900 ML PO (13:49)
[2025-01-09] MEDS: iohexoL 350 MG/ML 100 ML INFUS..BTL IV (13:49)
[2025-01-09 14:20] LABS: Creatinine POC 0.8 mg/dL (0.5-1.4); GFR POC > 60
== END 2025-01-09 11:08 | disposition home or self-care (01) ==
LOC: HO.CT 11:07
PROVIDERS: Visit Provider Nurse Practitioner Family
DX: R10.9 Unspecified abdominal pain (principal)
CPT/HCPCS: 74177; 82565; Q9967

== ENCOUNTER → 2025-01-09 11:10 | Outpatient (BNV) | payer OTHER, SELFPAY | PROVIDERS: Visit Provider Radiology Diagnostic Radiology | DX: K76.0 Fatty (change of) liver, not elsewhere classified (principal); J98.4 Other disorders of lung; M16.0 Bilateral primary osteoarthritis of hip | CPT/HCPCS: 74177 ==

== ENCOUNTER 2025-01-13 09:22 | Outpatient (AMB) | payer OTHER, SELFPAY ==
[2025-01-13 09:33] VITALS: BP 104/86; PULSE 83; RESP 18; O2SAT 98
--- NOTE | 2025-01-13 09:33 | A.OFFPC_ITS ---
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 Instructions: Doctor's Order clindamycin phosphate 2% 1 appful vaginal BEDTIME 7 days clotrimazole-betamethasone 1-0.05 % 1 appl topical BID 5 days commode (bedside commode) As directed-extra wide [DME mattress As directed] docusate sodium 100 mg PO BEDTIME [electric edelmira lift As directed] esomeprazole magnesium 20 mg PO DAILY gabapentin 400 mg PO TID 30 days hospital bed As directed [hospital bed As directed] [edelmira lift As directed] latex gloves (Latex Gloves, Large) As directed latex gloves (Latex Gloves, Large) As directed lisinopril 40 mg PO DAILY 90 days metoprolol succinate ER 50 mg PO DAILY oxycodone 5 mg PO BID PRN 30 days psyllium husk 6 grams PO DAILY PRN 30 days [scooter As directed] [shower chair As directed] Shower Chair As directed simethicone 125 mg PO TID-QID PRN [sliding board As directed] underpads (Bed Underpads) Use 3 to 4 bed underpads daily [wipes As directed] zolpidem 5 mg PO BEDTIME PRN 30 days Tobacco use date assessed: 01/13/25 Dental Screening Dental Screen Date: 01/13/25 Did you have a dental visit in the last 12 months?: No Did you have a dental problem in the last 6 months where you did not have access to dental care?: No Was dental information given to patient?: No HPI HPI Comments History of Present Illness Details The patient is a 54-year-old female presenting with elevated liver enzymes and a liver abnormality detected on ultrasound. The liver enzymes were noted to be elevated, and an ultrasound revealed an abnormality in the liver, prompting a referral to gastroenterology for further evaluation. Hypertension and constipation are well controlled with medications. Additionally, a small focal opacity was identified in the right lower lung base on a recent CT scan, necessitating further imaging with a chest CT to clarify the finding. 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 She does have severe degenerative changes in both hips causing pain that is mildly relief with opiates. Pain management contract will be signed today. [facility] Medical History Abdominal pain Hiatal hernia with GERD Skeletal dysplasia Neuropathy Osteoarthritis Wheelchair dependent Neurogenic bladder Chronic hip pain, bilateral Lumbar degenerative disc disease Chronic GERD Mild recurrent major depression Back pain Essential hypertension Depression with anxiety Constipation by delayed colonic transit Hypovitaminosis D Insomnia Surgical History H/O colonoscopy History of surgery on lower extremity History of back surgery History of orthopedic surgery History of tubal ligation Family History Father Medical history unknown Mother CVD (cardiovascular disease) Maternal Aunt CVD (cardiovascular disease) Family/Other FH: mental illness Social History Housing: Apartment Alcohol intake: never Comment: sleeping Patient Tobacco Use Status: Never used Tobacco Tobacco use type: Cigarette e-Cigarette/Vaping Use: Never Used Second Hand Smoke Exposure: No Advance Directives Date on File: 07/02/20 service: No Current occupational status: unemployed Gender identity: Female Cognitive needs: Yes (wheelchair) Hearing needs: No Vision needs: No Female Reproductive History Menstrual Age of Menarche: 15 Questionnaire Thrive Questionnaire Date Thrive assessed: 09/04/24 I am a: Patient What is your living situation today?: I have a steady place to live Within the past 12 months, did the food you bought not last and you didn't have the money to get more?: Never true Within the past 12 months, did you worry whether your food would run out before you got money to buy more?: Never true Do you have trouble paying for medicines?: No Do you have trouble getting transportation to medical appointments?: No Do you have trouble paying your heating and electricity bill?: Yes Do you have trouble taking care of your child, family member or friend?: Yes Do you have trouble with day-to-day activities such as bathing, preparing meals, shopping, managing finances, etc.?: Yes Are you currently unemployed and looking for a job?: Yes Are you interested in more education?: Yes Please select the resources that you would like help with: None Currently or been in a relationship where the following occur: No concerns reported THRIVE Score: 1 BRIAN-7 AMB Questionnaire BRIAN-7 Date BRIAN - 7 assessed: 09/04/24 Source: Developed by Drs. Pedro Kincaid, Jannie Sterling, Dieudonne Higginbotham and colleagues, with an educational melody from [email or web address]. Review of Systems Const All systems reviewed & are unremarkable except as noted in HPI and below Card Denies chest pain at rest, Denies chest pain with activity, Denies edema, Denies irregular heart rhythm, Denies claudication, Denies dyspnea, Denies dyspnea on exertion, Denies orthopnea, Denies paroxysmal nocturnal dyspnea and Denies slow heart rate Resp Denies cough, Denies dyspnea and Denies dyspnea on exertion Physical exam (Primary Care) Vital Signs: Last Vital Signs Pulse 83 01/13/25 09:33 Resp 18 01/13/25 09:33 BP 104/86 01/13/25 09:33 Pulse Ox 98 01/13/25 09:33 Oxygen Delivery Method Room Air 01/13/25 09:33 Tobacco/Smoking Status: Tobacco use Status Tobacco use date assessed 01/13/25 01/13/25 09:40 Patient Tobacco Use Status Never used Tobacco 01/13/25 09:40 Tobacco use type Cigarette 01/13/25 09:40 e-Cigarette/Vaping Use Never Used 01/13/25 09:40 Thrive Assessment: Date of Thrive Assessment Date Thrive assessed 09/04/24 01/13/25 09:40 Currently or been in a relationship where the following occur: No concerns reported Const Limitations: wheelchair Resp Effort & Inspection: normal respiratory effort Auscultation: clear to auscultation bilaterally Cardio Jugular venous distension: no JVD Rate: regular rate Rhythm: regular rhythm Heart sounds: S1 normal heart sound present and S2 normal heart sound present Coding Level of Care Code Est Pt Level 4 (14999) Complex EM visit Add On G2211 Diagnoses Essential hypertension I10 Mild recurrent major depression F33.0 Transaminitis R74.01 Chronic constipation K59.09 Chronic hip pain, bilateral M25.551; M25.552; G89.29 Time Spent (min) 21 Assessment & Plan Assessment & Plan (1) Essential hypertension: Code(s): I10 - Essential (primary) hypertension Category: Medical (2) Mild recurrent major depression: Code(s): F33.0 - Major depressive disorder, recurrent, mild Category: Medical (3) Transaminitis: Code(s): R74.01 - Elevation of levels of liver transaminase levels Category: Medical (4) Chronic constipation: Comment: Reviewed in detail-consistent bowel, maintaining high-fiber Code(s): K59.09 - Other constipation Category: Medical (5) Chronic hip pain, bilateral: Code(s): M25.551 - Pain in right hip; M25.552 - Pain in left hip; G89.29 - Other chronic pain Category: Medical Plan Plan Patient was informed and verbally consented to the use of an ambient scribe for clinic note documentation during this visit. 1. Elevated Liver Enzymes The patient will follow up with gastroenterology for further evaluation of elevated liver enzymes and liver abnormality detected on ultrasound. 2. Small Focal Opacity In The Right Lower Lung Base A chest CT is recommended to further investigate the small focal opacity identified in the right lower lung base. 3. Essential hypertension Continue lisinopril and amlodipine. Blood pressure goal is equal or less than 130/80. 4. Chronic constipation Continue docusate as needed. Orders: Orders CT chest wo IV con Today R91.8 - Other nonspecific abnormal finding of lung field Lipid Panel 8 Months E78.5 - Hyperlipidemia, unspecified Medications: New cholecalciferol (vitamin D3) 25 mcg PO DAILY 90 caps 1RF 90 days Refilled acetaminophen 1,000 mg (2 x 500 mg) PO Q6H PRN 240 caps 1RF pain 30 days
--- OUTSIDE RECORDS SUMMARY | 2025-01-13 10:36 | XMS_ITS | Clinical Summary ---
Author Organization [facility] Address [address] [place] [address] Care Team Providers Care Deckhand Fishing Vessel Name Role Phone Bambi Langley Primary Care Provider [phone] Allergies No known active allergies Medications metoprolol [...] 02/21/2019(Deferred: Patient Refused - pt refused using aerial photograph interpreter) Family History Medical History Relation Name [...] Info) Description 05/08/2025 11:45 AM EST Follow-Up [facility] [address] [place] [address] Kemal Quiroga MD [address] [place] [address] Health Maintenance Due Date Last Done Comments [...] series) 07/02/2046 Medical Devices Implanted Type Area Account Services Analyst Device Identifier Shelf Expiration Date Model / Serial / Lot Rail Deformity Fixator Titanium Adult 350mm - [id number] Implanted:Qty: 2 on 02/19/2019 by Kemal Quiroga MD at [facility] Implant Femur Roxanne [id number] / / Post Outrigger 30 Degree 11mm - [id number] Implanted:Qty: 2 on 06/29/2019 by Kemal Quiroga MD at [facility] Implant Right: Femur [employer] 390.013 / / Bone Cement R 1x40 Refobacin - [id number] Implanted:Qty: 1 on 09/10/2019 by Kemal Quiroga MD at [facility] Implant Right: Femur Roxanne 10/08/2019 [id number] / / [id number] Description:Mixed with tobra mycin 2.4 grams,2 grams vancomycin,240 mg gentamycin Nail Tibial T2 Standard 8mm X 270mm - [id number] Implanted:Qty: 1 on 09/10/2019 by Kemal Quiroga MD at [facility] Nail Right: Femur APARNA 11/08/2019 1822-0827S / / [id number] Screw Cortical Tapered Hydroxyapatite 6mm Shank 40mm Thread 6mm/6rnn014jc - [id number] Implanted:Qty: 1 on 02/19/2019 by Kemal Quiroga MD at [facility] Screw Right: Femur Roxanne 05/26/2028 [id number] / / [id number] Screw Cortical Tapered Hydroxyapatite 6mm Shank 40mm Thread 6mm/1xlt341yc - [id number] Implanted:Qty: 1 on 02/19/2019 by Kemal Quiroga MD at [facility] Screw Femur Roxanne 04/25/2028 [id number] / / [id number] Screw Cortical Tapered Hydroxyapatite 6mm Shank 60mm Thread 6mm/4cdo684ic - [id number] Implanted:Qty: 1 on 02/19/2019 by Kemal Quiroga MD at [facility] Screw Right: Femur Roxanne 06/04/2028 [id number] / / [id number] Screw Cortical Tapered Hydroxyapatite 6mm Shank 40mm Thread 6mm/6hdx639ne - [id number] Implanted:Qty: 1 on 02/19/2019 by Kemal Quiroga MD at [facility] Screw Right: Femur Roxanne 04/25/2028 [id number] / / [id number] Screw Cortical Tapered Hydroxyapatite 6mm Shank 40mm Thread 6mm/[id number] - [id number] Implanted:Qty: 1 on 02/19/2019 by Kemal Quiroga MD at [facility] Screw Right: Femur Roxanne 07/16/2028 [id number] / / [id number] Screw Cortical Tapered Hydroxyapatite 6mm Shank 40mm Thread 6mm/4hra965jh - [id number] Implanted:Qty: 1 on 02/19/2019 by Kemal Quiroga MD at [facility] Screw Right: Femur Roxanne 05/03/2028 [id number] / / [id number] Screw Cortical Tapered Hydroxyapatite 6mm Shank 40mm Thread 6mm/6rcg176bg - [id number] Implanted:Qty: 1 on 02/19/2019 by Kemal Quiroga MD at [facility] Screw Left: Femur Roxanne 07/16/2028 [id number] / / [id number] Screw Cortical Tapered Hydroxyapatite 6mm Shank 50mm Thread 6mm/9ilt205ei - [id number] Implanted:Qty: 1 on 02/19/2019 by Kemal Quiroga MD at [facility] Screw Left: Femur Roxanne 06/29/2028 [id number] / / [id number] Screw Cortical Tapered Hydroxyapatite 6mm Shank 40mm Thread 6mm/8mvf080lg - [id number] Implanted:Qty: 1 on 02/19/2019 by Kemal Quiroga MD at [facility] Screw Left: Femur Roxanne 05/26/2028 [id number] / / [id number] Screw Cortical Tapered Hydroxyapatite 6mm Shank 40mm Thread 6mm/8kbj277ns - [id number] Implanted:Qty: 1 on 02/19/2019 by Kemal Quiroga MD at [facility] Screw Left: Femur Roxanne 05/03/2028 [id number] / / [id number] Screw Schanz Self-Drilling 60mm Thread Stainless Steel 5.3bxq652kt - [id number] Implanted:Qty: 4 on 06/29/2019 by Kemal Quiroga MD at [facility] Screw Right: Femur [employer] 294.785 / / Screw Humeral Locking Fully Threaded Sterile 7iwq84ef T2 - [id number] Implanted:Qty: 1 on 09/10/2019 by Kemal Quiroga MD at [facility] Screw Right: Femur APARNA 1896-4060S / / Screw Humeral Locking Fully Threaded Sterile 4fwe62cj T2 - [id number] Implanted:Qty: 1 on 05/19/2020 by Kemal Quiroga MD at [facility] Screw Left: Tibia APARNA 1896-4035S / / Screw Humeral Locking Fully Threaded Sterile 8qaq04ld T2 - [id number] Implanted:Qty: 1 on 05/19/2020 by Kemal Quiroga MD at [facility] Screw Left: Tibia APARNA 1896-4034S / / Screw Humeral Locking Fully Threaded Sterile 3snq10sg T2 - [id number] Implanted:Qty: 1 on 05/19/2020 by Kemal Quiroga MD at [facility] Screw Left: Tibia APARNA 1896-4050S / / Screw Humeral Locking Fully Threaded Sterile 0uuk13za T2 - [id number] Implanted:Qty: 1 on 05/19/2020 by Kemal Quiroga MD at [facility] Screw Left: Tibia APARNA 1896-4040S / / Screw Humeral Locking Fully Threaded Sterile 3gcy22wc T2 - [id number] Implanted:Qty: 1 on 05/19/2020 by Kemal Quiroga MD at [facility] Screw Right: Tibia APARNA 1896-4050S / / Screw Humeral Locking Fully Threaded Sterile 7ibs66ja T2 - [id number] Implanted:Qty: 1 on 05/19/2020 by Kemal Quiroga MD at [facility] Screw Right: Tibia APARNA 1896-4034S / / Screw Humeral Locking Fully Threaded Sterile 3znm59kr T2 - [id number] Implanted:Qty: 1 on 05/19/2020 by Kemal Quiroga MD at [facility] Screw Right: Tibia APARNA 1896-4032S / / Screw Humeral Locking Fully Threaded Sterile 3edz31oq T2 - [id number] Implanted:Qty: 1 on 05/19/2020 by Kemal Quiroga MD at [facility] Screw Right: Tibia APARNA 1896-4055S / / Chip Crushed Bone Cancellous 15cc Freezed Dried 1mm To 8mm - [id number] Implanted:Qty: 1 on 06/29/2019 by Kemal Quiroga MD at [facility] Tissue Right: Femur LIFENET 01/09/2024 CAN15 / / [id number] Putty Demineralized Bone Matrix 5cc Dbx - [id number] Implanted:Qty: 1 on 06/29/2019 by Kemal Quiroga MD at [facility] Tissue Right: Femur MUSCULOSKELETAL TRANSPLANT FND 03/27/2021 [id number] / / [id number] Description:DBX ALBERT, 5 CC PRODUCT CODE [id number] T2 Humeral Nail 7 X 250mm Implanted:Qty: 1 on 05/19/2020 by Kemal Quiroga MD at [facility] Left: Tibia APARNA 01/08/2024 1830-0725S / / [id number] Humeral Nail 7 X 250mm Implanted:Qty: 1 on 05/19/2020 by Kemal Quiroga MD at [facility] Right: Tibia APARNA 12/08/2022 1830-0725S / / [id number] Procedures * Due to [place] [employer] law, this organization might not be sharing negative HIV tests. Procedure Name Priority Date/Time Associated Diagnosis Comments BASIC METABOLIC PANEL STAT 05/20/2020 9:37 PM EST from Last 3 Months or Most Recently Relevant to Health Maintenance Results * Due to [place] [employer] law, this organization might not be sharing [...] - 10.7 mg/dL 05/20/2020 10:09 PM EST [facility] Anion Gap 7 5 - 15 05/20/2020 10:09 PM EST [facility] eGFR Non- >90 >=90 mL/min/BS A 05/20/2020 10:09 PM EST [facility] eGFR >90 >=90 mL/min/BS A 05/20/2020 10:09 PM EST [facility] Comment: Units = mL/min/1.73 [...] MD LAB BLOOD ORDERABLES Fi nal Result [facility] [address] [place] [address], from Last 3 Months or Most Recently Relevant to Health Maintenance Additional Health Concerns Infection Onset Date Last Indicated Multidrug resistant organisms MRSA 06/24/2019 06/24/2019 Insurance [employer] Advance Directives Documents on File Type Date Recorded Patient Patch Sander Nita stark Health Care Proxy 02/20/2019 3:46 [...] Agents on File Name Relationship Healthcare Agent [facility] p Communication Rory Harrison Daughter Health Care Agent Care Teams [employer] Relationship Specialty Start Date End Date Bambi Langley [address] [place] [address] dr Aislinn Tao, [place] [address] PCP - General Internal Medicine 10/31/17
== END 2025-01-13 11:12 | disposition home or self-care (01) ==
LOC: HO.HMCH 09:23
PROVIDERS: PCP Internal Medicine; Visit Provider Internal Medicine
DX: I10 Essential (primary) hypertension (principal); F33.0 Major depressive disorder, recurrent, mild; R74.01 Elevation of levels of liver transaminase levels; K59.09 Other constipation; M25.551 Pain in right hip; M25.552 Pain in left hip; G89.29 Other chronic pain

== ENCOUNTER → 2025-01-13 09:22 | Outpatient (BNVA) | payer OTHER, SELFPAY | PROVIDERS: PCP Internal Medicine; Visit Provider Internal Medicine | DX: I10 Essential (primary) hypertension (principal); R32 Unspecified urinary incontinence; G82.20 Paraplegia, unspecified; F33.0 Major depressive disorder, recurrent, mild; R74.01 Elevation of levels of liver transaminase levels; K59.09 Other constipation; R91.8 Other nonspecific abnormal finding of lung field; E78.5 Hyperlipidemia, unspecified; M25.552 Pain in left hip; M25.551 Pain in right hip; G89.29 Other chronic pain; Z99.3 Dependence on wheelchair | CPT/HCPCS: 99212 ==

== ENCOUNTER 2025-01-17 10:14 | Outpatient (AMB) | payer OTHER, SELFPAY ==
--- NOTE | 2025-01-17 10:28 | MHC.OFFVIS ---
Vital Signs 01/17/25 10:29 Height 4 ft 8 in BP 117/65 Blood Pressure Location Lt brachial Position Sitting Pulse 80 Oxygen Delivery Method Room Air Intake Visit Reasons: Ct scan results Intake Note: Patient followup for CT scan results Patient cc: abdominal pain on the sides, nauseas, chocking sensation in the morning on and off due with a white flame on her esophagus in the morning, constipation with hard stool and not be able to do BM x 3 dates, medication for constipation are not helping her. Lathe Set Up Operator Required: Yes Lathe Set Up Operator Name: HENRY Sanches Accompanied by: Self / Same As Patient Allergies No Known Allergies Allergy (Verified 01/17/25 10:28) HPI HPI Ct scan results: Details: Patient is a 54-year-old female with PMH of depression with anxiety, insomnia,OA, hypertension and chronic GERD. F/u for management of GERD, constipation and review CT results Pt continues to experience severe GERD symptoms, particularly phlegm in throat, and episodes of transient dyspnea and dysphagia not clearly linked to meals or activity. Constipation persists despite intermittent use of bowel regimen, with last BM ~3 days ago and daily abd pain. Pt has previously trialed Miralax, milk of magnesia (MOM) and lactulose for constipation, all with mildl or unsatisfactory benefit; currently using docusate with partial compliance. No new weight loss or GI bleed. Denies recent hospitalizations or acute GI events. Reports spine and bilateral leg pain, is wheelchair-bound post rods/orthopedic procedures, and maintains some light exercise. Adherence to current diet recommendations reported; compliance with prior constipation regimen is partial. PFSH Medical History (Updated 01/17/25 @ 14:31 by Mally Schultz CNP) Dyspnea Abdominal pain Hiatal hernia with GERD Skeletal dysplasia Neuropathy Osteoarthritis Wheelchair dependent Neurogenic bladder Chronic hip pain, bilateral Lumbar degenerative disc disease Chronic GERD Mild recurrent major depression Back pain Essential hypertension Depression with anxiety Constipation by delayed colonic transit Hypovitaminosis D Insomnia Surgical History H/O colonoscopy History of surgery on lower extremity History of back surgery History of orthopedic surgery History of tubal ligation Family History Father Medical history unknown Mother CVD (cardiovascular disease) Maternal Aunt CVD (cardiovascular disease) Family/Other FH: mental illness Social History (Reviewed 01/17/25 @ 10:28 by Olga Machuca Housing: Apartment Alcohol intake: never Comment: sleeping Patient Tobacco Use Status: Never used Tobacco Tobacco use type: Cigarette e-Cigarette/Vaping Use: Never Used Second Hand Smoke Exposure: No Advance Directives Date on File: 07/02/20 service: No Current occupational status: unemployed Gender identity: Female Cognitive needs: Yes (wheelchair) Hearing needs: No Vision needs: No Female Reproductive History Menstrual Age of Menarche: 15 Review of Systems Const Reports as per HPI ENT Reports as per HPI Card Reports as per HPI Resp Reports as per HPI GI Reports as per HPI Reports as per HPI Physical Exam Vital Signs: Last Vital Signs Pulse 80 01/17/25 10:29 BP 117/65 01/17/25 10:29 Oxygen Delivery Method Room Air 01/17/25 10:29 Const General: healthy appearing, no acute distress and well developed Nutritional Appearance: average body habitus Orientation/consciousness: patient oriented x3 HEENT Head: Yes normal to inspection, Yes normocephalic and Yes atraumatic Face and sinus: Yes normal facial exam Eyes General: appearance normal, both eyes and all related structures Neck Neck: Yes normal visual inspection Resp Effort & Inspection: normal respiratory effort, able to speak in complete sentences, no tracheal deviation and symmetric chest movement Auscultation: clear to auscultation bilaterally Cardio Jugular venous distension: no JVD Rate: regular rate Rhythm: regular rhythm Heart sounds: S1 normal heart sound present, S2 normal heart sound present, no gallops and no murmurs GI Inspection: Yes normal to inspection, No distended and Yes obesity Palpation (GI): Soft to palpation, Firmness to palpation present (GI), nontender and No hepatosplenomegaly present Auscultation: Hypoactive bowel sounds present Neuro General: patient oriented x3 Gait exam (Neuro): Normal gait present Psych Appearance: grossly normal Mental Status: mental status grossly normal Speech and movement: Normal speech and movement present Affect: normal affect Attitude: cooperative Thought process: Normal thought process present Thought content: Normal thought content present Insight: Good insight present (Psych) Judgement: Good judgement present (Psych) Immunizations Engerix-B (PF) 20 mcg/mL intramuscular suspension Performing Provider: Mally Schultz CNP Performing Location: [facility] [place] G[facility] Administered by: Jazmin Calabrese RN on 01/17/25 11:20 Dose Route Admin Location Dispensed Lot Number Expiration Date [employer] Assistant 1 mL IM Left Deltoid 1 mL [id number] 12/13/26 72919-384-25 [employer] Total Dispensed Waste 1 mL 0 % VIS Given Date VIS Provided VIS Publication Date 01/17/25 Single Vaccine 22 Eligibility Eligibility Date Funding Source Not [facility] Eligible 01/17/25 Private Results Reviewed Results Reviewed: Date of Service: 01/09/25 Procedure(s): CT abdomen pelvis w IV con Accession Number(s): [id number] cc: Mally Schultz [employer] NURSE STAFF~ Report Number: [id number]: Total DLP = 516.00 mGy-cm Reason for Exam: R10.9 - Unspecified abdominal pain EXAMINATION: CT ABDOMEN AND PELVIS WITH CONTRAST CLINICAL INFORMATION: Abdominal pain, left lower quadrant, distention, hypoactive bowel sounds COMPARISON: None available. TECHNIQUE: Multidetector volumetric images were obtained from the superior aspect of the liver through the pubic symphysis following administration 85 mL of Omnipaque 350 intravenous contrast. Sagittal and coronal reformatted images were obtained on the technologist's workstation. Oral contrast: Present This CT examination was performed using dose optimization techniques as appropriate, variously including the following: *Automated exposure control *Adjustment of mA and/or kV according to patient size (this includes techniques or standardized protocols for targeted exams where dose is matched to indication/reason for exam; i.e. extremities or head) *Use of iterative reconstruction technique FINDINGS: LUNG BASES: Small focal opacity is present in the medial right lower lung base. LIVER, GALLBLADDER, AND BILIARY TREE: The liver is diffusely low attenuating slightly sparing the left hepatic lobe. The gallbladder is unremarkable. PANCREAS: Unremarkable. SPLEEN: Unremarkable. ADRENAL GLANDS: Unremarkable. KIDNEYS AND URETERS: The kidneys are normal in size, shape, and attenuation. No hydronephrosis, hydroureter, or calculi seen. No perinephric stranding. BLADDER: Unremarkable. GASTROINTESTINAL TRACT: The small and large bowel are unremarkable. The appendix is unremarkable. ABDOMINAL WALL: There is laxity of linea alba the periumbilical region likely with a small umbilical hernia.. LYMPH NODES: Normal. VASCULAR: Unremarkable. PELVIC VISCERA: Uterus and ovaries are unremarkable. OSSEOUS STRUCTURES: Severe degenerative changes are present in the hip joints. There are large marginal osteophytes and moderate joint space narrowing The proximal end of an intramedullary air is seen in the right femur. There is mild convex right curvature of the lumbar spine. There is facet arthropathy with sclerosis and osteophytes most advanced in the mid to lower thoracic spine. CT/CT abdomen pelvis w IV con IMPRESSION: No abnormalities that explain the patient's left lower quadrant pain and distention. Small focal opacity in the medial right lower lung could represent atelectasis or pneumonia. Hepatic steatosis. Severe degenerative changes involving bilateral hip joints. Date of Service: 11/09/23 Procedure(s): FL upper GI w air Accession Number(s): [id number] cc: Sharon Cisse PA-C~ EXAMINATION: XR FLUOROSCOPY UPPER GI WITH AIR CLINICAL INFORMATION: Reflux COMPARISON: None TECHNIQUE: Fluoroscopic air contrast upper GI examination was performed utilizing standard techniques with thin and thick barium and effervescent granules. Numerous spot images were obtained. FINDINGS: Dual and single contrast images of the esophagus demonstrate normal caliber, contour, and mucosal pattern. There is a possible cervical web present in the upper esophagus above the thoracic. No evidence of stricture, mass, or ulcerations identified. Esophageal peristalsis was normal. A small type 1 hiatal hernia is present. Significant gastroesophageal reflux was observed that results in the patient vomiting. Evaluation of the gastric mucosa is limited due to patient's inability to be adequately positioned as well as the patient vomiting the barium. FLUOROSCOPY TIME: 2 minutes 6 seconds Number of Spot Images: 4 Number of Cine: 6 DOSE AREA PRODUCT: 1389 uGy-m2 (microgray-meter squared) FL/FL upper GI w air IMPRESSION: 1. 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 2. Small type I hiatal hernia 3. Severe gastroesophageal reflux 4. Very limited examination due to patient's immobility a as well as poor tolerance of the barium due to vomiting. -------- Date of Service: 12/07/22 Narrative: Operative Information Procedure Description: Colonoscopy Indication: screening Anesthesia: MAC COLONOSCOPY Instrument: Olympus variable stiffness pediatric scope 190L Colonoscopy Monitoring: Vital signs and clinical assessment, continuous EKG monitoring, Pulse oximetry, Carbon Dioxide monitoring and blood pressure monitoring were done throughout the procedure. Colon withdrawal time was 13 minutes. Procedure: The patient was placed in the left lateral decubitis position and pre-procedure medications were administered. After a digital rectal examination of the ano-rectum, the video colonoscope was inserted into the rectum and advanced through the colon to the cecum/TI. The colonoscope was slowly withdrawn in a retrograde panoramic fashion and the colon mucosa was carefully examined including a retroflexed view of the rectum. Findings and interventions are described below. Procedure Difficulty: moderate, pressure applied Findings: Terminal Ileum-normal Cecum:normal Ascending Colon: normal Transverse Colon -normal Descending Colon:normal Sigmoid Colon: normal Rectum: Retroflexion with medium sized internal hemorrhoids, grade I Anorectum - normal Colon preparation: [place] Bowel Preparation Scale Right colon; 1-2 Transverse colon: 2 Left colon; 1-2 Impression and Post Procedure Diagnosis: fair prep internal hemorrhoids Plan: High fiber diet leaflet Avoid straining at stool, epsom salts and sitz bath, anusol supps or cream Repeat Colonoscopy in 3-4 years due to fair prep or earlier if clinically indicat Assessment & Plan Assessment & Plan (1) GERD (gastroesophageal reflux disease): Code(s): K21.9 - Gastro-esophageal reflux disease without esophagitis Category: Medical Qualifiers: Esophagitis presence: esophagitis presence not specified Qualified Code(s): K21.9 - Gastro-esophageal reflux disease without esophagitis Plan: Persistent, severe per 11/2023 upper GI. Although, difficulty with diagnostic due to mobility status and poor tolerance of barium. Ongoing reflux symptoms with persistent throat/phlegm complaints. Suboptimally controlled. Additional testing: -EGD not yet scheduled -could consider barium swallow. Although, poor tolerance with UGI 11/2023 Medications: Increase esomeprazole to 40 mg PO daily (stop 20 mg), take AM on empty stomach, 30 min before food. Lifestyle: Continue high-fiber, avoid reflux triggers, adherence emphasized. Referrals: Transfer GI care to [facility], per pt request?referral initiated. F/up: 3 months?monitor for sx improvement, med tolerance. (2) Chronic constipation: Comment: 12/07/22 Colonoscopy complete with fair prep-internal hemorrhoids. Recommendation to repeat in 3-4 years given outcome of prep. Code(s): K59.09 - Other constipation Category: Medical Plan: Persistent, worsening; last BM 3 days ago, ineffective prior regimens. Symptoms refractory to current dose, need further titration and med trial. Additional testing: None; recent imaging reassuring. Medications: -start senna/docusate 2 tabs PO qHS or split AM/PM dosing per tolerance -consider linaclotide if inadequate response. -Avoid daily MOM. Lifestyle: Reinforce high-fiber intake (sweet potato, green banana, rice, beans, vegetables), routine movement/exercise, regular hydration. Referrals: Continue GI f/u, adjust based on response. Referral to [facility] per pt request (location). F/up: F/u as scheduled in 3 months or sooner PRN if worsening. (3) Transaminitis: Code(s): R74.01 - Elevation of levels of liver transaminase levels Category: Medical Plan: Stable on imaging, LFTs remain elevated. Need to r/o alternative etiologies (celiac, viral, autoimmune hepatitis). Additional testing: Fasting labs ordered for liver eval, celiac panel, autoimmunity; offer hep B vaccine due to non-immunity. Medications: -administered hep B immunization today in clinic -No further changes Lifestyle: Continue healthy diet, ensure weight management, minimize hepatotoxins. Referrals: N/A. F/up: f/u after labs, reassess approach per results (4) Dyspnea: Code(s): R06.00 - Dyspnea, unspecified Category: Medical Qualifiers: Dyspnea type: shortness of breath Qualified Code(s): R06.02 - Shortness of breath Plan: Recurrent, brief self-resolving episodes. Completed empirical antibiotic treatment ( see 01/10 w/l). Rationale: Unclear etiology, needs pulm eval; possible GERD/laryngeal spasm vs intrinsic pulm process. Additional testing: None through GI; pending pulm consult. Medications: No current changes. Lifestyle: None specific at this time. Referrals: Pulmonology, [place]?referral initiated. F/up: As directed by pulm, urgent ED visit warranted for prolonged or severe episodes. Plan Follow-up 3 months or sooner as needed Time: I spent a total of 40 minutes on the date of encounter which includes: Preparing to see the patient (reviewed previous documentation, test results and medical history) Performing a medically appropriate exam and/or evaluation Ordering medications, tests, and procedures Documenting clinical information in the health record Orders: Orders Transglutaminase IgA 01/17/25 R74.01 - Elevation of levels of liver transaminase levels Lipase 01/17/25 R74.01 - Elevation of levels of liver transaminase levels Mitochondrial Antibody 01/17/25 R74.01 - Elevation of levels of liver transaminase levels Ferritin 01/17/25 R74.01 - Elevation of levels of liver transaminase levels Smooth Muscle Antibody 01/17/25 R74.01 - Elevation of levels of liver transaminase levels Hepatitis B Adult Immunization 01/17/25 Z23 - Encounter for immunization Prothrombin Time INR 01/17/25 R74.01 - Elevation of levels of liver transaminase levels Hepatitis A,B,C Profile 01/17/25 R74.01 - Elevation of levels of liver transaminase levels KRISS Reflex Titer and Pattern 01/17/25 R74.01 - Elevation of levels of liver transaminase levels Alkaline Phosphatase Isoenzyme 01/17/25 R74.01 - Elevation of levels of liver transaminase levels Referrals Pulmonology Referral R06.00 - Dyspnea, unspecified Gastroenterology Referral K21.9 - Gastro-esophageal reflux disease without esophagitis, K59.09 - Other constipation, R74.01 - Elevation of levels of liver transaminase levels Medications: New esomeprazole magnesium take one tablet at daily. Best taken on empty stomach, waiting 30 minutes before 40 mg PO DAILY 90 caps 0RF 56 days sennosides-docusate sodium 8.6-50 mg (Senna Plus) Take two tablets at bedtime 2 tab-caps (2 x 8.6-50 mg) PO BEDTIME 180 caps 1RF Discontinued azithromycin Take on tablet daily for 3 days. Take with food. Discontinued Reason: No Longer Medically Relevant 500 mg PO DAILY 3 days 3 tabs 0RF docusate sodium Take one tablet at bedtime. Discontinued Reason: Duplicate 100 mg PO BEDTIME 90 caps 1RF constipation psyllium husk mix 1 tablespoon ( 6G) into at least 8 oz of water or juice before administering Discontinued Reason: No Longer Medically Relevant 6 grams PO DAILY 30 days PRN 400 grams 2RF constipation K59.09 - Other constipation esomeprazole magnesium Take one tablet daily, can increased to two tablets after two weeks if no response Discontinued Reason: Doctor's Order 20 mg PO DAILY 90 caps 0RF Coding Level of Care Code Established Pt Est Pt Level 5 (69551) Patient Type Established Diagnoses Gastroesophageal reflux disease, unspecified whether esophagitis present K21.9 Esophagitis presence: esophagitis presence not specified Chronic constipation K59.09 Transaminitis R74.01 Shortness of breath R06.02 Dyspnea type: shortness of breath
[2025-01-17 10:29] VITALS: BP 117/65; PULSE 80
== END 2025-01-17 11:20 | disposition home or self-care (01) ==
PROVIDERS: PCP Internal Medicine; Visit Provider Nurse Practitioner Family
DX: Z23 Encounter for immunization (principal)

== ENCOUNTER → 2025-01-17 10:14 | Outpatient (BNVA) | payer OTHER, SELFPAY | PROVIDERS: PCP Internal Medicine; Visit Provider Nurse Practitioner Family | DX: Z71.2 Person consulting for explanation of examination or test findings (principal); Z23 Encounter for immunization; K21.9 Gastro-esophageal reflux disease without esophagitis; K59.09 Other constipation; R06.02 Shortness of breath; R74.01 Elevation of levels of liver transaminase levels | CPT/HCPCS: 90471; 90746; 99212 ==

== ENCOUNTER 2025-02-21 10:17 | Outpatient (AMB) | payer OTHER, SELFPAY ==
--- NOTE | 2025-02-21 10:38 | AM.OFFVISNUR ---
Vital Signs 02/21/25 10:53 BP 154/78 H Blood Pressure Location Rt brachial Position Sitting Pulse 84 Pulse Source Pulse Oximeter Pulse Oximetry (%) 98 Oxygen Delivery Method Room Air Intake Visit Reasons: Hep B #2 Pasting Inspector Required: Yes Pasting Inspector Services: Pasting Inspector Present Pasting Inspector Name: Verónica Wellington Allergies No Known Allergies Allergy (Verified 02/21/25 10:54) Immunizations Engerix-B (PF) 20 mcg/mL intramuscular suspension Performing Provider: Mally Schultz CNP Performing Location: [facility] [place] Gastroenterology Services Administered by: Natalia Shirley RN on 02/21/25 10:55 Dose Route Admin Location Dispensed Lot Number Expiration Date [facility] [employer] Machine Operator 1 mL IM Left Deltoid 1 mL [id number] 03/19/27 29622-733-15 [employer] Total Dispensed Waste 1 mL 0 % VIS Given Date VIS Provided VIS Publication Date 02/21/25 Single Vaccine 22 Eligibility Eligibility Date Funding Source Not [facility] Eligible 02/21/25 Private Assessment & Plan Assessment & Plan (1) Encounter for immunization: Code(s): Z23 - Encounter for immunization Orders: Orders Hepatitis B Adult Immunization Today Z23 - Encounter for immunization Coding Diagnoses Encounter for immunization Z23 Comment Nurse Visit Only
[2025-02-21 10:53] VITALS: BP 154/78; PULSE 84; O2SAT 98
--- OUTSIDE RECORDS SUMMARY | 2025-02-21 13:04 | XMS_ITS | Data Portability ---
Author Organization [facility] [employer] [facility], Main Office Address [address], [address] [place] [address] Care Team Providers Care 3Rd Pressman Name Role Phone HELENA TAO - 2ND FLOOR OTHER Assessment Encounter Date Assessment Date Assessment LastModified by Organization Details LastModified Time 03/20/2019 03/20/2019 03/15/19 WBC 7.3, Hgb 12.7, Hct 38.7, Plt 370, Na 133, K 4.4, BUN 21, Counter Server 1.05 [email or web address] Not available 03/20/2019 18:56:14 04/22/2019 04/22/2019 03/15/19 WBC 7.3, Hgb 12.7, Hct 38.7, Plt 370, Na 133, K 4.4, BUN 21, Counter Server 1.05 [email or web address] Not available 04/22/2019 09:22:09 Plan [...] Address Organization Details Recorded Time Recurrent falls 826528892 Active 2017 THERON Wayne [address] [facility] [address] [facility] 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, [address], [place], [address], [facility] [employer] 8 14:39:39 Hypertensive disorder 56930786 Active 2017 THERON Wayne [address], [address], [place], [address], [employer] [facility] 8 14:39:46 Chronic pain 21773338 Active 2017 THERON Wayne [address], [address], [place], [address], [facility] [employer] [facility] 8 14:52:27 Depressive disorder 71519781 Active 2018 THERON GARCIAS [address], [address], [place], [address], [place] [employer] [facility] 9 11:30:52 Migraine 48238511 Active 2018 THERON GARCIAS [address], [address], [place], [address], [employer] [facility] 9 12:16:20 Gastroesophage al reflux disease without esophagitis 026846441 Active 2018 THERON GARCIAS [address], [address], [place], [address], [place] [employer] [facility] 9 12:17:43 History of osteotomy 926942806 Active 2018 THERON GARCIAS [address], [address], [place], [address], [employer] [facility] 9 18:20:10 Insomnia 422639122 Active 2018 THERON GARCIAS [address], [place], [address], [place] [employer] [facility] 9 12:17:48 Problem Notes None recorded. Medical Equipment None Reported. Allergies No known drug allergies Medications Not known to be on any medication Vitals Date Recorded Body height Systolic And Diastolic Provider Name and Address Organization Details Last Updated DateTime 04/13/2019 142.24 cm 94/63 mm[Hg] Sahara Zamudio MD [address], [address], [place], [address], [employer] [facility] 04/13/2019 13:23:57 Date Recorded Body height Heart rate Respiratory rate Body temperature Oxygen saturation Oxygen saturation in Arterial blood by Pulse oximetry Systolic And Diastolic Provider Name and Address Organization Details Last Updated DateTime 0 142.24 cm 86 /min 18 /min 97.6 [degF] 98 % 98 % 106/67 mm[Hg] THERON GARCIAS [address], [place], [address], [employer] [facility] 0 09:19:44 Date Recorded Body height Body mass index (BMI) Body weight Heart rate Respiratory rate Body temperature Oxygen saturation Oxygen saturation in Arterial blood by Pulse oximetry Systolic And Diastolic Provider Name and Address Organization Details Last Updated DateTime 9 142.24 cm 33.2 kg/m2 40006.7 5 g 92 /min 18 /min 97.7 [degF] 98 % 98 % 84/57 mm[Hg] THERON GARCIAS [address] , [address], [place], [address], [employer] [facility] 9 12:09:17 Date Recorded Body height Body mass index (BMI) Body weight Heart rate Respiratory rate Body temperature Systolic And Diastolic Provider Name and Address Organization Details Last Updated DateTime 9 142.24 cm 35.3 kg/m2 35129.4 4 g 113 /min 18 /min 98.1 [degF] 102/66 mm[Hg] THERON GARCIAS [address], [place], [address], [employer] [facility] 9 19:03:58 Date Recorded Body height Body temperature Heart rate Respiratory rate Oxygen saturation Oxygen saturation in Arterial blood by Pulse oximetry Systolic And Diastolic Provider Name and Address Organization Details Last Updated DateTime 9 142.24 cm 98 [degF] 97 /min 18 /min 97 % 97 % 88/58 mm[Hg] THERON GARCIAS [address] , [address], [place], [address], [employer] [facility] 9 19:05:46 Social History Question Answer Notes LastModified by Organizat ion Details LastModified Time Tobacco Smoking Status Never Smoker THERON GARCIAS [address] [facility], [address], [place], [address], [facility] 02/22/2019 11:22:57 Do You Have An Advance Directive? Yes FULL CODE nely Information not available 09/01/2017 How Much Tobacco Do You Chew? None Information not available 02/22/2019 How Many Days In The Past Year Have You Had A Heavy Drinking Consumption (4+ Female, 5+ Male)? 0 [email or web address] Information not available 08/29/2017 Do You Have A Medical Power Of Trading Specialist? Yes Hcp On File Information not available [...] is your level of alcohol consumption? None [email or web address] Information not available 08/29/2017 Do you or [...] ICD10 Code Diagnosis IMO Codes Diagnosis Note [id number] THERON Wayne AT [address] [place] [address] 08/29/2017 14:33:05 09/11/2017 20:48:12 Recurrent falls 875632193 R29.6 see hpipt needs referral to ortho so that she can seek treatment for congenital genu varum. 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 She lives in a home that requires one flight of stairs to negotiate. Hypertensive disorder 38 692249 I10 Hypertensi on is well controlled on current regimen. We will continue to monitor. Chronic pain 16602275 G8 9.29 Pain is controlled with Tylenol and NSAIDs. Continue to monitor. [id number] THERON GARCIAS AT [address] [address] 09/07/2017 08:13:28 09/12/2017 16:14:43 Chronic pain 61370968 G89.29 tylenol 925 mg qidibuprof en 800 mg tiddenies pain at this timeagrees to wean off of scheduled doses of ibuprofen and tylenol and to try neurontinc ontinue with therapy Hypertensive disorder 38 578460 I10 norvasc 10 mg qdHCTZ 25 mg qdblood pressure well controlled Recurrent falls 12936711 2 R29.6 continues with therapymon itor progress 11876 MD EMEKA Hein AT [address] [address] 09/12/2017 13:51:47 09/18/2017 20:49:00 Hypertensive disorder 97264314 I10 norvasc 10 mg qdHCTZ 25 mg qdrecheck at f/u Chronic pain 11347977 G8 9.29 significan t improvemen t now on gabapentin 100 mg tidf/u with pcptitrate dose for effect [id number] THERON GARCIAS [facility] [address] 02/22/2019 11:00:11 02/27/2019 08:24:39 History of osteotomy 333758913 Q89.7 weight bearing limited to only transfers all other mobility is restricted to wheel chair tylenol 650 mg q 6 hrs scheduled follow up on 03/06/19 with surgeon in [place] keflex 500 mg tid if needed for pin site infection only after calling surgeon lovenox 40 mg qd oxycodone 5 mg q 4 hrs mod pain and 10 mg q 4 hrs severe pain monitor pin sites monitor bowels Congenital genu varum 79 939834 Q74.1 calcium carbonate 500 mg bid vitamin D 1000 units qd monitor Hypertensive disorder 38 926277 I10 norvasc 10 mg qd metoprolol succinate xl 50 mg qd HCTZ 25 mg qd, lasix 20 mg qd and lisinopril 30 mg qd-on hold until SBP over 150 will re-eval b/ps in one week monitor b/ps and labs Recurrent falls 40449304 2 R29.6 continues with therapymon itor progress Chronic pain 88111434 G8 9.29 neurontin 300 mg q 8 hrs discussed risk vs benefit of neurontin with pt nabumetone 750 mg bid methocarba mol 750 mg q 8 hrs Depressive disorder 3548 9007 F32.89 citalopram 10 mg qd trazodone 50 mg q hs discussed risk vs benefit of citalopram and trazodone with pt monitor mood Migraine 67074024 G43.80 9 sumatripta n 50 mg once and may repeat once in 2 hrs-not to exceed 2 doses in 24 hrs monitor for migraines Gastroesop hageal reflux disease without esophagitis 613125135 K21.9 omeprazole 20 mg qd monitor for symptoms [id number] Rex Duenas MD [address] [address] 02/27/2019 11:48:35 03/01/2019 10:30:05 Congenital genu varum 46104371 Q74.1 congenital bilateral varus malformati onnow s/p surgical correction with fixators in placeupdat e surgery with bleedingmo nitor sitesfollo w ortho recstherap y to evalloveno x for DVT prophylaxi s Hypertensive disorder 38 318018 I10 norvasc 10 mg qdHCTZ 25 mg qdlasix 20 mg bidmetopro lol 25 mg qdmonitor bp and renal functionad just prn Gastroesop hageal reflux disease without esophagitis 488099327 K21.9 omeprazole 20 mg qdmonitor for sx control 77929 THERON GARCIAS [facility] [address] [address] 03/08/2019 11:18:02 03/13/2019 14:00:56 Chronic pain 89634248 G89.29 neurontin 300 mg q 8 hrs nabumetone 750 mg bid methocarba mol 750 mg q 8 hrs History of osteotomy 429 970844 Q89.7 weight bearing limited to only transfers all other mobility is restricted to wheel chair tylenol 650 mg q 4 hrs prn follow up on 03/20/19 with surgeon in [place] keflex 500 mg tid if needed for pin site infection only after calling surgeon lovenox 40 mg qd oxycodone 5 mg q 4 hrs mod pain and 10 mg q 4 hrs severe pain monitor pin sites-site s with large amount of serous drainage-n o s/s of infection monitor bowels Depressive disorder 3548 9007 F32.89 citalopram 10 mg qd monitor mood 34813 THERON GARCIAS [facility] [address] [address] 03/12/2019 11:42:13 03/19/2019 10:40:55 Cellulitis 632880045 L03.818 pin site infection surgeon aware and was sent pictures he ordered cipro 500 mg bid til 03/20/19 sites had large amount of pus looking drainage with small amount of redness at periphery will continue to monitor site and update surgeon as needed [id number] THERON GARCIAS [facility] [address] [address] 03/18/2019 10:52:11 03/22/2019 15:43:11 History of osteotomy 564684454 Q89.7 weight bearing limited to only transfers all other mobility is restricted to wheel chair tylenol 650 mg q 4 hrs prn follow up on 03/20/19 with surgeon in [place] keflex 500 mg tid if needed for [...] citalopram 10 mg qd monitor mood Insomnia 124296329 G47.0 9 trazodone 50 mg q hs-had initially but nathaniel catsanon (may have been prn and dropped off) discussed risk vs benefit of trazodone with pt monitor sleep [id number] THERON GARCIAS [address] [address] 03/20/2019 09:05:03 03/22/2019 16:05:38 History of osteotomy 943835253 Q89.7 weight bearing as tolerated and with walker-new today tylenol 650 mg q 4 hrs prn had follow up today with surgeon in [place] keflex 500 mg tid if needed for pin site infection only after calling surgeon lovenox 40 mg qd oxycodone 5 mg q 4 hrs mod pain and 10 mg q 4 hrs severe pain monitor pin sites-no s/s of infection monitor bowels Hypertensive disorder 38 215678 I10 norvasc 10 mg qd metoprolol succinate xl 50 mg qd HCTZ 25 mg qd lasix 20 mg bid lisinopril 30 mg qd monitor b/ps and labs Migraine 92420513 G43.80 9 sumatripta n 50 mg once and may repeat once in 2 hrs-not to exceed 2 doses in 24 hrs monitor for migraines Depressive disorder 3548 9007 F32.89 citalopram 10 mg qd monitor mood Chronic pain 80872232 G8 9.29 neurontin 300 mg q 8 hrs nabumetone 750 mg bid methocarba mol 750 mg q 8 hrs monitor pain Insomnia 943737020 G47.0 9 trazodone 50 mg q hs monitor sleep Gastroesop hageal reflux disease without esophagitis 383803038 K21.9 omeprazole 20 mg qd monitor for symptoms 37591 THERON GARCIAS [facility] [address] [address] 03/27/2019 11:04:38 04/05/2019 16:31:11 History of osteotomy 106012455 Q89.7 weight bearing as tolerated and with [...] will have therapy evaluate this monitor bowels [id number] Sahara Zamudio MD [facility] [address] [address] 04/13/2019 13:23:23 04/17/2019 14:44:17 Hypertensive disorder 92816656 I10 amlodipine 10 mg dailyHCTZ 25 mg dailyfuros emide 20 mg bidmetopro lol ER 25 mg dailynabum etone 750 mg bidwill monitor Depressive disorder 3548 9007 F43.23 citalopram 10 mg dailytrazo done 50 mg at hswill monitor History of osteotomy 429 513386 Z90.89 enoxaparin 40 mg dailyoxyco done 5-10 mg q4h prn per orthoPT/OT Chronic pain 96942454 G8 9.29 gabapentin 300 mg tidmethoca rbamol 750 mg tidwill monitor Gastroesop hageal reflux disease without esophagitis 604945230 K21.9 omeprazole 20 mg dailywill monitor [id number] THERON GARCIAS [facility] [address] [address] 04/22/2019 09:09:45 04/29/2019 14:44:39 History of osteotomy 263723673 Q89.7 weight bearing with transfers and short distances with walker tylenol 650 mg q 4 hrs prn keflex 500 mg tid if needed for pin site infection only after calling surgeon lovenox 40 mg qd oxycodone 5 mg q 4 hrs mod pain and 10 mg q 4 hrs severe pain follow with surgeon in [place] Congenital genu varum 79 711255 Q74.1 calcium carbonate 500 mg bid vitamin D 1000 units qd follow up with PCP Hypertensive disorder 38 544202 I10 norvasc 10 mg qd metoprolol succinate xl 25 mg qd lisinopril 30 mg qdHCTZ 25 mg qd lasix 20 mg bid follow up with PCP Recurrent falls 93552437 2 R29.6 utilize walker follow up with PCP Chronic pain 75943011 G8 9.29 neurontin 300 mg tid nabumetone 750 mg bid methocarba mol 750 mg q 8 hrs follow up with PCP Depressive disorder 3548 9007 F32.89 citalopram 10 mg qd trazodone 50 mg q hs follow up with PCP Migraine 72843502 G43.80 9 sumatripta n 50 mg once and may repeat once in 2 hrs-not to exceed 2 doses in 24 hrs follow up with PCP Gastroesop hageal reflux disease without esophagitis 446422500 K21.9 omeprazole 20 mg qd follow up with PCP Insomnia 263794097 G47.0 9 trazodone 50 mg q hs follow up with PCP Health Concerns Section Related Observation LastModified by Organization Detai ls LastModified Time None Recorded Concern Status LastModified by Organization Details LastModified Time None Recorded Advance Directives Directive Y: FULL CODE Payers Insurance Date Sequence Insurance Name Policy Number Policy Ozuna Covered Member ID Ozuna Member ID Guarantor Name 09/12/2017 1 MEDICARE [place]: [employer] Jannet Harrison [id number] Jannet Montanez 04/29/2019 1 [facility] DONELL Harrison [id number] Jannet Montanez Notes Date Note Type Note [...] the surgeon this monday. THERON GARCIAS [address] [facility], [address], [place], [address], [facility] 03/18/2019 12:30:13 03/20/2019 text/html A 48 year [...] concerns at this time. THERON GARCIAS [address] [facility], [address], [place], [address], [employer] 03/20/2019 19:04:33 03/27/2019 text/html A 48 year [...] therapy look at positioning for her. THERON GARCIAS [address] [facility], [address], [place], [address], [employer] 03/27/2019 19:10:36 04/13/2019 text/html ROS as noted in the HPI This 48 year old female rehab resident is seen today for routine rounding visit. She was admitted to [facility] for continued care and rehab about 6 weeks ago after surgical correction of congenital bilateral bowleg deformities at [facility]. She had bilateral femoral osteotomies and [...] MOLST: full code Sahara Zamudio MD [address] [facility], [address], [place], [address], [employer] 04/13/2019 13:43:51 04/22/2019 text/html A 48 year old female being seen for a discharge summary. Patient was admitted from [facility] following a bilateral femur osteotomy with external [...] and congenital genu varum. THERON GARCIAS [address] [facility], [address], [place], [address], [facility] [employer] 04/22/2019 11:16:58 OBGyn Episode No OBEpisode recorded.
--- OUTSIDE RECORDS SUMMARY | 2025-02-21 13:05 | XMS_ITS | Clinical Summary ---
Author Organization [facility] Address [address] [place] [address] Care Team Providers Care Mutual Funds Agent Name Role Phone Bambi Langley Primary Care Provider [phone] Allergies No known active allergies Medications metoprolol [...] 02/21/2019(Deferred: Patient Refused - pt refused using spanish medical interpreter) Family History Medical History Relation Name [...] Info) Description 05/08/2025 11:45 AM EST Follow-Up [facility] [address] [place] [address] Kemal Quiroga MD [address] [place] [address] Health Maintenance Due Date Last Done Comments [...] - Td or Tdap) 09/04/2034 09/04/2024, 02/20/2012 Medical Devices Implanted Type Area Psych Tech Device Identifier Shelf Expiration Date Model / Serial / Lot Rail Deformity Fixator Titanium Adult 350mm - [id number] Implanted:Qty: 2 on 02/19/2019 by Kemal Quiroga MD at [facility] Implant Femur Roxanne [id number] / / Post Outrigger 30 Degree 11mm - [id number] Implanted:Qty: 2 on 06/29/2019 by Kemal Quiroga MD at [facility] Implant Right: Femur [employer] SALES 390.013 / / Bone Cement R 1x40 Refobacin - [id number] Implanted:Qty: 1 on 09/10/2019 by Kemal Quiroga MD at [facility] Implant Right: Femur Roxanne 10/08/2019 [id number] / / [id number] Description:Mixed with tobra mycin 2.4 grams,2 grams vancomycin,240 mg gentamycin Nail Tibial T2 Standard 8mm X 270mm - [id number] Implanted:Qty: 1 on 09/10/2019 by Kemal Quiroga MD at [facility] Nail Right: Femur APARNA 11/08/2019 1822-0827S / / [id number] Screw Cortical Tapered Hydroxyapatite 6mm Shank 40mm Thread 6mm/1ooa365fv - [id number] Implanted:Qty: 1 on 02/19/2019 by Kemal Quiroga MD at [facility] Screw Right: Femur Roxanne 05/26/2028 [id number] / / [id number] Screw Cortical Tapered Hydroxyapatite 6mm Shank 40mm Thread 6mm/2nut625yh - [id number] Implanted:Qty: 1 on 02/19/2019 by Kemal Quiroga MD at [facility] Screw Femur Roxanne 04/25/2028 [id number] / / [id number] Screw Cortical Tapered Hydroxyapatite 6mm Shank 60mm Thread 6mm/8gra233bw - [id number] Implanted:Qty: 1 on 02/19/2019 by Kemal Quiroga MD at [facility] Screw Right: Femur Roxanne 06/04/2028 [id number] / / [id number] Screw Cortical Tapered Hydroxyapatite 6mm Shank 40mm Thread 6mm/7rmz954rb - [id number] Implanted:Qty: 1 on 02/19/2019 by Kemal Quiroga MD at [facility] Screw Right: Femur Roxanne 04/25/2028 [id number] / / [id number] Screw Cortical Tapered Hydroxyapatite 6mm Shank 40mm Thread 6mm/1szo541qb - [id number] Implanted:Qty: 1 on 02/19/2019 by Kemal Quiroga MD at [facility] Screw Right: Femur Roxanne 07/16/2028 [id number] / / [id number] Screw Cortical Tapered Hydroxyapatite 6mm Shank 40mm Thread 6mm/9fhz375pd - [id number] Implanted:Qty: 1 on 02/19/2019 by Kemal Quiroga MD at [facility] Screw Right: Femur Roxanne 05/03/2028 [id number] / / [id number] Screw Cortical Tapered Hydroxyapatite 6mm Shank 40mm Thread 6mm/7apo247fk - [id number] Implanted:Qty: 1 on 02/19/2019 by Kemal Quiroga MD at [facility] Screw Left: Femur Roxanne 07/16/2028 [id number] / / [id number] Screw Cortical Tapered Hydroxyapatite 6mm Shank 50mm Thread 6mm/6ecl357un - [id number] Implanted:Qty: 1 on 02/19/2019 by Kemal Quiroga MD at [facility] Screw Left: Femur Roxanne 06/29/2028 [id number] / / [id number] Screw Cortical Tapered Hydroxyapatite 6mm Shank 40mm Thread 6mm/0vyc000wu - [id number] Implanted:Qty: 1 on 02/19/2019 by Kemal Quiroga MD at [facility] Screw Left: Femur Roxanne 05/26/2028 [id number] / / [id number] Screw Cortical Tapered Hydroxyapatite 6mm Shank 40mm Thread 6mm/0loy258tl - [id number] Implanted:Qty: 1 on 02/19/2019 by Kemal Quiroga MD at [facility] Screw Left: Femur Roxanne 05/03/2028 [id number] / / [id number] Screw Schanz Self-Drilling 60mm Thread Stainless Steel 5.7jgl732zk - [id number] Implanted:Qty: 4 on 06/29/2019 by Kemal Quiroga MD at [facility] Screw Right: Femur DEPUY [employer] SALES 294.785 / / Screw Humeral Locking Fully Threaded Sterile 9khn03ol T2 - [id number] Implanted:Qty: 1 on 09/10/2019 by Kemal Quiroga MD at [facility] Screw Right: Femur APARNA 1896-4060S / / Screw Humeral Locking Fully Threaded Sterile 7tsb64ri T2 - [id number] Implanted:Qty: 1 on 05/19/2020 by Kemal Quiroga MD at [facility] Screw Left: Tibia APARNA 1896-4035S / / Screw Humeral Locking Fully Threaded Sterile 6ddk55xe T2 - [id number] Implanted:Qty: 1 on 05/19/2020 by Kemal Quiroga MD at [facility] Screw Left: Tibia APARNA 1896-4034S / / Screw Humeral Locking Fully Threaded Sterile 9ycj66mw T2 - [id number] Implanted:Qty: 1 on 05/19/2020 by Kemal Quiroga MD at [facility] Screw Left: Tibia APARNA 1896-4050S / / Screw Humeral Locking Fully Threaded Sterile 3psc38fj T2 - [id number] Implanted:Qty: 1 on 05/19/2020 by Kemal Quiroga MD at [facility] Screw Left: Tibia APARNA 1896-4040S / / Screw Humeral Locking Fully Threaded Sterile 3lvg29dh T2 - [id number] Implanted:Qty: 1 on 05/19/2020 by Kemal Quiroga MD at [facility] Screw Right: Tibia APARNA 1896-4050S / / Screw Humeral Locking Fully Threaded Sterile 1rvk21cl T2 - [id number] Implanted:Qty: 1 on 05/19/2020 by Kemal Quiroga MD at [facility] Screw Right: Tibia APARNA 1896-4034S / / Screw Humeral Locking Fully Threaded Sterile 4mcq97wi T2 - [id number] Implanted:Qty: 1 on 05/19/2020 by Kemal Quiroga MD at [facility] Screw Right: Tibia APARNA 1896-4032S / / Screw Humeral Locking Fully Threaded Sterile 7omb23mr T2 - [id number] Implanted:Qty: 1 on 05/19/2020 by Kemal Quiroga MD at [facility] Screw Right: Tibia APARNA 1896-4055S / / Chip Crushed Bone Cancellous 15cc Freezed Dried 1mm To 8mm - [id number] Implanted:Qty: 1 on 06/29/2019 by Kemal Quiroga MD at [facility] Tissue Right: Femur LIFENET 01/09/2024 CAN15 / / [id number] Putty Demineralized Bone Matrix 5cc Dbx - [id number] Implanted:Qty: 1 on 06/29/2019 by Kemal Quiroga MD at [facility] Tissue Right: Femur MUSCULOSKELETAL TRANSPLANT FND 03/27/2021 [id number] / / [id number] Description:DBX PUTTY, 5 CC PRODUCT CODE [id number] T2 Humeral Nail 7 X 250mm Implanted:Qty: 1 on 05/19/2020 by Kemal Quiroga MD at [facility] Left: Tibia APARNA 01/08/2024 1830-0725S / / [id number] T2 Humeral Nail 7 X 250mm Implanted:Qty: 1 on 05/19/2020 by Kemal Quiroga MD at [facility] Right: Tibia APARNA 12/08/20220-0725S / / [id number] Procedures * Due to [facility] law, this organization might not be sharing negative HIV tests. Procedure Name Priority Date/Time Associated Diagnosis Comments BASIC METABOLIC PANEL STAT 05/20/2020 9:37 PM EST from Last 3 Months or Most Recently Relevant to Health Maintenance Results * Due to [facility] law, this organization might not be sharing [...] 5 - 15 05/20/2020 10:09 PM EST [facility] eGFR Non- >90 >=90 mL/min/BS A 05/20/2020 10:09 PM EST [facility] eGFR >90 >=90 mL/min/BS A 05/20/2020 10:09 PM EST [facility] Comment: Units = mL/min/1.73 [...] MD LAB BLOOD ORDERABLES Fi nal Result [facility] [address] [place] [address], from Last 3 Months or Most Recently Relevant to Health Maintenance Additional Health Concerns Infection Onset Date Last Indicated Multidrug resistant organisms MRSA 06/24/2019 06/24/2019 Insurance [facility] MEDICAID Advance Directives Documents on File Type Date Recorded 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
== END 2025-02-21 11:43 | disposition home or self-care (01) ==
PROVIDERS: PCP Internal Medicine; Visit Provider Nurse Practitioner Family
DX: Z23 Encounter for immunization (principal)

== ENCOUNTER 2025-02-21 10:17 | Outpatient (REF) | payer OTHER, SELFPAY ==
[2025-02-21 12:50] LABS: INTERNATIONAL NORM RATIO 1.0 (0.9-1.1); Prothrombin Time 12.8 SEC (11.2-13.5)
[2025-02-21 13:58] LABS: Lipase 35 U/L (8-78)
[2025-02-21 14:05] LABS: Ferritin 111 ng/mL (10-250)
[2025-02-21 14:58] LABS: HBS Num1 0.32 mIU/mL (0-7.99); HBc Num1 0.09 S/CO (0.00-0.79); HBsAGNum1 0.39 S/CO (0.00-0.99); Hepatitis A Antibody IgM 0.28 Index (0-0.79); Hepatitis B Surface Antigen Negative (Negative); ~HepC Num1 0.13 S/CO (0.00-0.79); ~Hepatitis A Antibody IgM Nonreactive (Nonreactive); ~Hepatitis B Surface Antibody NONREACTIVE (Nonreactive); ~Hepatitis C Antibody Nonreactive (Nonreactive)
[2025-02-24 12:13] LABS: Alk.Phos Iso. Macrohepatic 0 % (<=0); Alk.Phos Isoenzymes Bone 69 % (28-66); Alk.Phos Isoenzymes Intest 0 % (1-24); Alk.Phos Isoenzymes Liver 31 % (25-69); Alk.Phos Isoenzymes Placental 0 % (<=0); Alk.Phos Isoenzymes Total 212 U/L (37-153)
[2025-02-25 10:08] LABS: Anti Nuclear Antibody Screen NEGATIVE (NEGATIVE)
== END 2025-02-21 10:18 | disposition home or self-care (01) ==
LOC: HO.LAB 10:17
PROVIDERS: PCP Internal Medicine; Visit Provider Nurse Practitioner Family
DX: Z01.84 Encounter for antibody response examination (principal); Z23 Encounter for immunization; R74.01 Elevation of levels of liver transaminase levels; Z11.59 Encounter for screening for other viral diseases
CPT/HCPCS: 36415; 82728; 83690; 84080; 85610; 86015; 86038; 86364; 86381; 86704; 86706; 86709; 86803; 87340; 90471; 90746